=== PATIENT | female | born 1975 ===

== ENCOUNTER 2021-01-08 13:46 | Outpatient (REF) | payer MEDICAID, SELFPAY | END 2021-01-08 13:47 | disposition home or self-care (01) | LOC: HO.LAB 13:46 | PROVIDERS: Visit Provider Internal Medicine | DX: Z20.822 Contact with and (suspected) exposure to COVID-19 (principal) | CPT/HCPCS: 36415; C9803; U0003; U0005 ==

== ENCOUNTER 2023-03-28 10:21 | Emergency (ER) | payer MEDICAID, SELFPAY ==
[2023-03-28] VITALS (9 sets, daily range): BP systolic 120–160; BP diastolic 72–87; PULSE 89–113; RESP 18–25; TEMP 36.7–39.6; O2SAT 95–99; BMI 27.8
--- NOTE | ~2023-03-28 | US_ITS ---
EXAMINATION: US PELVIS COMPLETE CLINICAL INFORMATION: Right lower quadrant pain COMPARISON: CT abdomen pelvis 03/28/2023 TECHNIQUE: Transabdominal and transvaginal imaging was performed. Technically limited exam as patient was in significant pain. FINDINGS: The uterus is of normal size and echogenicity measuring 8.5 x 5.0 x 5.6 cm. Uterus is retroverted in position. A regular homogeneous endometrium is identified measuring 0.7 cm. Nabothian cysts in the cervix. Tiny 7 mm intramural myoma in the anterior body of the uterus. The right ovary is reported surgically absent. The left measures 5.3 x 2.6 x 3.2 cm for a volume of 23 mL and is remarkable for physiologic dominant follicles however is unremarkable in appearance with normal vascular flow. Increased echogenicity involving the mesenteric fat in the pelvis suggestive of active inflammation. There is trace free fluid in the pelvis and tubular loculated appearing fluid in the anterior pelvis measuring approximately 5.6 x 1.9 cm. There is no pelvic free fluid. US/US pelvic and transvaginal IMPRESSION: 1. Technically limited exam as patient was in significant pain. There is increased echogenicity involving the mesenteric fat in the pelvis suggestive of active inflammation. There is trace free fluid in the pelvis and tubular loculated appearing fluid in the anterior pelvis measuring approximately 5.6 x 1.9 cm of uncertain etiology, differential considerations could include a dilated hydrosalpinx in the setting of PID, a dilated appendix in the setting of appendicitis or a loculated fluid collection or developing abscess in the setting of other underlying inflammatory process. A contrast-enhanced CT of abdomen pelvis with IV and enteric contrast may be useful for further delineation. 2. The right ovary is reported surgically absent. The left ovary is remarkable for physiologic dominant follicles however is unremarkable in appearance with normal vascular flow. 3. Tiny 7 mm intramural myoma in the anterior body of the uterus.
--- NOTE | ~2023-03-28 | CT_ITS ---
EXAMINATION: CT ABDOMEN AND PELVIS WITHOUT CONTRAST CLINICAL INFORMATION: Abdominal pain. COMPARISON: None available. TECHNIQUE: Multidetector volumetric imaging was performed from the superior aspect of the liver through the pubic symphysis. Sagittal and coronal reformatted images were obtained on the technologist's workstation. This CT examination was performed using dose optimization techniques as appropriate, variously including the following: *Automated exposure control *Adjustment of mA and/or kV according to patient size (this includes techniques or standardized protocols for targeted exams where dose is matched to indication/reason for exam; i.e. extremities or head) *Use of iterative reconstruction technique DLP: 606 mGy-cm FINDINGS: LUNG BASES: Normal. No pulmonary consolidation or pleural effusion. LIVER: There is hepatomegaly and diffuse hepatic steatosis. No focal liver lesion is seen on this noncontrast examination. GALLBLADDER AND BILIARY TREE: Gallbladder is without radiopaque stones, wall thickening or pericholecystic fluid. No dilated bile ducts. PANCREAS: Normal. No edema, pancreatic ductal dilatation or mass. SPLEEN: Splenomegaly is present. The spleen measures up to 15.5 cm maximum dimension. ADRENAL GLANDS: Normal. KIDNEYS AND URETERS: The kidneys have normal size and cortical thickness. No perinephric edema or fluid collection. No urolithiasis or hydroureteronephrosis. BLADDER: Urinary bladder is underdistended and suboptimally evaluated. There appears to be mild diffuse thickening of the bladder wall. No bladder stones. BOWEL AND PERITONEUM: Stomach and small bowel are unremarkable. The right colon has a somewhat elongated appearance with cecum located near the midline of the anterior pelvis. The terminal ileum is grossly normal on this noncontrast examination. There is ill-defined soft tissue thickening and fat stranding posterior to the region of the cecum, anterior to the sigmoid colon and superior to the uterine fundus. An acute inflammatory or infectious process is suspected. There is no clearly defined inflamed diverticulum of the sigmoid colon, but the evaluation is limited. There are diverticula along the descending colon without evidence of descending colon diverticulitis. The appendix is not definitively seen and, if in the proper clinical context, differential diagnosis would include appendicitis with extensive periappendiceal inflammation. Also, since inflammation surrounds the uterus and adnexal areas, differential diagnosis would include pelvic inflammatory disease. Trace free fluid is present. There is no overt soft tissue abscess. No pneumoperitoneum. ABDOMINAL WALL: There is diastases of rectus abdominis muscles and minimal protrusion of fat into the umbilicus. VASCULATURE: Abdominal aorta is normal in caliber. LYMPH NODES: No pathologic sized lymph nodes in the abdomen or pelvis. No inguinal lymphadenopathy. PELVIC VISCERA: The uterus and adnexa are not well evaluated. MUSCULOSKELETAL: Unremarkable. CT/CT abdomen pelvis wo IV con IMPRESSION: * There appears to be an acute inflammatory process in the pelvis, although its specific cause is uncertain. The evaluation is limited on this exam performed without use of enteric contrast or intravenous contrast. The appendix is not definitively seen and therefore differential diagnosis would include inflammatory changes from appendicitis. There is no convincing identification of an inflamed sigmoid diverticulum, although diverticula of the colon are present. Since in the fat stranding is around the uterus and adnexal areas, differential includes pelvic inflammatory disease. A repeat evaluation with use of enteric contrast and IV contrast might be helpful. No bowel obstruction. * Hepatosplenomegaly and diffuse hepatic steatosis.
--- NOTE | 2023-03-28 10:57 | ECG_ITS ---
Test Reason : WEAKNESS Blood Pressure : / mmHG Vent. Rate : 103 BPM Atrial Rate : 103 BPM P-R Int : 128 ms QRS Dur : 086 ms QT Int : 338 ms P-R-T Axes : 042 067 018 degrees QTc Int : 442 ms Sinus tachycardia Otherwise normal ECG When compared with ECG of 25-JAN-2017 10:53, No significant change was found Referred By: Genie Valdes Electronically Signed By:Deni Gonzalez
--- NOTE | 2023-03-28 11:15 | PC.NURSE ---
patient a&ox3, c/o 08/03 rt abd pain, abdomen is firm/distended and painful upon palp, iv inserted, labs drawn, tech to perform ekg, call hardin within reach, will continue to monitor.
[2023-03-28 11:16] LABS: MANUAL DIFF FLAG NO
[2023-03-28 11:18] LABS: Basophils Absolute Auto 0.1 X10*3/uL (0.0-0.2); Basophils Percent Auto 0.3 % (0-2); Eosinophils Absolute Auto 0.1 X10*3/uL (0.0-0.4); Eosinophils Percent Auto 0.5 % (0-4); Hematocrit 31.8 % (37.0-47.0); Hemoglobin 10.6 g/dl (12.0-16.0); Imm Gran Abs Auto 0.53 X10*3/uL (0.00-0.03); Lymphocytes Percent Auto 5.8 % (20-40); Mean Corpuscular HGB Conc 33.3 g/dl (31.0-35.0); Mean Corpuscular Hemoglobin 31.7 pg (27.0-33.0); Mean Corpuscular Volume 95.2 fL (80.0-98.0); Mean Platelet Volume 10.8 fL (9.4-12.3); Monocytes Percent Auto 5.8 % (2-11); NRBC Pct Auto 0.1 /100WBC (0.0-0.2); Neutrophils Absolute Auto 14.8 x10*3/uL (2.0-8.3); Neutrophils Percent Auto 84.6 % (45-73); Platelet Count 339 X10*3/uL (160-400); Red Blood Count 3.34 X10*6/uL (4.20-5.50); White Blood Count 17.5 X10*3/uL (4.8-10.8)
[2023-03-28 11:43] LABS: Troponin-I High Sensitivity < 2.7 ng/L (<3.5-17.0)
[2023-03-28 11:44] LABS: Alanine Aminotransferase 25 U/L (0-31); Albumin Level 3.6 g/dL (3.5-5.0); Alkaline Phosphatase 167 U/L (39-117); Anion Gap 18 (12-20); Aspartate Amino Transferase 23 U/L (5-31); Bilirubin Direct 0.2 mg/dL (0.0-0.5); Bilirubin Total 0.7 mg/dL (0.0-1.0); Blood Urea Nitrogen 6 mg/dL (9-16); Calcium 8.5 mg/dL (8.4-10.2); Carbon Dioxide 24 mmol/L (22-29); Chloride 102 mmol/L (96-108); Creatinine Clr Calc Pharmacy 101.8; Estimated Glomerular Filt Rate > 60; Glucose Random 161 mg/dL (60-115); HCG Quantitative < 2 mIU/mL; Lipase 18 U/L (8-78); Magnesium 1.6 mg/dL (1.6-2.6); Potassium 3.6 mmol/L (3.3-5.1); Sodium 140 mmol/L (135-145); Total Protein 6.6 g/dL (6.5-8.0)
[2023-03-28] MEDS: 0.9 % Sodium Chloride 1,000 ML 999 ML IV ×3 (12:00→20:09)
[2023-03-28] MEDS: ondansetron HCL 4 MG/2 ML VIAL IVPUSH (12:00)
--- NOTE | 2023-03-28 12:02 | PC.NURSE ---
pt medicated for nausea and ivf started per order
--- NOTE | 2023-03-28 12:25 | ED.ABDPAIN ---
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 Transabdominal and transvaginal imaging was performed. Technically limited exam as patient was in significant pain. FINDINGS: The uterus is of normal size and echogenicity measuring 8.5 x 5.0 x 5.6 cm. Uterus is retroverted in position. A regular homogeneous endometrium is identified measuring 0.7 cm. Nabothian cysts in the cervix. Tiny 7 mm intramural myoma in the anterior body of the uterus. The right ovary is reported surgically absent. The left measures 5.3 x 2.6 x 3.2 cm for a volume of 23 mL and is remarkable for physiologic dominant follicles however is unremarkable in appearance with normal vascular flow. Increased echogenicity involving the mesenteric fat in the pelvis suggestive of active inflammation. There is trace free fluid in the pelvis and tubular loculated appearing fluid in the anterior pelvis measuring approximately 5.6 x 1.9 cm. There is no pelvic free fluid. US/US pelvic and transvaginal IMPRESSION: 1.? Technically limited exam as patient was in significant pain. There is increased echogenicity involving the mesenteric fat in the pelvis suggestive of active inflammation. There is trace free fluid in the pelvis and tubular loculated appearing fluid in the anterior pelvis measuring approximately 5.6 x 1.9 cm of uncertain etiology, differential considerations could include a dilated hydrosalpinx in the setting of PID, a dilated appendix in the setting of appendicitis or a loculated fluid collection or developing abscess in the setting of other underlying inflammatory process. A contrast-enhanced CT of abdomen pelvis with IV and enteric contrast may be useful for further delineation. 2.? The right ovary is reported surgically absent. The left ovary is remarkable for physiologic dominant follicles however is unremarkable in appearance with normal vascular flow. 3.? Tiny 7 mm intramural myoma in the anterior body of the uterus. ? Dictated By: Ofelia Mills MD External Record Review External record reviewed: Inpatient record, Office record, Outpatient record, Prior outpatient labs, Prior outpatient radiology, Primary care record and Outside ED record Prescription Management I considered prescription management with: Pain Medication Medications Administered Discontinued Medications Generic Name Dose Route Start Last Admin Trade Name Freq PRN Reason Stop Dose Admin Acetaminophen 975 mg 03/28/23 15:57 03/28/23 16:13 Acetaminophen 325 Mg Tablet PO 03/28/23 15:58 975 mg ONCE ONE Administration Hydromorphone HCl 0.5 mg 03/28/23 12:11 03/28/23 12:47 Hydromorphone Hcl 0.5 Mg/0.5 Ml Syringe IVPUSH 03/28/23 12:12 0.5 mg ONCE ONE Administration Protocol Hydromorphone HCl 0.25 mg 03/28/23 14:38 03/28/23 14:55 Hydromorphone Hcl 0.5 Mg/0.5 Ml Syringe IVPUSH 03/28/23 14:39 0.25 mg ONCE ONE Administration Protocol Hydromorphone HCl 0.5 mg 03/28/23 19:32 03/28/23 20:34 Hydromorphone Hcl 0.5 Mg/0.5 Ml Syringe IVPUSH 03/28/23 19:33 0.5 mg ONCE ONE Administration Protocol Sodium Chloride 1,000 mls @ 999 mls/hr 03/28/23 11:52 03/28/23 13:30 Ns IV 03/28/23 12:52 Infused .Q1H1M ONE Infusion Piperacillin Sod/Tazobactam 100 mls @ 200 mls/hr 03/28/23 12:06 03/28/23 13:17 Sod 4.5 gm/ Sodium Chloride IV 03/28/23 12:35 Infused ONCE ONE Infusion Sodium Chloride 1,000 mls @ 999 mls/hr 03/28/23 14:23 03/28/23 15:32 Ns IV 03/28/23 15:23 Infused .Q1H1M ONE Infusion Sodium Chloride 1,000 mls @ 999 mls/hr 03/28/23 19:13 03/28/23 21:12 Ns IV 03/28/23 20:13 Infused .Q1H1M ONE Infusion Doxycycline Hyclate 100 mg/ 250 mls @ 166.67 mls/hr 03/28/23 19:15 03/28/23 21:12 Sodium Chloride IV 03/28/23 20:44 Infused ONCE ONE Infusion Metronidazole 500 mg in 100 mls @ 100 mls/hr 03/28/23 19:15 03/28/23 21:23 Flagyl IV 03/28/23 20:14 Infused ONCE ONE Infusion Ceftriaxone Sodium 1 gm/ 50 mls @ 100 mls/hr 03/28/23 19:15 03/28/23 20:46 Sodium Chloride IV 03/28/23 19:44 Infused ONCE ONE Infusion Ibuprofen 600 mg 03/28/23 16:08 03/28/23 16:13 Ibuprofen 600 Mg Tablet PO 03/28/23 16:09 600 mg ONCE ONE Administration Ondansetron HCl 4 mg 03/28/23 11:51 03/28/23 12:00 Ondansetron Hcl 4 Mg/2 Ml Vial IVPUSH 03/28/23 11:52 4 mg ONCE ONE Administration Discharge Plan Discharge Clinical Impression: Pelvic abscess in female Patient Disposition: er [facility] Transfer Details: [facility] in [place], [place] Interventions: Acute Care Transfer Worksheet (ED) Last Done: 03/28/23 21:47 Discharge Date/Time: 03/28/23 23:52
[2023-03-28 12:46] LABS: Lactic Acid 1.5 mmol/L (0.5-2.0)
[2023-03-28] MEDS: HYDROmorphone HCl 0.5 MG/0.5 ML SYRINGE IVPUSH ×2 (12:47→20:34)
[2023-03-28] MEDS: Piperacillin Sodium/Tazobactam 4.5 GM in 0.9 % Sodium Chloride 100 ML IV (12:47)
--- NOTE | 2023-03-28 12:56 | PC.NURSE ---
patient a&ox3, c/o 08/03 pain, pt medicated for pain per order, iv abx given per order. with assistance of cardroom hand patient stated she wanted to leave [facility] and [facility] because she heard people talking about her positive for cocaine in her blood, this nurse told the patient that we have not run any type of drug screen on her, this nurse also explained that it was important for her to have the antibiotics because her white count is elevated. the patient apologized and is continuing to get her abx. will continue to monitor.
[2023-03-28 14:01] LABS: Appearance Urine Clear; Color Urine Yellow; Glucose Urine UA Negative (Negative); Leukocyte Esterase Urine Small (1+) (Negative); Nitrite Urine Negative (Negative); PH 7.5 (5.0-9.0); Specific Gravity - Urine <= 1.005 (1.005-1.025); UMIC TRIGGER UACC YES; Urine Blood Negative (Negative); Urine Ketones Negative (Negative); Urine Protein Negative (Neg-Trace)
[2023-03-28 14:03] LABS: Bacteria Urine None Seen (None Seen); Hyaline Casts Urine 0-2 /LPF (0-2); RBC Urine 0-2 /HPF (0-2); Squamous Epithelial Cell Urine 0-2 /HPF (0-2); UACC Culture Trigger YES
--- NOTE | 2023-03-28 14:32 | PC.NURSE ---
patient a&ox3, ivf started per order, help desk analyst sinus tach, pt states she has some pain but very little in comparison to before, vss, awaiting ct scan results, will continue to monitor.
[2023-03-28] MEDS: HYDROmorphone HCl 0.5 MG/0.5 ML SYRINGE 0.25 MG IVPUSH (14:55)
--- NOTE | 2023-03-28 14:57 | PC.NURSE ---
pt medicated for pain per order
--- NOTE | 2023-03-28 15:38 | P.CONGS_ITS ---
History of Present Illness Consult details Consult date: 03/28/23 Reason for consult: abdominal pain Narrative: The patient is a 47-year-old [place]andan-speaking woman who denies any significant past medical history. She does note that there were some issues with her ovaries in her test and during a prior operation for tip cutter issues in 2007. She is seen at the request of the emergency room because of a pelvic abscess and nonvisualization of the appendix. Patient reports that she has had 2 weeks of abdominal pain that continued to progress. CT scan raises a question of possible appendiceal abscess versus PID, but the patient has anemia and distorted cecum/right colon raises the question of possible GI malignancy. I was asked to help evaluate and direct her care. [facility] Past Medical History Medical History (Updated 03/28/23 @ 17:08 by Octavio Dover MD) Anxiety Asthma Social History Social History Alcohol intake: never Smoked in Last 30 Days: No Use of substances other than those prescribed or required for medical reasons: Yes Substance Use Type: Marijuana Substance Use Frequency: Daily Advance Directives: No Advance Directives Information Provided: No Meds Allergies Allergy/AdvReac Type Severity Reaction Status Date / Time Iodinated Contrast Media Allergy Unknown UNKNOWN Verified 03/28/23 10:27 [CONTRAST, IV] acetaminophen [From Percocet] Allergy Palpitation Verified 03/28/23 10:27 s morphine Allergy Palpitation Verified 03/28/23 10:27 s oxycodone [From Percocet] Allergy Palpitation Verified 03/28/23 10:27 s Physical Exam Vital Signs: Vital Signs: Last Vital Signs Temp 98.7 F 03/28/23 13:36 Pulse 113 H 03/28/23 13:36 Resp 24 H 03/28/23 13:36 BP 160/78 H 03/28/23 13:36 Pulse Ox 96 03/28/23 13:36 O2 Del Method Room Air 03/28/23 10:24 BMI result Body Mass Index 27.8 The patient is non-toxic & in good spirits NC/AT, PERRLA, EOMI Mood, affect & judgment all appear appropriate Sclera anicteric conjunctiva pink and moist Oropharynx is clear with no aphthous ulcers, Mallampati class 2, mucous membranes moist Neck is supple with no masses, adenopathy or bruits Thyroid is nontender and free of dominant masses Heart is regular, normal S1-S2 no rubs or murmurs Lungs are clear and equal anteriorly with no audible wheezing, rubs or dullness to percussion No CVA tenderness present Abdomen is overweight with no demonstrable hernias. She has vague right-sided abdominal pain and right/suprapubic pain and is distended. No peritoneal sign is present. No HSM, rebound, rigidity, guarding, masses or bruits are present. Rectal exam is deferred Skin has good turgor and is free of rashes Extremities free of cyanosis clubbing edema Results Labs 03/28/23 11:10 03/28/23 11:10 Labs: Abnormal lab results 03/28/23 03/28/23 03/28/23 Range/Units 11:10 11:10 13:38 WBC 17.5 H (4.8-10.8) X10*3/uL RBC 3.34 L (4.20-5.50) X10*6/uL Hgb 10.6 L (12.0-16.0) g/dl Hct 31.8 L (37.0-47.0) % Immature Gran % (Auto) 3.0 H (0.0-0.4) % Neut % (Auto) 84.6 H (45-73) % Lymph % (Auto) 5.8 L (20-40) % Lymph # (Auto) 1.0 L (1.2-4.9) X10*3/uL Abs Immat Gran (auto) 0.53 H (0.00-0.03) X10*3/uL Absolute Neuts (auto) 14.8 H (2.0-8.3) x10*3/uL Absolute Nucleated RBC 0.020 H (0.0-0.012) X10*3/uL BUN 6 L (9-16) mg/dL Random Glucose 161 H (60-115) mg/dL Alkaline Phosphatase 167 H (39-117) U/L Ur Leukocyte Esterase Small (1+) H (Negative) Urine WBC 6-10 H (0-5) /HPF Short CBC 03/28/23 Range/Units 11:10 WBC 17.5 H (4.8-10.8) X10*3/uL Hgb 10.6 L (12.0-16.0) g/dl Hct 31.8 L (37.0-47.0) % Plt Count 339 (160-400) X10*3/uL BMP 03/28/23 11:10 Sodium 140 Potassium 3.6 Chloride 102 Carbon Dioxide 24 BUN 6 L Creatinine 0.66 Calcium 8.5 Liver Function 03/28/23 Range/Units 11:10 Total Bilirubin 0.7 (0.0-1.0) mg/dL Direct Bilirubin 0.2 (0.0-0.5) mg/dL AST 23 (5-31) U/L ALT 25 (0-31) U/L Alkaline Phosphatase 167 H (39-117) U/L Albumin 3.6 (3.5-5.0) g/dL Urine 03/28/23 Range/Units 13:38 Urine Color Yellow Urine Appearance Clear Urine pH 7.5 (5.0-9.0) Ur Specific [place] <= 1.005 (1.005-1.025) Urine Protein Negative (Neg-Trace) mg/dL Urine Glucose (UA) Negative (Negative) mg/dL All other labs normal. Imaging Abdomen CT scan report/results: report reviewed and image reviewed CT scan - pelvis: report reviewed and image reviewed Assessment and Plan (1) Pelvic abscess in female: Status: Acute Plan Patient has a pelvic abscess with unclear etiology. Recommend tip cutter evaluation. The patient will likely need repeat CT with oral contrast following input from both Gastroenterology to consider a colonoscopy to exclude cecal/colonic mass. Inpatient verses outpatient endoscopy is deferred to GI. Patient may need Interventional Radiology drainage if no interval improvement on IV antibiotics. Will follow Time Spent With Patient Time: Total time managing care of this patient today ____ minutes. Procedures Date of Service Date of Service: 03/28/23
--- NOTE | 2023-03-28 16:00 | MHC.EDTECH ---
this pct assumed care of pt at 1500 ,vitals sign taken ,provider Jany and RN Nedra is aware of patient high temp ,A1C lab drawn and sent to lab ,patient is resting quietly in bed .
[2023-03-28] MEDS: Ibuprofen 600 MG TABLET PO (16:13)
[2023-03-28] MEDS: Acetaminophen 325 MG TABLET 975 MG PO (16:13)
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
[2023-03-28 16:40] LABS: Estimated Average Glucose 103 mg/dL; Hemoglobin A1c % 5.2 %
--- NOTE | 2023-03-28 18:32 | PC.NURSE ---
room set up for auction block clerk provider to do internal, pt put onto auction block clerk stretcher
--- NOTE | 2023-03-28 18:36 | PM.GYNCN ---
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 - Review of Systems Review of Systems ROS Unobtainable: All systems reviewed & are unremarkable except as noted in HPI and below Cardiovascular: Denies Palpatations, Loss of consciousness or Chest pain Respiratory: Denies Cough, Wheezing or Shortness of breath Musculoskeletal: Denies Low back pain Gastrointestinal: Denies Heartburn, Constipation, Diarrhea, Nausea or Vomiting Genitourinary: Denies Pain with urination, Burning with urination or Urinary frequency Neurological: Denies Migranes Psychological: Denies Depression OB PMFSH Past Medical History Medical History (Updated 03/28/23 @ 20:58 by Thomas Larsen) Anxiety Asthma Social History Social History Alcohol intake: never Substance Use Type: Marijuana Meds Allergies Allergy/AdvReac Type Severity Reaction Status Date / Time Iodinated Contrast Media Allergy Unknown UNKNOWN Verified 03/28/23 10:27 [CONTRAST, IV] acetaminophen [From Percocet] Allergy Palpitation Verified 03/28/23 10:27 s morphine Allergy Palpitation Verified 03/28/23 10:27 s oxycodone [From Percocet] Allergy Palpitation Verified 03/28/23 10:27 s DOUBLE NEEDLE STITCHER Physical Exam Vitals Vital signs: Temp Pulse Resp BP Pulse Ox O2 Del Method 99.2 F 101 H 18 128/72 95 Room Air 03/28/23 17:57 03/28/23 17:57 03/28/23 17:57 03/28/23 17:57 03/28/23 17:57 03/28/23 17:57 BMI result Body Mass Index 27.8 Constitutional General Appearance: Healthy appearing, Well-nourished and Well-developed Psychiatric Mood and Affect: active and alert, normal mood and normal affect Skin Appearance: No rashes and No lesions Lungs Respiratory Effort: No intercostal retractions Auscultation: Clear to auscultation Cardiovascular Auscultation: RRR Abdomen Auscultation/Inspection/Palpation: Rigid, Distended, Tenderness (all over abdomen), Guarding and Rebound tenderness Female Genitalia (Pelvic) Bladder/Urethra: Normal meatus Vulva: No lesions Cervix: Cervical motion tenderness Uterus: Tender Adnexa/Parametria: Adnexal Tenderness: Bilateral DOUBLE NEEDLE STITCHER - Results Labs 03/28/23 11:10 03/28/23 11:10 Labs: Short CBC 03/28/23 Range/Units 11:10 WBC 17.5 H (4.8-10.8) X10*3/uL Hgb 10.6 L (12.0-16.0) g/dl Hct 31.8 L (37.0-47.0) % Plt Count 339 (160-400) X10*3/uL BMP 03/28/23 11:10 Sodium 140 Potassium 3.6 Chloride 102 Carbon Dioxide 24 BUN 6 L Creatinine 0.66 Calcium 8.5 Liver Function 03/28/23 Range/Units 11:10 Total Bilirubin 0.7 (0.0-1.0) mg/dL Direct Bilirubin 0.2 (0.0-0.5) mg/dL AST 23 (5-31) U/L ALT 25 (0-31) U/L Alkaline Phosphatase 167 H (39-117) U/L Albumin 3.6 (3.5-5.0) g/dL Urine 03/28/23 Range/Units 13:38 Urine Color Yellow Urine Appearance Clear Urine pH 7.5 (5.0-9.0) Ur Specific [place] <= 1.005 (1.005-1.025) Urine Protein Negative (Neg-Trace) mg/dL Urine Glucose (UA) Negative (Negative) mg/dL Imaging CT scan - pelvis: Radiologist's impression: ITS Impressions Abdomen/Pelvis CT 03/28/23 13:26 IMPRESSION: * There appears to be an acute inflammatory process in the pelvis, although its specific cause is uncertain. The evaluation is limited on this exam performed without use of enteric contrast or intravenous contrast. The appendix is not definitively seen and therefore differential diagnosis would include inflammatory changes from appendicitis. There is no convincing identification of an inflamed sigmoid diverticulum, although diverticula of the colon are present. Since in the fat stranding is around the uterus and adnexal areas, differential includes pelvic inflammatory disease. A repeat evaluation with use of enteric contrast and IV contrast might be helpful. No bowel obstruction. * Hepatosplenomegaly and diffuse hepatic steatosis. Pelvic/Transvag US 03/28/23 16:47 IMPRESSION: 1. Technically limited exam as patient was in significant pain. There is increased echogenicity involving the mesenteric fat in the pelvis suggestive of active inflammation. There is trace free fluid in the pelvis and tubular loculated appearing fluid in the anterior pelvis measuring approximately 5.6 x 1.9 cm of uncertain etiology, differential considerations could include a dilated hydrosalpinx in the setting of PID, a dilated appendix in the setting of appendicitis or a loculated fluid collection or developing abscess in the setting of other underlying inflammatory process. A contrast-enhanced CT of abdomen pelvis with IV and enteric contrast may be useful for further delineation. 2. The right ovary is reported surgically absent. The left ovary is remarkable for physiologic dominant follicles however is unremarkable in appearance with normal vascular flow. 3. Tiny 7 mm intramural myoma in the anterior body of the uterus. Assessment and Plan (1) Pelvic abscess in female: Status: Acute Plan GC chlamydia, BV panel and Trichomonas taken. Ceftriaxone 1 g, Flagyl 500 mg, doxycycline 100 mg IV to be started yue Discussed with Dr. Dover general surgery the ultrasound findings which tubular loculated appearing fluid in the anterior pelvis possible ruptured appendicitis or hydrosalpinx is the differential differential diagnosis in addition to the finding on abdominal exam and the possibility of the possible indication for diagnostic laparoscopy to rule out ruptured appendix , he mentioned that the management of ruptured appendix of 2 weeks duration is to admit for IV antibiotics and if there is no improvement to proceed with percutaneous drainage. Since the patient has surgical abdomen with the possibility of abscess on ultrasound, I recommend, pelvic MRI for further diagnosis and possible percutaneous drainage as a initial step with IV antibiotics, but there no IR nor MRI available [facility], therefore I recommend transfer to [facility] for further management . Discussed the case with Dr. Lee & PEDRO Huang in the emergency room. This note was generated with a voice recognition program. Some errors may have been overlooked during the review of this note. Sometimes these errors may affect the content or meaning of a given sentence. Time Spent With Patient Time: Total time managing care of this patient today ____ minutes.
--- NOTE | 2023-03-28 20:09 | MHC.EDTECH ---
[facility] Tx line called @ 1916 spoke with Mary she stated they are closed to surgical transfers,PEDRO Guzman was made aware.
--- NOTE | 2023-03-28 20:11 | MHC.EDTECH ---
[facility] called @ 1920 speaking with Fadumo gave pt info and Thomas VASQUEZ took call right away
[2023-03-28] MEDS: metroNIDAZOLE/NS 500 MG/100 ML PIGGYBACK 100 MG IV (20:13)
[2023-03-28] MEDS: cefTRIAXone sodium 1 GM in 0.9 % Sodium Chloride 50 ML IV (20:15)
[2023-03-28] MEDS: Doxycycline Hyclate 100 MG in 0.9 % Sodium Chloride 250 ML 166.67 MG IV (20:15)
--- NOTE | 2023-03-28 21:32 | MHC.EDTECH ---
patient was assisted with ambulation to bathroom and back to bed ,patient was hooked back up to monitoring analyst ,Pt asked for ice chips ,Hank Hopper said it was ok to give a few peices of ice chips ,pt is comfortable at this time .
--- NOTE | 2023-03-28 21:34 | MHC.EDTECH ---
Late Entry , @ 1952 Selena called back from [place] line spoke with Thomas VASQUEZ , Received a second call @ 1957 form Selena speaking with Thomas at this time.
--- NOTE | 2023-03-28 21:37 | MHC.EDTECH ---
Received a call from Selena from [place] [place] line @ 2049,patient was accepted by from [facility]. in [facility] patient is going to the Emergency Dept. Nurse To Nurse Report RN cece Tam was called for a stat tx @ 2104 per Thomas VASQUEZ, spoke with Loan she stated 20 to 25mins.
--- NOTE | 2023-03-28 21:44 | MHC.EDTECH ---
EMS arrived @ 2143 for transport. RN at bedside
--- NOTE | 2023-03-28 21:47 | PC.NURSE ---
Report given to [facility], pt transported via stretcher aox4 no apparent distress VSS prior to handoff
--- NOTE | 2023-03-29 01:18 | PC.NURSE ---
Gave N2N report to KACY Valentin ([facility] ED)
[2023-03-29 10:36] LABS: CT PCR NOT DETECTED (Not Detect.); NG PCR NOT DETECTED (Not Detect.)
[2023-03-29 12:39] LABS: BV Int Neg Control Negative (Negative); BV Int Pos Control Positive (Positive)
== END 2023-03-28 23:52 | disposition short-term general hospital (02) ==
PROVIDERS: Physician Assistant Medical; Surgery; Emergency Provider Internal Medicine; PCP Internal Medicine Geriatric Medicine
DX: N73.9 Female pelvic inflammatory disease, unspecified (principal); R10.2 Pelvic and perineal pain; R00.0 Tachycardia, unspecified; R10.31 Right lower quadrant pain; Z79.899 Other long term (current) drug therapy
CPT/HCPCS: 0353U; 36415; 74176; 76830; 76856; 80048; 80076; 81001; 81003; 83036; 83605; 83690; 83735; 84484; 84702; 85025; 87040; 87086; 87480; 87510; 87660; 93005; 96361; 96374; 96375; 96376; 99285; J0696; J1170; J2405; J2543

== ENCOUNTER 2023-04-15 10:10 | Outpatient (REF) | payer MEDICAID, SELFPAY ==
--- NOTE | ~2023-04-15 | CT_ITS ---
EXAMINATION: CT ABDOMEN AND PELVIS WITHOUT CONTRAST CLINICAL INFORMATION: PID COMPARISON: Previous CT of the abdomen and pelvis pelvic ultrasound 03/28/2023 TECHNIQUE: Multidetector volumetric imaging was performed from the superior aspect of the liver through the pubic symphysis. Sagittal and coronal reformatted images were obtained on the technologist's workstation. This CT examination was performed using dose optimization techniques as appropriate, variously including the following: *Automated exposure control *Adjustment of mA and/or kV according to patient size (this includes techniques or standardized protocols for targeted exams where dose is matched to indication/reason for exam; i.e. extremities or head) *Use of iterative reconstruction technique DLP: 450 mGy-cm FINDINGS: LUNG BASES: The visualized lung bases are unremarkable. LIVER, GALLBLADDER, AND BILIARY TREE: The liver is normal in size, shape, and attenuation. No focal hepatic lesion or biliary ductal dilatation is present. The gallbladder is unremarkable with no evidence of radiopaque gallstones, gallbladder wall thickening, or obvious pericholecystic inflammatory changes. PANCREAS: Unremarkable. SPLEEN: The spleen is slightly enlarged measuring 13 cm in length. ADRENAL GLANDS: Unremarkable. KIDNEYS AND URETERS: 2 small 2 mm stones in the upper and lower pole right kidney. No evidence of hydronephrosis and ureteral dilatation or ureteral stone. Kidneys are otherwise normal. The kidneys are otherwise normal. BLADDER: There is a new small amount of air in the bladder. This may be related to recent catheterization. Fistula and infection should be excluded.. GASTROINTESTINAL TRACT: There is stool throughout the colon and the colon is slightly distended suggestive of constipation. Cecum is located in the left side of the pelvis. Appendix is seen and drapes over the anterior uterus. The appendix is normal appearing. There is diverticulosis of the colon. No evidence of diverticulitis or colitis is seen. Small bowel is normal without evidence of enteritis. Previously identified inflammatory process in the pelvis appears improved from March 2023.. ABDOMINAL WALL: No significant hernia is appreciated. LYMPH NODES: Normal. VASCULAR: Unremarkable. PELVIC VISCERA: Uterus and ovaries are unremarkable. There is interval improvement in fat stranding and inflammatory changes in the pelvis compared to March 2023. OSSEOUS STRUCTURES: Mild degenerative changes.. CT/CT abdomen pelvis wo IV con IMPRESSION: Constipation. Mild diverticulosis. Normal appendix. Resolved/improved inflammatory changes in the pelvis. New small amount of air in the bladder. This may be related to recent catheterization. Differential would include infection and fistula. Clinical correlation recommended. Small right renal stones. Fleischner guidelines were followed.
[2023-04-15] MEDS: Barium Sulfate Oral (Vanilla) 450 ML ORAL.SUSP 900 ML PO (13:33)
== END 2023-04-15 10:11 | disposition home or self-care (01) ==
LOC: HO.CT 10:10
PROVIDERS: PCP Internal Medicine Geriatric Medicine; Visit Provider Registered Nurse
DX: N73.9 Female pelvic inflammatory disease, unspecified (principal)
CPT/HCPCS: 74176

== ENCOUNTER 2023-04-21 11:28 | Emergency (ER) | payer MEDICAID, SELFPAY ==
[2023-04-21 11:30] VITALS: BP 135/78; PULSE 88; RESP 16; TEMP 36.2; O2SAT 98; BMI 27.1
--- NOTE | 2023-04-21 11:32 | ED.ABDPAIN ---
HPI - Abdominal Pain General Chief Complaint: Abdominal Pain Stated Complaint: referred by clinic / appendix? Time Seen by Provider: 04/21/23 11:50 Source: patient Mode of arrival: ambulatory Limitations: no limitations History of Present Illness HPI narrative: 47-year-old female presents with abdominal pain. Patient has had a recent complex history. She was seen in the emergency department on 03/28/2023. She was found to have a fluid collection around the appendix/right lower quadrant. She was ultimately transferred to [facility] for interventional Radiology placed a drain to the right lower quadrant. Subsequently, infection appeared to have spread to the left side of the abdomen possibly an ovary and a drain was placed on that side as well. She was admitted for 3 weeks with intravenous antibiotics. Since this time she has completed her oral antibiotic regimen. She complains of severe pain particularly in the right lower quadrant. The pain does not radiate. Pain is moderate to severe. There is no clear relieving or exacerbating features. She denies any nausea vomiting. She denies any diarrhea constipation. The pain is sharp in nature. She was sent by her primary care provider today to see if there is a surgical intervention that could definitively manage this. She did have a CT scan just a few days ago but the results are not yet available. Related Data Previous Rx's Medication Instructions Recorded gabapentin 300 mg capsule 300 mg PO TID #20 caps 04/21/23 Allergies Allergy/AdvReac Type Severity Reaction Status Date / Time Iodinated Contrast Media Allergy Unknown UNKNOWN Verified 04/21/23 11:41 [CONTRAST, IV] acetaminophen [From Percocet] Allergy Palpitation Verified 04/21/23 11:41 s morphine Allergy Palpitation Verified 04/21/23 11:41 s oxycodone [From Percocet] Allergy Palpitation Verified 04/21/23 11:41 s Review of Systems Review of Systems CONSTITUTIONAL: Denies weight loss, fever and chills. HEENT: Denies changes in vision and hearing. RESPIRATORY: Denies SOB and cough. CV: Denies palpitations no CP. GI: + abdominal pain, - nausea, vomiting and diarrhea. : Denies dysuria and urinary frequency. MSK: Denies myalgia and joint pain. SKIN: Denies rash and pruritus. NEUROLOGICAL: Denies headache and syncope. PSYCHIATRIC: Denies recent changes in mood. Denies anxiety and depression. All other ROS are negative unless in HPI PMFSH Past Medical History Medical History Anxiety Asthma Social History Social History Alcohol intake: never Substance Use Type: Marijuana Advance Directives: No Advance Directives Information Provided: No Physical Exam ED Vital Signs: Vital Signs - 24 hr 04/21/23 11:30 04/21/23 12:38 04/21/23 12:58 Temperature 97.1 F 98 F Pulse Rate 88 88 Respiratory Rate 16 16 18 Blood Pressure 135/78 127/79 Pulse Oximetry 98 94 Oxygen Delivery Method Room Air Room Air BMI result Body Mass Index 27.1 GEN: Well developed, no acute distress, alert, oriented HEENT: Normocephalic, atraumatic, normal external ears, nose appears normal, no oropharyngeal edema or exudates Eyes: Normal to appearance Neck: Supple, no lymphadenopathy Respiratory: Talks in complete sentences, no respiratory distress, clear to auscultation bilaterally Cardiovascular: Regular rate and rhythm, no murmurs rubs or gallops Abdomen: Soft, RUQ tenderness + Campos, nondistended, no guarding, no rebound, negative McBurney's point tenderness Back: No CVA tenderness Extremities: No clubbing cyanosis or edema Neurologic: No focal neurologic deficits, cranial nerves 2-12 intact, strength is 5/5 bilaterally Skin: No rash Course Course Course Narrative: RME: 47yo F w/PMHx pelvic abscess in beginning of March s/p surgical intervention in CT, presenting to the ED today sent in by PCP for continued lower abdominal pain. Patient admis pain never went away. Had outpatient CT on 04/15/23 which is not read yet. Labs, UA, lactic/blood cx ordered & Contacted Radiology for CT read Full HPI, ROS and PE to be performed by primary ED provider. Reevaluation(s) Reevaluation #1: I reviewed the imaging report as well as the images from CT scan. I did not see any appreciable fluid collection. This was confirmed by the radiology read. At this point, the patient can be discharged. The appendix appeared normal. Fluid collection is resolving. She can follow up back on an as-needed basis. Time: 14:01 Medical Decision Making Medical Decision Making MDM Narrative: 47-year-old female with complex recent history of abdominal infection, abscess presents for re-evaluation regarding right lower quadrant abdominal pain. My examination did reveal tenderness. She does not appear to be surgical at this time. She had a recent CT scan which I do not have the results of but I will try to obtain them today. In the meantime, we will recheck labs to make sure there is no significant elevated white blood cell count or other concerning findings. Will hold off on imaging at this time. Will consider surgical consultation as well depending on the CT scan report. Differential Diagnosis Differential Diagnoses: The differential diagnosis associated with the presentation includes (Abdominal pain, abscess, phlegmon is changes, appendicitis, diverticulitis, colitis, epiploic appendagitis, mesenteric adenitis) Admission/Observation Consideration of admission/observation: Escalation of care including admission/observation considered Lab Data MDM Lab Attestation statement: I reviewed the patient's lab results. 04/21/23 12:02 04/21/23 12:01 Labs: Lab Results 04/21/23 04/21/23 04/21/23 Range/Units 12:01 12:01 12:01 WBC (4.8-10.8) X10*3/uL RBC (4.20-5.50) X10*6/uL Hgb (12.0-16.0) g/dl Hct (37.0-47.0) % MCV (80.0-98.0) fL MCH (27.0-33.0) pg MCHC (31.0-35.0) g/dl RDW (11.0-16.0) % Plt Count (160-400) X10*3/uL MPV (9.4-12.3) fL Immature Gran % (Auto) (0.0-0.4) % Neut % (Auto) (45-73) % Lymph % (Auto) (20-40) % [place] % (Auto) (2-11) % Eos % (Auto) (0-4) % Baso % (Auto) (0-2) % Lymph # (Auto) (1.2-4.9) X10*3/uL [place] # (Auto) (0.1-1.2) X10*3/uL Eos # (Auto) (0.0-0.4) X10*3/uL Baso # (Auto) (0.0-0.2) X10*3/uL Abs Immat Gran (auto) (0.00-0.03) X10*3/uL Absolute Neuts (auto) (2.0-8.3) x10*3/uL Absolute Nucleated RBC (0.0-0.012) X10*3/uL Nucleated RBC % (auto) (0.0-0.2) /100WBC PT 11.0 (10.0-13.1) SEC INR 1.0 (0.9-1.1) Sodium 140 (135-145) mmol/L Potassium 3.7 (3.3-5.1) mmol/L Chloride 106 (96-108) mmol/L Carbon Dioxide 24 (22-29) mmol/L Anion Gap 14 (12-20) BUN 16 (9-16) mg/dL Creatinine 0.76 (0.5-1.4) mg/dL Estim Creat Clear Calc 87.3 Estimated GFR > 60 Random Glucose 130 H (60-115) mg/dL Lactic Acid 2.6 H* (0.5-2.0) mmol/L Calcium 9.7 D (8.4-10.2) mg/dL Magnesium 1.9 (1.6-2.6) mg/dL Total Bilirubin 0.5 (0.0-1.0) mg/dL Direct Bilirubin 0.1 (0.0-0.5) mg/dL AST 16 (5-31) U/L ALT 18 (0-31) U/L Alkaline Phosphatase 108 (39-117) U/L Total Protein 7.5 (6.5-8.0) g/dL Albumin 4.4 (3.5-5.0) g/dL Lipase 20 (8-78) U/L 04/21/23 Range/Units 12:02 WBC 6.4 (4.8-10.8) X10*3/uL RBC 3.78 L (4.20-5.50) X10*6/uL Hgb 11.8 L (12.0-16.0) g/dl Hct 35.9 L (37.0-47.0) % MCV 95.0 (80.0-98.0) fL MCH 31.2 (27.0-33.0) pg MCHC 32.9 (31.0-35.0) g/dl RDW 11.9 (11.0-16.0) % Plt Count 255 (160-400) X10*3/uL MPV 10.6 (9.4-12.3) fL Immature Gran % (Auto) 0.2 (0.0-0.4) % Neut % (Auto) 63.5 (45-73) % Lymph % (Auto) 25.3 (20-40) % [place] % (Auto) 6.9 (2-11) % Eos % (Auto) 3.5 (0-4) % Baso % (Auto) 0.6 (0-2) % Lymph # (Auto) 1.6 (1.2-4.9) X10*3/uL [place] # (Auto) 0.4 (0.1-1.2) X10*3/uL Eos # (Auto) 0.2 (0.0-0.4) X10*3/uL Baso # (Auto) 0.0 (0.0-0.2) X10*3/uL Abs Immat Gran (auto) 0.01 (0.00-0.03) X10*3/uL Absolute Neuts (auto) 4.1 (2.0-8.3) x10*3/uL Absolute Nucleated RBC 0.000 (0.0-0.012) X10*3/uL Nucleated RBC % (auto) 0.0 (0.0-0.2) /100WBC PT (10.0-13.1) SEC INR (0.9-1.1) Sodium (135-145) mmol/L Potassium (3.3-5.1) mmol/L Chloride (96-108) mmol/L Carbon Dioxide (22-29) mmol/L Anion Gap (12-20) BUN (9-16) mg/dL Creatinine (0.5-1.4) mg/dL Estim Creat Clear Calc Estimated GFR Random Glucose (60-115) mg/dL Lactic Acid (0.5-2.0) mmol/L Calcium (8.4-10.2) mg/dL Magnesium (1.6-2.6) mg/dL Total Bilirubin (0.0-1.0) mg/dL Direct Bilirubin (0.0-0.5) mg/dL AST (5-31) U/L ALT (0-31) U/L Alkaline Phosphatase (39-117) U/L Total Protein (6.5-8.0) g/dL Albumin (3.5-5.0) g/dL Lipase (8-78) U/L Independent Interpretation I performed an independent interpretation of an: CT Scan (CT scan abdomen: No fluid collection identified on my visualization, particularly in the right lower quadrant) Radiology Impression Discussion of test interpretation with radiology: I have reviewed the radiologist's reading. Radiologist Impression: CT/CT abdomen pelvis wo IV con IMPRESSION: Constipation. Mild diverticulosis. Normal appendix. Resolved/improved inflammatory changes in the pelvis. New small amount of air in the bladder. This may be related to recent catheterization. Differential would include infection and fistula. Clinical correlation recommended. Small right renal stones. Fleischner guidelines were followed. Dictated By: Virginia Perry MD Signed By: <Electronically signed by Virginia Perry MD in OV> 04/21/23 1255 External Record Review External record reviewed: Prior outpatient radiology Prescription Management I considered prescription management with: Pain Medication and Antibiotic Medications Administered Discontinued Medications Generic Name Dose Route Start Last Admin Trade Name Freq PRN Reason Stop Dose Admin Hydromorphone HCl 0.5 mg 04/21/23 12:28 04/21/23 12:38 Hydromorphone Hcl 0.5 Mg/0.5 Ml Syringe IVPUSH 04/21/23 12:29 0.5 mg ONCE ONE Administration Protocol Sodium Chloride 2,082 mls @ 2,082 mls/hr 04/21/23 12:28 04/21/23 12:39 Ns 30 ml/kg infuse over 1 hr (2082 ml) 04/21/23 13:27 2,082 mls/hr IV Administration .Q1H STA Ondansetron HCl 4 mg 04/21/23 12:28 04/21/23 12:38 Ondansetron Hcl 4 Mg/2 Ml Vial IVPUSH 04/21/23 12:29 4 mg ONCE ONE Administration Discharge Plan Discharge Clinical Impression: Abdominal pain, right lower quadrant Patient Disposition: Home, Self-Care Instructions: Abdominal Pain (ED) Prescriptions: New gabapentin 300 mg capsule 300 mg PO TID Qty: 20 0RF Referrals: Name,MD Richy [Primary Care Provider] -
[2023-04-21 12:08] LABS: MANUAL DIFF FLAG NO
[2023-04-21 12:10] LABS: Basophils Percent Auto 0.6 % (0-2); Eosinophils Absolute Auto 0.2 X10*3/uL (0.0-0.4); Eosinophils Percent Auto 3.5 % (0-4); Hematocrit 35.9 % (37.0-47.0); Hemoglobin 11.8 g/dl (12.0-16.0); Imm Gran Abs Auto 0.01 X10*3/uL (0.00-0.03); Imm Gran Pct Auto 0.2 % (0.0-0.4); Lymphocytes Absolute Auto 1.6 X10*3/uL (1.2-4.9); Lymphocytes Percent Auto 25.3 % (20-40); Mean Corpuscular HGB Conc 32.9 g/dl (31.0-35.0); Mean Corpuscular Hemoglobin 31.2 pg (27.0-33.0); Mean Platelet Volume 10.6 fL (9.4-12.3); Monocytes Absolute Auto 0.4 X10*3/uL (0.1-1.2); Monocytes Percent Auto 6.9 % (2-11); Neutrophils Absolute Auto 4.1 x10*3/uL (2.0-8.3); Neutrophils Percent Auto 63.5 % (45-73); Platelet Count 255 X10*3/uL (160-400); Red Blood Count 3.78 X10*6/uL (4.20-5.50); Red Cell Distribution Width 11.9 % (11.0-16.0); White Blood Count 6.4 X10*3/uL (4.8-10.8)
[2023-04-21 12:29] LABS: Lactic Acid 2.6 mmol/L (0.5-2.0)
[2023-04-21 12:38] VITALS: RESP 16
[2023-04-21] MEDS: HYDROmorphone HCl 0.5 MG/0.5 ML SYRINGE IVPUSH (12:38)
[2023-04-21] MEDS: ondansetron HCL 4 MG/2 ML VIAL IVPUSH (12:38)
[2023-04-21] MEDS: 0.9 % Sodium Chloride 2,082 ML 2082 ML IV (12:39)
[2023-04-21 12:41] LABS: Alanine Aminotransferase 18 U/L (0-31); Albumin Level 4.4 g/dL (3.5-5.0); Alkaline Phosphatase 108 U/L (39-117); Anion Gap 14 (12-20); Aspartate Amino Transferase 16 U/L (5-31); Bilirubin Direct 0.1 mg/dL (0.0-0.5); Bilirubin Total 0.5 mg/dL (0.0-1.0); Blood Urea Nitrogen 16 mg/dL (9-16); Calcium 9.7 mg/dL (8.4-10.2); Carbon Dioxide 24 mmol/L (22-29); Chloride 106 mmol/L (96-108); Creatinine Clr Calc Pharmacy 87.3; Estimated Glomerular Filt Rate > 60; Glucose Random 130 mg/dL (60-115); Lipase 20 U/L (8-78); Magnesium 1.9 mg/dL (1.6-2.6); Potassium 3.7 mmol/L (3.3-5.1); Sodium 140 mmol/L (135-145); Total Protein 7.5 g/dL (6.5-8.0)
[2023-04-21 12:58] VITALS: BP 127/79; PULSE 88; RESP 18; TEMP 36.6; O2SAT 94
[2023-04-21 14:07] LABS: Reflex Lactate? Lactic Acid Added
== END 2023-04-21 14:06 | disposition home or self-care (01) ==
PROVIDERS: Physician Assistant; Emergency Provider Emergency Medicine; PCP Internal Medicine Geriatric Medicine
DX: R10.31 Right lower quadrant pain (principal); Z79.899 Other long term (current) drug therapy
CPT/HCPCS: 36415; 80048; 80076; 83605; 83690; 83735; 85025; 85610; 87040; 96374; 96375; 99283; 99284; J1170; J2405

== ENCOUNTER 2023-07-02 17:41 | Outpatient (REF) | payer MEDICAID, SELFPAY | END 2023-07-02 17:42 | disposition home or self-care (01) | LOC: HO.LNP 17:41 | PROVIDERS: Visit Provider Emergency Medicine | DX: N30.01 Acute cystitis with hematuria (principal) | CPT/HCPCS: 87086 ==

== ENCOUNTER 2023-08-17 18:43 | Emergency (ER) | payer MEDICAID, SELFPAY | END 2023-08-17 21:00 | disposition left against medical advice (07) | PROVIDERS: Emergency Provider Emergency Medicine | DX: I10 Essential (primary) hypertension (principal) ==

== ENCOUNTER 2024-01-14 16:11 | Outpatient (REF) | payer MEDICAID, SELFPAY ==
--- NOTE | ~2024-01-14 | US_ITS ---
EXAMINATION: US ABDOMEN COMPLETE CLINICAL INFORMATION: Abdominal pain. Distention.. COMPARISON: CT scan abdomen pelvis April 15, 2023 TECHNIQUE: Real-time imaging of the abdominal viscera.: Doppler exam used. FINDINGS: PANCREAS: Portions of the head and body of pancreas visualized are normal. The tail is obscured by bowel gas. ABDOMINAL AORTA: The proximal, mid, and distal segments are normal in caliber. INFERIOR VENA CAVA: Visualized portions are normal. LIVER: Mild increased echogenicity of the parenchyma of liver suggesting fatty change. No focal liver lesion. No intrahepatic bile duct dilatation. GALLBLADDER: Normal. The gallbladder is physiologically distended without evidence of stones, sludge, polyps, wall thickening or pericholecystic fluid. COMMON BILE DUCT: Normal in caliber measuring 0.3 cm in diameter. RIGHT KIDNEY: Normal. No hydronephrosis. No renal calculi or focal parenchymal lesions. The kidney measures 11.6 cm in maximum dimension. LEFT KIDNEY: Normal. No hydronephrosis. No renal calculi or focal parenchymal lesions. The kidney measures 11.7 cm in maximum dimension. SPLEEN: Normal. The spleen measures 11.0 cm in maximum dimension. FREE FLUID: None. US/US abdomen complete IMPRESSION: 1. No acute abnormality. No gallstone or acute change of gallbladder. No bile duct dilatation. 2. Mild diffuse fatty change of liver.
== END 2024-01-14 16:12 | disposition home or self-care (01) ==
LOC: HO.US 16:11
PROVIDERS: Visit Provider Nurse Practitioner
DX: R10.10 Upper abdominal pain, unspecified (principal)
CPT/HCPCS: 76700

== ENCOUNTER 2024-01-17 11:22 | Outpatient (REF) | payer MEDICAID, SELFPAY ==
[2024-01-17 13:53] LABS: MANUAL DIFF FLAG NO
[2024-01-17 13:54] LABS: UPreg QC Valid YES; Urine Pregnancy NEGATIVE (NEGATIVE)
[2024-01-17 14:09] LABS: Basophils Absolute Auto 0.1 X10*3/uL (0.0-0.2); Basophils Percent Auto 0.7 % (0-2); Eosinophils Absolute Auto 0.1 X10*3/uL (0.0-0.4); Eosinophils Percent Auto 0.8 % (0-4); Hematocrit 41.5 % (37.0-47.0); Hemoglobin 13.4 g/dl (12.0-16.0); Imm Gran Abs Auto 0.04 X10*3/uL (0.00-0.03); Imm Gran Pct Auto 0.4 % (0.0-0.4); Lymphocytes Absolute Auto 1.5 X10*3/uL (1.2-4.9); Mean Corpuscular HGB Conc 32.3 g/dl (31.0-35.0); Mean Corpuscular Hemoglobin 28.8 pg (27.0-33.0); Mean Corpuscular Volume 89.2 fL (80.0-98.0); Mean Platelet Volume 12.2 fL (9.4-12.3); Monocytes Absolute Auto 0.7 X10*3/uL (0.1-1.2); Monocytes Percent Auto 6.9 % (2-11); Neutrophils Absolute Auto 8.2 x10*3/uL (2.0-8.3); Neutrophils Percent Auto 77.2 % (45-73); Platelet Count 273 X10*3/uL (160-400); Red Blood Count 4.65 X10*6/uL (4.20-5.50); Red Cell Distribution Width 13.1 % (11.0-16.0); White Blood Count 10.6 X10*3/uL (4.8-10.8)
[2024-01-17 14:50] LABS: Erythrocyte Sedimentation Rate 6 MM/HR (0-20)
[2024-01-17 15:15] LABS: Alanine Aminotransferase 19 U/L (0-31); Albumin Level 4.7 g/dL (3.5-5.0); Alkaline Phosphatase 90 U/L (39-117); Anion Gap 16 (12-20); Aspartate Amino Transferase 22 U/L (5-31); Bilirubin Total 0.3 mg/dL (0.0-1.0); Blood Urea Nitrogen 20 mg/dL (9-16); C Reactive Protein 0.17 mg/dL (< or = 0.50); Calcium 9.5 mg/dL (8.4-10.2); Carbon Dioxide 23 mmol/L (22-29); Chloride 105 mmol/L (96-108); Estimated Glomerular Filt Rate > 60; Glucose Random 101 mg/dL (60-115); Lipase 25 U/L (8-78); Potassium 4.8 mmol/L (3.3-5.1); Sodium 139 mmol/L (135-145)
[2024-01-18 23:28] LABS: Immunoglobulin A 148 mg/dL (47-310); Transglutaminase IgA <1.0 U/mL
== END 2024-01-17 11:23 | disposition home or self-care (01) ==
LOC: HO.HHCL 11:22
PROVIDERS: Visit Provider Nurse Practitioner
DX: R10.10 Upper abdominal pain, unspecified (principal)
CPT/HCPCS: 36415; 80053; 81025; 82784; 83690; 85025; 85652; 86140; 86364

== ENCOUNTER 2024-07-04 10:19 | Outpatient (REF) | payer MEDICAID, SELFPAY ==
--- NOTE | ~2024-07-04 | XR_ITS ---
EXAMINATION: Lumbosacral spine series CLINICAL INFORMATION: Chronic left-sided back pain with sciatica COMPARISON: X-rays of the lumbosacral spine February 2018 TECHNIQUE: 6 views of lumbosacral spine including obliques FINDINGS: Vertebral bodies normal height with normal alignment. Multilevel degenerative disc changes overall mild manifested by endplate osteophytes without disc space narrowing at the L1-L2 through L4-L5 levels. Facets unremarkable. Surrounding bones and soft tissues unremarkable. XR/XR lumbar spine 4V min IMPRESSION: Mild multilevel spondylosis of lumbosacral spine. No acute abnormality. No change. Electronically signed by: Reagan Gar MD 07/19/2024 07:12 AM EDT
== END 2024-07-04 10:20 | disposition home or self-care (01) ==
LOC: HO.HHCX 10:19
PROVIDERS: Visit Provider Internal Medicine
DX: M54.42 Lumbago with sciatica, left side (principal); G89.29 Other chronic pain
CPT/HCPCS: 72110

== ENCOUNTER 2024-08-02 10:20 | Outpatient (REF) | payer MEDICAID, SELFPAY ==
[2024-08-02 12:28] LABS: Anion Gap 12 (12-20); Blood Urea Nitrogen 15 mg/dL (9-16); Calcium 9.3 mg/dL (8.4-10.2); Carbon Dioxide 23 mmol/L (22-29); Chloride 110 mmol/L (96-108); Cholesterol 187 mg/dL (<200); Estimated Glomerular Filt Rate > 60; Glucose Random 146 mg/dL (60-115); HDL Cholesterol 36 mg/dL (>40); LDL Cholesterol Calculated 96 mg/dL (<100); Potassium 3.9 mmol/L (3.3-5.1); Sodium 141 mmol/L (135-145); TSH reflex Free T4 2.51 uIU/mL (0.32-4.0); Triglycerides 278 mg/dL (<150); Vitamin D 25-OH Total 17.7 ng/mL (>30)
[2024-08-02 13:38] LABS: Reflex LDLD? No
== END 2024-08-02 10:21 | disposition home or self-care (01) ==
LOC: HO.HHCL 10:20
PROVIDERS: Visit Provider Internal Medicine
DX: M54.42 Lumbago with sciatica, left side (principal); G89.29 Other chronic pain; I10 Essential (primary) hypertension
CPT/HCPCS: 36415; 80048; 80061; 82306; 84443

== ENCOUNTER 2024-08-03 13:20 | Outpatient (REF) | payer MEDICAID, SELFPAY ==
--- NOTE | ~2024-08-03 | MM_ITS ---
EXAMINATION: MM DIAGNOSTIC DIGITAL BREAST TOMOSYNTHESIS, BILATERAL US BREAST LIMITED, LEFT MAMMOGRAPHY: CLINICAL INFORMATION: Patient complaining of pain left breast anterior one third upper inner quadrant. Also due for yearly. History of breast cancer in mother at age 43. History of bilateral breast reduction. COMPARISON: Mammography: 10/27/2017, 10/04/2014. TECHNIQUE: Digital breast tomosynthesis is performed in both the craniocaudal and mediolateral oblique views along with computer-aided detection (CAD). Synthesized 2D images are generated from the tomosynthesis. FINDINGS: There are scattered areas of fibroglandular density (ACR BI-RADS breast composition Category b). Stable changes of post mammoplasty scarring in both breasts. Area of pain has been marked with a triangle marker by the technologist with the aid of the patient, marking the area of pain in the anterior one third, upper inner quadrant left breast. There is no underlying mammographic abnormality. This will be interrogated with ultrasound. There are no suspicious masses, suspicious grouped calcifications, or areas of architectural distortion in either breast. The parenchymal pattern is stable from prior exams. There is no skin or axillary abnormality. ULTRASOUND: CLINICAL INFORMATION: As above. COMPARISON: None TECHNIQUE: Targeted sonographic evaluation left breast was performed using a high frequency linear transducer. Attention was given to the upper inner quadrant left breast, in the region of pain. Selected archived documentation. FINDINGS: LEFT BREAST: There is a mixture of fatty and fibroglandular tissue. No suspicious mass is seen. There is no pathologic acoustic shadowing. There is no cystic abnormality. No sonographic correlate to the region of breast pain. MM/MM tomosynthesis diagnostic BI IMPRESSION: -There are no findings suspicious for malignancy in either breast. -No mammographic or sonographic correlate to the region of left breast pain, upper inner quadrant. Recommend clinical management. -Otherwise, recommend the patient resume routine annual screening. OVERALL ASSESSMENT: Mammography: BI-RADS 2 - Benign Findings Ultrasound: BI-RADS 2 - Benign Findings RECOMMENDATION: 1. Patient should be managed based on the clinical impression. 2. Otherwise, routine annual screening mammography. This patient's information was entered into a reminder system with a target due date for their next mammogram. Electronically signed by: Jaret Barber MD 08/03/2024 02:49 PM EDT
== END 2024-08-03 13:21 | disposition home or self-care (01) ==
LOC: HO.MAMMO 13:20
PROVIDERS: Visit Provider Student in an Organized Health Care Education/Training Program
DX: N64.4 Mastodynia (principal)
CPT/HCPCS: 76642; 77062; 77066

== ENCOUNTER → 2024-08-03 14:00 | Outpatient (BNV) | payer MEDICAID, SELFPAY | PROVIDERS: Visit Provider Radiology Diagnostic Radiology | DX: N64.4 Mastodynia (principal); R92.323 Mammographic fibroglandular density, bilateral breasts | CPT/HCPCS: 76642; 77062; 77066 ==

== ENCOUNTER 2024-08-05 11:09 | Emergency (ER) | payer MEDICAID, SELFPAY ==
[2024-08-05 11:15] VITALS: BP 150/76; PULSE 81; RESP 18; TEMP 36.6; O2SAT 97; BMI 32.4
--- NOTE | 2024-08-05 11:15 | ED.ABDPAIN ---
HPI - Abdominal Pain General Chief Complaint: Abdominal Pain Stated Complaint: abd pain Time Seen by Provider: 08/05/24 12:48 Source: patient Mode of arrival: ambulatory Limitations: no limitations History of Present Illness ED Provider: Leonor MARRERO narrative: Patient is a 48-year-old female with history of asthma, anxiety, prior abdominal infection requiring multiple drains in 2022 presenting to the ED with complaint of upper abdominal pain for the past two months. Describes pain as epigastric. Denies chest pain, palpitations, dyspnea. Denies radiation of pain. Denies fevers, nausea, vomiting, diarrhea or constipation. Denies urinary symptoms. Denies vaginal bleeding or discharge. She has follow up appointment with her specialist later this month. Denies hematochezia or melena. elicited complaint: abdominal pain Pertinent past history: other Onset (ago): month(s) Pain Consistency: colicky Location: epigastric and RUQ Quality: aching Radiation: none Migration to: no migration Associated symptoms: denies other symptoms Related Data Previous Rx's ?Medication ?Instructions ?Recorded gabapentin 300 mg capsule 300 mg PO TID #20 caps 04/21/23 famotidine 20 mg tablet 20 mg PO DAILY #14 tabs 08/05/24 Allergies Allergy/AdvReac Type Severity Reaction Status Date / Time Iodinated Contrast Media Allergy Unknown UNKNOWN Verified 08/05/24 11:18 [CONTRAST, IV] acetaminophen [From Percocet] Allergy Palpitation Verified 08/05/24 11:18 s morphine Allergy Palpitation Verified 08/05/24 11:18 s oxycodone [From Percocet] Allergy Palpitation Verified 08/05/24 11:18 s Review of Systems Review of Systems As per HPI Yes all other systems are reviewed and are negative Constitutional: Reports as per HPI [facility] Past Medical History Medical History Anxiety Asthma Social History Social History Alcohol intake: never Substance Use Type: Marijuana Advance Directives: No Advance Directives Information Provided: No Physical Exam ED Vital Signs: Vital Signs - 24 hr 08/05/24 11:15 Temperature 97.9 F Pulse Rate 81 Respiratory Rate 18 Blood Pressure 150/76 H Pulse Oximetry 97 Oxygen Delivery Method Room Air BMI result Body Mass Index 32.4 Vital signs have been reviewed and appear to be correct. Blood pressure elevated. Heart rate normal. Respiratory rate normal. Temperature normal. Oxygen saturation normal. Const General: cooperative, healthy appearing and no acute distress Orientation/consciousness: oriented to person, oriented to place, oriented to time and patient oriented x3 Limitations: no limitations HENMT Head: Yes normocephalic and Yes atraumatic Ears: external ears normal General nose exam: Normal external nose present Face and sinus: Yes face symmetric Mouth: oropharynx normal and moist mucous membranes Throat: Yes uvula midline Eyes Pupils: Equal, round and reactive pupils present Neck Neck: Yes normal visual inspection and Yes supple Resp Effort & Inspection: normal respiratory effort and able to speak in complete sentences Auscultation: clear to auscultation bilaterally Cardio Rate: regular rate Rhythm: regular rhythm Heart sounds: S1 normal heart sound present and S2 normal heart sound present GI Inspection: Yes distended Palpation (GI): Firmness to palpation present (GI) (diffuse), nontender, no guarding and No Rebound tenderness present Auscultation: normoactive bowel sounds General: Yes no CVA tenderness Back/Spine/Pelvis Back: no CVA tenderness Skin General skin exam: elasticity normal and turgor normal Neuro General: oriented to person, oriented to place, oriented to time, patient oriented x3, moves all extremities, no focal motor deficits and CN's II-XI intact bilaterally Cranial nerves: Yes Equal, round and reactive pupils present Cognition (Neuro): normal cognition Extrem General: Yes full ROM, Yes no pedal edema and Yes no calf tenderness Psych Mental Status: mental status grossly normal Affect: normal affect Thought process: Normal thought process present Course Course Course Narrative: This is a Rapid Medical Examination (RME) performed by Jocelyne Madden PA-C in triage. Full HPI, ROS, assessment and treatment plan per primary provider in the Main ED. 48 yo female here for eval of abd pain/swelling x2 mo. +assoc N/V. no diarrhea, constipation, urinary sx. has appointment with specialist later this month. + area of swelling to epigastric region, ttp with voluntary guarding. no rebound. normoactive bs. Plan: labs, UA, will defer any imaging to prior provider. Medical Decision Making Medical Decision Making MDM Narrative: Patient is a 48-year-old female with history of asthma, anxiety, prior abdominal infection requiring multiple drains in 2022 presenting to the ED with complaint of upper abdominal pain for the past two months. On exam patient is awake, A+Ox3, nontoxic appearing, VS WNL, afebrile, normal neurological exam without focal deficits, physical exam findings as above. No tenderness to palpation of abdomen on my exam. Given reported symptoms and physical exam findings, initial differential includes gastritis, PUD, GERD. Labs unremarkable. Urinalysis is without evidence of infection. Do not feel imaging is warranted at this visit. Given that patient has scheduled follow up with specialist on the , feel she is stable for discharge at this time. Return precautions discussed. Patient verbalized understanding of and agreement with plan. Differential Diagnosis Differential Diagnoses: The differential diagnosis associated with the presentation includes As per [facility] Admission/Observation Consideration of admission/observation: Escalation of care including admission/observation considered Patient would have been admitted to the hospital had their work up had any findings where hospital admission was appropriate and their clinical presentation warranted hospital admission. Lab Data [facility] Lab Attestation statement: I reviewed the patient's lab results. As per [facility] 08/05/24 11:32 08/05/24 11:32 Labs: Lab Results 08/05/24 08/05/24 Range/Units 11:32 13:29 WBC 7.8 (4.8-10.8) X10*3/uL RBC 4.29 (4.20-5.50) X10*6/uL Hgb 13.0 (12.0-16.0) g/dl Hct 39.4 (37.0-47.0) % MCV 91.8 (80.0-98.0) fL MCH 30.3 (27.0-33.0) pg MCHC 33.0 (31.0-35.0) g/dl RDW 12.4 (11.0-16.0) % Plt Count 250 (160-400) X10*3/uL MPV 11.1 (9.4-12.3) fL Immature Gran % (Auto) 0.5 H (0.0-0.4) % Neut % (Auto) 67.3 (45-73) % Lymph % (Auto) 20.6 (20-40) % Steele % (Auto) 8.9 (2-11) % Eos % (Auto) 1.9 (0-4) % Baso % (Auto) 0.8 (0-2) % Lymph # (Auto) 1.6 (1.2-4.9) X10*3/uL Steele # (Auto) 0.7 (0.1-1.2) X10*3/uL Eos # (Auto) 0.2 (0.0-0.4) X10*3/uL Baso # (Auto) 0.1 (0.0-0.2) X10*3/uL Abs Immat Gran (auto) 0.04 H (0.00-0.03) X10*3/uL Absolute Neuts (auto) 5.2 (2.0-8.3) x10*3/uL Absolute Nucleated RBC 0.000 (0.0-0.012) X10*3/uL Nucleated RBC % (auto) 0.0 (0.0-0.2) /100WBC Sodium 140 (135-145) mmol/L Potassium 4.1 (3.3-5.1) mmol/L Chloride 106 (96-108) mmol/L Carbon Dioxide 27 (22-29) mmol/L Anion Gap 11 L (12-20) BUN 15 (9-16) mg/dL Creatinine 0.80 (0.5-1.4) mg/dL Estim Creat Clear Calc 89.6 Estimated GFR > 60 Random Glucose 125 H (60-115) mg/dL Calcium 9.0 (8.4-10.2) mg/dL Magnesium 1.9 (1.6-2.6) mg/dL Total Bilirubin 0.3 (0.0-1.0) mg/dL AST 15 (5-31) U/L ALT 21 (0-31) U/L Alkaline Phosphatase 85 (39-117) U/L Total Protein 7.1 (6.5-8.0) g/dL Albumin 4.5 (3.5-5.0) g/dL Lipase 20 (8-78) U/L Beta HCG, Quant < 2 mIU/mL Urine Color Yellow Urine Appearance Clear Urine pH 5.5 (5.0-9.0) Ur Specific [place] 1.025 (1.005-1.025) Urine Protein 30 (1+) H (Neg-Trace) mg/dL Urine Glucose (UA) Negative (Negative) mg/dL Urine Ketones Negative (Negative) mg/dL Urine Blood Large (3+) H (Negative) Urine Nitrite Negative (Negative) Ur Leukocyte Esterase Negative (Negative) Urine Test NEGATIVE (NEGATIVE) External Record Review External record reviewed: Inpatient record, Office record and Outpatient record Prescription Management I considered prescription management with: Pain Medication Discharge Plan Discharge Clinical Impression: Abdominal pain Patient Disposition: Home, Self-Care Instructions: Abdominal Pain (ED) Additional Instructions: You have been evaluated in the emergency department today for abdominal pain. Your evaluation did not show evidence of medical conditions requiring emergent intervention at this time. Please keep your appointment with the specialist on the and schedule an appointment with your primary care physician. Return to the emergency department if you experience worsening or uncontrolled pain, fevers 100.4? F or greater, recurrent vomiting, inability to tolerate food or fluids by mouth, bloody stools or vomit, black or tarry stools, or any other concerning symptoms. Prescriptions: New famotidine 20 mg tablet 20 mg PO DAILY Qty: 14 0RF No Action gabapentin 300 mg capsule 300 mg PO TID Qty: 20 0RF Print Language: Syriac
[2024-08-05 11:38] LABS: MANUAL DIFF FLAG NO
[2024-08-05 11:58] LABS: Alanine Aminotransferase 21 U/L (0-31); Albumin Level 4.5 g/dL (3.5-5.0); Alkaline Phosphatase 85 U/L (39-117); Anion Gap 11 (12-20); Aspartate Amino Transferase 15 U/L (5-31); Bilirubin Total 0.3 mg/dL (0.0-1.0); Blood Urea Nitrogen 15 mg/dL (9-16); Carbon Dioxide 27 mmol/L (22-29); Chloride 106 mmol/L (96-108); Creatinine Clr Calc Pharmacy 89.6; Estimated Glomerular Filt Rate > 60; Glucose Random 125 mg/dL (60-115); Lipase 20 U/L (8-78); Magnesium 1.9 mg/dL (1.6-2.6); Potassium 4.1 mmol/L (3.3-5.1); Sodium 140 mmol/L (135-145); Total Protein 7.1 g/dL (6.5-8.0)
[2024-08-05 12:02] LABS: Basophils Absolute Auto 0.1 X10*3/uL (0.0-0.2); Basophils Percent Auto 0.8 % (0-2); Eosinophils Absolute Auto 0.2 X10*3/uL (0.0-0.4); Eosinophils Percent Auto 1.9 % (0-4); Hematocrit 39.4 % (37.0-47.0); Imm Gran Abs Auto 0.04 X10*3/uL (0.00-0.03); Imm Gran Pct Auto 0.5 % (0.0-0.4); Lymphocytes Absolute Auto 1.6 X10*3/uL (1.2-4.9); Lymphocytes Percent Auto 20.6 % (20-40); Mean Corpuscular Hemoglobin 30.3 pg (27.0-33.0); Mean Corpuscular Volume 91.8 fL (80.0-98.0); Mean Platelet Volume 11.1 fL (9.4-12.3); Monocytes Absolute Auto 0.7 X10*3/uL (0.1-1.2); Monocytes Percent Auto 8.9 % (2-11); Neutrophils Absolute Auto 5.2 x10*3/uL (2.0-8.3); Neutrophils Percent Auto 67.3 % (45-73); Platelet Count 250 X10*3/uL (160-400); Red Blood Count 4.29 X10*6/uL (4.20-5.50); Red Cell Distribution Width 12.4 % (11.0-16.0); White Blood Count 7.8 X10*3/uL (4.8-10.8)
[2024-08-05 13:29] LABS: HCG Quantitative < 2 mIU/mL
[2024-08-05 13:36] LABS: Appearance Urine Clear; Color Urine Yellow; Glucose Urine UA Negative (Negative); Leukocyte Esterase Urine Negative (Negative); Nitrite Urine Negative (Negative); PH 5.5 (5.0-9.0); Specific Gravity - Urine 1.025 (1.005-1.025); UMIC TRIGGER UACC YES; Urine Blood Large (3+) (Negative); Urine Ketones Negative (Negative); Urine Protein 30 (1+) mg/dL (Neg-Trace)
[2024-08-05 13:40] LABS: UPreg QC Valid YES; Urine Pregnancy NEGATIVE (NEGATIVE)
[2024-08-05 14:14] LABS: Bacteria Urine None Seen (None Seen); Hyaline Casts Urine 0-2 /LPF (0-2); RBC Urine >20 /HPF (0-2); Squamous Epithelial Cell Urine 0-2 /HPF (0-2); WBC Urine 0-5 /HPF (0-5)
[2024-08-05 14:26] VITALS: BP 150/76; PULSE 81; RESP 18; TEMP 36.6; O2SAT 97
== END 2024-08-05 14:33 | disposition home or self-care (01) ==
PROVIDERS: Physician Assistant Medical; Registered Nurse Emergency; Emergency Provider Emergency Medicine
DX: R10.10 Upper abdominal pain, unspecified (principal); J45.909 Unspecified asthma, uncomplicated
CPT/HCPCS: 36415; 80053; 81001; 81003; 81025; 83690; 83735; 84702; 85025; 99282; 99283

== ENCOUNTER 2024-08-08 16:49 | Outpatient (REF) | payer MEDICAID, SELFPAY ==
[2024-08-09 11:29] LABS: CT PCR NOT DETECTED (Not Detect.); NG PCR NOT DETECTED (Not Detect.)
[2024-08-09 12:46] LABS: Bacterial Vaginosis PCR POSITIVE (Negative); Candida Group PCR NOT DETECTED (Not Detect); Candida glab krusei PCR NOT DETECTED (Not Detect); Trichomonas vaginalis PCR NOT DETECTED (Not Detect)
== END 2024-08-08 16:50 | disposition home or self-care (01) ==
LOC: HO.HHCLNP 16:49
PROVIDERS: Visit Provider Internal Medicine
DX: R10.9 Unspecified abdominal pain (principal); G89.29 Other chronic pain
CPT/HCPCS: 0352U; 87491; 87591

== ENCOUNTER 2024-09-27 13:44 | Outpatient (AMB) | payer MEDICAID, SELFPAY ==
[2024-09-27 13:52] VITALS: BP 138/72; PULSE 102; O2SAT 97; BMI 32.3
--- NOTE | 2024-09-27 13:52 | MHC.OFFVIS ---
Vital Signs 09/27/24 13:52 Height 5 ft 3 in Weight 182 lb 8.684 oz BMI 32.3 BP 138/72 Blood Pressure Location Rt brachial Position Sitting Pulse 102 H Pulse Source Pulse Oximeter Pulse Oximetry (%) 97 Oxygen Delivery Method Room Air Intake Visit Reasons: Hernia, Chronic epigastric abd pain & bloating Intake Note: Ruma presents in office today for a scheduled initial assessment CC; Diagnostics per 12/2023. Labs per 07/2024. Specific concerns or sx? Pt specifically mentions nausea, bloating, abd distention. Pt also reports having frequent episodes of constipation. Pt reports receiving dx of hernia approximately 1 year ago via [facility] Cardiology. No previous hx of colo or EGD. ? Hx of relevant surgeries? None ? Relevant FMHx? Pt reports fmhx of uterine cancer and throat cancer on both paternal and maternal sides of the extended family. Mother has also had cancer. Deputy Fire Chief Required: Yes Deputy Fire Chief Services: Deputy Fire Chief Present Deputy Fire Chief Name: Luis [email or web address] Information Interpreted: non-clinical & clinical Accompanied by: Self / Same As Patient Allergies Iodinated Contrast Media [CONTRAST, IV] Allergy (Unknown, Verified 09/27/24 13:55) UNKNOWN acetaminophen [From Percocet] Allergy (Verified 09/27/24 13:55) Palpitations morphine Allergy (Verified 09/27/24 13:55) Palpitations oxycodone [From Percocet] Allergy (Verified 09/27/24 13:55) Palpitations HPI HPI Hernia, Chronic epigastric abd pain & bloating: Details: 49-year-old female with past medical history of anxiety, asthma is here today for initial consultation. Patient was sent to us to evaluate her ongoing symptoms. Patient was told that she has hiatal hernia no previous endoscopy done. Patient never had colonoscopy in the past. Family history of throat and stomach cancer on both sides. Patient reports postprandial epigastric pain, reflux, dyspepsia without dysphagia or odynophagia. Patient reports to be constipated, no BM for 2-3 days. Patient currently is not using anything to help her go to the bathroom. Patient had CT of abdomen and pelvis done year ago that showed moderate constipation. No acute findings. CT scan was done without IV or oral contrast. Patient is allergic to IV dye. Patient reports pain in the left side of her abdomen. Patient denies melena, hematochezia, unintentional weight loss or ribbon like stools. Patient denies any diarrhea or mucus in her stool PFSH Medical History Anxiety Asthma Social History Alcohol intake: never Substance Use Type: Marijuana Review of Systems Const Denies weight gain and Denies weight loss ENT Reports no additional complaints, Denies dysphagia and Denies odynophagia Card Reports no additional complaints Resp Reports no additional complaints GI Denies abdominal pain, Denies belching, Denies melena, Denies bloating, Denies change in bowel habits, Denies dysphagia, Denies excessive flatus, Denies dyspepsia, Denies heartburn, Denies diarrhea, Denies loose stools, Denies nausea, Denies odynophagia and Denies vomiting Musc Reports no additional complaints Neuro Reports no additional complaints Psych Reports no additional complaints Endo Reports no additional complaints Physical Exam Vital Signs: Last Vital Signs Pulse 102 H 09/27/24 13:52 BP 138/72 09/27/24 13:52 Pulse Ox 97 09/27/24 13:52 Oxygen Delivery Method Room Air 09/27/24 13:52 BMI result Body Mass Index 32.3 Const General: healthy appearing and no acute distress Nutritional Appearance: obese Orientation/consciousness: patient oriented x3 Resp Effort & Inspection: normal respiratory effort, able to speak in complete sentences, no tracheal deviation and symmetric chest movement Auscultation: clear to auscultation bilaterally Cardio Rate: regular rate GI Inspection: Yes normal to inspection, No distended and Yes obesity Palpation (GI): Soft to palpation, not firm, nontender and No hepatosplenomegaly present Auscultation: normal bowel sounds General: Yes no CVA tenderness Back/Spine/Pelvis Back: no CVA tenderness Skin General skin exam: elasticity normal, turgor normal and dry skin Neuro General: patient oriented x3 Psych Appearance: grossly normal Mental Status: mental status grossly normal Assessment & Plan Assessment & Plan (1) Postprandial epigastric pain: Code(s): R10.13 - Epigastric pain (2) GERD (gastroesophageal reflux disease): Code(s): K21.9 - Gastro-esophageal reflux disease without esophagitis Qualifiers: Esophagitis presence: esophagitis presence not specified Qualified Code(s): K21.9 - Gastro-esophageal reflux disease without esophagitis (3) Abdominal bloating: Code(s): R14.0 - Abdominal distension (gaseous) (4) Constipation: Code(s): K59.00 - Constipation, unspecified Qualifiers: Constipation type: slow transit constipation Qualified Code(s): K59.01 - Slow transit constipation (5) Abdominal pain: Code(s): R10.9 - Unspecified abdominal pain Qualifiers: Abdominal location: upper abdomen, unspecified Qualified Code(s): R10.10 - Upper abdominal pain, unspecified Plan Patient admits to have abdominal pain in the left upper and lower side. Will send her for CT of abdomen with IV and oral contrast, however patient will need to be premedicated prior to the CT scan per protocol with prednisone and Benadryl. Order sent to pharmacy. Will send her for lab work, check vitamin B12, folate, thyroid study. I will send script for Nexium to pharmacy. Patient was encouraged to avoid dietary triggers and late night snacking. Staying upright for minimum 3 hours after meals discussed with patient. Patient can also take Dulcolax daily. Increase fluid intake and activity to promote better bowel motility. Patient is agreeable to plan of care and verbalizes understanding of instructions. She was given the opportunity to ask questions and all questions answered. Thank you for allowing me to participate in her care Orders: Orders Vitamin D 25-OH (D2 and D3) 09/27/24 E55.9 - Vitamin D deficiency, unspecified Transglutaminase IgA 09/27/24 R10.9 - Unspecified abdominal pain Vitamin B12 and Folate 09/27/24 R19.7 - Diarrhea, unspecified Blood Urea Nitrogen 09/27/24 R10.11 - Right upper quadrant pain CT abdomen pelvis w IV con 07/26/24 R10.9 - Unspecified abdominal pain, G89.29 - Other chronic pain TSH reflex Free T4 09/27/24 K59.00 - Constipation, unspecified Creatinine 09/27/24 R10.11 - Right upper quadrant pain Medications: New esomeprazole magnesium (Nexium) 40 mg PO DAILY 90 caps 5RF K21.9 - Gastro-esophageal reflux disease without esophagitis prednisone 50 mg orally Take 1 tablet [address] scan, [address] scan, and the 3rd dose [address] scan; 3 tabs 0RF bisacodyl (Dulcolax (bisacodyl)) 10 mg (2 x 5 mg) PO BEDTIME 180 tabs 4RF bisacodyl (Dulcolax (bisacodyl)) 10 mg (2 x 5 mg) PO BEDTIME 180 tabs 4RF esomeprazole magnesium (Nexium) 40 mg PO DAILY 90 caps 5RF K21.9 - Gastro-esophageal reflux disease without esophagitis diphenhydramine HCl (Benadryl Allergy) 50 mg orally [address] scan; please make sure that you have a right to take you home after the CT scan as Benadryl will make you drowsy 1 tab 0RF Coding Level of Care Code New Pt Level 4 (26156) Diagnoses Postprandial epigastric pain R10.13 Gastroesophageal reflux disease, unspecified whether esophagitis present K21.9 Esophagitis presence: esophagitis presence not specified Abdominal bloating R14.0 Slow transit constipation K59.01 Constipation type: slow transit constipation Pain of upper abdomen R10.10 Abdominal location: upper abdomen, unspecified Time Spent (min) 45 Comment 30 minutes spent with patient and additional 10 minutes spent reviewing her records
== END 2024-09-27 15:20 | disposition home or self-care (01) ==
PROVIDERS: PCP Internal Medicine; Visit Provider Nurse Practitioner Family
DX: R10.13 Epigastric pain (principal); K21.9 Gastro-esophageal reflux disease without esophagitis; R14.0 Abdominal distension (gaseous); K59.01 Slow transit constipation; R10.10 Upper abdominal pain, unspecified
CPT/HCPCS: 99204

== ENCOUNTER → 2024-09-27 13:44 | Outpatient (BNVA) | payer MEDICAID, SELFPAY | PROVIDERS: PCP Internal Medicine; Visit Provider Nurse Practitioner Family | DX: K21.9 Gastro-esophageal reflux disease without esophagitis (principal); K59.01 Slow transit constipation; K59.00 Constipation, unspecified; R10.13 Epigastric pain; R14.0 Abdominal distension (gaseous); G89.29 Other chronic pain; E55.9 Vitamin D deficiency, unspecified; R19.7 Diarrhea, unspecified; R10.11 Right upper quadrant pain | CPT/HCPCS: 99212 ==

== ENCOUNTER 2024-10-31 07:18 | Outpatient (AMB) | payer MEDICAID, SELFPAY ==
--- NOTE | 2024-10-31 08:26 | MHC.OFFVIS ---
Vital Signs 10/31/24 08:49 Height 5 ft 3 in Weight 183 lb 6.793 oz BMI 32.5 BP 146/84 H Blood Pressure Location Rt brachial Position Sitting Pulse 78 Pulse Source Pulse Oximeter Pulse Oximetry (%) 96 Oxygen Delivery Method Room Air Intake Visit Reasons: 1 mos FUV. Intake Note: ESTABLISHED PATIENT Reason; 1 mos FUV. Changes/concerns? Pt would like to discuss hernia again. Pt denies any severe changes but states that it is still bothering her. Web Solutions Architect Required: Yes Web Solutions Architect Services: Web Solutions Architect Present Web Solutions Architect Name: [id number] Joel Information Interpreted: non-clinical & clinical Accompanied by: Self / Same As Patient Allergies Iodinated Contrast Media [CONTRAST, IV] Allergy (Unknown, Verified 10/31/24 08:47) UNKNOWN acetaminophen [From Percocet] Allergy (Verified 10/31/24 08:47) Palpitations morphine Allergy (Verified 10/31/24 08:47) Palpitations oxycodone [From Percocet] Allergy (Verified 10/31/24 08:47) Palpitations HPI HPI 1 mos FUV.: Details: LAST VISIT: Postprandial epigastric pain GERD (gastroesophageal reflux disease) Abdominal bloating Constipation Abdominal pain Plan Patient admits to have abdominal pain in the left upper and lower side. Will send her for CT of abdomen with IV and oral contrast, however patient will need to be premedicated prior to the CT scan per protocol with prednisone and Benadryl. Order sent to pharmacy. Will send her for lab work, check vitamin B12, folate, thyroid study. I will send script for Nexium to pharmacy. Patient was encouraged to avoid dietary triggers and late night snacking. Staying upright for minimum 3 hours after meals discussed with patient. Patient can also take Dulcolax daily. Increase fluid intake and activity to promote better bowel motility. Patient is agreeable to plan of care and verbalizes understanding of instructions. She was given the opportunity to ask questions and all questions answered. ? Thank you for allowing me to participate in her care Orders Orders Vitamin D 25-OH (D2 and D3) 09/27/24 E55.9 Transglutaminase IgA 09/27/24 R10.9 Vitamin B12 and Folate 09/27/24 R19.7 Blood Urea Nitrogen 09/27/[address] abdomen pelvis w IV con 07/26/24 R10.9, G89.29 TSH reflex Free T4 09/27/24 K59.00 Creatinine 09/27/24 R10.11 Medications New esomeprazole magnesium (Nexium) 40 mg PO DAILY 90 caps 5RF K21.9 prednisone 50 mg orally Take 1 tablet [address] scan, [address] scan, and the 3rd dose [address] scan; 3 tabs 0RF bisacodyl (Dulcolax (bisacodyl)) 10 mg (2 x 5 mg) PO BEDTIME 180 tabs 4RF bisacodyl (Dulcolax (bisacodyl)) 10 mg (2 x 5 mg) PO BEDTIME 180 tabs 4RF esomeprazole magnesium (Nexium) 40 mg PO DAILY 90 caps 5RF K21.9 diphenhydramine HCl (Benadryl Allergy) 50 mg orally [address] scan; please make sure that you have a right to take you home after the CT scan as Benadryl will make you drowsy 1 tab 0RF TODAY'S VISIT Patient is here today for follow-up and to go over how to take the medication: Prednisone and Benadryl before going for CT scan due to her allergy to IV contrast. CT scan scheduled for November 14. Patient will need to get her blood work done today. Patient reports that her acid reflux has been suppressed with the Nexium. Patient reports that abdominal pain continues. Patient reports that she is moving her bowels well, however occasionally she will have cramping. She reports upper abdominal pain, pain does not radiate anything. Pain above her umbilical area, patient describes abdomen feeling hard and bloated. Patient denies dyspepsia, dysphagia or odynophagia. Denies melena, hematochezia, unintentional weight loss or ribbon like stools. [facility] Medical History Anxiety Asthma Social History Alcohol intake: never Substance Use Type: Marijuana Review of Systems Const Denies weight gain and Denies weight loss ENT Reports no additional complaints, Denies dysphagia and Denies odynophagia Card Reports no additional complaints Resp Reports no additional complaints GI Reports abdominal pain, Denies belching, Denies melena, Reports bloating, Denies change in bowel habits, Reports constipation, Denies dysphagia, Denies excessive flatus, Denies dyspepsia, Reports heartburn, Denies diarrhea, Denies loose stools, Denies nausea, Denies odynophagia and Denies vomiting Reports no additional complaints Musc Reports no additional complaints Neuro Reports no additional complaints Psych Reports no additional complaints Endo Reports no additional complaints Physical Exam Vital Signs: Last Vital Signs Pulse 78 10/31/24 08:49 BP 146/84 H 10/31/24 08:49 Pulse Ox 96 10/31/24 08:49 Oxygen Delivery Method Room Air 10/31/24 08:49 BMI result Body Mass Index 32.5 Const General: healthy appearing and no acute distress Nutritional Appearance: obese Orientation/consciousness: patient oriented x3 Resp Effort & Inspection: normal respiratory effort, able to speak in complete sentences, no tracheal deviation and symmetric chest movement Auscultation: clear to auscultation bilaterally Cardio Rate: regular rate GI Inspection: Yes normal to inspection, No distended and Yes obesity Palpation (GI): Soft to palpation, not firm, nontender and No hepatosplenomegaly present Auscultation: normal bowel sounds General: Yes no CVA tenderness Back/Spine/Pelvis Back: no CVA tenderness Skin General skin exam: elasticity normal, turgor normal and dry skin Neuro General: patient oriented x3 Psych Appearance: grossly normal Mental Status: mental status grossly normal Assessment & Plan Assessment & Plan (1) Postprandial epigastric pain: Code(s): R10.13 - Epigastric pain (2) GERD (gastroesophageal reflux disease): Code(s): K21.9 - Gastro-esophageal reflux disease without esophagitis Qualifiers: Esophagitis presence: esophagitis presence not specified Qualified Code(s): K21.9 - Gastro-esophageal reflux disease without esophagitis (3) Abdominal bloating: Code(s): R14.0 - Abdominal distension (gaseous) (4) Constipation: Code(s): K59.00 - Constipation, unspecified Qualifiers: Constipation type: slow transit constipation Qualified Code(s): K59.01 - Slow transit constipation (5) Abdominal pain: Code(s): R10.9 - Unspecified abdominal pain Qualifiers: Abdominal location: periumbilical Qualified Code(s): R10.33 - Periumbilical pain (6) Ventral hernia: Code(s): K43.9 - Ventral hernia without obstruction or gangrene Qualifiers: Obstruction and gangrene presence: without obstruction or gangrene Qualified Code(s): K43.9 - Ventral hernia without obstruction or gangrene Plan Referral to General surgery for periumbilical/ventral hernia. Continue Nexium. Avoid dietary triggers and late night snacking. Staying upright for minimum 3 hours after meals discussed patient patient was encouraged to increase fluid intake and activity to promote better bowel motility. Continue Dulcolax. Discussed with patient how to take prednisone and Benadryl prior to going for CT scan. Patient will get her labs done today. Follow-up in 6 weeks to discuss going for colonoscopy and endoscopy. Patient is agreeable to plan of care and verbalizes understanding of instructions. She was given the opportunity to ask questions and all questions answered Thank you for allowing me to participate in her care Orders: Referrals General Surgery Referral K42.9 - Umbilical hernia without obstruction or gangrene Medications: Changed From dicyclomine 10 mg PO TID To dicyclomine 10 mg PO BID 60 caps 1RF Coding Level of Care Code Est Pt Level 4 (21764) Diagnoses Postprandial epigastric pain R10.13 Gastroesophageal reflux disease, unspecified whether esophagitis present K21.9 Esophagitis presence: esophagitis presence not specified Abdominal bloating R14.0 Slow transit constipation K59.01 Constipation type: slow transit constipation Periumbilical abdominal pain R10.33 Abdominal location: periumbilical Ventral hernia without obstruction or gangrene K43.9 Obstruction and gangrene presence: without obstruction or gangrene Time Spent (min) 35 Comment 25 minutes spent with patient and additional 10 minutes spent reviewing her records
[2024-10-31 08:49] VITALS: BP 146/84; PULSE 78; O2SAT 96; BMI 32.5
== END 2024-10-31 09:21 | disposition home or self-care (01) ==
PROVIDERS: PCP Internal Medicine; Visit Provider Nurse Practitioner Family
DX: R10.13 Epigastric pain (principal); K21.9 Gastro-esophageal reflux disease without esophagitis; R14.0 Abdominal distension (gaseous); K59.01 Slow transit constipation; R10.33 Periumbilical pain; K43.9 Ventral hernia without obstruction or gangrene
CPT/HCPCS: 99214

== ENCOUNTER 2024-10-31 07:18 | Outpatient (REF) | payer MEDICAID, SELFPAY ==
[2024-10-31 11:35] LABS: Blood Urea Nitrogen 12 mg/dL (9-16); Estimated Glomerular Filt Rate > 60
[2024-10-31 11:48] LABS: Folate 10.6 ng/mL (> or = 4.0); Vitamin B12 266 pg/mL (200-900)
[2024-10-31 11:53] LABS: TSH reflex Free T4 2.59 uIU/mL (0.32-4.0)
[2024-11-01 23:29] LABS: Transglutaminase IgA <1.0 U/mL
[2024-11-04 13:43] LABS: Vitamin D 25-OH, D2 <4 ng/mL; Vitamin D 25-OH, D3 11 ng/mL; Vitamin D 25-OH, Total 11 ng/mL (30-100)
== END 2024-10-31 07:19 | disposition home or self-care (01) ==
LOC: HO.LAB 07:18
PROVIDERS: PCP Internal Medicine; Visit Provider Nurse Practitioner Family
DX: R10.9 Unspecified abdominal pain (principal); R19.7 Diarrhea, unspecified; R10.11 Right upper quadrant pain; E55.9 Vitamin D deficiency, unspecified; K59.01 Slow transit constipation; R10.13 Epigastric pain; K21.9 Gastro-esophageal reflux disease without esophagitis; R14.0 Abdominal distension (gaseous); R10.33 Periumbilical pain
CPT/HCPCS: 36415; 82306; 82565; 82607; 82746; 84443; 84520; 86364; 99212

== ENCOUNTER 2024-11-05 15:35 | Emergency (ER) | payer MEDICAID, SELFPAY ==
--- NOTE | ~2024-11-05 | CT_ITS ---
CLINICAL HISTORY: severe pain, N V, known hernia CT abdomen and pelvis without contrast Comparison: US/SR - US ABDOMEN COMPLETE - 01/14/24 16:[address]/REG/MA/SR - CT ABDOMEN PELVIS WO IV CON - 04/15/23 13:[address]/MA/SR - CT ABDOMEN PELVIS WO IV CON - 03/28/23 12:35 EDT Findings: No consolidation at the lung bases. Unremarkable gallbladder and bladder. No hydronephrosis. 4 mm calcification in the right renal pelvis is favored to be vascular. Punctate bilateral nephrolithiasis. Suspect mild scarring in the pelvis related to the previously seen infectious/inflammatory process. Currently there is no stranding in the pelvis. Tubular fluid attenuation lesions in the right adnexa measuring 1.1 cm in transverse dimension could be secondary to hydrosalpinx and/or ovarian follicles. The other solid organs are unremarkable. No bowel wall thickening or dilation. A normal appendix is identified. Colonic diverticulosis. No aneurysm. No calcified atherosclerotic disease. No lymphadenopathy. No ascites. There is diastasis of the rectus abdominis muscles with a tiny fat containing umbilical hernia. No acute osseous abnormality. Impression: No acute findings. This document has been electronically signed by: Lianet Martinez MD on 11/05/2024 19:51:23
[2024-11-05 15:44] VITALS: BP 178/80; PULSE 88; O2SAT 98
[2024-11-05 17:02] VITALS: BP 157/76; PULSE 76; RESP 18; TEMP 36.5; O2SAT 99; BMI 31.6
--- NOTE | 2024-11-05 17:02 | ED.GENADULT ---
HPI - General Adult General Chief complaint: Abdominal Pain Stated complaint: ABD PAIN, HX OF CURRENT HERNIA PER EMS Time Seen by Provider: 11/05/24 21:05 Source: patient Mode of arrival: ambulatory Limitations: no limitations History of Present Illness ED Provider: Dr. Radha Lee HPI narrative: Patient comes in the emergency room complaining of epigastric burning sensation for 4 days. Patient states that any time that she eats or drinks something, a few minutes later she has severe burning sensation, severe sharp pain. Patient states that she has been told that she has a hernia and may need surgery. Patient has an appointment pending with Dr. Campoverde in a couple days From today. Patient states that anything that she eats anything she becomes nauseous and becomes lightheaded. Patient denies any chest pain or syncopal episodes. Denies diarrhea fever or chills, no URI or UTI symptoms. Related Data Home Medications ?Medication ?Instructions ?Recorded ?Confirmed amlodipine 10 mg tablet 10 mg PO QAM 09/27/24 doxepin 50 mg capsule 100 mg PO BEDTIME 09/27/24 duloxetine 30 mg capsule,delayed 60 mg PO QAM 09/27/24 release gabapentin 100 mg capsule 300 mg PO Q8H 09/27/24 hydrochlorothiazide 25 mg tablet 25 mg PO DAILY 09/27/24 losartan 25 mg tablet 25 mg PO DAILY 09/27/24 sumatriptan succinate 25 mg tablet 25 mg PO migraine 09/27/24 Previous Rx's ?Medication ?Instructions ?Recorded famotidine 20 mg tablet 20 mg PO DAILY #14 tabs 08/05/24 bisacodyl 5 mg tablet,delayed 10 mg (2 x 5 mg) PO BEDTIME #180 09/27/24 release (Dulcolax (bisacodyl)) tabs diphenhydramine HCl 50 mg tablet 50 mg PO .COMPLEX #1 tab 09/27/24 (Benadryl Allergy) esomeprazole magnesium 40 mg 40 mg PO DAILY #90 caps 09/27/24 capsule,delayed release (Nexium) prednisone 50 mg tablet 50 mg PO .COMPLEX #3 tabs 09/27/24 dicyclomine 10 mg capsule 10 mg PO BID #60 caps 10/31/24 cholecalciferol (vitamin D3) 125 125 mcg PO DAILY #90 caps 11/04/24 mcg (5,000 unit) capsule omeprazole 40 mg capsule,delayed 40 mg PO DAILY #30 caps 11/05/24 release Allergies Allergy/AdvReac Type Severity Reaction Status Date / Time Iodinated Contrast Media Allergy Unknown UNKNOWN Verified 11/05/24 17:03 [CONTRAST, IV] acetaminophen [From Percocet] Allergy Palpitation Verified 11/05/24 17:03 s morphine Allergy Palpitation Verified 11/05/24 17:03 s oxycodone [From Percocet] Allergy Palpitation Verified 11/05/24 17:03 s Review of Systems Review of Systems: Constitutional : No Weight loss, No Fever, No Chills, No Night Sweats, No Fatigue, No Malaise ENT/Mouth : No Hearing loss, No Ear Pain, No Nasal Congestion, No Sinus Pain, No Hoarseness, No sore throat, No Rhinorrhea, No Swallowing Difficulty Eyes: No Eye Pain, No Swelling, No Redness, No Foreign Body, No Discharge, No Vision Changes Cardiovascular : No Chest Pain, No SOB, No Dyspnea on Exertion, No Orthopnea, No Edema, No Palpitations Respiratory : No Cough, No Sputum, No Wheezing, No Smoke Exposure, No Dyspnea Gastrointestinal : Complaining of nausea and vomiting triggered by eating or drinking, No Diarrhea, No Constipation, complaining of epigastric pain, burning sensation and sharp Genitourinary : no irregular bleeding, No Dysuria, No Urinary Frequency, No Hematuria, No Urinary Incontinence, No Urgency, No Flank Pain, No Urinary Flow Changes, No Hesitancy Musculoskeletal : No joint pain, No Myalgias, No Joint Swelling Skin : No Skin Lesions, No rash Neuro : No Weakness, No Numbness, No Paresthesias, No Loss of Consciousness, No Dizziness, No Headache Psych : No Anxiety/Panic, No Depression, No SI/HI/AH/VH, No Social Issues, Heme/Lymph: No Bruising, No Bleeding,No Lymphadenopathy Endocrine : No Polyuria, No Polydipsia, No Temperature Intolerance [facility] Past Medical History Medical History Anxiety Asthma Social History Social History Alcohol intake: current Alcohol intake frequency: a few times a week Smoked in Last 30 Days: No Use of substances other than those prescribed or required for medical reasons: No Substance Use Type: Marijuana Advance Directives: No Advance Directives Information Provided: No Do you have a plan to hurt others: No Plan Physical Exam ED Vital Signs: Vital Signs - 24 hr 11/05/24 17:02 11/05/24 19:53 11/05/24 20:00 Temperature 97.7 F 97.9 F 98.9 F Pulse Rate 76 79 82 Respiratory Rate 18 16 18 Blood Pressure 157/76 H 164/93 H 128/84 Pulse Oximetry 99 99 96 Oxygen Delivery Method Room Air Room Air Room Air BMI result Body Mass Index 31.6 Const Other: Appearance: Alert. Oriented X3. No acute distress. Eyes: Pupils equal, round and reactive to light. ENT: Pharynx normal. Neck: Normal inspection. Neck supple. No lymph nodes noted. No crepitus CVS: Normal heart rate and rhythm. Pulses normal. Normal S1 and S2 Respiratory: No respiratory distress. Breath sounds normal. No Wheezing. No rales Abdomen: soft, no significant pain to palpation, no rigidity, no rebound or guarding. Skin: Skin warm and dry. Normal skin color. Normal skin turgor. Extremities: No lower extremity edema. No Lacerations. No Rash Neuro: Oriented X 3. No motor deficit. No sensory deficit. Moving all extremities. No slurred speech. CN 2 through 12 grossly intact Psych: calm, cooperative, normal affect Course Course Course Narrative: This is an RME performed by Mika Sauer CNP: Additional HPI, ROS, PE not included below will be deferred to primary provider. Patient is a 49-year-old female who presents emergency department for evaluation of reported pain to her abdominal hernia wanting to her epigastric region. She has Zofran which has somewhat helped. She is able to tolerate small volumes of liquid at a time if she drinks too much she will then vomit. Denies fevers, chills, diarrhea, constipation, urogenital symptoms. Has an appointment scheduled with general surgeon Dr. Campoverde on 11/07/2023. Discussed with my attending Dr. Onofre, advised torso CT imaging from the waiting room to exclude obstruction, this unfortunately will be without IV contrast Plan: Serum labs addition to lactic acid, CT AP, acetaminophen Medications Administered Discontinued Medications Generic Name Dose Route Start Last Admin Trade Name Freq PRN Reason Stop Dose Admin Acetaminophen 650 mg 11/05/24 17:07 11/05/24 17:08 Acetaminophen 325 Mg Tablet PO 11/05/24 17:08 650 mg ONCE ONE Administration Medical Decision Making Medical Decision Making [facility] Narrative: My interpretation of labs: Patient's hematology and chemistry did not show any acute abnormality, urinalysis negative for UTI. CT scan of the abdomen does not show any acute abnormality. I discussed with the patient that based on her symptoms, she may have peptic ulcer disease versus gastritis. Patient states that she has an appointment pending with Gastroenterology, they have several studies pending including an endoscopy. Patient states that she is currently taking dicyclomine. I discussed with the patient that we will go ahead and start her on omeprazole. Patient needs to have close follow-up with her PCP And gastroenterology. GI ulcer perforation is not suspected. patient provided with a GI cocktail and 1 dose of IM morphine. I discussed with the patient that she needs to make diet changes. Patient noted to drink soda and has 1 in her room, discussed with the patient to avoid acidic foods and spicy foods which she accepts that she eats frequently Differential Diagnosis Differential Diagnoses: The differential diagnosis associated with the presentation includes ( incarcerated hernia, gastritis, perforated ulcer, acute cholecystitis, pancreatitis) Admission/Observation Consideration of admission/observation: Escalation of care including admission/observation considered ( given patient's initial presentation, observation/ admission was considered) Lab Data [facility] Lab Attestation statement: I reviewed the patient's lab results. 11/05/24 18:09 11/05/24 18:09 Labs: Lab Results 11/05/24 11/05/24 Range/Units 18:09 20:06 WBC 10.7 (4.8-10.8) X10*3/uL RBC 4.72 (4.20-5.50) X10*6/uL Hgb 14.4 (12.0-16.0) g/dl Hct 42.2 (37.0-47.0) % MCV 89.4 (80.0-98.0) fL MCH 30.5 (27.0-33.0) pg MCHC 34.1 (31.0-35.0) g/dl RDW 12.4 (11.0-16.0) % Plt Count 328 D (160-400) X10*3/uL MPV 10.8 (9.4-12.3) fL Immature Gran % (Auto) 0.4 (0.0-0.4) % Neut % (Auto) 79.2 H (45-73) % Lymph % (Auto) 13.9 L (20-40) % Trigg % (Auto) 5.7 (2-11) % Eos % (Auto) 0.3 (0-4) % Baso % (Auto) 0.5 (0-2) % Lymph # (Auto) 1.5 (1.2-4.9) X10*3/uL Trigg # (Auto) 0.6 (0.1-1.2) X10*3/uL Eos # (Auto) 0.0 (0.0-0.4) X10*3/uL Baso # (Auto) 0.1 (0.0-0.2) X10*3/uL Abs Immat Gran (auto) 0.04 H (0.00-0.03) X10*3/uL Absolute Neuts (auto) 8.5 H (2.0-8.3) x10*3/uL Absolute Nucleated RBC 0.000 (0.0-0.012) X10*3/uL Nucleated RBC % (auto) 0.0 (0.0-0.2) /100WBC Sodium 139 (135-145) mmol/L Potassium 3.5 (3.3-5.1) mmol/L Chloride 104 (96-108) mmol/L Carbon Dioxide 25 (22-29) mmol/L Anion Gap 14 (12-20) BUN 19 H (9-16) mg/dL Creatinine 0.77 (0.5-1.4) mg/dL Estim Creat Clear Calc 91.0 Estimated GFR > 60 Random Glucose 157 H (60-115) mg/dL Lactic Acid 1.2 (0.5-2.0) mmol/L Calcium 9.6 D (8.4-10.2) mg/dL Magnesium 2.3 (1.6-2.6) mg/dL Total Bilirubin 0.3 (0.0-1.0) mg/dL AST 24 (5-31) U/L ALT 33 H (0-31) U/L Alkaline Phosphatase 95 (39-117) U/L Total Protein 7.9 (6.5-8.0) g/dL Albumin 5.0 (3.5-5.0) g/dL Lipase 16 (8-78) U/L Beta HCG, Quant < 2 mIU/mL Urine Color Yellow Urine Appearance Clear Urine pH 6.5 (5.0-9.0) Ur Specific [place] >= 1.030 H (1.005-1.025) Urine Protein 100 (2+) H (Neg-Trace) mg/dL Urine Glucose (UA) Negative (Negative) mg/dL Urine Ketones Trace (Negative) mg/dL Urine Blood Negative (Negative) Urine Nitrite Negative (Negative) Ur Leukocyte Esterase Negative (Negative) Urine RBC 0-2 (0-2) /HPF Urine WBC 0-5 (0-5) /HPF Ur Squamous Epith Cells 6-10 (0-2) /HPF Urine Bacteria 1+ (None Seen) Hyaline Casts 0-2 (0-2) /LPF Independent Interpretation I performed an independent interpretation of an: CT Scan Radiology Impression Discussion of test interpretation with radiology: I have reviewed the radiologist's reading. Radiologist Impression: No consolidation at the lung bases. Unremarkable gallbladder and bladder. No hydronephrosis. 4 mm calcification in the right renal pelvis is favored to be vascular. Punctate bilateral nephrolithiasis. Suspect mild scarring in the pelvis related to the previously seen infectious/inflammatory process. Currently there is no stranding in the pelvis. Tubular fluid attenuation lesions in the right adnexa measuring 1.1 cm in transverse dimension could be secondary to hydrosalpinx and/or ovarian follicles. The other solid organs are unremarkable. No bowel wall thickening or dilation. A normal appendix is identified. Colonic diverticulosis. No aneurysm. No calcified atherosclerotic disease. No lymphadenopathy. No ascites. There is diastasis of the rectus abdominis muscles with a tiny fat containing umbilical hernia. No acute osseous abnormality. Impression: No acute findings. Critical Care Time Critical Care Time Critical Care Time: Yes Total Critical Care Time: 35 Attestation: I have personally provided critical care time. Time includes review of lab data, radiology results, discussion with consultants, and monitoring for potential decompensation. Intervention performed as documented. Discharge Plan Discharge Clinical Impression: Abdominal pain, Peptic ulcer disease Patient Disposition: Home, Self-Care Instructions: Diet for Stomach Ulcers and Gastritis (ED), Abdominal Pain (ED) Additional Instructions: Please follow-up with your primary care physician tomorrow. If you have any worsening or new symptoms, please return to the emergency room or call 911 Prescriptions: New omeprazole 40 mg capsule,delayed release(DR/EC) 40 mg PO DAILY Qty: 30 1RF No Action cholecalciferol (vitamin D3) 125 mcg (5,000 unit) capsule 125 mcg PO DAILY Qty: 90 3RF famotidine 20 mg tablet 20 mg PO DAILY Qty: 14 0RF hydrochlorothiazide 25 mg tablet 25 mg PO DAILY losartan 25 mg tablet 25 mg PO DAILY doxepin 50 mg capsule 100 mg PO BEDTIME gabapentin 100 mg capsule 300 mg PO Q8H sumatriptan succinate 25 mg tablet 25 mg PO duloxetine 30 mg capsule,delayed release(DR/EC) 60 mg PO QAM amlodipine 10 mg tablet 10 mg PO QAM bisacodyl [Dulcolax (bisacodyl)] 5 mg tablet,delayed release (DR/EC) 10 mg PO BEDTIME Qty: 180 4RF esomeprazole magnesium [Nexium] 40 mg capsule,delayed release(DR/EC) 40 mg PO DAILY Qty: 90 5RF prednisone 50 mg tablet 50 mg PO .COMPLEX Qty: 3 0RF Rx Instructions: 50 mg orally Take 1 tablet [address] scan, [address] scan, and the 3rd dose [address] scan; Benadryl Allergy 50 mg tablet 50 mg PO .COMPLEX Qty: 1 0RF Rx Instructions: 50 mg orally [address] scan; please make sure that you have a right to take you home after the CT scan as Benadryl will make you drowsy dicyclomine 10 mg capsule 10 mg PO BID Qty: 60 1RF Print Language: Nigerien
[2024-11-05] MEDS: Acetaminophen 325 MG TABLET 650 MG PO (17:08)
[2024-11-05 18:17] LABS: MANUAL DIFF FLAG NO
[2024-11-05 18:21] LABS: Basophils Absolute Auto 0.1 X10*3/uL (0.0-0.2); Basophils Percent Auto 0.5 % (0-2); Eosinophils Percent Auto 0.3 % (0-4); Hematocrit 42.2 % (37.0-47.0); Hemoglobin 14.4 g/dl (12.0-16.0); Imm Gran Abs Auto 0.04 X10*3/uL (0.00-0.03); Imm Gran Pct Auto 0.4 % (0.0-0.4); Lymphocytes Absolute Auto 1.5 X10*3/uL (1.2-4.9); Lymphocytes Percent Auto 13.9 % (20-40); Mean Corpuscular HGB Conc 34.1 g/dl (31.0-35.0); Mean Corpuscular Hemoglobin 30.5 pg (27.0-33.0); Mean Corpuscular Volume 89.4 fL (80.0-98.0); Mean Platelet Volume 10.8 fL (9.4-12.3); Monocytes Absolute Auto 0.6 X10*3/uL (0.1-1.2); Monocytes Percent Auto 5.7 % (2-11); Neutrophils Absolute Auto 8.5 x10*3/uL (2.0-8.3); Neutrophils Percent Auto 79.2 % (45-73); Platelet Count 328 X10*3/uL (160-400); Red Blood Count 4.72 X10*6/uL (4.20-5.50); Red Cell Distribution Width 12.4 % (11.0-16.0); White Blood Count 10.7 X10*3/uL (4.8-10.8)
[2024-11-05 18:35] LABS: Lactic Acid 1.2 mmol/L (0.5-2.0)
[2024-11-05 18:44] LABS: Alanine Aminotransferase 33 U/L (0-31); Alkaline Phosphatase 95 U/L (39-117); Anion Gap 14 (12-20); Aspartate Amino Transferase 24 U/L (5-31); Bilirubin Total 0.3 mg/dL (0.0-1.0); Blood Urea Nitrogen 19 mg/dL (9-16); Calcium 9.6 mg/dL (8.4-10.2); Carbon Dioxide 25 mmol/L (22-29); Chloride 104 mmol/L (96-108); Estimated Glomerular Filt Rate > 60; Glucose Random 157 mg/dL (60-115); HCG Quantitative < 2 mIU/mL; Lipase 16 U/L (8-78); Magnesium 2.3 mg/dL (1.6-2.6); Potassium 3.5 mmol/L (3.3-5.1); Sodium 139 mmol/L (135-145); Total Protein 7.9 g/dL (6.5-8.0)
[2024-11-05 19:53] VITALS: BP 164/93; PULSE 79; RESP 16; TEMP 36.6; O2SAT 99
[2024-11-05 20:00] VITALS: BP 128/84; PULSE 82; RESP 18; TEMP 37.2; O2SAT 96
[2024-11-05 20:13] LABS: Appearance Urine Clear; Color Urine Yellow; Glucose Urine UA Negative (Negative); Leukocyte Esterase Urine Negative (Negative); Nitrite Urine Negative (Negative); PH 6.5 (5.0-9.0); Specific Gravity - Urine >= 1.030 (1.005-1.025); UMIC TRIGGER UACC YES; Urine Blood Negative (Negative); Urine Ketones Trace mg/dL (Negative); Urine Protein 100 (2+) mg/dL (Neg-Trace)
[2024-11-05 20:18] LABS: Bacteria Urine 1+ (None Seen); Hyaline Casts Urine 0-2 /LPF (0-2); RBC Urine 0-2 /HPF (0-2); WBC Urine 0-5 /HPF (0-5)
[2024-11-05] MEDS: Lidocaine HCl Viscous 2 % 15 ML SOLUTION MUCOUS MEM (21:34)
[2024-11-05] MEDS: Omeprazole 40 MG CAPSULE.DR PO (21:34)
[2024-11-05] MEDS: Magnesium Hydrox/Alum Hydrox 30 ML ORAL.SUSP PO (21:34)
[2024-11-05] MEDS: Ondansetron ODT 4 MG TAB.RAPDIS TRANSLINGU (21:41)
--- NOTE | 2024-11-05 21:42 | PC.NURSE ---
pt refused the morphine reports that it makes her heart race
[2024-11-05 22:10] VITALS: BP 128/84; PULSE 82; RESP 18; TEMP 37.2; O2SAT 96
== END 2024-11-05 22:11 | disposition home or self-care (01) ==
PROVIDERS: Nurse Practitioner Family; Emergency Provider Emergency Medicine; PCP Internal Medicine
DX: K27.9 Peptic ulcer, site unspecified, unspecified as acute or chronic, without hemorrhage or perforation (principal); R10.2 Pelvic and perineal pain; Z79.899 Other long term (current) drug therapy
CPT/HCPCS: 36415; 74176; 80053; 81001; 83605; 83690; 83735; 84702; 85025; 96372; 99284; J2270

== ENCOUNTER → 2024-11-05 17:56 | Outpatient (BNV) | payer MEDICAID, SELFPAY | PROVIDERS: Visit Provider Radiology Diagnostic Radiology | DX: R10.9 Unspecified abdominal pain (principal); R11.2 Nausea with vomiting, unspecified; K46.9 Unspecified abdominal hernia without obstruction or gangrene | CPT/HCPCS: 74176 ==

== ENCOUNTER 2024-11-07 14:22 | Outpatient (AMB) | payer MEDICAID, SELFPAY ==
--- NOTE | 2024-11-07 14:26 | MHC.OFFVIS ---
Vital Signs 11/07/24 14:35 Height 5 ft 3 in Weight 183 lb BMI 32.4 BP 162/88 H Blood Pressure Location Rt brachial Position Sitting Pulse 86 Intake Visit Reasons: Abdominal hernia Intake Note: Patient referred by Danielle Foramn PA-C for abdominal hernia. Present for 6m. Patient c/o: abdominal pain. Recently diagnosed with Ulcer. Nausea. Seen at ED. Sparker And Patcher Required: No Accompanied by: friend Shara Allergies Iodinated Contrast Media [CONTRAST, IV] Allergy (Unknown, Verified 11/07/24 14:32) UNKNOWN acetaminophen [From Percocet] Allergy (Verified 11/07/24 14:32) Palpitations morphine Allergy (Verified 11/07/24 14:32) Palpitations oxycodone [From Percocet] Allergy (Verified 11/07/24 14:32) Palpitations HPI Comments Details: Patient presents with a collection of abdominal symptoms including occasional nausea and vomiting and epigastric discomfort. She also has a symptomatic umbilical hernia. She is being followed by GI for the former symptoms. She presents here for evaluation of the latter, the umbilical hernia. She otherwise tolerates a diet low with some difficulty at times. She has never had upper endoscopy. In the meantime, she was recently in the emergency department cause of her umbilical discomfort and underwent a CT scan demonstrating/confirmed in the umbilical hernia. Chart was reviewed and patient evaluated. Patient presents here with a family member/friend [facility] Medical History Anxiety Asthma Social History Alcohol intake: current Alcohol intake frequency: a few times a week Substance Use Type: Marijuana Physical Exam Vital Signs: Last Vital Signs Pulse 86 11/07/24 14:35 BP 162/88 H 11/07/24 14:35 BMI result Body Mass Index 32.4 Chest Other: Chest breath sounds bilaterally, HS 1 in 2 GI Other: Abdomen was evaluated supine and standing with Valsalva. Corpulent. Benign. Roughly 2 cm reducible umbilical hernia. Very tender to palpation. Assessment & Plan Assessment & Plan (1) Umbilical hernia: Code(s): K42.9 - Umbilical hernia without obstruction or gangrene Category: Surgical Plan Patient was like to have the hernia repaired. Risks, benefits, alternatives of open umbilical hernia repair with mesh were reviewed with the patient and included but not limited to bleeding, infection, recurrence, numbness, pain, scarring, bowel injury and the patient wishes to proceed. All questions answered. Arrangements were made for this. Regarding her upper GI/dyspeptic symptoms, patient has been instructed to follow-up with her gastroenterology providers. Coding Level of Care Code New Pt Level 5 (10415) Diagnoses Umbilical hernia K42.9
[2024-11-07 14:35] VITALS: BP 162/88; PULSE 86; BMI 32.4
== END 2024-11-07 14:53 | disposition home or self-care (01) ==
PROVIDERS: PCP Internal Medicine; Referring Provider Nurse Practitioner Family; Visit Provider Surgery
DX: K42.9 Umbilical hernia without obstruction or gangrene (principal)
CPT/HCPCS: 99204

== ENCOUNTER → 2024-11-07 14:22 | Outpatient (BNVA) | payer MEDICAID, SELFPAY | PROVIDERS: PCP Internal Medicine; Referring Provider Nurse Practitioner Family; Visit Provider Surgery | DX: K42.9 Umbilical hernia without obstruction or gangrene (principal) | CPT/HCPCS: 99202 ==

== ENCOUNTER 2024-11-23 | Outpatient (REF) | payer MEDICAID, SELFPAY ==
--- OUTSIDE RECORDS SUMMARY | 2024-11-23 19:37 | XMS_ITS | Encounter Summary ---
Author Organization [employer] Address [address] [facility] [address] [place] [address] Care Team Providers Care Orchid Hand Name Role Phone Renu Hadley MD Primary Care Provider + Reason for Visit * Reason Onset Date Comments Nurse Triage 11/16/2024 Encounter Details Date Type Department Care Team ([facility] st Contact Info) Description 11/16/2024 Telephone [facility] MEDICINE [address] [place], [place] [phone] Renu Hadley MD [address] [place], [place] [phone] Nurse Triage Social History Tobacco Use Types Packs/Day Years Used Date Smoking Tobacco: Never Passive Smoke Exposure: Never Smokeless Tobacco: Never Alcohol Use Standard Drinks/Week Comments Not Currently 0 (1 standard drink = 0.6 oz pur e alcohol) Socially Depression Answer Date Recorded Patient Health Questionnaire-9 Score 16 07/12/2023 Housing Stability Answer Date Recorded What is your housing situation today? I do not have housing (Staying with others, in a hotel, in a correction, living outside on the street, on a beach, in a car, or in a park 08/02/[address] you li ve. Do you have problems with any of the following? None of the above 08/02/2023 Food Insecurity Answer Date Recorded Within the past 12 months, y ou worried that your food would run out before you got money to buy more: Never True 08/17/2023 Within the past 12 months,th e food you bought just didn't last and you didn't have enough money to get more: Never True Transportation Answer Date Recorded In the past 12 months, has l ack of transportation kept you from medical appts, meetings, work or from getting things needed for daily living? No 03/27/2024 Utilities Answer Date Recorded In the past 12 months, has t he electric, gas, oil or water company threatened to shut off services in your home? No 08/17/2023 Depression Answer Date Recorded Patient Health Questionnaire-2 Score 4 07/12/2023 Comments No Sex and Gender Information Value Date Recorded Sex Assigned at Female 08/24/2022 10:31 AM EDT Legal Sex Female 10:31 AM EDT Gender Identity Female 01/14/2024 3:30 PM EDT Sexual Orientation Choose not to disclose 2021 10:31 AM EDT documented as of this encounter Miscellaneous Notes * Telephone Encounter - Venecia Hernandez RN - 11/17/2024 8:50 AM EST TC placed to patient [phone] via [employer] (Naomi #[id number]) in regards to below message. Patient reports her upcoming surgery with Dr. Campoverde is on 12/01/24 however patient is experiencing horrible pain. Patient last seen by Dr. Campoverde on 11/07/24 (note in chart). Patient reports she also was informed at [facility] ED on 11/05/24 (ED note in chart) that she may have peptic ulcer disease. Patient was advised to f/u with GI, patient has an appointment for 12/22/24. Patient reports she called Dr. Campoverde's office crying due to the pain r/t the hernia however has not received a call back. Patient informed PCP cannot send medication without the patient being evaluated. RN attempted to offer a sick visit for TODAY however patient denied, RN offered WIC however patient also denied. RN reiterated, PCP cannot send medication without evaluating patient. Patient advised of options to call Dr. Campoverde's office again, come to [place] or accept scheduled appointment for today to be seen (patient adamantly refusing ED). Patient ultimately accepted sick on site appointment for TODAY at 3:30pm. Patient to f/u PRN. * Telephone Encounter - Renu Hadley MD - 11/16/2024 4:41 PM EST Re abd pain, agree with POC to go to [facility] acute abdomen. * Telephone Encounter - Shelly LIONEL Almonte - 11/16/2024 1:33 PM EST Triage call returned to patient with BLS Gurvinder [id number]. Patoient reports increased abdominal discomfort as related to hernia identified and is pending surgery with at [facility] on 12/01/24 for repair.Patient reports increased pain and that she is requesting a stronger medication than given before to relieve discomfort pending surgery. Patient confirms use of dicyclomine as previously ordered but that it is ineffective Patient without vomiting but reports not walking straight when asked about posture. Unable to identify specifics. Patient advised that there are no PCP or Team appts available for today. Advised of [facility] hours for today and tomorrow as needed but that she should contact surgeons office in regards to increased pain and inability to tolerate it pending surgery. Patient reporting that she is requesting medication from and not Surgeon. Patient disconnected the call from steam and gas turbine assembler as she felt she was being misunderstood. Team tasked to follow. Multiple (2) protocols were used on this call. Disposition for Call: Callback or Video Visit by PCP Today Protocol Used: Medication Question Call (Adult) Protocol-Based Disposition: Callback or Video Visit by PCP Today Video visit not offered Positive Triage Question: * Caller wants to use a complementary or alternative medicine * All higher-acuity triage questions were negative Protocol Used: Abdominal Pain - Female (Adult) Protocol-Based Disposition: See in Office or Video Visit Today Override (Final) Disposition: Discuss with PCP and Callback by Nurse Today Override Reason: Caller refused suggested disposition Video visit not offered Positive Triage Question: * Moderate pain (e.g., interferes with normal activities that comes and goes (cramps) lasts > 24hours (Exception: Pain with Vomiting or Diarrhea - see that Protocol.) * All higher-acuity triage questions were negative * Telephone Encounter - Sophie Morse - 11/16/2024 1:11 PM EST Symptom: Abdominal Pain - Female - Not Outcome: Schedule an urgent appointment (within 4 hours) or talk to a nurse or provider soon Reason: Getting worse The caller accepted this outcome. Contact pt at [phone] (iraqi) documented in this encounter Plan of Treatment Not on file documented as of this encounter Visit Diagnoses Not on filedocumented in this encounter Additional Health Concerns Assessment Noted Time PHQ-9 Depression Total Score: 16 023 11:15 AM EDT documented as of this encounter Care Teams Orchid Hand Relationship Specialty Start Date End Date Renu Hadley MD [address] [place] [id number] PCP - General Internal Medicine 07/04/24 documented as of this encounter
--- OUTSIDE RECORDS SUMMARY | 2024-11-23 19:37 | XMS_ITS | Encounter Summary ---
Author Organization [employer] Address [address] [facility] 7[address] [place] [address] Care Team Providers Care Deburrer Strip Name Role Phone Renu Hadley MD Primary Care Provider + Reason for Visit * Reason Comments Med Refill Encounter Details Date Type Department Care Team ([facility] st Contact Info) Description 11/08/2024 Refill [facility] MEDICINE [address] [place], [place] [phone] Name, MD Richy [address] [place], [place] [phone] Social History Tobacco Use Types Packs/Day Years [...] with others, in a hotel, in a senior living, living outside on the street, on a [...] AM EDT documented as of this encounter Plan of Treatment Not on file documented as of this encounter Visit Diagnoses Not on filedocumented in this encounter Additional Health Concerns Assessment Noted Time PHQ-9 Depression Total Score: 16 023 11:15 AM EDT documented as of this encounter Care Teams Deburrer Strip Relationship Specialty Start Date End Date Renu Hadley MD [address] [place] [phone] PCP - General Internal Medicine 07/04/24 documented as of this encounter
--- OUTSIDE RECORDS SUMMARY | 2024-11-23 19:37 | XMS_ITS | Encounter Summary ---
Author Organization [employer] Address [address] [place] [address] [address]t [place] [address] Care Team Providers Care Ramp Service Agent Name Role Phone Renu Hadley MD Primary Care Provider + Reason for Referral * Consultation (Routine) - Authorized Specialty Diagnoses / Procedures Referred By Hermila t Referred To Contact Behavioral Health Diagnoses Bipolar I disorder, most recent episode depressed (CMS/HCC) Renu Hadley MD [address] [place] [address] Phone: tel: fax: Referral ID Status Reason Start Date Expiration Date Visits Requested Visits Authorized [id number] Authorized Specialty Services Required 11/16/2024 11/16/2025 1 1 Reason for Visit * Reason Onset Date Comments Med Refill 11/16/2024 Encounter Details Date Type Department Care Team ([facility] st Contact Info) Description 11/16/[address] [facility] MEDICINE [address] [place], [place] [phone] Renu Hadley MD [address] [place], [place] [phone] Med Refill Social History Tobacco Use Types Packs/Day Years [...] with others, in a hotel, in a long term, living outside on the street, on a [...] encounter Miscellaneous Notes * Telephone Encounter - Crissy River RN - 11/20/2024 10:53 AM EST TC via [id number], no answer. L/M asking her to call back and reminding her to keep her upcoming appt 11/23/24. * Telephone Encounter - Renu Hadley MD - 11/17/2024 4:03 PM EST See note below from , please call patient re clonazepam and tell her that I will not rx that med for chronic use, she needs to see team and remind her of appt. * Telephone Encounter - Renu Hadley MD - 11/16/2024 4:28 PM EST Re clonazepam below, no, she's not on it for over 1y with me.., she was referred for MH rx/meds last year, Im cc'ing BH to fu with her after she was referred, may need psychiatry referral here? Im sending a new referral * Telephone Encounter - Marcos Avilez - 11/16/2024 10:00 AM EST TC from pt requesting medication refill. Medications needing refill : clonazePAM (KlonoPIN) 2 MG tablet To be sent to: [facility] documented in this encounter Plan of Treatment Scheduled Referrals Name Type Priority Associated Diagnoses Order Schedule Referral to Behavioral Health Outpatient Referral Routine Bipolar I disorder, most recent episode depressed (CMS/HCC) Expected: 11/16/2024 (Approximate), Expires: 11/16/2025 documented as of this encounter Visit Diagnoses Diagnosis Bipolar I disorder, most recent episode depressed (CMS/HCC)- Primary Bipolar I disorder, most recent episode (or current) depressed, unspecified documented in this encounter Additional Health Concerns Assessment Noted Time PHQ-9 Depression Total Score: 16 023 11:15 AM EDT documented as of this encounter Care Teams Ramp Service Agent Relationship Specialty Start Date End Date Renu Hadley MD [address] [place] [id number] PCP - General Internal Medicine 07/04/24 documented as of this encounter
--- OUTSIDE RECORDS SUMMARY | 2024-11-23 19:37 | XMS_ITS | Encounter Summary ---
Author Organization [employer] Address [address] [facility] [address] [place] [address] Care Team Providers Care Granulator Machine Operator Name Role Phone Renu Hadley MD Primary Care Provider + Encounter Details Date Type Department Care Team (Late st Contact Info) Description 12/01/2022 Orders Only [facility] & PEDS [address] [place] [address] Kanika Monson LPN Social History Tobacco Use Types Packs/Day Years Used Date Smoking Tobacco: Never Assessed Comments Unknown Sex and Gender Information Value Date Recorded Sex Assigned at Female 08/24/2022 10:31 AM EDT Legal Sex Female 10:31 AM EDT Gender Identity Female 01/14/2024 3:30 PM EDT Sexual Orientation Choose not to disclose 2021 10:31 AM EDT documented as of this encounter Plan of Treatment Not on file documented as of this encounter Visit Diagnoses Not on filedocumented in this encounter Care Teams Granulator Machine Operator Relationship Specialty Start Date End Date Renu Hadley MD [address] [place] [id number] PCP - General Internal Medicine 07/04/24 documented as of this encounter
--- OUTSIDE RECORDS SUMMARY | 2024-11-23 19:37 | XMS_ITS | Clinical Summary ---
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 breast. There is no underlying ?? mammographic abnormality. This will be interrogated with ultrasound. ? There are no suspicious masses, suspicious grouped calcifications, or ?? areas of architectural distortion in either breast. The parenchymal ?? pattern is stable from prior exams. There is no skin or axillary ?? abnormality. ? ULTRASOUND: ?? CLINICAL INFORMATION: ?? As above. ? COMPARISON: ?? None ? TECHNIQUE: ?? Targeted sonographic evaluation left breast was performed using a high ?? frequency linear transducer. Attention was given to the upper inner ?? quadrant left breast, in the region of pain. ??Selected archived ?? documentation. ? FINDINGS: ? LEFT BREAST: There is a mixture of fatty and fibroglandular tissue. ??No ?? suspicious mass is seen. ??There is no pathologic acoustic shadowing. ?? There is no cystic abnormality. No sonographic correlate to the region ?? of breast pain. ? US/US breast LT limited mamm only ?? IMPRESSION: ?? -There are no findings suspicious for malignancy in either breast. ? -No mammographic or sonographic correlate to the region of left breast ?? pain, upper inner quadrant. Recommend clinical management. ? -Otherwise, recommend the patient resume routine annual screening. ? OVERALL ASSESSMENT: ?? Mammography: BI-RADS 2 - Benign Findings ?? Ultrasound: BI-RADS 2 - Benign Findings ? RECOMMENDATION: ?? 1. Patient should be managed based on the clinical impression. ?2. ?? Otherwise, routine annual screening mammography. ? This patient's information was entered into a reminder system with a ?? target due date for their next mammogram. ? Electronically signed by: ??Jaret Barber MD ??08/03/2024 02:49 PM EDT RP ? Dictated By: ?Jaret Barber MD ? Signed By: ?<Electronically signed by Jaret Barber MD in OV> ?08/03/24 1449 ? DD/ 1430 ? TD/TT: 08/03/24 1444 ? Instrument Worker: ? Procedure Note Donna Bolton - 08/03/2024 [facility] [address] [place] [address] Dr. Phelan, DIANA [id number] Ultrasound Report Signed Patient: Zonia Simons#: [id number] : 1975Acct:[id number] Age/Sex: 48 / FADM Date: 08/03/24 Loc: HO.MAMMO Attending Dr: Anna Rondon MD Ordering Physician: Anna Rondon MD Date of Service: 08/03/24 Procedure(s): US breast LT limited mamm only Accession Number(s): [id number] cc: Anna Rondon MD EXAMINATION: MM DIAGNOSTIC DIGITAL BREAST TOMOSYNTHESIS, BILATERAL US BREAST LIMITED, LEFT MAMMOGRAPHY: CLINICAL INFORMATION: Patient complaining of pain left breast anterior one third upper inner quadrant. Also due for yearly. History of breast cancer in mother at age 43. History of bilateral breast reduction. COMPARISON: Mammography: 10/27/2017, 10/04/2014. TECHNIQUE: Digital breast tomosynthesis is performed in both the craniocaudal and mediolateral oblique views along with computer-aided detection (CAD). Synthesized 2D images are generated from the tomosynthesis. FINDINGS: There are scattered areas of fibroglandular density (ACR BI-RADS breast composition Category b). Stable changes of post mammoplasty scarring in both breasts. Area of pain has been marked with a triangle marker by the technologist with the aid of the patient, marking the area of pain in the anterior one third, upper inner quadrant left breast. There is no underlying mammographic abnormality. This will be interrogated with ultrasound. There are no suspicious masses, suspicious grouped calcifications, or areas of architectural distortion in either breast. The parenchymal pattern is stable from prior exams. There is no skin or axillary abnormality. ULTRASOUND: CLINICAL INFORMATION: As above. COMPARISON: None TECHNIQUE: Targeted sonographic evaluation left breast was performed using a high frequency linear transducer. Attention was given to the upper inner quadrant left breast, in the region of pain. Selected archived documentation. FINDINGS: LEFT BREAST: There is a mixture of fatty and fibroglandular tissue. No suspicious mass is seen. There is no pathologic acoustic shadowing. There is no cystic abnormality. No sonographic correlate to the region of breast pain. US/US breast LT limited mamm only IMPRESSION: -There are no findings suspicious for malignancy in either breast. -No mammographic or sonographic correlate to the region of left breast pain, upper inner quadrant. Recommend clinical management. -Otherwise, recommend the patient resume routine annual screening. OVERALL ASSESSMENT: Mammography: BI-RADS 2 - Benign Findings Ultrasound: BI-RADS 2 - Benign Findings RECOMMENDATION: 1. Patient should be managed based on the clinical impression. 2. Otherwise, routine annual screening mammography. This patient's information was entered into a reminder system with a target due date for their next mammogram. Electronically signed by: Jaret Barber MD 08/03/2024 02:49 PM EDT Dictated By: Jaret Barber MD Signed By: <Electronically signed by Jaret Barber MD in OV> 08/03/24 1449 DD/ 1430 TD/TT: 08/03/24 144 Instrument Worker: us Anna Rondon MD IMG US PROCEDURES Final Result * (ABNORMAL) Lipid Panel with Reflex to Direct LDL (08/02/2024 10:22 AM EDT) Triglycerides 278(H) <150 mg/dL [facility] Comment:Desirable Triglyceri de: less than 150 mg/dLBorderline High Triglyceride 150-199 mg/dLHigh Triglyceride: 200-499 mg/dLVery High Triglyceride: greater than or equal to 5OO mg/dL Cholesterol 187 <200 mg/dL [facility] Comment:Desirable Cholestero l: less than 200 mg/dLBorderline High Cholesterol: 200-239 mg/dLHigh Cholesterol: greater than 239 mg/dL LDL Cholesterol Calculated 96 <100 mg/dL [facility] Comment:Desirable LDL: less than 100 mg/dLNear Optimal/Above Optimal LDL: 110- 129 mg/dLBorderline High LDL: 130-159 mg/dLHigh LDL: 160-189 mg/dLVery High LDL: greater than or equal to 190 mg/dL HDL Cholesterol 36(L) >40 mg/dL [facility] Comment:Desirable HDL: great er than 40 mg/dL Note: This HDL assay may give artificially low results in patients with liver disease. Blood 08/02/2024 10:2 2 AM EDT 08/02/2024 11:31 AM EDT us Renu Hadley MD LAB BLOOD ORDERABLES Fin al Result [facility] [address] [place] [address] [phone] * Hepatitis C Antibody with Reflex to HCV, RNA, Quantitative, Real-Time PCR (09/29/2022 1:39 PM EST) Hepatitis C Antibody NON-REACT HAIDER NON-REACT HAIDER [facility] Index 0.07 <1.00 [facility] Comment: HCV antibody was non-reactive. There is no laboratory evidence of HCV infection. In most cases, no further action is required. However, if recent HCV exposure is suspected, a test for HCV RNA (test code 91807) is suggested. For additional information please refer to http://education.Newton Peripherals/faq/QVK54m0 (This link is being provided for informational/ educational purposes only.) 09/29/2022 1:39 PM EST 09/29/2022 1:40 PM EST Narrative [facility] - 09/30/2022 6:58 PM EST FASTING:UNKNOWN PATIENT UNABLE TO VOID; ADVISED TO RETURN FOR COLLECTION. FASTING: UNKNOWN us Richy Name LAB BLOOD ORDERABLES Final Resul t [facility] [address], [place] [address] [facility] [address], [place] [address] * HIV-1/2 Antigen and Antibodies, Fourth Generation, with Reflexes (09/29/2022 1:39 PM EST) Pathologist [facility] HIV Antigen/Antibody, 4th Generation NON-REAC TIVE NON-REAC TIVE [facility] Comment: HIV-1 antigen and HIV-1/HIV-2 antibodies were not detected. There is no laboratory evidence of HIV infection. PLEASE NOTE: This information has been disclosed to you from records whose confidentiality may be protected by state law. ??If your state requires such protection, then the state law prohibits you from making any further disclosure of the information without the specific written consent of the person to whom it pertains, or as otherwise permitted by law. A general authorization for the release of medical or other information is NOT sufficient for this purpose. ?? For additional information please refer to http://education.[employer]/faq/EOU156 (This link is being provided for informational/ educational purposes only.) The performance of this assay has not been clinically validated in patients less than 2 years old. 09/29/2022 1:39 PM EST 09/29/2022 1:40 PM EST Narrative [facility] - 09/30/2022 6:58 PM EST FASTING:UNKNOWN PATIENT UNABLE TO VOID; ADVISED TO RETURN FOR COLLECTION. FASTING: UNKNOWN us Richy Morris MD LAB BLOOD ORDERABLES Final Resul t [facility] [address], [place] [address] [facility] [address], [place] [address] * HPV mRNA E6/E7 (10/13/2017 9:12 AM EST) Pathologist [facility] HPV mRNA E6/E7 Not Detected NOT DETECTED [facility] Comment: This test was performed using the APTIMA(R) HPV Assay ([employer] This assay detects E6/E7 viral messenger RNA (mRNA) from 14 high-risk HPV types (16,18,31,33,35,39,45,51, 52,56,58,59,66,68). For additional information please refer to: http://Green Momit.aaTag.Benefitter/faq/DZK967r8 (This link is being provided for informational/ educational purposes only.) Test Performed by Mariya Powers, [facility], [address] [place] [address] Tyler Chambers M.D., Ph.D., Director of Laboratories , [facility] [id number] Please note: ??Effective 07/06/2016, HPV testing will be performed using [employer]'s APTIMA test which targets mRNA. Detecting mRNA instead of DNA, as in older methods, offers significant improvements in specificity. 10/13/2017 9:12 AM EST us Carmen Bey CNM HISTORICAL/NON ORDERABLE LABS Final Result [facility] [address] * Pap Smear (10/13/2017 12:00 AM EST) Swab Carmen Bey CNM LAB CYTOLOGY ORDERABLES F inal Result [facility] [address] [place] [address] [phone] from Last 3 Months or Most Recently Relevant to Health Maintenance Insurance [facility] C3 Care Teams University Dean Relationship Specialty Start Date End Date Renu Hadley MD [address] [place] [phone] PCP - General Internal Medicine 07/04/24
--- OUTSIDE RECORDS SUMMARY | 2024-11-23 19:37 | XMS_ITS | Encounter Summary ---
Author Organization [employer] Address [address] [facility] 7t [place] [address] Care Team Providers Care Service Superintendent Name Role Phone Renu Hadley MD Primary Care Provider + Reason for Visit * Reason Onset Date Comments Nurse Triage 04/06/2023 Encounter Details Date Type Department Care Team ([facility] st Contact Info) Description 04/06/2023 Telephone [facility] MEDICINE [address] [place], [place] [phone] Name, MD Richy [address] [place] [address] Nurse Triage Social History Tobacco Use Types Packs/Day Years Used Date Smoking Tobacco: Never Smokeless Tobacco: Never Depression Answer Date Recorded Patient Health Questionnaire-9 Score 16 07/12/2023 Housing Stability Answer Date Recorded What is your housing situation today? I do not have housing (Staying with others, in a hotel, in a long-term, living outside on the street, on a [...] t he electric, gas, oil or water [employer] threatened to shut off services in your home? No 08/17/2023 Depression Answer Date Recorded Patient Health Questionnaire-2 Score 4 07/12/2023 Comments Unknown Sex and Gender Information Value Date Recorded Sex Assigned at Female 08/24/2022 10:31 AM EDT Legal Sex Female 10:31 AM EDT Gender Identity Female 01/14/2024 3:30 PM EDT Sexual Orientation Choose not to disclose 2021 10:31 AM EDT COVID-19 Exposure Response Date Recorded In the last 10 days, have yo u been in contact with someone who was confirmed or suspected to have Coronavirus/COVID-19? No / Unsure 04/21/2023 8:51 AM EDT documented as of this encounter Miscellaneous Notes * Telephone Encounter - Fany Stephenson RN - 04/06/2023 11:10 AM EDT Call to Ruma Simons, reports having nausea but no vomiting. Per pt looking for Rx for anti nausea medication and pain medication following surgery. Pt advised will need to keep HDF appt for provider to do med review to provide refills. Pt agrees to keep appt as booked. Pt advised to drink small sips of water, crackers and avoid heavy foods. And eat something before taking abx for infection. Ptadvised of appt time tomorrow. Will send to PCP to review and advise team PRN. Protocol Used: Nausea (Adult) Protocol-Based Disposition: Callback or Video Visit by PCP Today Video visit offer not recorded Positive Triage Question: * Taking prescription medication that could cause nausea (e.g., narcotics/opiates, antibiotics, OCPs, many others) * All higher-acuity triage questions were negative Care Advice Discussed: * Reassurance and Education * Clear Fluids * Solids * Reasons To Call Back - You become worse * Telephone Encounter - Nishant Rouse - 04/06/2023 10:31 AM EDT Symptom: Nausea But No Vomiting Outcome: Schedule an appointment to be seen within 3 days Reason: Caller denied all higher acuity questions The caller accepted this outcome Please contact at [phone] Danish documented in this encounter Plan of Treatment Not on file documented as of this encounter Visit Diagnoses Not on filedocumented in this encounter Additional Health Concerns Assessment Noted Time PHQ-9 Depression Total Score: 12 023 1:33 PM EDT documented as of this encounter Care Teams Service Superintendent Relationship Specialty Start Date End Date Renu Hadley MD [address] [place] [phone] PCP - General Internal Medicine 07/04/24 documented as of this encounter
--- OUTSIDE RECORDS SUMMARY | 2024-11-23 19:37 | XMS_ITS | Encounter Summary ---
Author Organization [employer] Address [address] [facility] 7t [place] [address] Care Team Providers Care Network Admin Name Role Phone Renu Hadley MD Primary Care Provider + Reason for Visit * Reason Onset Date Comments triage 02/01/2023 Encounter Details Date Type Department Care Team ([facility] st Contact Info) Description 02/01/2023 Telephone [facility] MEDICINE [address] [place] [address] Name, MD Richy [address] [place] [address] triage Social History Tobacco Use Types Packs/Day Years Used Date Smoking Tobacco: Never Smokeless Tobacco: Never Comments Unknown Sex and Gender Information Value [...] suspected to have Coronavirus/COVID-19? No / Unsure 01/04/2023 2:11 PM EDT documented as of this encounter Miscellaneous Notes * Telephone Encounter - Fany Stephenson RN - 02/01/2023 4:52 PM EDT Call returned to patient for triage. No answer LVM to return call to [facility] triage line. * Telephone Encounter - Geo Barcenas - 02/01/2023 2:01 PM EDT Symptom: Medication Question Outcome: Schedule a same-day appointment or talk to a nurse or provider today Reason: No high acuity concerns reported by caller The caller accepted this outcome documented in this encounter Plan of Treatment Not on file documented as of this encounter Visit Diagnoses Not on filedocumented in this encounter Care Teams Network Admin Relationship Specialty Start Date End Date Renu Hadley MD [address] [place] [phone] PCP - General Internal Medicine 07/04/24 documented as of this encounter
--- OUTSIDE RECORDS SUMMARY | 2024-11-23 19:37 | XMS_ITS | Encounter Summary ---
Author Organization [employer] Address [address] [facility] 7t [place] [address] Care Team Providers Care Breeder Hen Service Technician Name Role Phone Renu Hadley MD Primary Care Provider + Reason for Visit * Reason Onset Date Comments triage 02/26/2023 Encounter Details Date Type Department Care Team ([facility] st Contact Info) Description 02/26/2023 Telephone [facility] MEDICINE [address] [place], [place] [phone] Name, MD Richy [address] [place] [address] triage Social History Tobacco Use Types Packs/Day [...] suspected to have Coronavirus/COVID-19? No / Unsure 03/01/2023 1:16 PM EDT documented as of this encounter Miscellaneous Notes * Telephone Encounter - Lety Ribera RN - 02/26/2023 2:24 PM EDT Noted. Letter sent to address on file to return call. * Telephone Encounter - Daniella Matamoros RN - 02/26/2023 12:38 PM EDT Triage call with Fer Assistant Finance Director ID [id number] Pt was called more than 2x. Each call had a message received that there is a problem with this number . Unable to leave message . * Telephone Encounter - Jaimee Lia - 02/26/2023 10:02 AM EDT Symptom: Skin Lump and blood pressure Outcome: Schedule an appointment to be seen within 3 days Reason: Caller denied all higher acuity questions The caller accepted this outcome documented in this encounter Plan of Treatment Not on file documented as of this encounter Visit Diagnoses Not on filedocumented in this encounter Care Teams Breeder Hen Service Technician Relationship Specialty Start Date End Date Renu Hadley MD [address] [place] [phone] PCP - General Internal Medicine 07/04/24 documented as of this encounter
--- OUTSIDE RECORDS SUMMARY | 2024-11-23 19:37 | XMS_ITS | Encounter Summary ---
Author Organization [employer] Address [address] [facility] 7t [place] [address] Care Team Providers Care Rate Setter Name Role Phone Renu Hadley MD Primary Care Provider + Reason for Visit * Reason Onset Date Comments Durable Medical Equipment 12/30/2022 Encounter Details Date Type Department Care Team (Late st Contact Info) Description 12/30/2022 Telephone [facility] MEDICINE [address] [place], [place] [phone] Name, MD Richy [address] [place] [address] Durable Medical Equipment Social History Tobacco Use Types Packs/Day Years [...] encounter Miscellaneous Notes * Telephone Encounter - Maye Avilez - 12/31/2022 4:08 PM EST Please review message below regarding nebulizer request. If you agree please add it to your note, thank you. * Telephone Encounter - Luanne Nguyen - 12/30/2022 4:05 PM EST Tc from pt requesting a status on Nebulizer Machine that was supposed to be order. Please contact pt at [phone] documented in this encounter Plan of Treatment Not on file documented as of this encounter Visit Diagnoses Not on filedocumented in this encounter Care Teams Rate Setter Relationship Specialty Start Date End Date Renu Hadley MD [address] [place] [phone] PCP - General Internal Medicine 07/04/24 documented as of this encounter
--- OUTSIDE RECORDS SUMMARY | 2024-11-23 19:37 | XMS_ITS | Encounter Summary ---
Author Organization [employer] [facility] Address [address] [place] [address] [address]t [place] [address] Care Team Providers Care Solutions Executive Security Name Role Phone Renu Hadley MD Primary Care Provider + Reason for Visit * Reason Comments Med Refill Encounter Details Date Type Department Care Team (Late st Contact Info) Description 02/12/[address] [facility] MEDICINE [address] [place], [place] [phone] Name, MD Richy [address] [place] [address] Heartburn Social History Tobacco Use Types Packs/Day Years [...] as of this encounter Visit Diagnoses Diagnosis Heartburn documented in this encounter Care Teams Solutions Executive Security Relationship Specialty Start Date End Date Renu Hadley MD [address] [place] [address] PCP - General Internal Medicine 07/04/24 documented as of this encounter
--- OUTSIDE RECORDS SUMMARY | 2024-11-23 19:37 | XMS_ITS | Encounter Summary ---
Author Organization [employer] [facility] Address [address] [facility] 7t [place] [address] Care Team Providers Care Wireless Watcher Name Role Phone Renu Hadley MD Primary Care Provider + Reason for Visit * Reason Comments Med Refill Encounter Details Date Type Department Care Team (Late st Contact Info) Description 06/10/2023 Refill [facility] MEDICINE 230 [place], [place] [phone] Name, MD Richy [address] [place], [place] [phone] Anxiety disorder, unspecified Social History Tobacco Use Types Packs/Day Years Used Date Smoking Tobacco: Never Smokeless Tobacco: Never Alcohol Use Standard Drinks/Week Comments Yes 0 (1 standard drink = 0.6 oz pur e alcohol) Socially Comments Unknown Sex and Gender Information Value Date Recorded Sex Assigned at Female 08/24/2022 10:31 AM EDT Legal Sex Female 10:31 AM EDT Gender Identity Female 01/14/2024 3:30 PM EDT Sexual Orientation Choose not to disclose 2021 10:31 AM EDT documented as of this encounter Plan of Treatment Not on file documented as of this encounter Visit Diagnoses Diagnosis Anxiety disorder, unspecified documented in this encounter Additional Health Concerns Assessment Noted Time PHQ-9 Depression Total Score: 12 023 1:33 PM EDT documented as of this encounter Care Teams Wireless Watcher Relationship Specialty Start Date End Date Renu Hadley MD [address] [place], [place] [phone] PCP - General Internal Medicine 07/04/24 documented as of this encounter
--- OUTSIDE RECORDS SUMMARY | 2024-11-23 19:37 | XMS_ITS | Encounter Summary ---
Author Organization [employer] Address [address] [facility] 7t [place] [address] Care Team Providers Care Credit Collection Specialist Name Role Phone Renu Hadley MD Primary Care Provider + Encounter Details Date Type Department Care Team (Latest Contact Info) Description 11/20/2024 Travel Social History Tobacco Use Types Packs/Day Years [...] with others, in a hotel, in a fdc, living outside on the street, on a [...] documented as of this encounter Care Teams Credit Collection Specialist Relationship Specialty Start Date End Date Renu Hadley MD [address] [place] [phone] PCP - General Internal Medicine 07/04/24 documented as of this encounter
--- OUTSIDE RECORDS SUMMARY | 2024-11-23 19:37 | XMS_ITS | Encounter Summary ---
Author Organization [employer] Address [address] [facility] 7t [place] [address] Care Team Providers Care Evening Or Night Nurse Supervisor Name Role Phone Renu Hadley MD Primary Care Provider + Encounter Details Date Type Department Care Team (Late st Contact Info) Description 10/31/2024 Orders Only GENERIC EXTERNAL DATA DEPARTMENT Provider, Generic External Data Social History Tobacco Use Types Packs/Day Years [...] with others, in a hotel, in a custodial, living outside on the street, on a [...] on file documented as of this encounter Procedures Procedure Name Priority Date/Time Associated Diagnosis Comments VITAMIN D 25-OH (D2 AND D3) Routine 10/31/2024 9:49 AM EST VITAMIN B12/FOLATE, SERUM PANEL Routine 10/31/2024 9:49 AM EST TSH W/REFLEX TO FT4 Routine 10/31/2024 9 :49 AM EST CREATININE, SERUM Routine 10/31/2024 9:4 9 AM EST TISSUE TRANSGLUTAMINASE AB, IGA Routine 10/31/2024 9:49 AM EST UREA NITROGEN (BUN) Routine 10/31/2024 9 :49 AM EST documented in this encounter Results * (ABNORMAL) VITAMIN D 25-OH (D2 AND D3) (10/31/2024 9:49 AM EST) Vitamin D, 25-OH, D2 <4 ng/mL [facility] Comment:This test was develo ped and its analytical performancecharacteristics have been determined by [employer] [place], [place]. It hasnot been cleared or approved by the U.S. Food and DrugAdministration. This assay has been validated pursuantto the CLIA regulations and is used for clinicalpurposes.THIS TEST WAS PERFORMED AT:[facility] [place] [id number] CHAMBERS MD,PHD Vitamin D, 25-OH, D3 11 ng/mL [facility] Comment:This test was develo ped and its analytical performancecharacteristics have been determined by [employer] [place], [place]. It hasnot been cleared or approved by the U.S. Food and DrugAdministration. This assay has been validated pursuantto the CLIA regulations and is used for clinicalpurposes. Vitamin D, 25-OH, Total 11(A) 30 - 100 ng/mL [facility] Comment:Vitamin D, 25-Hydrox y reports concentrations [...] = 30 ng/mL.For additional information, please refer tohttp://education.[employer]/faq/FWV859(This link is being provided for informational/educational purposes only.) 10/31/2024 9:49 AM EST 10/31/2024 9:49 AM EST Generic External Data Provider LAB BLOOD ORDERAB LES Final Result [facility] [address] [place] [phone] * Tissue Transglutaminase Antibody, IgA (10/31/2024 9:49 AM EST) Transglutaminase IgA <1.0 U/mL [facility] Comment:Value Interpretation ----- <15.0 Antibody not detected> or = 15.0 Antibody detectedTHIS TEST WAS PERFORMED AT:[facility] [place] [id number] FRAGOSO MD 10/31/2024 9:49 AM EST 10/31/2024 9:49 AM EST Generic External Data Provider LAB BLOOD ORDERAB LES Final Result Performing Organization Address City/[facility]/ZIP Co de Phone Number [facility] [address] [place] [phone] * TSH with Reflex to Free T4 (10/31/2024 9:49 AM EST) TSH reflex Free T4 2.59 0.32 - 4.0 uIU/mL [facility] 10/31/2024 9:49 AM EST 10/31/2024 9:49 AM EST Generic External Data Provider LAB BLOOD ORDERAB LES Final Result Performing Organization Address [facility]/[place] Co de Phone Number [facility] [address] [place] [phone] * Vitamin B12 (Cobalamin) and Folate Panel, Serum (10/31/2024 9:49 AM EST) Pathologist [facility] Vitamin B12 266 200 - 900 pg/mL [facility] Comment:NORMAL 200-900 PG/ML INDETERMINATE 160-199 PG/ML DEFICIENT < 160 PG/ML Folate 10.6 > or = 4.0 ng/mL [facility] Comment:Reference Values:> o r = 4.0 ng/mL< 4.0 ng/mL suggests folate deficiency Methotrexate, aminopterin and folinic acid(leucovorin) are chemotherapeutic agents whose molecularstructures are similar to folate; therefore, the Architectfolate assay cannot be used for patients using these drugs. 10/31/2024 9:49 AM EST 10/31/2024 9:49 AM EST Generic External Data Provider LAB BLOOD ORDERAB LES Final Result Performing Organization Address [facility]/[place] Co de Phone Number [facility] [address] [place] [phone] * Creatinine, Serum (10/31/2024 9:49 AM EST) Pathologist [facility] Creatinine, Serum 0.68 0.5 - 1.4 mg/dL [facility] Estimated Glomerular Filt Rate >60 [facility] Comment:Chronic Kidney Disea se: Estimated GFR < 60 mL/min/1.22b8Avwrve Kidney Disease: Estimated GFR < 15 mL/min/1.73m2 10/31/2024 9:49 AM EST 10/31/2024 9:49 AM EST us Generic External Data Provider LAB BLOOD ORDERAB LES Final Result Performing Organization Address City/[facility]/[place] Co de Phone Number [facility] [address] [place] [phone] * BUN (Blood Urea Nitrogen) (10/31/2024 9:49 AM EST) Urea Nitrogen (BUN) 12 9 - 16 mg/dL [facility] 10/31/2024 9:49 AM EST 10/31/2024 9:49 AM EST us Generic External Data Provider LAB BLOOD ORDERAB LES Final Result Performing Organization Address [facility] Co de Phone Number [facility] [address] [place] [phone] documented in this encounter Visit Diagnoses Not on filedocumented in this encounter Additional Health Concerns Assessment Noted Time PHQ-9 Depression Total Score: 16 07/12/2 023 11:15 AM EDT documented as of this encounter Care Teams Evening Or Night Nurse Supervisor Relationship Specialty Start Date End Date Renu Hadley MD [address] [place] [phone] PCP - General Internal Medicine 07/04/24 documented as of this encounter
--- OUTSIDE RECORDS SUMMARY | 2024-11-23 19:37 | XMS_ITS | Encounter Summary ---
Author Organization [facility] Address 75 [facility] 7t [place] [address] Care Team Providers Care Engineer Technical Staff Name Role Phone Renu Hadley MD Primary Care Provider + Reason for Visit * Reason Comments Blurred Vision Encounter Details Date Type Department Care Team (Latest Contact Info) Description 11/20/2024 3:00 PM EST Office Visit [facility] [address] [place] [address] Blake, Ramya, OD [address] [place] [address] Chronic nonintractable headache, unspecified headache type (Primary Dx); Retinal drusen of left eye; Myopia of both eyes with astigmatism and presbyopia Social History Tobacco Use Types Packs/Day Years [...] with others, in a hotel, in a halfway, living outside on the street, on a [...] as of this encounter Visit Diagnoses Diagnosis Chronic nonintractable headache, unspecified headache type- Primary 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
--- OUTSIDE RECORDS SUMMARY | 2024-11-23 19:37 | XMS_ITS | Encounter Summary ---
Author Organization [employer] Address [address] [facility] 7t [place] [address] Care Team Providers Care Meat Sales And Storage Manager Name Role Phone Renu Hadley MD Primary Care Provider + Reason for Visit * Reason Onset Date Comments Med Refill 11/16/2024 Encounter Details Date Type Department Care Team ([facility] st Contact Info) Description 11/16/2024 Refill [facility] [address] [place], [place] [phone] Renu Hadley MD [address] [place] [address] Social History Tobacco Use Types Packs/Day Years [...] encounter Miscellaneous Notes * Telephone Encounter - Kanika Monson LPN - 11/16/2024 10:07 AM EST Hydrochlorothiazide was sent to [facility] on 07/04/24 #90 with 3 refills. Last seen 08/08/24. * Telephone Encounter - Marcos Avilez - 11/16/2024 9:58 AM EST TC from pt requesting medication refill. Medications needing refill : hydroCHLOROthiazide (HYDRODiuril) 25 MG tablet omeprazole (PriLOSEC) [address] capsule dicyclomine (Bentyl) 20 MG tablet To be sent to: [facility] documented in this encounter Plan of Treatment Not on file documented as of this encounter Visit Diagnoses Not on filedocumented in this encounter Additional Health Concerns Assessment Noted Time PHQ-9 Depression Total Score: 16 023 11:15 AM EDT documented as of this encounter Care Teams Meat Sales And Storage Manager Relationship Specialty Start Date End Date Renu Hadley MD [address] [place] [phone] PCP - General Internal Medicine 07/04/24 documented as of this encounter
--- OUTSIDE RECORDS SUMMARY | 2024-11-23 19:37 | XMS_ITS | Encounter Summary ---
Author Organization [employer] Address [address] [facility] 7t [place] [address] Care Team Providers Care Workers Compensation Analyst Name Role Phone Renu Hadley MD Primary Care Provider + Reason for Visit * Reason Onset Date Comments Appointment Request 04/07/2023 Encounter Details Date Type Department Care Team ([facility] st Contact Info) Description 04/07/2023 Telephone [facility] [address] [place], [place] [phone] Name, MD Richy [address] [place] [address] Appointment Request Social History Tobacco Use Types Packs/Day Years [...] suspected to have Coronavirus/COVID-19? No / Unsure 04/09/2023 9:00 AM EDT documented as of this encounter Miscellaneous Notes * Telephone Encounter - Marylou Reed RN - 04/07/2023 1:53 PM EDT T/C to [phone] through [email or web address] id - [id number] to re-schedule HDF apt. Pt. Schedule for HDF apt. On 04/14/2023. Pt. Was admitted at [facility], d/c 04/02/23 for Dx: Peritoneal abscess surgery. Pt. Verbally agreed and understood, RASHAAD prince scanned into pt.'s chart. Pt. States her antibiotics is not working ans she is still in pain. No apt. Available today. Pt. Advised to come to walk in center for further evaluation, pt. Denies, pt. States she does not has rideand will come tomorrow. Pt. Advised to go to nearest ED in case of any new, return or worsening symptoms. Pt. Verbally agreed and understood. Pt. Also informed regarding Night time triage nurse line. * Telephone Encounter - Larissa Alvarado - 04/07/2023 8:23 AM EDT Tc from patient requesting to r/s HDF appt from 04/07/23. Details: [facility] d/c 04/02/23 Dx: Peritoneal abscess surgery documented in this encounter Plan of Treatment Not on file documented as of this encounter Visit Diagnoses Not on filedocumented in this encounter Additional Health Concerns Assessment Noted Time PHQ-9 Depression Total Score: 12 023 1:33 PM EDT documented as of this encounter Care Teams Workers Compensation Analyst Relationship Specialty Start Date End Date Renu Hadley MD [address] [place] [phone] PCP - General Internal Medicine 07/04/24 documented as of this encounter
--- OUTSIDE RECORDS SUMMARY | 2024-11-23 19:37 | XMS_ITS | Encounter Summary ---
Author Organization [email or web address] Address [address] [facility] 7t [place] [address] Care Team Providers Care Ux Ui Designer Name Role Phone Renu Hadley MD Primary Care Provider + Reason for Visit * Reason Comments Med Refill Encounter Details Date Type Department Care Team (Late st Contact Info) Description 04/09/2023 Refill [facility] [address] [place] [address] Lisa Cifuentes FNP [address] [place], [place] [phone] Anxiety disorder, unspecified Social History Tobacco Use [...] documented as of this encounter Care Teams Ux Ui Designer Relationship Specialty Start Date End Date Renu Hadley MD [address] [place] [address] PCP - General Internal Medicine 07/04/24 documented as of this encounter
--- OUTSIDE RECORDS SUMMARY | 2024-11-23 19:37 | XMS_ITS | Encounter Summary ---
Author Organization [employer] Address [address] [facility] 7t [place] [address] Care Team Providers Care Tub Puller Name Role Phone Renu Hadley MD Primary Care Provider + Reason for Visit * Reason Comments Med Refill Encounter Details Date Type Department Care Team (Late st Contact Info) Description 04/07/2023 Refill [facility] [address] [place] [address] Lisa Cifuentes FNP [address] [place], [place] [phone] Anxiety disorder, unspecified Social History Tobacco Use [...] documented as of this encounter Care Teams Tub Puller Relationship Specialty Start Date End Date Renu Hadley MD [address] [place] [address] PCP - General Internal Medicine 07/04/24 documented as of this encounter
--- OUTSIDE RECORDS SUMMARY | 2024-11-23 19:37 | XMS_ITS | Encounter Summary ---
Author Organization [email or web address] Address 75 [facility] 7t [place] [address] Care Team Providers Care Construction Sales Manager Name Role Phone Renu Hadley MD Primary Care Provider + Encounter Details Date Type Department Care Team (Late st Contact Info) Description 02/15/2023 Orders Only [facility] [address] [place] [address] Kanika Monson LPN Social History Tobacco Use [...] on filedocumented in this encounter Care Teams Construction Sales Manager Relationship Specialty Start Date End Date Renu Hadley MD [address] [place] [phone] PCP - General Internal Medicine 07/04/24 documented as of this encounter
--- OUTSIDE RECORDS SUMMARY | 2024-11-23 19:37 | XMS_ITS | Encounter Summary ---
Author Organization [employer] Address 75 [facility] 7t [place] [address] Care Team Providers Care Museum Curator Name Role Phone Renu Hadley MD Primary Care Provider + Reason for Visit * Reason Comments Hernia Encounter Details Date Type Department Care Team ([facility] st Contact Info) Description 11/17/2024 2:20 PM EST Office Visit [facility] [address] [place], [place] [phone] Yari Thomas MD [address] [place], [place] [phone] Gastritis, presence of bleeding unspecified, unspecified chronicity, unspecified gastritis type (Primary Dx) Social History Tobacco Use Types Packs/Day Years [...] with others, in a hotel, in a detention, living outside on the street, on a [...] AM EDT documented as of this encounter Last Filed Vital Signs Vital Sign Reading [...] Mass Index 32.7 11/17/2024 1:58 PM EST documented in this encounter Progress Notes * Arabella Patterson - 11/17/2024 2:20 PM EST Subjective Patient ID: Ruma Simons is a 49 y.o. female with PMHx of chronic abdominal pain who presents to walk in clinic for Hernia. Pt has presented for abdominal pain 8 times over the past [address] and US of the abdomen done in 06/2023 showing no specific acute intra-abdominal pathology is identified, Findings significant for non obstructing right nephrolithiasis. Since, pt has asked for a CT every visit until 07/2024 a repeat was ordered, but no report is available yet. Referred to GI 08/01/24. Has been prescribed Toradol, Simethicone, Omeprazole, Pantoprazole, Dulcolax, Prilosec, Bentyl and Pepcid. Had US of abdomendone on 01/14/24 showing mild diffuse fatty change of liver. Per triage call yesterday, patient reported her upcoming surgery with Dr. Campoverde is on 12/01/24 however patient is experiencing horrible pain. Patient last seen by Dr. Campoverde on 11/07/24 (note in chart). Patient reports she also was informed at [facility] ED on 11/05/24 (ED note in chart) that she may have peptic ulcer disease. Patient was advised to f/u with GI, patient has an appointment for 12/22/24. Patient reports she called Dr. Campoverde's office crying due to the pain r/t the hernia however has not received a call back. Pt reports she has an appt on 12/01/24 for surgical repair of ventral hernia. She also follows with [facility], Dr. Forman. Pt reports she has a stomach ulcer that she has been seeing GI for. She has follow-up with GI on 12/21/24. She reports the bentyl did not help. Pt reports she has rayshawn tested for H. Pyloria long time ago that was negative. She reports she is having relief with Omeprazole. Review of Systems Constitutional: Negative for fever and unexpected weight change. Respiratory: Negative for shortness of breath. Cardiovascular: Negative for chest pain. Gastrointestinal: Positive for abdominal pain. Genitourinary: Negative for difficulty urinating. Objective Visit Vitals BP (!) 145/88 (BP Location: Left arm, Patient Position: Sitting, BP Cuff Size: Adult) Pulse 101 Temp 98 ??F (36.7 ??C) (Oral) Resp 19 Body mass index is 32.7 kg/m??. Physical Exam Constitutional: Appearance: Normal appearance. Cardiovascular: Rate and Rhythm: Normal rate. Pulmonary: Effort: Pulmonary effort is normal. Abdominal: Palpations: Abdomen is soft. Tenderness: There is no abdominal tenderness. Hernia: A hernia is present. Hernia is present in the ventral area. Neurological: General: No focal deficit present. Mental Status: She is alert. Psychiatric: Behavior: Behavior normal. Problem List Items Addressed This Visit Gastritis - Primary Long standing hx of abdominal pain. Recently saw GI ho then sent her to General surgery for ventralhernia evaluation. Has upcoming surgery for hernia repair on 12/01/23. Has follow-up with GI late in 11/2024 [address] well. Had abdominal CT done that has not been read yet. Has been prescribed multiple antacids and analgesic, but reports relief with Omeprazole. -increased dose to omeprazole (PriLOSEC) [address] -ordered H. Pylori stool test. Relevant Medications omeprazole (PriLOSEC) [address] capsule Other Relevant Orders Helicobacter pylori Antigen, EIA, Stool -No evidence of acute disease process. Suspect gastritis versus peptic ulcer disease. Symptoms mild. -Will increase antacid that has brought pt the most relief. -She has follow-up with specialists in November 2024. -ER precautions discussed. -Seek medical attention for worsening symptoms. I, Arabella Patterson, am serving as a scribe to document services personally performed by Dr. Marquez, based on the patient's response to questions by provider and providers statements to me. documented in this encounter Miscellaneous Notes * Assessment & Plan Note - Arabella Patterson - 11/17/2024 2:36 PM ESTAssociated Problem(s): Gastritis Long standing hx of abdominal pain. Recently saw GI ho then sent her to General surgery for ventralhernia evaluation. Has upcoming surgery for hernia repair on 12/01/23. Has follow-up with GI late in 11/2024 as well. Had abdominal CT done that has not been read yet. Has been prescribed multiple antacids and analgesic, but reports relief with Omeprazole. -increased dose to omeprazole (PriLOSEC) [address] -ordered H. Pylori stool test. documented in this encounter Plan of Treatment Scheduled Orders Name Type Priority Associated Diagnoses Orde r Schedule Helicobacter pylori??Antigen, EIA, Stool Lab Routine Gastritis, presence of bleeding unspecified, unspecified chronicity, unspecified gastritis type Expected: 11/17/2024, Expires: 11/17/2025 documented as of this encounter Visit Diagnoses Diagnosis Gastritis, presence of bleeding unspecified, unspecified chronicity, unspecified gastritis type- Primary documented in this encounter Additional Health Concerns Assessment Noted Time PHQ-9 Depression Total Score: 16 023 11:15 AM EDT documented as of this encounter Care Teams Museum Curator Relationship Specialty Start Date End Date Renu Hadley MD [address] [place] [phone] PCP - General Internal Medicine 07/04/24 documented as of this encounter
--- OUTSIDE RECORDS SUMMARY | 2024-11-23 19:38 | XMS_ITS | Patient Health Record ---
Author Organization [facility] Address [address] [place], [place] [phone] Care Team Providers Care Vault Worker Name Role Phone Kirstin Wright Outpt Care Primary Care Provider Un available Abby Dobson Unavailable [phone] Reason For Referral No Information Plan Of Treatment No Information Insurance Providers Payer Name Payer Address Payer Phone Subscriber Number Group Number Insured Name Patient Relationship to Insured Coverage Start Date Coverage End Date [place] Medicaid Standard [address] [place] [address] [phone] Ruma Simons Self - patient is the insured
--- OUTSIDE RECORDS SUMMARY | 2024-11-23 19:38 | XMS_ITS | Encounter Summary ---
Author Organization [employer] Address [address] [facility] 7t [place] [address] Care Team Providers Care Manager Research Name Role Phone Renu Hadley MD Primary Care Provider + Encounter Details Date Type Department Care Team (Late st Contact Info) Description 11/17/2022 Orders Only [facility] [address] [place], [place] [phone] Kaylynn Membreno LPN Social History Tobacco Use Types Packs/Day [...] on filedocumented in this encounter Care Teams Manager Research Relationship Specialty Start Date End Date Renu Hadley MD [address] [place] [address] PCP - General Internal Medicine 07/04/24 documented as of this encounter
--- OUTSIDE RECORDS SUMMARY | 2024-11-23 19:38 | XMS_ITS | Encounter Summary ---
Author Organization [employer] Address [address] [facility] 7t [place] [address] Care Team Providers Care Sheet Rock Sander Name Role Phone Renu Hadley MD Primary Care Provider + Encounter Details Date Type Department Care Team (Latest Contact Info) Description 02/25/2021 Abstract [facility] CONVERSIONS Dental, Provider, DDS Social History Tobacco Use Types Packs/Day Years [...] on filedocumented in this encounter Care Teams Sheet Rock Sander Relationship Specialty Start Date End Date Renu Hadley MD [address] [place] [phone] PCP - General Internal Medicine 07/04/24 documented as of this encounter
--- OUTSIDE RECORDS SUMMARY | 2024-11-23 19:38 | XMS_ITS | Encounter Summary ---
Author Organization [employer] Address [address] [facility] 7t [place] [address] Care Team Providers Care Child Development Associate Teacher Name Role Phone Renu Hadley MD Primary Care Provider + Encounter Details Date Type Department Care Team (Latest Contact Info) Description 12/20/2019 Abstract [facility] CONVERSIONS Dental, Provider, DDS Social History [...] on filedocumented in this encounter Care Teams Child Development Associate Teacher Relationship Specialty Start Date End Date Renu Hadley MD [address] [place] [phone] PCP - General Internal Medicine 07/04/24 documented as of this encounter
--- OUTSIDE RECORDS SUMMARY | 2024-11-23 19:38 | XMS_ITS | Encounter Summary ---
Author Organization [employer] Address [address] [facility] 7t [place] [address] Care Team Providers Care Spanish Lecturer Name Role Phone Renu Hadley MD Primary Care Provider + Reason for Visit * Reason Onset Date Comments Medication Question 01/13/2023 Encounter Details Date Type Department Care Team ([facility] st Contact Info) Description 01/13/2023 Telephone [facility] [address] [place], [place] [phone] Name, MD Rcihy [address] [place] [address] Medication Question Social History Tobacco Use Types Packs/Day Years [...] encounter Miscellaneous Notes * Telephone Encounter - Geo Barcenas - 01/13/2023 1:55 PM EDT Tc from pt requesting to have medication increase due to medication not doing its job. Medication Doxepin 50 mg. Please contact pt at [phone] documented in this encounter Plan of Treatment Not on file documented as of this encounter Visit Diagnoses Not on filedocumented in this encounter Care Teams Spanish Lecturer Relationship Specialty Start Date End Date Renu Hadley MD [address] [place] [phone] PCP - General Internal Medicine 07/04/24 documented as of this encounter
== END 2024-11-23 00:01 | disposition home or self-care (01) ==
LOC: HO.LNP
PROVIDERS: Visit Provider Family Medicine
DX: K29.70 Gastritis, unspecified, without bleeding (principal)
CPT/HCPCS: 87338

== ENCOUNTER 2024-12-01 07:00 | Day surgery (SDC) | payer MEDICAID, SELFPAY ==
[2024-11-29 07:51] VITALS: BMI 32.4
--- NOTE | 2024-11-29 14:27 | P.CONAN_ITS ---
Documented by User: Christine Mcdowell NP 11/29/24 14:28 HPI - Anesthesia Eval Consult details Narrative: 49yo F for Open Repair Hernia Umbilical Reducible with mesh PMFSH Active Problems Active Problems: All Active Problems Umbilical hernia (Acute) Pelvic abscess in female (Acute) Past Medical History Medical History Anxiety Asthma Social History Social History Alcohol intake: current Alcohol intake frequency: a few times a week Patient Tobacco Use Status: Never used Tobacco Substance Use Type: Marijuana Meds Allergies Allergy/AdvReac Type Severity Reaction Status Date / Time Iodinated Contrast Media Allergy Unknown UNKNOWN Verified 12/01/24 08:36 [CONTRAST, IV] acetaminophen [From Percocet] Allergy Palpitation Verified 12/01/24 08:36 s morphine Allergy Palpitation Verified 12/01/24 08:36 s oxycodone [From Percocet] Allergy Palpitation Verified 12/01/24 08:36 s Home Medications ?Medication ?Instructions ?Recorded ?Confirmed ?Last Taken ?Type amlodipine 10 mg tablet 10 mg PO QAM 09/27/24 12/01/24 Unknown History doxepin 50 mg capsule 100 mg PO BEDTIME 09/27/24 12/01/24 Unknown History duloxetine 30 mg capsule,delayed 60 mg PO QAM 09/27/24 12/01/24 Unknown History release gabapentin 100 mg capsule 300 mg PO Q8H 09/27/24 12/01/24 Unknown History hydrochlorothiazide 25 mg tablet 25 mg PO DAILY 09/27/24 12/01/24 Unknown History losartan 25 mg tablet 25 mg PO DAILY 09/27/24 12/01/24 Unknown History sumatriptan succinate 25 mg tablet 25 mg PO migraine 09/27/24 11/07/24 Unknown History Exam Height,Weight and Vital Signs: Height 5 ft 3 in Weight 83.007 kg Pertinent Lab Results Pertinent Lab Results: Laboratory Tests 11/05/24 18:09 WBC 10.7 Hgb 14.4 Hct 42.2 Plt Count 328 D Sodium 139 Potassium 3.5 Chloride 104 Carbon Dioxide 25 BUN 19 H Creatinine 0.77 Assessment and Plan Assessment Anesthesia Assessment: Chart Reviewed Documented by User: Virginia Galan MD 12/01/24 09:45 FOR[facility]LY [facility], [facility] Past Medical History Medical History Anxiety Asthma Surgical History History of Problems with Anesthesia: No Social History Social History Alcohol intake: current Alcohol intake frequency: a few times a week Patient Tobacco Use Status: Never used Tobacco Substance Use Type: Marijuana Meds Allergies Allergy/AdvReac Type Severity Reaction Status Date / Time Iodinated Contrast Media Allergy Unknown UNKNOWN Verified 12/01/24 08:36 [CONTRAST, IV] acetaminophen [From Percocet] Allergy Palpitation Verified 12/01/24 08:36 s morphine Allergy Palpitation Verified 12/01/24 08:36 s oxycodone [From Percocet] Allergy Palpitation Verified 12/01/24 08:36 s Home Medications ?Medication ?Instructions ?Recorded ?Confirmed ?Last Taken ?Type amlodipine 10 mg tablet 10 mg PO QAM 09/27/24 12/01/24 Unknown History doxepin 50 mg capsule 100 mg PO BEDTIME 09/27/24 12/01/24 Unknown History duloxetine 30 mg capsule,delayed 60 mg PO QAM 09/27/24 12/01/24 Unknown History release gabapentin 100 mg capsule 300 mg PO Q8H 09/27/24 12/01/24 Unknown History hydrochlorothiazide 25 mg tablet 25 mg PO DAILY 09/27/24 12/01/24 Unknown History losartan 25 mg tablet 25 mg PO DAILY 09/27/24 12/01/24 Unknown History sumatriptan succinate 25 mg tablet 25 mg PO migraine 09/27/24 11/07/24 Unknown History Exam Airway Mallampati Class: II TM Dist: >3cm Neck ROM: Full Loose/Missing/Broken Teeth: No Heart: RRR Lungs: CTA Assessment and Plan Assessment Anesthesia Assessment: Anesthesia Plan Discussed Final Anesthetic Review History of Problems with Anesthesia: No NPO: Yes ASA Class: II Final Preanesthetic Review: Meds/Allgs Chart Reviewed, Consent Obtained/Reviewed and Anes Risks/Benef Reviewed Patient Risk: Low Procedure Risk: Low Anesthetic Plan Anesthetic Plan: GA Disposition: Standard PACU
--- NOTE | 2024-11-30 14:06 | MHC.SHP ---
Pre-Procedural Eval Section A - 24 Hr Update-Section A only Date of Service: 12/01/24 The patient is an INPATIENT: No Changes since office visit: No Cold of Flu in the past 2 weeks, No New Medical Problems, No Changes in Medication and No Patient answered all questions Section B - Complete if H&P > 30 days Chief Complaint: Umbilical hernia without obstruction or gangrene Allergies: Allergies Allergy/AdvReac Type Severity Reaction Status Date / Time Iodinated Contrast Media Allergy Unknown UNKNOWN Verified 11/07/24 14:32 [CONTRAST, IV] acetaminophen [From Percocet] Allergy Palpitation Verified 11/07/24 14:32 s morphine Allergy Palpitation Verified 11/07/24 14:32 s oxycodone [From Percocet] Allergy Palpitation Verified 11/07/24 14:32 s Review of Systems Sugical H&P ROS: Negative: Constitution, Cardiovascular, Respiratory, Neurological, Psychiatric, Hem-Onc, Allergic/Immunologic, Gastrointestinal, Genitourinary, Musculoskeletal, Integumentary, Endocrine and Eyes/Ears/Nose/Throat Exam Surgical H&P Exam: Normal: HEENT, Normal: Heart, Normal: Lungs, Normal: Extremities, Normal: Abdomen, Normal: Skin and Normal: Neurological Plan I have reviewed the history and physical and performed a pertinent physical examination on my patient. No changes have occurred unless specified. Time Spent With Patient Time: Total time managing care of this patient today ____ minutes.
[2024-12-01] VITALS (10 sets, daily range): BP systolic 136–171; BP diastolic 45–92; PULSE 80–85; RESP 16–22; TEMP 36.6–37; O2SAT 96–100
--- OUTSIDE RECORDS SUMMARY | 2024-12-01 07:01 | XMS_ITS | Encounter Summary ---
Author Organization [facility] Address [address] [facility] [address] [place] [address] Care Team Providers Care Supervisor Paste Plant Name Role Phone Renu Hadley MD Primary Care Provider + Reason for Visit * Reason Comments Med Refill Encounter Details Date Type Department Care Team (Late st Contact Info) Description 06/10/2023 Refill [facility] [address] [place], [place] [phone] Name, MD Richy [address] [place], [place] [phone] Anxiety disorder, unspecified Social History Tobacco Use [...] documented as of this encounter Care Teams Supervisor Paste Plant Relationship Specialty Start Date End Date Renu Hadley MD [address] [place], [place] [phone] PCP - General Internal Medicine 07/04/24 documented as of this encounter
--- OUTSIDE RECORDS SUMMARY | 2024-12-01 07:01 | XMS_ITS | Encounter Summary ---
Author Organization [employer] Address [address] [facility] [address] [place] [address] Care Team Providers Care Architectural Modeler Name Role Phone Renu Hadley MD Primary Care Provider + Reason for Visit * Reason Onset Date Comments Appointment Request 04/07/2023 Encounter Details Date Type Department Care Team ([facility] st Contact Info) Description 04/07/2023 Telephone [facility] [address] [place], [place] [phone] Name, MD Richy [address] [place] [address] Appointment Request Social History Tobacco Use Types [...] - 04/07/2023 1:53 PM EDT T/C to [phone] through [employer] id - [id number] to re-schedule HDF apt. Pt. Schedule for HDF apt. On 04/14/2023. Pt. Was admitted at [facility], d/c 04/02/23 for Dx: Peritoneal abscess surgery. [...] to r/s HDF appt from 04/07/23. Details: [facility] d/c 04/02/23 Dx: Peritoneal abscess surgery documented in this encounter Plan of Treatment Not on file documented as of this encounter Visit Diagnoses Not on filedocumented in this encounter Additional Health Concerns Assessment Noted Time PHQ-9 Depression Total Score: 12 023 1:33 PM EDT documented as of this encounter Care Teams Architectural Modeler Relationship Specialty Start Date End Date Renu Hadley MD [address] [place] [id number] PCP - General Internal Medicine 07/04/24 documented as of this encounter
--- OUTSIDE RECORDS SUMMARY | 2024-12-01 07:01 | XMS_ITS | Encounter Summary ---
Author Organization [email or web address] Address [address] [facility] [address] [place] [address] Care Team Providers Care Refuse Laborer Name Role Phone Renu Hadley MD Primary Care Provider + Reason for Visit * Reason Onset Date Comments Nurse Triage 04/06/2023 Encounter Details Date Type Department Care Team ([facility] st Contact Info) Description 04/06/2023 Telephone [facility] [address] [place], [place] [phone] Name, MD Richy [address] [place] [address] Nurse Triage Social History Tobacco Use Types Packs/Day Years Used Date Smoking Tobacco: Never Smokeless Tobacco: Never Depression Answer Date Recorded Patient Health Questionnaire-9 Score 16 07/12/2023 Housing Stability Answer Date Recorded What is your housing situation today? I do not have housing (Staying with others, in a hotel, in a half-way, living outside on the street, on a [...] t he electric, gas, oil or water [employer] threatened to shut off services in your [...] caller accepted this outcome Please contact at [phone] Czech documented in this encounter Plan of Treatment Not on file documented as of this encounter Visit Diagnoses Not on filedocumented in this encounter Additional Health Concerns Assessment Noted Time PHQ-9 Depression Total Score: 12 023 1:33 PM EDT documented as of this encounter Care Teams Refuse Laborer Relationship Specialty Start Date End Date Renu Hadley MD [address] [place] [id number] PCP - General Internal Medicine 07/04/24 documented as of this encounter
--- OUTSIDE RECORDS SUMMARY | 2024-12-01 07:01 | XMS_ITS | Encounter Summary ---
Author Organization [employer] Address [address] [facility] [address] [place] [address] Care Team Providers Care Sustainability Manager Name Role Phone Renu Hadley MD Primary Care Provider + Reason for Visit * Reason Comments Med Refill Encounter Details Date Type Department Care Team (Late st Contact Info) Description 04/07/2023 Refill [facility] [address] [place] [address] Lisa Cifuentes FNP [address] [place], [place] [phone] Anxiety disorder, unspecified Social History Tobacco Use [...] documented as of this encounter Care Teams Sustainability Manager Relationship Specialty Start Date End Date Renu Hadley MD [address] [place] [address] PCP - General Internal Medicine 07/04/24 documented as of this encounter
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
--- OUTSIDE RECORDS SUMMARY | 2024-12-01 07:01 | XMS_ITS | Encounter Summary ---
Author Organization [employer] Address [address] [facility] 7t [place] [address] Care Team Providers Care Lawn Mower Mechanic Name Role Phone Renu Hadley MD Primary Care Provider + Reason for Visit * Reason Comments Med Refill Encounter Details Date Type Department Care Team (Late st Contact Info) Description 04/09/2023 Refill [facility] [address] [place] [address] Lisa Cifuentes FNP [address] [place], [place] [phone] Anxiety disorder, unspecified Social History Tobacco Use [...] documented as of this encounter Care Teams Lawn Mower Mechanic Relationship Specialty Start Date End Date Renu Hadley MD [address] [place] [address] PCP - General Internal Medicine 07/04/24 documented as of this encounter
--- OUTSIDE RECORDS SUMMARY | 2024-12-01 07:02 | XMS_ITS | Encounter Summary ---
Author Organization [employer] Address [address] [place] [address] 7t [place] [address] Care Team Providers Care Centrifugal Machine Tender Name Role Phone Renu Hadley MD Primary Care Provider + Reason for Referral * Consultation (Routine) - Closed Specialty Diagnoses / Procedures Referred By Controbles t Referred To Contact Behavioral Health Diagnoses Bipolar I disorder, most recent episode depressed (CMS/HCC) Renu Hadley MD [address] [place] [address] Phone: tel: fax: Referral ID Status Reason Start Date Expiration Date V isits Requested Visits Authorized [id number] Closed Specialty Services Required 11/16/2024 11/16/2025 1 1 Reason for Visit * Reason Onset Date Comments Med Refill 11/16/2024 Encounter Details Date Type Department Care Team (Late st Contact Info) Description 11/16/2024 Telephone [facility] [address] [place], [place] [phone] Renu Hadley MD [address] [place], [place] [phone] Med Refill Social History Tobacco Use Types [...] with others, in a hotel, in a fci, living outside on the street, on a [...] - 11/20/2024 10:53 AM EST TC via S#[id number], no answer. L/M asking her to call [...] 2 MG tablet To be sent to: [facility] documented in this encounter Plan [...] documented as of this encounter Care Teams Centrifugal Machine Tender Relationship Specialty Start Date End Date Renu Hadley MD [address] [place] [phone] PCP - General Internal Medicine 07/04/24 documented as of this encounter
--- OUTSIDE RECORDS SUMMARY | 2024-12-01 07:02 | XMS_ITS | Encounter Summary ---
Author Organization [employer] [facility] Address [address] [place] [address] 7t [place] [address] Care Team Providers Care Textile Converter Name Role Phone Renu Hadley MD Primary Care Provider + Reason for Visit * Reason Comments Med Refill Encounter Details Date Type Department Care Team (Late st Contact Info) Description 02/12/2023 Refill [facility] [address] [place], [place] [phone] Name, MD Richy [address] [place] [address] Heartburn Social History Tobacco Use Types Packs/Day [...] Heartburn documented in this encounter Care Teams Textile Converter Relationship Specialty Start Date End Date Renu Hadley MD [address] [place] [address] PCP - General Internal Medicine 07/04/24 documented as of this encounter
--- OUTSIDE RECORDS SUMMARY | 2024-12-01 07:02 | XMS_ITS | Encounter Summary ---
Author Organization [employer] Address [address] [facility] [address]t [place] [address] Care Team Providers Care Exchange Trouble Shooter Name Role Phone Renu Hadley MD Primary Care Provider + Reason for Visit * Reason Onset Date Comments Med Refill 11/16/2024 Encounter Details Date Type Department Care Team ([facility] st Contact Info) Description 11/16/2024 Refill [facility] [address] [place], [place] [phone] Renu Hadley MD [address] [place] [address] Social History Tobacco Use Types Packs/Day Years [...] 10:07 AM EST Hydrochlorothiazide was sent to [facility] on 07/04/24 #90 with 3 refills. Last seen 08/08/24. * Telephone Encounter - Marcos Avilez - 11/16/2024 9:58 AM EST TC from pt requesting medication refill. Medications needing refill : hydroCHLOROthiazide (HYDRODiuril) 25 MG tablet omeprazole (PriLOSEC) [address] capsule dicyclomine (Bentyl) 20 MG tablet To be sent to: [facility] documented in this encounter Plan of Treatment Not on file documented as of this encounter Visit Diagnoses Not on filedocumented in this encounter Additional Health Concerns Assessment Noted Time PHQ-9 Depression Total Score: 16 023 11:15 AM EDT documented as of this encounter Care Teams Exchange Trouble Shooter Relationship Specialty Start Date End Date Renu Hadley MD [address] [place] [phone] PCP - General Internal Medicine 07/04/24 documented as of this encounter
--- OUTSIDE RECORDS SUMMARY | 2024-12-01 07:02 | XMS_ITS | Encounter Summary ---
Author Organization [employer] Address [address] [facility] [address]t [place] [address] Care Team Providers Care Leadership Program Associate Name Role Phone Renu Hadley MD Primary Care Provider + Reason for Visit * Reason Comments Med Refill Encounter Details Date Type Department Care Team ([facility] st Contact Info) Description 11/08/2024 Refill [facility] [address] [place], [place] [phone] Name, MD Richy [address] [place], [place] [phone] Social History Tobacco Use Types Packs/Day Years [...] with others, in a hotel, in a usp, living outside on the street, on a [...] documented as of this encounter Care Teams Leadership Program Associate Relationship Specialty Start Date End Date Renu Hadley MD [address] [place] [phone] PCP - General Internal Medicine 07/04/24 documented as of this encounter
--- OUTSIDE RECORDS SUMMARY | 2024-12-01 07:02 | XMS_ITS | Encounter Summary ---
Author Organization [employer] Address [address] [facility] 7t [place] [address] Care Team Providers Care Intelligence Officer Name Role Phone Renu Hadley MD Primary Care Provider + Reason for Visit * Reason Onset Date Comments Medication Question 01/13/2023 Encounter Details Date Type Department Care Team ([facility] st Contact Info) Description 01/13/2023 Telephone [facility] [address] [place], [place] [phone] Name, MD Richy [address] [place] [address] Medication Question Social History Tobacco Use Types [...] Doxepin 50 mg. Please contact pt at [phone] documented in this encounter Plan of Treatment Not on file documented as of this encounter Visit Diagnoses Not on filedocumented in this encounter Care Teams Intelligence Officer Relationship Specialty Start Date End Date Renu Hadley MD [address] [place] [phone] PCP - General Internal Medicine 07/04/24 documented as of this encounter
--- OUTSIDE RECORDS SUMMARY | 2024-12-01 07:02 | XMS_ITS | Encounter Summary ---
Author Organization [employer] Address 75 [facility] 7t [place] [address] Care Team Providers Care Naphthalene Still Operator Name Role Phone Renu Hadley MD Primary Care Provider + Reason for Visit * Reason Comments Blurred Vision Encounter Details Date Type Department Care Team (Latest Contact Info) Description 11/20/2024 3:00 PM EST Office Visit [facility] OPTOMETRY [address] [place] [address] Blake, Ramya, OD [address] [place] [address] Chronic nonintractable headache, unspecified headache type (Primary [...] with others, in a hotel, in a mcc, living outside on the street, on a [...] documented as of this encounter Care Teams Naphthalene Still Operator Relationship Specialty Start Date End Date Renu Hadley MD [address] [place] [id number] PCP - General Internal Medicine 07/04/24 documented as of this encounter
--- OUTSIDE RECORDS SUMMARY | 2024-12-01 07:02 | XMS_ITS | Encounter Summary ---
Author Organization [employer] Address 75 [facility] 7t [place] [address] Care Team Providers Care Police Sergeant Name Role Phone Renu Hadley MD Primary Care Provider + Encounter Details Date Type Department Care Team (Late st Contact Info) Description 12/01/2022 Orders Only [facility]ED[facility] [address] [place] [address] Kanika Monson LPN Social History Tobacco Use [...] on filedocumented in this encounter Care Teams Police Sergeant Relationship Specialty Start Date End Date Renu Hadley MD [address] [place] [phone] PCP - General Internal Medicine 07/04/24 documented as of this encounter
--- OUTSIDE RECORDS SUMMARY | 2024-12-01 07:02 | XMS_ITS | Encounter Summary ---
Author Organization [employer] Address 75 [facility] 7t [place] [address] Care Team Providers Care Hasher Machine Operator Name Role Phone Renu Hadley MD Primary Care Provider + Reason for Visit * Reason Onset Date Comments triage 02/26/2023 Encounter Details Date Type Department Care Team ([facility] st Contact Info) Description 02/26/2023 Telephone [facility] MEDICINE [address] [place], [place] [phone] Name, MD Richy [address] [place] [address] triage Social History Tobacco Use Types Packs/Day [...] 12:38 PM EDT Triage call with Fer Manager Credit Collections ID [id number] Pt was called more than 2x. Each [...] on filedocumented in this encounter Care Teams Hasher Machine Operator Relationship Specialty Start Date End Date Renu Hadley MD [address] [place] [address] PCP - General Internal Medicine 07/04/24 documented as of this encounter
--- OUTSIDE RECORDS SUMMARY | 2024-12-01 07:02 | XMS_ITS | Encounter Summary ---
Author Organization [employer] Address 75 [facility] 7t [place] [address] Care Team Providers Care Video System Repairer Name Role Phone Renu Hadley MD Primary Care Provider + Encounter Details Date Type Department Care Team (Latest Contact Info) Description 12/20/2019 Abstract [facility] CONVERSIONS Dental, Provider, DDS Social History [...] on filedocumented in this encounter Care Teams Video System Repairer Relationship Specialty Start Date End Date Renu Haldey MD [address] [place] [phone] PCP - General Internal Medicine 07/04/24 documented as of this encounter
--- OUTSIDE RECORDS SUMMARY | 2024-12-01 07:02 | XMS_ITS | Encounter Summary ---
Author Organization [employer] Address 75 [facility] 7t [place] [address] Care Team Providers Care Supervisor Component Assembler Name Role Phone Renu Hadley MD Primary Care Provider + Reason for Visit * Reason Onset Date Comments Nurse Triage 11/16/2024 Encounter Details Date Type Department Care Team ([facility] st Contact Info) Description 11/16/2024 Telephone [facility] MEDICINE [address] [place], [place] [phone] Renu Hadley MD [address] [place], [place] [phone] Nurse Triage Social History Tobacco Use Types [...] with others, in a hotel, in a longterm, living outside on the street, on a [...] 8:50 AM EST TC placed to patient [phone] via [employer] (Naomi #[id number]) in regards to below message. Patient reports her upcoming surgery with Dr. Campvoerde is on 12/01/24 however patient is experiencing horrible pain. Patient last seen by Dr. Campoverde on 11/07/24 (note in chart). Patient reports she also was informed at [facility] ED on 11/05/24 (ED note in chart) [...] call returned to patient with BLS Gurvinder [id number]. Patoient reports increased abdominal discomfort as related to hernia identified and is pending surgery with at [facility] on 12/01/24 for repair.Patient reports increased pain [...] Team appts available for today. Advised of [facility] hours for today and tomorrow as needed but that she should contact surgeons office in regards to increased pain and inability to tolerate it pending surgery. Patient reporting that she is requesting medication from and not Surgeon. Patient disconnected the call from director graphics as she felt she was being misunderstood. [...] caller accepted this outcome. Contact pt at [phone] (mosotho) documented in this encounter Plan of Treatment Not on file documented as of this encounter Visit Diagnoses Not on filedocumented in this encounter Additional Health Concerns Assessment Noted Time PHQ-9 Depression Total Score: 16 023 11:15 AM EDT documented as of this encounter Care Teams Supervisor Component Assembler Relationship Specialty Start Date End Date Renu Hadley MD [address] [place] [address] PCP - General Internal Medicine 07/04/24 documented as of this encounter
--- OUTSIDE RECORDS SUMMARY | 2024-12-01 07:02 | XMS_ITS | Encounter Summary ---
Author Organization [employer] Address 75 [facility] 7t [place] [address] Care Team Providers Care Cloth Burler Name Role Phone Renu Hadley MD Primary [...] documented as of this encounter Care Teams Cloth Burler Relationship Specialty Start Date End Date Renu Hadley MD [address] [place] [address] PCP - General Internal Medicine 07/04/24 documented as of this encounter
--- OUTSIDE RECORDS SUMMARY | 2024-12-01 07:02 | XMS_ITS | Encounter Summary ---
Author Organization [employer] Address 75 [facility] 7t [place] [address] Care Team Providers Care Cutter Operator Helper Name Role Phone Renu Hadley MD Primary Care Provider + Reason for Visit * Reason Comments Hernia Encounter Details Date Type Department Care Team ([facility] st Contact Info) Description 11/17/2024 2:20 PM EST Office Visit [facility] [address] [place], [place] [phone] Yari Thomas MD [address] [place], [place] [phone] Gastritis, presence of bleeding unspecified, unspecified chronicity, [...] with others, in a [place], in [place] [facility], living outside on the street, on a [...] of ventral hernia. She also follows with GI, Dr. Forman. Pt reports she has a [...] hx of abdominal pain. Recently saw GI uyen then sent her to General surgery for [...] by provider and providers statements to me. * Fadumo Membreno RN - 11/17/2024 2:20 PM EST See message below per Dr. Thomas regarding lab. Lab letter sent to address on file. Pt to F/U as needed. Please let pt know her h.pylori was negative. Ok to send letter. Thank you. documented in this encounter Miscellaneous Notes * Assessment & Plan Note - Arabella Patterson - 11/17/2024 2:36 PM ESTAssociated Problem(s): Gastritis Long standing hx of abdominal pain. Recently saw GI uyen then sent her to General surgery for [...] bleeding unspecified, unspecified chronicity, unspecified gastritis type documented in this encounter Results * Helicobacter pylori??Antigen, EIA, Stool (11/23/2024 12:00 AM EST) H pylori Ag Stool SEE NOTE [facility] Comment:HELICOBACTER PYLORI AG, EIA, STOOL Micro Number: [id number] Test Status: Final Specimen Source: Stool Specimen Quality: Adequate H.pylori Ag: Not Detected Antimicrobials, proton pump inhibitors, and bismuth preparations inhibit H. pylori and ingestion up to two weeks prior to testing may cause false negative results. If clinically indicated the test should be repeated on a new specimen obtained two weeks after discontinuing treatment. Reference Range: Not DetectedTHIS TEST WAS PERFORMED AT:[facility] [place] [id number] FRAGOSO MD Stool Rectal contents / Unknown 11/23/2024 11/23/2024 4:23 PM EST Yari Thomas MD LAB BODY FLUIDS AND STOOLS ORDERABLES Final Result [facility] [address] [place] [phone] documented in this encounter Visit Diagnoses Diagnosis Gastritis, presence of bleeding unspecified, unspecified chronicity, unspecified gastritis type- Primary documented in this encounter Additional Health Concerns Assessment Noted Time PHQ-9 Depression Total Score: 16 023 11:15 AM EDT documented as of this encounter Care Teams Cutter Operator Helper Relationship Specialty Start Date End Date Renu Hadley MD [address] [place] [phone] PCP - General Internal Medicine 07/04/24 documented as of this encounter
--- OUTSIDE RECORDS SUMMARY | 2024-12-01 07:02 | XMS_ITS | Encounter Summary ---
Author Organization [employer] Address 75 [facility] 7t [place] [address] Care Team Providers Care Hostess Name Role Phone Renu Hadley MD Primary Care Provider + Encounter Details Date Type Department Care Team (Latest Contact Info) Description 02/25/2021 Abstract [facility] CONVERSIONS Dental, Provider, DDS Social History Tobacco [...] on filedocumented in this encounter Care Teams Hostess Relationship Specialty Start Date End Date Renu Hadley MD [address] [place] [phone] PCP - General Internal Medicine 07/04/24 documented as of this encounter
--- OUTSIDE RECORDS SUMMARY | 2024-12-01 07:02 | XMS_ITS | Encounter Summary ---
Author Organization [employer] Address 75 [facility] [address]t [place] [address] Care Team Providers Care Air Conditioning Installer Supervisor Name Role Phone Renu Hadley MD Primary Care Provider + Reason for Visit * Reason Onset Date Comments triage 02/01/2023 Encounter Details Date Type Department Care Team ([facility] st Contact Info) Description 02/01/2023 Telephone [facility] MEDICINE [address] [place] [address] Name, MD Richy [address] [place] [address] triage Social History Tobacco Use Types Packs/Day [...] No answer LVM to return call to [facility] triage line. * Telephone Encounter - Geo [...] on filedocumented in this encounter Care Teams Air Conditioning Installer Supervisor Relationship Specialty Start Date End Date Renu Hadley MD [address] [place] [address] PCP - General Internal Medicine 07/04/24 documented as of this encounter
--- OUTSIDE RECORDS SUMMARY | 2024-12-01 07:02 | XMS_ITS | Encounter Summary ---
Author Organization [employer] Address 75 [facility] 7t [place] [address] Care Team Providers Care Order Checker Name Role Phone Renu Hadley MD Primary Care Provider + Encounter Details Date Type Department Care Team (Late st Contact Info) Description 11/17/2022 Orders Only [facility] MEDICINE [address] [place], [place] [phone] Kaylynn Membreno LPN Social History Tobacco Use [...] on filedocumented in this encounter Care Teams Order Checker Relationship Specialty Start Date End Date Renu Hadley MD [address] [place] [address] PCP - General Internal Medicine 07/04/24 documented as of this encounter
--- OUTSIDE RECORDS SUMMARY | 2024-12-01 07:02 | XMS_ITS | Encounter Summary ---
Author Organization [employer] Address 75 [facility] 7t [place] [address] Care Team Providers Care Net Developer Name Role Phone Renu Hadley MD Primary Care Provider + Reason for Visit * Reason Onset Date Comments Durable Medical Equipment 12/30/2022 Encounter Details Date Type Department Care Team (Late st Contact Info) Description 12/30/2022 Telephone [facility] MEDICINE [address] [place], [place] [phone] Name, MD Richy [address] [place] [address] Durable Medical Equipment Social History Tobacco Use [...] to be order. Please contact pt at [phone] documented in this encounter Plan of Treatment Not on file documented as of this encounter Visit Diagnoses Not on filedocumented in this encounter Care Teams Net Developer Relationship Specialty Start Date End Date Renu Hadley MD [address] [place] [address] PCP - General Internal Medicine 07/04/24 documented as of this encounter
--- OUTSIDE RECORDS SUMMARY | 2024-12-01 07:02 | XMS_ITS | Encounter Summary ---
Author Organization [employer] Address 75 [facility] 7t [place] [address] Care Team Providers Care Comber Tender Name Role Phone Renu Hadley MD Primary Care Provider + Encounter Details Date Type Department Care Team (Late st Contact Info) Description 02/15/2023 Orders Only [facility] MED [facility] PEDS [address] [place] [address] Kanika Monson LPN Social History Tobacco Use [...] on filedocumented in this encounter Care Teams Comber Tender Relationship Specialty Start Date End Date Renu Hadley MD [address] [place] [address] PCP - General Internal Medicine 07/04/24 documented as of this encounter
--- OUTSIDE RECORDS SUMMARY | 2024-12-01 07:02 | XMS_ITS | Patient Health Record ---
Author Organization [facility] Address [address] [place], [place] [phone] Care Team Providers Care Cook Sauce Name Role Phone Kirstin Wright Outpt Care Primary Care Provider Un available Abby Dobson Unavailable [phone] Reason For Referral No Information Plan Of Treatment No Information Insurance Providers Payer Name Payer Address Payer Phone Subscriber Number Group Number Insured Name Patient Relationship to Insured Coverage Start Date Coverage End Date [place] [address] [place] [address] [phone] Ruma Simons Self - patient is the insured
[2024-12-01] MEDS: Lactated Ringers 1,000 ML 100 ML IVCONT (09:22)
[2024-12-01 10:37] LABS: UPreg QC Valid YES; Urine Pregnancy NEGATIVE (NEGATIVE)
--- NOTE | 2024-12-01 11:21 | P.OP_ITS ---
Operative Note Operative Note Date of Service: 12/01/24 Narrative: Preoperative diagnosis: [] Symptomatic incarcerated umbilical hernia Postop diagnosis: [] The same Procedure [] open umbilical herniorrhaphy with Bard mesh Surgeon: [] Gilles Roof Cement And Paint Maker: [] Alexis Type of Anesthesia: [] General Indication for surgery: [] Roughly 2 cm incarcerated umbilical hernia with omental contents. Corpulent abdomen Findings: [] Patient brought to the operating room, placed on the operating table in the supine position, and after an adequate level of general anesthesia was induced, the patient's abdomen was prepped and draped in usual sterile fashion using a small infraumbilical curvilinear incision, this carried down through skin, subcutaneous tissue, where hernia sac was identified and dissected off the posterior aspect of the umbilicus and dissected down the fascia. Sac was opened were incarcerated omental contents were from the sac and reduced. Hernia sac was then amputated at the fascia margins using Bovie. Fascia margins were circumferentially cleared. Inappropriately sized Bard mesh was placed in the defect and the superficial layer of the mesh was circumferentially sutured to the surrounding fascia using interrupted 0 Ethibond suture. At completion of procedure, mesh was in good position with no gaps or tension. Wound was irrigated, secured hemostasis, and closed in the following manner; posterior aspect of the umbilicus was tacked to the wound floor using interrupted 3-0 Vicryl sutures. Skin was closed using interrupted inverted dermal 3-0 Vicryl sutures followed by Steri-Strips and sterile dressings. Wound was infiltrated the beginning and at the end of the case with 0.5% Marcaine/1% lidocaine. Sponge, needle, and instrument counts were reported correct. Patient tolerated the procedure well and emerged from anesthesia stable condition. EBL minimal
[2024-12-01] MEDS: fentaNYL citrate/PF 100 MCG/2 ML VIAL 25 MCG IVPUSH ×4 (11:35→11:50)
[2024-12-01] MEDS: Acetaminophen 1,000 MG/100 ML PIGGYBACK 400 MG IV (12:00)
[2024-12-01] MEDS: oxyCODONE HCl Immed Release 5 MG TABLET PO (12:35)
== END 2024-12-01 12:55 | disposition home or self-care (01) ==
PROVIDERS: Nurse Practitioner; PCP Internal Medicine; Visit Provider Surgery
PROC: (CPT 49592; principal; 2024-12-01 09:50)
DX: K42.0 Umbilical hernia with obstruction, without gangrene (principal); Z91.041 Radiographic dye allergy status; J45.909 Unspecified asthma, uncomplicated; F41.9 Anxiety disorder, unspecified; Z79.899 Other long term (current) drug therapy; Z88.5 Allergy status to narcotic agent
CPT/HCPCS: 49592; 81025; C1781; J0131; J0690; J2003; J2250; J2704; J2795; J3010

== ENCOUNTER → 2024-12-01 07:00 | Outpatient (BNV) | payer MEDICAID, SELFPAY | PROVIDERS: PCP Internal Medicine; Visit Provider Surgery | DX: K42.0 Umbilical hernia with obstruction, without gangrene (principal) | CPT/HCPCS: 49614 ==

== ENCOUNTER 2024-12-12 10:51 | Outpatient (AMB) | payer MEDICAID, SELFPAY ==
--- NOTE | 2024-12-12 11:08 | A.OFFVIS_ITS ---
Intake Visit Reasons: S/P umbilical hernia w/mesh Intake Note: Patient here s/p open umbilical herniorrhaphy with Bard mesh. Reports incision healing well. Patient c/o: pain. Requesting rx for pain meds. Surgery: 12-01-2024 Caramel Coloring Operator Required: No Accompanied by: Self / Same As Patient Allergies Iodinated Contrast Media [CONTRAST, IV] Allergy (Unknown, Verified 12/12/24 11:10) UNKNOWN morphine Allergy (Verified 12/12/24 11:10) Palpitations HPI Comments Details: Patient was status post umbilical hernia repair patient was doing well. Aside from incisional discomfort which is improving, she is otherwise tolerating a diet. He is having regular bowel habits. She is increasing her activity level. No issues with constipation. [facility] Medical History Anxiety Asthma Surgical History (Updated 12/12/24 @ 11:25 by Tristen Campoverde MD) Umbilical hernia (12/01/24) Social History Alcohol intake: current Alcohol intake frequency: a few times a week Patient Tobacco Use Status: Never used Tobacco Substance Use Type: Marijuana Physical Exam GI Other: Abdomen is soft. Incision/wound clean dry and intact healing very well Assessment & Plan Assessment & Plan (1) Status post umbilical hernia repair, follow-up exam: Code(s): Z09 - Encounter for follow-up examination after completed treatment for conditions other than malignant neoplasm Category: Medical Plan Patient was been given local instructions including avoiding strenuous activities next few weeks time will otherwise follow-up p.r.n.. She would like a renewal of the pain meds. This will be provided. All questions answered. Coding Level of Care Code Est Pt Level 2 (36638) Diagnoses Status post umbilical hernia repair, follow-up exam Z09
--- OUTSIDE RECORDS SUMMARY | 2024-12-12 12:02 | XMS_ITS | Clinical Summary ---
Author Organization [employer] Address [address] [facility] 7t [place] [address] Care Team Providers Care Instructional Systems Designer Name Role Phone Renu Hadley MD [...] FOR 10 DAYS 12 suppository 023 Active gabapentin (Neurontin) 100 MG capsuleIndicat ions:Right [...] Active Blood Pressure Monitoring (Blood Pressure Cuff) misc Use daily as prescribed 1 each Active [...] at bedtime prn insomnia/anxiet y 180 capsule Active docusate sodium (Colace) 100 MG capsuleIndicat [...] increased 11/17/24 60 capsule 2 025 Active amLODIPine (Norvasc) 10 MG tabletIndicati ons:Hypertensi on, unspecified type TAKE 1 TABLET BY MOUTH EVERY MORNING 90 tablet 1 025 Active ondansetron (Zofran) 4 MG tablet TAKE 1 TABLET SANGITA MOUTH EVERY 8 HOURS IF NEEDED 30 tablet 025 Active ondansetron (Zofran) 4 MG tablet TAKE 1 TABLET SANGITA MOUTH EVERY 8 HOURS IF NEEDED 30 tablet 024 2024 Discontinued(R eorder (will not trigger notification to Pharmacy)) amLODIPine (Norvasc) 10 MG tabletIndicati ons:Hypertensi on, unspecified type Take 1 tablet (10 mg) by mouth in the morning. 90 tablet 1 024 2024 Discontinued omeprazole (PriLOSEC) [address] capsule Take [...] hypomanic sxs. I gave her information re [facility] locations to make an appt, she was already referred by our specialist last year. Restart Doxepin at 100 mg at bedtime and increase Duloxetine to 60mg/d (she has rx for that) She feels safe at home, no SI/HI, has crisis number. FU in 6w w/me. GERD (gastroesophageal reflux disease) 3 09/10/2023 History of kidney stones 09/10/2023 11/17/2 023 Hx of migraines 09/10/2023 09/10/2023 Irregular [...] Bipolar I disorder, most recent episode depressed ([facility]) Patient ready to address current needs Yes Strengths include willing to engage in services PLAN: 1. Follow up with [facility]: Not recommended for follow-up 2. Patient goal [...] toolkit for anxiety. Pt completed intake with [facility] for OP individual therapy. Assessment & Plan [...] organization. Date Type Department Care Team Description 12/12/2024 Refill [facility] [address] [place] [address] Renu Hadley MD Peripheral neuralgia 12/10/2024 Refill [facility] [address] [place] [address] Renu Hadley MD Peripheral neuralgia 12/06/2024 Telephone [facility] [address] [place], [place] [phone] Renu Hadley MD Medication Question 12/06/2024 Refill [facility] [address] [place] [address] Renu Hadley MD 12/03/2024 Refill [facility] [address] [place], [place] [phone] Shara Keller MD Hypertension, unspecified type 12/01/2024 Orders Only GENERIC EXTERNAL DATA DEPARTMENT Provider, Generic External Data 11/20/2024 3:00 PM EST Office Visit [facility] [address] [place] [address] Blake, Ramya, OD Chronic nonintractable headache, unspecified headache type (Primary Dx); Retinal drusen of left eye; Myopia of both eyes with astigmatism and presbyopia 11/20/2024 Travel 11/17/2024 2:20 PM EST Office Visit [facility] [address] [place] [address] Yari Thomas MD Gastritis, presence of bleeding unspecified, unspecified chronicity, unspecified gastritis type (Primary Dx) 11/16/2024 Telephone [facility] [address] [place] [address] Renu Hadley MD Nurse Triage 11/16/2024 Telephone [facility] [address] [place] [phone] Renu Hadley MD Med Refill 11/16/2024 Refill [facility] [address] [place] [address] Renu Hadley MD 11/08/2024 Refill [facility] [address] [place] [phone] Richy Morris MD 10/31/2024 Orders Only GENERIC EXTERNAL DATA DEPARTMENT Provider, Generic External Data 10/19/2024 Refill [facility] [address] [place] [phone] Renu Hadley MD Generalized abdominal pain; Migraine without status migrainosus, not intractable, unspecified migraine type 09/18/2024 Telephone [facility] [address] [place] [phone] Venecia Hernandez, perinatal tech Question from Last 3 Months Immunizations Name Administration [...] HPV/Cotest 10/13/2022 10/13/2017 COVID-19 Vaccine (2 - 2023- season) 2024 01/13/2022 Influenza Vaccine (#1) 2024 [...] Procedure Name Priority Date/Time Associated Diagnosis Comments HCG, QL, URINE Routine 12/01/2024 8:35 AM EST HELICOBACTER PYLORI AG, EIA, STOOL Routine 11/23/2024 [...] Recently Relevant to Health Maintenance Results * HCG, Qualitative, Urine (12/01/2024 8:35 AM EST) Urine NEGATIVE NEGATIVE [facility] Comment:This test was develo ped to detect early . Falsenegative results may occur after the 5th - 7th week ofpregnancy when using this test method. If clinicallyindicated, consider a serum hCG. 12/01/2024 8:35 AM EST 12/01/2024 10:24 AM EST us Generic External Data Provider LAB URINE ORDERAB LES Final Result [facility] [address] [place] [address] [phone] * Helicobacter pylori??Antigen, EIA, Stool (11/23/2024 12:00 AM EST) H pylori Ag Stool SEE NOTE [facility] Comment:HELICOBACTER PYLORI AG, EIA, STOOL Micro Number: [id number] Test Status: Final Specimen Source: Stool Specimen Quality: Adequate H.pylori Ag: Not Detected Antimicrobials, proton pump inhibitors, and bismuth preparations inhibit H. pylori and ingestion up to two weeks prior to testing may cause false negative results. If clinically indicated the test should be repeated on a new specimen obtained two weeks after discontinuing treatment. Reference Range: Not DetectedTHIS TEST WAS PERFORMED AT:[address] [place] [phone] FRAGOSO MD Stool Rectal contents / Unknown 11/23/2024 11/23/2024 4:23 PM EST us Yari Bruce MD LAB BODY FLUIDS AND STOOLS ORDERABLES Final Result [facility] [address] [place], [place] [phone] * (ABNORMAL) VITAMIN D 25-OH (D2 AND D3) (10/31/2024 9:49 AM EST) Vitamin D, 25-OH, D2 <4 ng/mL [facility] Comment:This test was develo ped and its analytical performancecharacteristics have been determined by [employer] [place] [place]. It hasnot been cleared or approved by the U.S. Food and DrugAdministration. This assay has been validated pursuantto the CLIA regulations and is used for clinicalpurposes.THIS TEST WAS PERFORMED AT:[employer] [place] [id number] CHAMBERS MD,PHD Vitamin D, 25-OH, D3 11 ng/mL [facility] Comment:This test was develo ped and its analytical performancecharacteristics have been determined by [employer] [place] [place]. It hasnot been cleared or approved by the U.S. Food and DrugAdministration. This assay has been validated pursuantto the CLIA regulations and is used for clinicalpurposes. Vitamin D, 25-OH, Total 11(A) 30 - 100 ng/mL [facility] Comment:Vitamin D, 25-Hydrox y reports concentrations [...] = 30 ng/mL.For additional information, please refer tohttp://education.Graphenea/faq/HDM740(This link is being provided for informational/educational purposes only.) 10/31/2024 9:49 AM EST 10/31/2024 9:49 AM EST us Generic External Data Provider LAB BLOOD ORDERAB LES Final Result Performing Organization Address [facility] Co de Phone Number [facility] [address] [place] [phone] * Vitamin B12 (Cobalamin) and Folate Panel, Serum (10/31/2024 9:49 AM EST) Vitamin B12 266 200 - 900 pg/mL [facility] Comment:NORMAL 200-900 PG/ML INDETERMINATE 160-199 PG/ML DEFICIENT < 160 PG/ML Folate 10.6 > or = 4.0 ng/mL [facility] Comment:Reference Values:> o r = 4.0 ng/mL< 4.0 ng/mL suggests folate deficiency Methotrexate, aminopterin and folinic acid(leucovorin) are chemotherapeutic agents whose molecularstructures are similar to folate; therefore, the Architectfolate assay cannot be used for patients using these drugs. 10/31/2024 9:49 AM EST 10/31/2024 9:49 AM EST us Generic External Data Provider LAB BLOOD ORDERAB LES Final Result Performing Organization Address [facility] Co de Phone Number [facility] [address] [place] [phone] * TSH with Reflex to Free T4 (10/31/2024 9:49 AM EST) TSH reflex Free T4 2.59 0.32 - 4.0 uIU/mL [facility] 10/31/2024 9:49 AM EST 10/31/2024 9:49 AM EST us Generic External Data Provider LAB BLOOD ORDERAB LES Final Result Performing Organization Address [facility] Co de Phone Number [facility] [address] [place] [phone] * Creatinine, Serum (10/31/2024 9:49 AM EST) Creatinine, Serum 0.68 0.5 - 1.4 mg/dL [facility] Estimated Glomerular Filt Rate >60 [facility] Comment:Chronic Kidney Disea se: Estimated GFR < 60 mL/min/1.20g8Ilnsfa Kidney Disease: Estimated GFR < 15 mL/min/1.73m2 10/31/2024 9:49 AM EST 10/31/2024 9:49 AM EST Generic External Data Provider LAB BLOOD ORDERAB LES Final Result Performing Organization Address [facility] Co de Phone Number [facility] [address] [place] [phone] * Tissue Transglutaminase Antibody, IgA (10/31/2024 9:49 AM EST) Transglutaminase IgA <1.0 U/mL [facility] Comment:Value Interpretation ----- <15.0 Antibody not detected> or = 15.0 Antibody detectedTHIS TEST WAS PERFORMED AT:[facility] [place] [id number] FRAGOSO MD 10/31/2024 9:49 AM EST 10/31/2024 9:49 AM EST Generic External Data Provider LAB BLOOD ORDERAB LES Final Result Performing Organization Address [facility]/ZIP Co de Phone Number [facility] [address] [place] [phone] * BUN (Blood Urea Nitrogen) (10/31/2024 9:49 AM EST) Urea Nitrogen (BUN) 12 9 - 16 mg/dL [facility] 10/31/2024 9:49 AM EST 10/31/2024 9:49 AM EST us Generic External Data Provider LAB BLOOD ORDERAB LES Final Result [facility] [address] [facility] [place] [phone] * BI US Breast Limited Left (08/03/2024 2:30 PM EDT) Anatomical Region Laterality Modality Breast Left Ultrasound 08/03/2024 2:30 PM EDT Narrative 08/03/2024 2:52 PM EDT ? [facility] [place] ? [address] ?[place] [address] ? Ultrasound Report ? Signed ? Patient: Ray,Ruma ?MR#: [id number] ?? 57 ? : 1975 ?Acct:[id number] ? Age/Sex: 48 / F ?ADM Date: 08/03/24 ? Loc: HO.MAMMO ? Attending Dr: Anna Rondon MD ? Ordering Physician: Anna Rondon MD ?? Date of Service: 08/03/24 ?? Procedure(s): US breast LT limited mamm only ?? Accession Number(s): [id number] ? cc: Anna Rondon MD ? EXAMINATION: [...] 02:49 PM EDT RP ? Dictated By: ?aJret Barber MD ? Signed By: ?<Electronically signed by Jaret Barber MD in OV> ?10/10/ 1449 ? DD/DT: 10//24 1430 ? TD/TT: 10// 1444 ? Casino Games Dealer: ? Procedure Note Donotuseinterpreter, Image - 08/03/2024 [facility] [address] [place], [place] [address] Ultrasound Report Signed Patient: Zonia Simons#: [id number] 57 : 1975Acct:[id number] Age/Sex: 48 / FADM Date: 08/03/24 Loc: HO.MAMMO Attending Dr: Anna Rondon MD Ordering Physician: Anna Rondon MD Date of Service: 08/03/24 Procedure(s): US breast LT limited mamm only Accession Number(s): [id number] cc: Anna Rondon MD EXAMINATION: MM DIAGNOSTIC [...] Barber MD in OV> 08/03/24 1449 DD/ TD/TT: 08/03/241443 Casino Games Dealer: us Anna Rondon MD IMG US PROCEDURES Final Result * (ABNORMAL) Lipid Panel with Reflex to Direct LDL (08/02/2024 10:22 AM EDT) Triglycerides 278(H) <150 mg/dL [facility] Comment:Desirable Triglyceri de: less than 150 mg/dLBorderline High Triglyceride 150-199 mg/dLHigh Triglyceride: 200-499 mg/dLVery High Triglyceride: greater than or equal to 5OO mg/dL Cholesterol 187 <200 mg/dL [facility] Comment:Desirable Cholestero l: less than 200 mg/dLBorderline High Cholesterol: 200-239 mg/dLHigh Cholesterol: greater than 239 mg/dL LDL Cholesterol Calculated 96 <100 mg/dL [facility] Comment:Desirable LDL: less than 100 mg/dLNear Optimal/Above Optimal LDL: 110- 129 mg/dLBorderline High LDL: 130-159 mg/dLHigh LDL: 160-189 mg/dLVery High LDL: greater than or equal to 190 mg/dL HDL Cholesterol 36(L) >40 mg/dL [facility] Comment:Desirable HDL: great er than 40 mg/dL Note: This HDL assay may give artificially low results in patients with liver disease. Blood 08/02/2024 10:2 2 AM EDT 08/02/2024 11:31 AM EDT Renu Hadley MD LAB BLOOD ORDERABLES Fin al Result Performing Organization Address City/[facility]/ZIP Co de Phone Number [facility] [address] [place] [phone] * Hepatitis C Antibody with Reflex to HCV, RNA, Quantitative, Real-Time PCR (09/29/2022 1:39 PM EST) Hepatitis C Antibody NON-REACT HAIDER NON-REACT HAIDER [facility] [place] [employer] Index 0.07 <1.00 [facility] [place] [employer] Comment: HCV antibody was non-reactive. There is no laboratory evidence of HCV infection. In most cases, no further action is required. However, if recent HCV exposure is suspected, a test for HCV RNA (test code 90402) is suggested. For additional information please refer to http://education.Excelsoft/faq/FMT42g6 (This link is being provided for informational/ educational purposes only.) 09/29/2022 1:39 PM EST 09/29/2022 1:40 PM EST Narrative [facility] - 09/30/2022 6:58 PM EST FASTING:UNKNOWN PATIENT UNABLE TO VOID; ADVISED TO RETURN FOR COLLECTION. FASTING: UNKNOWN Richy Morris MD LAB BLOOD ORDERABLES Final Resul t Performing Organization Address City/[facility]/ZIP Co de Phone Number [facility] [address], [place] [address] [facility] [place] [employer] [address], [place] [phone] * HIV-1/2 Antigen and Antibodies, Fourth Generation, with Reflexes (09/29/2022 1:39 PM EST) HIV Antigen/Antibody, 4th Generation NON-REAC TIVE NON-REAC TIVE [facility] Comment: HIV-1 antigen and HIV-1/HIV-2 [...] ?? For additional information please refer to http://HelloFresh.Excelsoft/faq/DJM569 (This link is being provided for informational/ [...] MD LAB BLOOD ORDERABLES Final Resul t [facility] [address], [place] [phone] [facility] [address], [place] [address] * HPV mRNA E6/E7 (10/13/2017 9:12 AM EST) Pathologist [facility] HPV mRNA E6/E7 Not Detected NOT DETECTED [facility] Comment: This test was performed using the APTIMA(R) HPV Assay ([employer] This assay detects E6/E7 viral messenger RNA (mRNA) from 14 high-risk HPV types (16,18,31,33,35,39,45,51, 52,56,58,59,66,68). For additional information please refer to: http://HelloFresh.Excelsoft/faq/BOV125i0 (This link is being provided for informational/ educational purposes only.) Test Performed by [facility], [facility], [address] [place], [place] Tyler Chambers M.D., Ph.D., Director of Laboratories , [facility] [id number] Please note: ??Effective 07/06/2016, HPV testing will be performed using [employer]'s APTIMA test which targets mRNA. Detecting mRNA instead of DNA, as in older methods, offers significant improvements in specificity. 10/13/2017 9:12 AM EST Carmen Bey CNM HISTORICAL/NON ORDERABLE LABS Final Result [facility] [address] [place] [address] * Pap Smear (10/13/2017 12:00 AM EST) Swab Carmen Bey CNM LAB CYTOLOGY ORDERABLES F inal Result [facility] [address] [place] [phone] [phone] from Last 3 Months or Most Recently Relevant to Health Maintenance Insurance [facility] C3 Care Teams Instructional Systems Designer Relationship Specialty Start Date End Date Renu Hadley MD [address] [place] [address] [place] [phone] PCP - General Internal Medicine 07/04/24
--- OUTSIDE RECORDS SUMMARY | 2024-12-12 12:02 | XMS_ITS | Encounter Summary ---
Author Organization [employer] Address [address] [facility] [address]t [place] [address] Care Team Providers Care Holter Scanning Technician Name Role Phone Renu Hadley MD Primary Care Provider + Reason for Visit * Reason Onset Date Comments Nurse Triage 04/06/2023 Encounter Details Date Type Department Care Team ([facility] st Contact Info) Description 04/06/2023 Telephone [facility] [address] [place], [place] [phone] Name, MD Richy [address] [place] [address] Nurse Triage Social History Tobacco Use Types [...] t he electric, gas, oil or water [employer] threatened to shut off services in your [...] caller accepted this outcome Please contact at [phone] Turkmen documented in this encounter Plan of Treatment Not on file documented as of this encounter Visit Diagnoses Not on filedocumented in this encounter Additional Health Concerns Assessment Noted Time PHQ-9 Depression Total Score: 12 023 1:33 PM EDT documented as of this encounter Care Teams Holter Scanning Technician Relationship Specialty Start Date End Date Renu Hadley MD [address] [place] [phone] PCP - General Internal Medicine 07/04/24 documented as of this encounter
--- OUTSIDE RECORDS SUMMARY | 2024-12-12 12:02 | XMS_ITS | Encounter Summary ---
Author Organization [facility] Address [address] [facility] 7t [place] [address] Care Team Providers Care Core Baker Name Role Phone Renu Hadley MD Primary Care Provider + Reason for Visit * Reason Comments Med Refill Encounter Details Date Type Department Care Team (Late st Contact Info) Description 06/10/2023 Refill [facility] [address] [place], [place] [phone] Name, MD Richy [address] [place], [place] [phone] Anxiety disorder, unspecified Social History Tobacco Use [...] documented as of this encounter Care Teams Core Baker Relationship Specialty Start Date End Date Renu Hadley MD [address] [place], [place] [phone] PCP - General Internal Medicine 07/04/24 documented as of this encounter
--- OUTSIDE RECORDS SUMMARY | 2024-12-12 12:03 | XMS_ITS | Encounter Summary ---
Author Organization [employer] Address [address] [facility] 7t [place] [address] Care Team Providers Care Photocopying Equipment Mechanic Name Role Phone Renu Hadley MD Primary Care Provider + Reason for Visit * Reason Onset Date Comments triage 02/01/2023 Encounter Details Date Type Department Care Team ([facility] st Contact Info) Description 02/01/2023 Telephone [facility] [address] [place] [address] Name, MD Richy [address] [place] [address] triage Social History Tobacco Use Types Packs/Day [...] No answer LVM to return call to [facility] triage line. * Telephone Encounter - Geo [...] on filedocumented in this encounter Care Teams Photocopying Equipment Mechanic Relationship Specialty Start Date End Date Renu Hadley MD [address] [place] [phone] PCP - General Internal Medicine 07/04/24 documented as of this encounter
--- OUTSIDE RECORDS SUMMARY | 2024-12-12 12:03 | XMS_ITS | Encounter Summary ---
Author Organization [employer] Address [address] [place] [address] [address]t [place] [address] Care Team Providers Care Culture Manager Name Role Phone Renu Hadley MD Primary Care Provider + Reason for Referral * Consultation (Routine) - Closed Specialty Diagnoses / Procedures Referred By Controbles t Referred To Contact Behavioral Health Diagnoses Bipolar I disorder, most recent episode depressed (CMS/HCC) Renu Hadley MD [address] [place] [address] Phone: tel: fax: Referral ID Status Reason Start Date Expiration Date V isits Requested Visits Authorized [id number] Closed Specialty Services Required 11/16/2024 11/16/2025 1 1 Reason for Visit * Reason Onset Date Comments Med Refill 11/16/2024 Encounter Details Date Type Department Care Team (Late st Contact Info) Description 11/16/2024 Telephone [facility] [address] [place], [place] [phone] Renu Hadley MD [address] [place], [place] [phone] Med Refill Social History Tobacco Use Types [...] with others, in a hotel, in a assisted, living outside on the street, on a [...] - 11/20/2024 10:53 AM EST TC via [id number], no answer. L/M asking her to call [...] 2 MG tablet To be sent to: [facility] documented in this encounter Plan of [...] documented as of this encounter Care Teams Culture Manager Relationship Specialty Start Date End Date Renu Hadley MD [address] [place] [phone] PCP - General Internal Medicine 07/04/24 documented as of this encounter
--- OUTSIDE RECORDS SUMMARY | 2024-12-12 12:03 | XMS_ITS | Encounter Summary ---
Author Organization [employer] Address [address] [facility] 7t [place] [address] Care Team Providers Care Supervisor Melt House Name Role Phone Renu Hadley MD Primary [...] as of this encounter Care Teams Supervisor Melt House Relationship Specialty Start Date End Date Renu Hadley MD [address] [place] [phone] PCP - General Internal Medicine 07/04/24 documented as of this encounter
--- OUTSIDE RECORDS SUMMARY | 2024-12-12 12:03 | XMS_ITS | Encounter Summary ---
Author Organization [employer] Address 75 [facility] 7t [place] [address] Care Team Providers Care Public Affairs Director Name Role Phone Renu Hadley MD Primary Care Provider + Reason for Visit * Reason Onset Date Comments Nurse Triage 11/16/2024 Encounter Details Date Type Department Care Team ([facility] st Contact Info) Description 11/16/2024 Telephone [facility] MEDICINE 230 [place], [place] [phone] Renu Hadley MD [address] [place], [place] [phone] Nurse Triage Social History Tobacco Use Types [...] with others, in a hotel, in a skilled nursing, living outside on the street, on a [...] 8:50 AM EST TC placed to patient [phone] via [employer] (Naomi #[id number]) in regards to below message. Patient reports her upcoming surgery with Dr. Campoverde is on 12/01/24 however patient is experiencing horrible pain. Patient last seen by Dr. Campoverde on 11/07/24 (note in chart). Patient reports she also was informed at [facility] on 11/05/24 (ED note in chart) [...] to f/u PRN. * Telephone Encounter - eRnu Hadley MD - 11/16/2024 4:41 PM EST Re abd pain, agree with POC to go to [facility] ro acute abdomen. * Telephone Encounter - Shelly LIONEL Almonte - 11/16/2024 1:33 PM EST Triage call returned to patient with BLS Gurvinder [phone]. Patoient reports increased abdominal discomfort as related to hernia identified and is pending surgery with at [facility] on 12/01/24 for repair.Patient reports increased pain [...] Team appts available for today. Advised of [facility] hours for today and tomorrow as needed but that she should contact surgeons office in regards to increased pain and inability to tolerate it pending surgery. Patient reporting that she is requesting medication from and not Surgeon. Patient disconnected the call from supervisor edging as she felt she was being misunderstood. [...] caller accepted this outcome. Contact pt at [phone] (peruvian) documented in this encounter Plan of Treatment Not on file documented as of this encounter Visit Diagnoses Not on filedocumented in this encounter Additional Health Concerns Assessment Noted Time PHQ-9 Depression Total Score: 16 023 11:15 AM EDT documented as of this encounter Care Teams Public Affairs Director Relationship Specialty Start Date End Date Renu Hadley MD [address] [place] [address] PCP - General Internal Medicine 07/04/24 documented as of this encounter
--- OUTSIDE RECORDS SUMMARY | 2024-12-12 12:03 | XMS_ITS | Encounter Summary ---
Author Organization [employer] Address 75 [facility] 7t [place] [address] Care Team Providers Care Die Setter Name Role Phone Renu Hadley MD Primary Care Provider + Reason for Visit * Reason Onset Date Comments Durable Medical Equipment 12/30/2022 Encounter Details Date Type Department Care Team (Late st Contact Info) Description 12/30/2022 Telephone [facility] MEDICINE 230 [place], [place] [phone] Name, MD Richy 230 [place] [address] Durable Medical Equipment Social History Tobacco Use [...] to be order. Please contact pt at [phone] documented in this encounter Plan of Treatment Not on file documented as of this encounter Visit Diagnoses Not on filedocumented in this encounter Care Teams Die Setter Relationship Specialty Start Date End Date Renu Hadley MD [address] [place] [address] PCP - General Internal Medicine 07/04/24 documented as of this encounter
--- OUTSIDE RECORDS SUMMARY | 2024-12-12 12:03 | XMS_ITS | Encounter Summary ---
Author Organization [employer] Address 75 [facility] 7t [place] [address] Care Team Providers Care Casework Specialist Name Role Phone Renu Hadley MD Primary Care Provider + Encounter Details Date Type Department Care Team (Late st Contact Info) Description 12/01/2024 Orders Only GENERIC EXTERNAL DATA DEPARTMENT [...] QL, URINE Routine 12/01/2024 8:35 AM EST documented in this encounter Results * HCG, Qualitative, Urine (12/01/2024 8:35 AM EST) Urine NEGATIVE NEGATIVE [facility] Comment:This test was develo ped to detect early . Falsenegative results may occur after the 5th - 7th week ofpregnancy when using this test method. If clinicallyindicated, consider a serum hCG. 12/01/2024 8:35 AM EST 12/01/2024 10:24 AM EST us Generic External Data Provider LAB URINE ORDERAB LES Final Result [facility] [address] [place] [phone] documented in this encounter Visit Diagnoses Not on filedocumented in this encounter Additional Health Concerns Assessment Noted Time PHQ-9 Depression Total Score: 16 025 9:47 AM EST documented as of this encounter Care Teams Casework Specialist Relationship Specialty Start Date End Date Renu Hadley MD 230 [place] [address] PCP - General Internal Medicine 07/04/24 documented as of this encounter
--- OUTSIDE RECORDS SUMMARY | 2024-12-12 12:03 | XMS_ITS | Encounter Summary ---
Author Organization [employer] Address 75 [facility] 7t [place] [address] Care Team Providers Care Deaf Interpreter Name Role Phone Renu Hadley MD Primary Care Provider + Encounter Details Date Type Department Care Team (Late st Contact Info) Description 02/15/[address] [facility] MED & PEDS [address] [place] [address] Kanika Monson LPN Social History Tobacco Use [...] on filedocumented in this encounter Care Teams Deaf Interpreter Relationship Specialty Start Date End Date Renu Hadley MD [address] [place] [address] PCP - General Internal Medicine 07/04/24 documented as of this encounter
--- OUTSIDE RECORDS SUMMARY | 2024-12-12 12:03 | XMS_ITS | Encounter Summary ---
Author Organization [employer] Address 75 [facility] 7t [place] [address] Care Team Providers Care Hand Edger Name Role Phone Renu Hadley MD Primary Care Provider + Encounter Details Date Type Department Care Team (Latest Contact Info) Description 12/20/2019 Abstract [facility] CONVERSIONS Dental, Provider, DDS Social History Tobacco [...] on filedocumented in this encounter Care Teams Hand Edger Relationship Specialty Start Date End Date Renu Hadley MD [address] [place] [address] PCP - General Internal Medicine 07/04/24 documented as of this encounter
--- OUTSIDE RECORDS SUMMARY | 2024-12-12 12:03 | XMS_ITS | Encounter Summary ---
Author Organization [employer] Address 75 [facility] 7t [place] [address] Care Team Providers Care Neonatal Critical Care Nurse Name Role Phone Renu Hadley MD Primary Care Provider + Encounter Details Date Type Department Care Team (Late st Contact Info) Description 11/17/2022 Orders Only [facility] MEDICINE 230 [place], [place] [phone] Kaylynn Membreno LPN Social History Tobacco Use [...] on filedocumented in this encounter Care Teams Neonatal Critical Care Nurse Relationship Specialty Start Date End Date Renu Hadley MD 230 [place] [address] PCP - General Internal Medicine 07/04/24 documented as of this encounter
--- OUTSIDE RECORDS SUMMARY | 2024-12-12 12:03 | XMS_ITS | Encounter Summary ---
Author Organization [employer] Address 75 [facility] 7t [place] [address] Care Team Providers Care Building Rental Superintendent Name Role Phone Renu Hadley MD Primary Care Provider + Reason for Visit * Reason Onset Date Comments Med Refill 12/12/2024 Encounter Details Date Type Department Care Team (Late st Contact Info) Description 12/12/2024 Refill [facility] PEDS [address] [place], [place] [phone] Renu Hadley MD 230 [place], [place] [phone] Peripheral neuralgia Social History Tobacco Use Types Packs/Day Years [...] Telephone Encounter - Kanika Monson LPN - 12/12/2024 11:37 AM EST Last seen 11/17/24. documented in this encounter Plan of Treatment Not on file documented as of this encounter Visit Diagnoses Diagnosis Peripheral neuralgia Unspecified hereditary and idiopathic peripheral neuropathy documented in this encounter Additional Health Concerns Assessment Noted Time PHQ-9 Depression Total Score: 16 025 9:47 AM EST documented as of this encounter Care Teams Building Rental Superintendent Relationship Specialty Start Date End Date Renu Hadley MD [address] [place] [address] PCP - General Internal Medicine 07/04/24 documented as of this encounter
--- OUTSIDE RECORDS SUMMARY | 2024-12-12 12:03 | XMS_ITS | Encounter Summary ---
Author Organization [facility] Address [address] [place] [address] 7t [place] [address] Care Team Providers Care Community Health Coordinator Name Role Phone Renu Hadley MD Primary Care Provider + Reason for Visit * Reason Comments Med Refill Encounter Details Date Type Department Care Team (Late st Contact Info) Description 02/12/2023 Refill [facility] MEDICINE 230 [place], [place] [phone] Name, MD Richy 230 [place] [address] Heartburn Social History Tobacco Use Types Packs/Day [...] Heartburn documented in this encounter Care Teams Community Health Coordinator Relationship Specialty Start Date End Date Renu Hadley MD 230 [place] [address] PCP - General Internal Medicine 07/04/24 documented as of this encounter
--- OUTSIDE RECORDS SUMMARY | 2024-12-12 12:03 | XMS_ITS | Encounter Summary ---
Author Organization [employer] Address 75 [facility] 7t [place] [address] Care Team Providers Care Chicle Grinder Feeder Name Role Phone Renu Hadley MD Primary Care Provider + Reason for Visit * Reason Onset Date Comments Med Refill 12/06/2024 Encounter Details Date Type Department Care Team ([facility] st Contact Info) Description 12/06/2024 Refill [facility] MEDICINE 230 [place], [place] [phone] Renu Hadley MD 230 [place] [address] Social History Tobacco Use Types Packs/Day Years [...] enough money to get more: Never True 10/ Transportation Answer Date Recorded In the past [...] encounter Miscellaneous Notes * Telephone Encounter - Aidan Freeman - 12/06/2024 12:49 PM EST TC from pt requesting medication refill. Medications needing refill : ondansetron (Zofran) tablet 4 mg To be sent to: [facility] - [place], [place] - [address] [place] [address] documented in this encounter Plan of Treatment Not on file documented as of this encounter Visit Diagnoses Not on filedocumented in this encounter Additional Health Concerns Assessment Noted Time PHQ-9 Depression Total Score: 16 025 9:47 AM EST documented as of this encounter Care Teams Chicle Grinder Feeder Relationship Specialty Start Date End Date Renu Hadley MD 230 [facility] [place] [address] PCP - General Internal Medicine 07/04/24 documented as of this encounter
--- OUTSIDE RECORDS SUMMARY | 2024-12-12 12:03 | XMS_ITS | Encounter Summary ---
Author Organization [employer] Address 75 [facility] 7t [place] [address] Care Team Providers Care Open End Spinning Operator Name Role Phone Renu Hadley MD Primary Care Provider + Reason for Visit * Reason Onset Date Comments Med Refill 11/16/2024 Encounter Details Date Type Department Care Team ([facility] st Contact Info) Description 11/16/2024 Refill [facility] MEDICINE 230 [place], [place] [phone] Renu Hadley MD 230 [place] [address] Social History Tobacco Use Types Packs/Day Years [...] AM EST Hydrochlorothiazide was sent to [facility] on 07/04/24 #90 with 3 refills. Last seen 08/08/24. * Telephone Encounter - Marcos Avilez - 11/16/2024 9:58 AM EST TC from pt requesting medication refill. Medications needing refill : hydroCHLOROthiazide (HYDRODiuril) 25 MG tablet omeprazole (PriLOSEC) [address] capsule dicyclomine (Bentyl) 20 MG tablet To be sent to: [facility] documented in this encounter Plan of Treatment Not on file documented as of this encounter Visit Diagnoses Not on filedocumented in this encounter Additional Health Concerns Assessment Noted Time PHQ-9 Depression Total Score: 16 023 11:15 AM EDT documented as of this encounter Care Teams Open End Spinning Operator Relationship Specialty Start Date End Date Renu Hadley MD [address] [place] [address] PCP - General Internal Medicine 07/04/24 documented as of this encounter
--- OUTSIDE RECORDS SUMMARY | 2024-12-12 12:03 | XMS_ITS | Encounter Summary ---
Author Organization [employer] Address 75 [facility] 7t [place] [address] Care Team Providers Care Body Shop Technician Name Role Phone Renu Hadley MD Primary Care Provider + Encounter Details Date Type Department Care Team (Late st Contact Info) Description 12/01/2022 Orders Only [facility] MED & PEDS [address] [place] [address] Kanika Monson LPN Social History Tobacco Use [...] on filedocumented in this encounter Care Teams Body Shop Technician Relationship Specialty Start Date End Date Renu Hadley MD [address] [place] [address] PCP - General Internal Medicine 07/04/24 documented as of this encounter
--- OUTSIDE RECORDS SUMMARY | 2024-12-12 12:03 | XMS_ITS | Encounter Summary ---
Author Organization [employer] Address 75 [facility] 7t [place] [address] Care Team Providers Care Educational Programming Director Name Role Phone Renu Hadley MD Primary Care Provider + Reason for Visit * Reason Comments Med Refill Encounter Details Date Type Department Care Team (Late st Contact Info) Description 04/07/2023 Refill [facility] MEDICINE 230 [place] [address] Lisa Cifuentes FNP [address] [place], [place] [phone] Anxiety disorder, unspecified Social History Tobacco Use [...] documented as of this encounter Care Teams Educational Programming Director Relationship Specialty Start Date End Date Renu Hadley MD 230 [place] [address] PCP - General Internal Medicine 07/04/24 documented as of this encounter
--- OUTSIDE RECORDS SUMMARY | 2024-12-12 12:03 | XMS_ITS | Encounter Summary ---
Author Organization [employer] Address 75 [facility] 7t [place] [address] Care Team Providers Care Drywall Sander Name Role Phone Renu Hadley MD Primary Care Provider + Reason for Visit * Reason Onset Date Comments triage 02/26/2023 Encounter Details Date Type Department Care Team ([facility] st Contact Info) Description 02/26/2023 Telephone [facility] MEDICINE 230 [place], [place] [phone] Name, MD Richy 230 [place] [address] triage Social History Tobacco Use Types Packs/Day [...] 12:38 PM EDT Triage call with [employer] [place] [id number] Pt was called more than 2x. Each [...] on filedocumented in this encounter Care Teams Drywall Sander Relationship Specialty Start Date End Date Renu Hadley MD [address] [place] [address] PCP - General Internal Medicine 07/04/24 documented as of this encounter
--- OUTSIDE RECORDS SUMMARY | 2024-12-12 12:03 | XMS_ITS | Encounter Summary ---
Author Organization [employer] Address 75 [facility] 7t [place] [address] Care Team Providers Care Devops Consultant Name Role Phone Renu Hadley MD Primary Care Provider + Reason for Visit * Reason Comments Blurred Vision Encounter Details Date Type Department Care Team (Latest Contact Info) Description 11/20/2024 3:00 PM EST Office Visit [facility] OPTOMETRY [address] [place] [address] Blake, Ramya, OD [address] [place] [address] Chronic nonintractable headache, unspecified headache type (Primary [...] documented as of this encounter Care Teams Devops Consultant Relationship Specialty Start Date End Date Renu Hadley MD [address] [place] [address] PCP - General Internal Medicine 07/04/24 documented as of this encounter
--- OUTSIDE RECORDS SUMMARY | 2024-12-12 12:03 | XMS_ITS | Encounter Summary ---
Author Organization [employer] Address 75 [facility] 7t [place] [address] Care Team Providers Care Market Stall Vendor Name Role Phone Renu Hadley MD Primary Care Provider + Reason for Visit * Reason Onset Date Comments Appointment Request 04/07/2023 Encounter Details Date Type Department Care Team ([facility] st Contact Info) Description 04/07/2023 Telephone [facility] MEDICINE 230 [place], [place] [phone] Name, MD Richy 230 [place] [address] Appointment Request Social History Tobacco Use Types [...] - 04/07/2023 1:53 PM EDT T/C to [phone] through [employer] id - [id number] to re-schedule HDF apt. Pt. Schedule for HDF apt. On 04/14/2023. Pt. Was admitted at [facility], d/c 04/02/23 for Dx: Peritoneal abscess [...] to r/s HDF appt from 04/07/23. Details: [facility] d/c 04/02/23 Dx: Peritoneal abscess surgery documented in this encounter Plan of Treatment Not on file documented as of this encounter Visit Diagnoses Not on filedocumented in this encounter Additional Health Concerns Assessment Noted Time PHQ-9 Depression Total Score: 12 023 1:33 PM EDT documented as of this encounter Care Teams Market Stall Vendor Relationship Specialty Start Date End Date Renu Hadley MD [address] [place] [address] PCP - General Internal Medicine 07/04/24 documented as of this encounter
--- OUTSIDE RECORDS SUMMARY | 2024-12-12 12:03 | XMS_ITS | Encounter Summary ---
Author Organization [employer] Address 75 [facility] 7t [place] [address] Care Team Providers Care Camp Guard Name Role Phone Renu Hadley MD Primary Care Provider + Encounter Details Date Type Department Care Team (Latest Contact Info) Description 02/25/2021 Abstract [facility] CONVERSIONS Dental, Provider, DDS Social History [...] on filedocumented in this encounter Care Teams Camp Guard Relationship Specialty Start Date End Date Renu Hadley MD [address] [place] [address] PCP - General Internal Medicine 07/04/24 documented as of this encounter
--- OUTSIDE RECORDS SUMMARY | 2024-12-12 12:03 | XMS_ITS | Patient Health Record ---
Author Organization [facility] Address [address] [place], [place] [phone] Care Team Providers Care Scrubber Operator Name Role Phone Kirstin Wright Outpt Care Primary Care Provider Un available Abby Dobson Unavailable [phone] Reason For Referral No Information Plan Of Treatment No Information Insurance Providers Payer Name Payer Address Payer Phone Subscriber Number Group Number Insured Name Patient Relationship to Insured Coverage Start Date Coverage End Date [place] Standard [address] [place] [address] [phone] Ruma Simons Self - patient is the insured
--- OUTSIDE RECORDS SUMMARY | 2024-12-12 12:03 | XMS_ITS | Encounter Summary ---
Author Organization [employer] Address [address] [facility] 7t [place] [address] Care Team Providers Care Boiler House Supervisor Name Role Phone Renu Hadley MD Primary Care Provider + Reason for Visit * Reason Onset Date Comments Medication Question 01/13/2023 Encounter Details Date Type Department Care Team ([facility] st Contact Info) Description 01/13/[address] [facility] MEDICINE 230 [place], [place] [phone] Name, MD Richy [address] [place] [address] Medication Question Social History Tobacco Use Types [...] Doxepin 50 mg. Please contact pt at [phone] documented in this encounter Plan of Treatment Not on file documented as of this encounter Visit Diagnoses Not on filedocumented in this encounter Care Teams Boiler House Supervisor Relationship Specialty Start Date End Date Renu Hadley MD [address] [place] [address] PCP - General Internal Medicine 07/04/24 documented as of this encounter
--- OUTSIDE RECORDS SUMMARY | 2024-12-12 12:03 | XMS_ITS | Encounter Summary ---
Author Organization [employer] Address 75 [facility] 7t [place] [address] Care Team Providers Care Government Clerk Name Role Phone Renu Hadley MD Primary Care Provider + Reason for Visit * Reason Onset Date Comments Medication Question 12/06/2024 Encounter Details Date Type Department Care Team ([facility] st Contact Info) Description 12/06/2024 Telephone [facility] MEDICINE 230 [place], [place] [phone] Renu Hadley MD 230 [place], [place] [phone] Medication Question Social History Tobacco Use Types [...] Telephone Encounter - Venecia Hernandez RN - 12/06/2024 2:53 PM EST Noted. Chart reviewed, patient had surgery on 12/01/[address] Campoverde. TC placed to patient [phone] to inform patient she needs to call surgeons office to discuss post-op pain and request pain medication. Patient verbalized understanding and reports she will call surgeons office. Patient also inquiring on zofran RX and was informed it was sent to the pharmacy today. Patient to f/u PRN. * Telephone Encounter - Aidan Freeman - 12/06/2024 12:51 PM EST Tc from pt requesting a medication for the Pain in the Stomach where she recently has gotten surgery. Contact pt at [phone] documented in this encounter Plan of Treatment Not on file documented as of this encounter Visit Diagnoses Not on filedocumented in this encounter Additional Health Concerns Assessment Noted Time PHQ-9 Depression Total Score: 16 025 9:47 AM EST documented as of this encounter Care Teams Government Clerk Relationship Specialty Start Date End Date Renu Hadley MD [address] [place] [address] PCP - General Internal Medicine 07/04/24 documented as of this encounter
--- OUTSIDE RECORDS SUMMARY | 2024-12-12 12:03 | XMS_ITS | Encounter Summary ---
Author Organization [employer] Address 75 [facility] 7t [place] [address] Care Team Providers Care Motion Picture Photographer Name Role Phone Renu Hadley MD Primary Care Provider + Reason for Visit * Reason Comments Med Refill Encounter Details Date Type Department Care Team (Late st Contact Info) Description 12/03/2024 Refill [facility] MED & PEDS [address] [place], [place] [phone] Shara Keller MD 230 [place], [place] [phone] Hypertension, unspecified type Social History Tobacco Use Types Packs/Day Years [...] as of this encounter Visit Diagnoses Diagnosis Hypertension, unspecified type documented in this encounter Additional Health Concerns Assessment Noted Time PHQ-9 Depression Total Score: 16 025 9:47 AM EST documented as of this encounter Care Teams Motion Picture Photographer Relationship Specialty Start Date End Date Renu Hadley MD 230 [place] [address] PCP - General Internal Medicine 07/04/24 documented as of this encounter
--- OUTSIDE RECORDS SUMMARY | 2024-12-12 12:03 | XMS_ITS | Encounter Summary ---
Author Organization [employer] Address 75 [facility] 7t [place] [address] Care Team Providers Care Employee Relations Director Name Role Phone Renu Hadley MD Primary Care Provider + Reason for Visit * Reason Comments Med Refill Encounter Details Date Type Department Care Team (Late st Contact Info) Description 04/09/2023 Refill [facility] MEDICINE 230 [place] [address] Lisa Cifuentes FNP [address] [place], [place] [phone] Anxiety disorder, unspecified Social History Tobacco Use [...] documented as of this encounter Care Teams Employee Relations Director Relationship Specialty Start Date End Date Renu Hadley MD 230 [place] [address] PCP - General Internal Medicine 07/04/24 documented as of this encounter
--- OUTSIDE RECORDS SUMMARY | 2024-12-12 12:03 | XMS_ITS | Encounter Summary ---
Author Organization [employer] Address [address] [facility] 7t [place] [address] Care Team Providers Care Quiller Runner Name Role Phone Renu Hadley MD Primary Care Provider + Reason for Visit * Reason Comments Med Refill Encounter Details Date Type Department Care Team (Late st Contact Info) Description 12/10/2024 Refill [facility] [address] [place], [place] [phone] Renu Hadley MD [address] [place], [place] [phone] Peripheral neuralgia Social History Tobacco Use Types [...] documented as of this encounter Care Teams Quiller Runner Relationship Specialty Start Date End Date Renu Hadley MD [address] [place] [address] PCP - General Internal Medicine 07/04/24 documented as of this encounter
--- OUTSIDE RECORDS SUMMARY | 2024-12-12 12:03 | XMS_ITS | Encounter Summary ---
Author Organization [employer] Address [address] [facility] 7[address] [place] [address] Care Team Providers Care Cosmetologist Apprentice Name Role Phone Renu Hadley MD Primary Care Provider + Reason for Visit * Reason Comments Hernia Encounter Details Date Type Department Care Team ([facility] st Contact Info) Description 11/17/2024 2:20 PM EST Office Visit [facility] [address] [place], [place] [phone] Yari Thomas MD [address] [place], [place] [phone] Gastritis, presence of bleeding unspecified, unspecified chronicity, [...] with others, in a hotel, in a alf, living outside on the street, on a [...] Patient reports she also was informed at [facility] on 11/05/24 (ED note in chart) [...] EST) H pylori Ag Stool SEE NOTE [facility] Comment:HELICOBACTER PYLORI AG, EIA, STOOL Micro Number: [id number] Test Status: Final Specimen Source: Stool Specimen Quality: Adequate H.pylori Ag: Not Detected Antimicrobials, proton pump inhibitors, and bismuth preparations inhibit H. pylori and ingestion up to two weeks prior to testing may cause false negative results. If clinically indicated the test should be repeated on a new specimen obtained two weeks after discontinuing treatment. Reference Range: Not DetectedTHIS TEST WAS PERFORMED AT:[email or web address] [place] [id number] FRAGOSO MD Stool Rectal contents / Unknown 11/23/2024 11/23/2024 4:23 PM EST Yari Thomas MD LAB BODY FLUIDS AND STOOLS ORDERABLES Final Result [facility] [address] [place] [phone] documented in this encounter Visit Diagnoses Diagnosis Gastritis, presence of bleeding unspecified, unspecified chronicity, unspecified gastritis type- Primary documented in this encounter Additional Health Concerns Assessment Noted Time PHQ-9 Depression Total Score: 16 023 11:15 AM EDT documented as of this encounter Care Teams Cosmetologist Apprentice Relationship Specialty Start Date End Date Renu Hadley MD [address] [place] [phone] PCP - General Internal Medicine 07/04/24 documented as of this encounter
== END 2024-12-12 11:26 | disposition home or self-care (01) ==
LOC: HO.HGS 10:51
PROVIDERS: PCP Internal Medicine; Visit Provider Surgery
DX: Z09 Encounter for follow-up examination after completed treatment for conditions other than malignant neoplasm (principal)
CPT/HCPCS: 99212

== ENCOUNTER → 2024-12-12 10:51 | Outpatient (BNVA) | payer MEDICAID, SELFPAY | PROVIDERS: PCP Internal Medicine; Visit Provider Surgery | DX: Z09 Encounter for follow-up examination after completed treatment for conditions other than malignant neoplasm (principal); Z87.19 Personal history of other diseases of the digestive system; Z98.890 Other specified postprocedural states | CPT/HCPCS: 99212 ==

== ENCOUNTER 2024-12-22 09:20 | Outpatient (AMB) | payer MEDICAID, SELFPAY ==
--- NOTE | 2024-12-22 09:33 | MHC.OFFVIS ---
Vital Signs 12/22/24 09:49 Height 5 ft 3 in Weight 189 lb 9.561 oz BMI 33.6 BP 136/82 Blood Pressure Location Rt brachial Position Sitting Pulse 90 Pulse Source Pulse Oximeter Pulse Oximetry (%) 98 Oxygen Delivery Method Room Air Intake Visit Reasons: 6 wks f/u Intake Note: ESTABLISHED PATIENT for mgmt of abd bloating and pain. Changes/concerns? C/O consistent reflux. Pt still takine esomeprazole and omeprazole together without relief. Pt also reports having concerns regarding s/p sx from recent hernia repair. Staff Home Therapy Rn Required: Yes Staff Home Therapy Rn Services: Staff Home Therapy Rn Present Staff Home Therapy Rn Name: Shara [id number] Information Interpreted: clinical only Accompanied by: Self / Same As Patient Allergies Iodinated Contrast Media [CONTRAST, IV] Allergy (Unknown, Verified 12/25/24 10:28) UNKNOWN morphine Allergy (Verified 12/25/24 10:28) Palpitations HPI HPI 6 wks f/u: Details: LAST VISIT Postprandial epigastric pain GERD (gastroesophageal reflux disease) Abdominal bloating Constipation Abdominal pain Ventral hernia Plan Referral to General surgery for periumbilical/ventral hernia. Continue Nexium. Avoid dietary triggers and late night snacking. Staying upright for minimum 3 hours after meals discussed patient patient was encouraged to increase fluid intake and activity to promote better bowel motility. Continue Dulcolax. Discussed with patient how to take prednisone and Benadryl prior to going for CT scan. Patient will get her labs done today. Follow-up in 6 weeks to discuss going for colonoscopy and endoscopy. Patient is agreeable to plan of care and verbalizes understanding of instructions. She was given the opportunity to ask questions and all questions answered ? Thank you for allowing me to participate in her care Orders Referrals General Surgery Referral K42.9 Medications Changed Changed From dicyclomine 10 mg PO TID Changed To dicyclomine 10 mg PO BID 60 caps 1RF TODAY'S VISIT Patient is here today for follow-up. Patient reports that for the most part she has been doing well, however she states that her postsurgical pain is still present. Some days worse than others. Specially when she is constipated and bloated the pain is worse. Patient is requesting tramadol script. Patient currently is taking omeprazole and as omeprazole, however states that doing better when taking as omeprazole. Patient denies any melena, hematochezia, unintentional weight loss or ribbon like stools. Patient reports acid reflux is suppressed for the most part, however she is complaining the most of abdominal pain, bloating and postsurgical pain. Patient reports that sometimes she might not move her bowels for 3-4 days.. Patient denies dyspepsia, dysphagia or odynophagia. [facility] Medical History Anxiety Asthma Surgical History Umbilical hernia (12/01/24) Social History Alcohol intake: current Alcohol intake frequency: a few times a week Patient Tobacco Use Status: Never used Tobacco Substance Use Type: Marijuana Review of Systems Const Denies weight gain and Denies weight loss ENT Reports no additional complaints, Denies dysphagia and Denies odynophagia Card Reports no additional complaints Resp Reports no additional complaints GI Reports abdominal pain, Denies belching, Denies melena, Reports bloating, Denies change in bowel habits, Reports constipation, Denies dysphagia, Denies excessive flatus, Denies dyspepsia, Reports heartburn, Denies diarrhea, Denies loose stools, Denies nausea, Denies odynophagia and Denies vomiting Reports no additional complaints Musc Reports no additional complaints Neuro Reports no additional complaints Psych Reports no additional complaints Endo Reports no additional complaints Physical Exam Vital Signs: Last Vital Signs Pulse 90 12/22/24 09:49 BP 136/82 12/22/24 09:49 Pulse Ox 98 12/22/24 09:49 Oxygen Delivery Method Room Air 12/22/24 09:49 BMI result Body Mass Index 33.6 Const General: healthy appearing and no acute distress Nutritional Appearance: obese Orientation/consciousness: patient oriented x3 Resp Effort & Inspection: normal respiratory effort, able to speak in complete sentences, no tracheal deviation and symmetric chest movement Auscultation: clear to auscultation bilaterally Cardio Rate: regular rate GI Other: Postsurgical scars around the umbilical area Inspection: No distended and Yes obesity Palpation (GI): Soft to palpation, not firm, nontender and No hepatosplenomegaly present Auscultation: Hyperactive bowel sounds present General: Yes no CVA tenderness Back/Spine/Pelvis Back: no CVA tenderness Skin General skin exam: elasticity normal, turgor normal and dry skin Neuro General: patient oriented x3 Psych Appearance: grossly normal Mental Status: mental status grossly normal Assessment & Plan Assessment & Plan (1) Umbilical hernia: Onset Date: 12/01/24 Comment: Dr. Gilles Ramon Code(s): K42.9 - Umbilical hernia without obstruction or gangrene Category: Surgical Qualifiers: Obstruction and gangrene presence: with obstruction but without gangrene Qualified Code(s): K42.0 - Umbilical hernia with obstruction, without gangrene (2) Postprandial epigastric pain: Code(s): R10.13 - Epigastric pain (3) GERD (gastroesophageal reflux disease): Code(s): K21.9 - Gastro-esophageal reflux disease without esophagitis Qualifiers: Esophagitis presence: esophagitis presence not specified Qualified Code(s): K21.9 - Gastro-esophageal reflux disease without esophagitis (4) Abdominal bloating: Code(s): R14.0 - Abdominal distension (gaseous) (5) Constipation: Code(s): K59.00 - Constipation, unspecified Qualifiers: Constipation type: slow transit constipation Qualified Code(s): K59.01 - Slow transit constipation (6) Abdominal pain: Code(s): R10.9 - Unspecified abdominal pain Qualifiers: Abdominal location: periumbilical Qualified Code(s): R10.33 - Periumbilical pain (7) Ventral hernia: Code(s): K43.9 - Ventral hernia without obstruction or gangrene Qualifiers: Obstruction and gangrene presence: without obstruction or gangrene Qualified Code(s): K43.9 - Ventral hernia without obstruction or gangrene Plan Patient was encouraged to increase fluid intake and activity to promote better bowel motility. She was encouraged to take Dulcolax daily to help her move her bowels. Simethicone as needed for bloating. Low FODMAP diet discussed with patient. List of food recommended as well as list of food to avoid given to patient. Script for tramadol given to patient, however she was told to speak to her surgeon for more refills. Patient will make follow-up appointment with her surgeon. Today I will see any suspicion for recurrence of hernia or any postsurgical complications on exam. Patient's abdomen is distended, firm and hyperactive bowel sounds. Patient will return in 4-5 weeks to discuss going for upper endoscopy and colonoscopy. She is agreeable to this plan and verbalizes understanding of instructions. She was given the opportunity to ask questions and all questions answered. Thank you for allowing me to participate in her care Medications: New simethicone 125 mg PO BID-QID PRN 120 caps 3RF abdominal distention tramadol 50 mg PO BID PRN 20 tabs 0RF pain Coding Level of Care Code Est Pt Level 4 (32010) Complex EM visit Add On G2211 Diagnoses Umbilical hernia with obstruction, without gangrene K42.0 Obstruction and gangrene presence: with obstruction but without gangrene Postprandial epigastric pain R10.13 Gastroesophageal reflux disease, unspecified whether esophagitis present K21.9 Esophagitis presence: esophagitis presence not specified Abdominal bloating R14.0 Slow transit constipation K59.01 Constipation type: slow transit constipation Periumbilical abdominal pain R10.33 Abdominal location: periumbilical Ventral hernia without obstruction or gangrene K43.9 Obstruction and gangrene presence: without obstruction or gangrene Time Spent (min) 35 Comment 25 minutes spent with patient and additional 10 minutes spent reviewing her records
[2024-12-22 09:49] VITALS: BP 136/82; PULSE 90; O2SAT 98; BMI 33.6
--- OUTSIDE RECORDS SUMMARY | 2024-12-22 10:01 | XMS_ITS | Encounter Summary ---
Author Organization [facility] Address [address] [facility] 7t [place] [address] Care Team Providers Care Rn Enterostomal Name Role Phone Renu Hadley MD Primary Care Provider + Reason for Visit * Reason Comments Med Refill Encounter Details Date Type Department Care Team (Late st Contact Info) Description 04/09/2023 Refill [facility] [address] [place] [phone] Lisa Cifuentes FNP [address] [place], [place] [phone] Anxiety disorder, unspecified Social History Tobacco Use [...] as of this encounter Plan of Treatment Upcoming Encounters Date Type Department Care Team (Late st Contact Info) Description 01/09/2025 10:45 AM EDT Office Visit [facility] [address] [place] [address] Renu Hadley MD [address] [place], [place] [phone] documented as of this encounter Visit Diagnoses Diagnosis Anxiety disorder, unspecified documented in this encounter Additional Health Concerns Assessment Noted Time PHQ-9 Depression Total Score: 12 023 1:33 PM EDT documented as of this encounter Care Teams Rn Enterostomal Relationship Specialty Start Date End Date Renu Hadley MD [address] [place] [phone] PCP - General Internal Medicine 07/04/24 documented as of this encounter
--- OUTSIDE RECORDS SUMMARY | 2024-12-22 10:01 | XMS_ITS | Encounter Summary ---
Author Organization [employer] Address [address] [facility] 7t [place] [address] Care Team Providers Care Antenna Design Engineer Name Role Phone Renu Hadley MD Primary Care Provider + Reason for Visit * Reason Comments Hernia Encounter Details Date Type Department Care Team ([facility] st Contact Info) Description 11/17/2024 2:20 PM EST Office Visit [facility] [address] [place], [place] [phone] Yari Thomas MD [address] [place], [place] [phone] Gastritis, presence of bleeding unspecified, unspecified chronicity, [...] Patient reports she also was informed at [facility] ED on 11/05/24 (ED note in chart) [...] documented in this encounter Plan of Treatment Upcoming Encounters Date Type Department Care Team (Late st Contact Info) Description 01/09/2025 10:45 AM EDT Office Visit [facility] [address] [place] [address] Renu Hadley MD [address] [place] [phone] documented as of this encounter Procedures Procedure Name Priority Date/Time Associated Diagnosis Comments HELICOBACTER PYLORI AG, EIA, STOOL Routine 11/23/2024 12:00 AM EST Gastritis, presence of bleeding unspecified, unspecified chronicity, unspecified gastritis type documented in this encounter Results * Helicobacter pylori??Antigen, EIA, Stool (11/23/2024 12:00 AM EST) H pylori Ag Stool SEE [facility] Comment:HELICOBACTER PYLORI AG, EIA, STOOL Micro Number: [id number] Test Status: Final Specimen Source: Stool Specimen Quality: Adequate H.pylori Ag: Not Detected Antimicrobials, proton pump inhibitors, and bismuth preparations inhibit H. pylori and ingestion up to two weeks prior to testing may cause false negative results. If clinically indicated the test should be repeated on a new specimen obtained two weeks after discontinuing treatment. Reference Range: Not DetectedTHIS TEST WAS PERFORMED AT:[employer] [place] [id number] FRAGOSO MD Stool Rectal contents / Unknown 11/23/2024 11/23/2024 4:23 PM EST Yari Thomas MD LAB BODY FLUIDS AND STOOLS ORDERABLES Final Result [facility] [address] [place] [phone] documented in this encounter Visit Diagnoses Diagnosis Gastritis, presence of bleeding unspecified, unspecified chronicity, unspecified gastritis type- Primary documented in this encounter Additional Health Concerns Assessment Noted Time PHQ-9 Depression Total Score: 16 023 11:15 AM EDT documented as of this encounter Care Teams Antenna Design Engineer Relationship Specialty Start Date End Date Renu Hadley MD [address] [place] [phone] PCP - General Internal Medicine 07/04/24 documented as of this encounter
--- OUTSIDE RECORDS SUMMARY | 2024-12-22 10:01 | XMS_ITS | Encounter Summary ---
Author Organization [employer] Address [address] [facility] 7t [place] [address] Care Team Providers Care Veneer Sawyer Name Role Phone Renu Hadley MD Primary Care Provider + Encounter Details Date Type Department Care Team (Late st Contact Info) Description 02/15/2023 Orders Only [facility] [address] [place] [address] Kanika Monson LPN Social History Tobacco Use [...] Description 01/09/2025 10:45 AM EDT Office Visit [facility] [address] [place] [address] Renu Hadley MD [address] [place] [address] documented as of this encounter Visit Diagnoses Not on filedocumented in this encounter Care Teams Veneer Sawyer Relationship Specialty Start Date End Date Renu Hadley MD [address] [place] [address] PCP - General Internal Medicine 07/04/24 documented as of this encounter
--- OUTSIDE RECORDS SUMMARY | 2024-12-22 10:01 | XMS_ITS | Clinical Summary ---
Author Organization Next audience Address [address] [facility] [address] [place] [address] Care Team Providers Care Welfare Service Aide Name Role Phone Renu Hadley MD Primary [...] bedtime for flatulence. 30 capsule 2 Active docusate sodium (Colace) 100 MG capsuleIndicat ions:Generaliz ed abdominal pain TAKE 1 CAPSULE BY MOUTH TWICE A DAY 180 capsule Active SUMAtriptan (Imitrex) 25 MG tabletIndicati ons:Migraine [...] HOURS IF NEEDED 30 tablet 025 Active doxepin (SINEquan) 100 MG capsuleIndicat ions:Periphera l neuralgia TAKE 1 TO 2 CAPSULES BY MOUTH AT BEDTIME NEEDED FOR SLEEP OR ANXIETY 180 capsule 025 Active omeprazole OTC (PriLOSEC OTC) 20 MG EC tablet Take 1 tablet (20 mg) by mouth before breakfast and before evening meal. Do not crush, chew, or split. 60 tablet 11 025 2025 Active ondansetron (Zofran) 4 MG tablet TAKE 1 TABLET SANGITA MOUTH EVERY 8 HOURS IF NEEDED 30 tablet 024 2024 Discontinued(R eorder (will not trigger notification to Pharmacy)) amLODIPine (Norvasc) 10 MG tabletIndicati ons:Hypertensi on, unspecified type Take 1 tablet (10 mg) by mouth in the morning. 90 tablet 1 024 2024 Discontinued doxepin (SINEquan) 100 MG capsuleIndicat ions:Periphera l neuralgia 1-2 tab po at bedtime prn insomnia/anxiet y 180 capsule 024 2024 Discontinued(R eorder (will not trigger [...] hypomanic sxs. I gave her information re [facility] locations to make an appt, she [...] Bipolar I disorder, most recent episode depressed ([facility]) Patient ready to address current needs Yes Strengths include willing to engage in services PLAN: 1. Follow up with [facility] [place]: Not recommended for follow-up 2. Patient goal [...] for anxiety. Pt completed intake with [facility] / [facility] for OP individual therapy. Assessment & Plan [...] Date Resolved Date Pain of upper abdomen 04/06/20244 Assessment & Plan (04/06/2024 9:37 PM EDT): [...] organization. Date Type Department Care Team Description 12/22/2024 Refill [facility] [address] [place] [address] Kanika Freeman DO 12/20/2024 3:20 PM EST Office Visit [facility] [address] [place] [address] Anna Rondon MD Gastroesophageal reflux disease without esophagitis (Primary Dx); H/O hernia repair 12/20/2024 Travel 12/12/2024 Refill [facility] [address] [place] [address] Renu Hadley MD Peripheral neuralgia 12/10/2024 Refill [facility] [address] [place] [address] Renu Hadley MD Peripheral neuralgia 12/06/2024 Telephone [facility] [address] [place] [address] Renu Hadley MD Medication Question 12/06/2024 Refill [facility] [address] [place] [address] Renu Hadley MD 12/03/2024 Refill [facility] [address] [place] [address] Shara Keller MD Hypertension, unspecified type 12/01/2024 Orders Only GENERIC EXTERNAL DATA DEPARTMENT Provider, Generic External Data 11/20/2024 3:00 PM EST Office Visit [facility] [address] [place] [address] BlakeAnuragn, OD Eye discomfort, left (Primary Dx); Retinal drusen of left eye; Presbyopia 11/20/2024 Travel 11/17/2024 2:20 PM EST Office Visit [facility] [address] [place] [address] Yari Thomas MD Gastritis, presence of bleeding unspecified, unspecified chronicity, unspecified gastritis type (Primary Dx) 11/16/2024 Telephone [facility] [address] [place] [address] Renu Hadley MD Nurse Triage 11/16/2024 Telephone [facility] [address] [place] [address] Renu Hadley MD Med Refill 11/16/2024 Refill [facility] [address] [place] [address] Renu Hadley MD 11/08/2024 Refill [facility] [address] [place] [phone] Richy Morris MD 10/31/2024 Orders Only GENERIC EXTERNAL DATA DEPARTMENT Provider, Generic External Data 10/19/2024 Refill [facility] [address] [place] [address] Renu Hadley MD Generalized abdominal pain; Migraine without status migrainosus, not intractable, unspecified migraine type from Last 3 Months Immunizations Name Administration Dates Next Due Loxysoft GroupidZenkars19 Vaccine 12+ rubin-sucrose (Brandin zimmerman) 01/13/2022 Tdap 04/19/2018,05/05/2012 Social History Tobacco Use [...] Sign Reading Time Taken Comments Blood Pressure 117/73 12/20/2024 2:42 PM EST Pulse 109 12/20/2024 2:42 PM EST Temperature 37.3 ??C (99.1 ??F) 12/20/2024 2:42 PM ES T Respiratory Rate 20 12/20/2024 2:42 PM EST Oxygen Saturation 98% 12/20/2024 2:42 PM EST Inhaled Oxygen Concentration - - Weight 86 kg (189 lb 9.6 oz) 12/20/2024 2:42 PM EST Height 160 cm (5' 3 ) 12/20/2024 2:42 PM EST Body Mass Index 33.59 12/20/2024 2:42 PM EST Plan of Treatment Upcoming Encounters Date Type Department Care Team (Late st Contact Info) Description 01/09/2025 10:45 AM EDT Office Visit [facility] [address], [place] [phone] Renu Hadley MD [address] [place], [place] [phone] Health Maintenance Due Date Last Done Comments [...] 03/27/2024 Depression Monitoring (PHQ-9) 05/27/2025 11/27/2024, 11/27/2024 Depression Screening 11/27/2025 11/27/2024, 11/27/19 Tobacco Screening 12/13/2025 12/13/2024 Mammogram 08/03/2026 08/03/2024, 07/25, 11/03/2017, Additional history [...] (12/01/2024 8:35 AM EST) Urine NEGATIVE NEGATIVE [facility] Comment:This test was develo ped to detect early . Falsenegative results may occur after the 5th - 7th week ofpregnancy when using this test method. If clinicallyindicated, consider a serum hCG. 12/01/2024 8:35 AM EST 12/01/2024 10:24 AM EST us Generic External Data Provider LAB URINE ORDERAB LES Final Result [facility] [address] [place] [phone] * Helicobacter pylori??Antigen, EIA, Stool (11/23/2024 12:00 AM EST) H pylori Ag Stool SEE NOTE [facility] Comment:HELICOBACTER PYLORI AG, EIA, STOOL Micro Number: [id number] Test Status: Final Specimen Source: Stool Specimen Quality: Adequate H.pylori Ag: Not Detected Antimicrobials, proton pump inhibitors, and bismuth preparations inhibit H. pylori and ingestion up to two weeks prior to testing may cause false negative results. If clinically indicated the test should be repeated on a new specimen obtained two weeks after discontinuing treatment. Reference Range: Not DetectedTHIS TEST WAS PERFORMED AT:[facility] [address] [address]BATSHEVA FRAGOSO MD Stool Rectal contents / Unknown 11/23/2024 11/23/2024 4:23 PM EST us Yari Thomas MD LAB BODY FLUIDS AND STOOLS ORDERABLES Final Result [facility] [address] [place] [phone] * (ABNORMAL) VITAMIN D 25-OH (D2 AND D3) (10/31/2024 9:49 AM EST) Vitamin D, 25-OH, D2 <4 ng/mL [facility] Comment:This test was develo ped and its analytical performancecharacteristics have been determined by [facility] [place], [place]. It hasnot been cleared or approved by the U.S. Food and DrugAdministration. This assay has been validated pursuantto the CLIA regulations and is used for clinicalpurposes.THIS TEST WAS PERFORMED AT:[facility] [id number] [place] [address]GHLSAXSTYLER CHAMBERS MD,PHD Vitamin D, 25-OH, D3 11 ng/mL [facility] Comment:This test was develo ped and its analytical performancecharacteristics have been determined by [facility] [place], [place]. It hasnot been cleared or approved by the U.S. Food and DrugAdministration. This assay has been validated pursuantto the CLIA regulations and is used for clinicalpurposes. Vitamin D, 25-OH, Total 11(A) 30 - 100 ng/mL [facility] Comment:Vitamin D, 25-Hydrox y reports concentrations [...] = 30 ng/mL.For additional information, please refer tohttp://education.[employer]/faq/QZI158(This link is being provided for informational/educational purposes only.) 10/31/2024 9:49 AM EST 10/31/2024 9:49 AM EST Generic External Data Provider LAB BLOOD ORDERAB LES Final Result Performing Organization Address [facility] Co de Phone Number [facility] [address] [place] [phone] * Vitamin B12 (Cobalamin) and Folate Panel, Serum (10/31/2024 9:49 AM EST) Vitamin B12 266 200 - 900 pg/mL [facility] Comment:NORMAL 200-900 PG/ML INDETERMINATE 160-199 PG/ML DEFICIENT < 160 PG/ML Folate 10.6 > or = 4.0 ng/mL [facility] Comment:Reference Values:> o r = 4.0 ng/mL< 4.0 ng/mL suggests folate deficiency Methotrexate, aminopterin and folinic acid(leucovorin) are chemotherapeutic agents whose molecularstructures are similar to folate; therefore, the Architectfolate assay cannot be used for patients using these drugs. 10/31/2024 9:49 AM EST 10/31/2024 9:49 AM EST Generic External Data Provider LAB BLOOD ORDERAB LES Final Result Performing Organization Address [facility] Co de Phone Number [facility] [address] [place] [phone] * TSH with Reflex to Free T4 (10/31/2024 9:49 AM EST) TSH reflex Free T4 2.59 0.32 - 4.0 uIU/mL [facility] 10/31/2024 9:49 AM EST 10/31/2024 9:49 AM EST Generic External Data Provider LAB BLOOD ORDERAB LES Final Result Performing Organization Address [facility] Co de Phone Number [facility] [address] [place] [phone] * Creatinine, Serum (10/31/2024 9:49 AM EST) Creatinine, Serum 0.68 0.5 - 1.4 mg/dL [facility] Estimated Glomerular Filt Rate >60 [facility] Comment:Chronic Kidney Disea se: Estimated GFR < 60 mL/min/1.61r3Eboqmm Kidney Disease: Estimated GFR < 15 mL/min/1.73m2 10/31/2024 9:49 AM EST 10/31/2024 9:49 AM EST Generic External Data Provider LAB BLOOD ORDERAB LES Final Result Performing Organization Address [facility] de Phone Number [facility] [address] [place] [phone] * Tissue Transglutaminase Antibody, IgA (10/31/2024 9:49 AM EST) Transglutaminase IgA <1.0 U/mL [facility] Comment:Value Interpretation ----- <15.0 Antibody not detected> or = 15.0 Antibody detectedTHIS TEST WAS PERFORMED AT:[facility] [place] [id number] FRAGOSO MD 10/31/2024 9:49 AM EST 10/31/2024 9:49 AM EST us Generic External Data Provider LAB BLOOD ORDERAB LES Final Result Performing Organization Address [facility] Co de Phone Number [facility] [address] [place] [phone] * BUN (Blood Urea Nitrogen) (10/31/2024 9:49 AM EST) Urea Nitrogen (BUN) 12 9 - 16 mg/dL [facility] 10/31/2024 9:49 AM EST 10/31/2024 9:49 AM EST us Generic External Data Provider LAB BLOOD ORDERAB LES Final Result Performing Organization Address [facility] de Phone Number [facility] [address] [place] [phone] * BI US Breast Limited Left (08/03/2024 2:30 PM EDT) Anatomical Region Laterality Modality Breast Left Ultrasound 08/03/2024 2:30 PM EDT Narrative 08/03/2024 2:52 PM EDT ? [facility] [place] ? [address] ?[place] [address] ? Ultrasound Report ? Signed ? Patient: Van Wert,Ruma ?MR#: [id number] ?? 57 ? : 1975 ?Acct:[id number] ? Age/Sex: 48 / F ?ADM Date: 08/03/24 ? Loc: HO.MAMMO ? Attending Dr: Anna Rondon MD ? Ordering Physician: Anna Rondon MD ?? Date of Service: 08/03/24 ?? Procedure(s): US breast LT limited mamm only ?? Accession Number(s): [id number] ? cc: Anna Rondon MD ? EXAMINATION: [...] signed by Jaret Barber MD in OV> ?10/10/24 1449 ? DD/ 1430 ? TD/TT: 08/03/24 1444 ? Grounds Maintenance Worker: ? Procedure Note Donranditer, Image - 08/03/2024 [facility] [address] [place] [address] Ultrasound Report Signed Patient: Zonia Simons#: [id number] 57 : 1975Acct:[id number] Age/Sex: 48 / FADM Date: 08/03/24 Loc: HO.MAMMO Attending Dr: Anna Rondon MD Ordering Physician: Anna Rondon MD Date of Service: 08/03/24 Procedure(s): US breast LT limited mamm only Accession Number(s): [id number] cc: Anna Rondon MD EXAMINATION: MM DIAGNOSTIC [...] 08/03/24 1449 DD/ 1430 TD/TT: 08/03/24 1444 Grounds Maintenance Worker: us Anna Rondon MD IM US PROCEDURES Final Result * (ABNORMAL) Lipid Panel with Reflex to Direct LDL (08/02/2024 10:22 AM EDT) Triglycerides 278(H) <150 mg/dL [facility] Comment:Desirable Triglyceri de: less than 150 mg/dLBorderline High Triglyceride 150-199 mg/dLHigh Triglyceride: 200-499 mg/dLVery High Triglyceride: greater than or equal to 5OO mg/dL Cholesterol 187 <200 mg/dL [facility] Comment:Desirable Cholestero l: less than 200 mg/dLBorderline High Cholesterol: 200-239 mg/dLHigh Cholesterol: greater than 239 mg/dL LDL Cholesterol Calculated 96 <100 mg/dL [facility] Comment:Desirable LDL: less than 100 mg/dLNear Optimal/Above Optimal LDL: 110- 129 mg/dLBorderline High LDL: 130-159 mg/dLHigh LDL: 160-189 mg/dLVery High LDL: greater than or equal to 190 mg/dL HDL Cholesterol 36(L) >40 mg/dL [facility] Comment:Desirable HDL: great er than 40 mg/dL Note: This HDL assay may give artificially low results in patients with liver disease. Blood 08/02/2024 10:2 2 AM EDT 08/02/2024 11:31 AM EDT us Renu Hadley MD LAB BLOOD ORDERABLES Fin al Result [facility] [address] [place] [phone] * Hepatitis C Antibody with Reflex to HCV, RNA, Quantitative, Real-Time PCR (09/29/2022 1:39 PM EST) Hepatitis C Antibody NON-REACT HAIDER NON-REACT HAIDER [employer] [place] [employer] Index 0.07 <1.00 [employer] [place] [employer] Comment: HCV antibody was non-reactive. There is no laboratory evidence of HCV infection. In most cases, no further action is required. However, if recent HCV exposure is suspected, a test for HCV RNA (test code 34547) is suggested. For additional information please refer to http://education.[employer]/faq/RIV96y9 (This link is being provided for informational/ educational purposes only.) 09/29/2022 1:39 PM EST 09/29/2022 1:40 PM EST Narrative [facility] - 09/30/2022 6:58 PM EST FASTING:UNKNOWN PATIENT UNABLE TO VOID; ADVISED TO RETURN FOR COLLECTION. FASTING: UNKNOWN Richy Morris MD LAB BLOOD ORDERABLES Final Resul t [facility] [address], [place] [phone] [employer] [place] [facility] [address], [place] [phone] * HIV-1/2 Antigen and Antibodies, Fourth Generation, with Reflexes (09/29/2022 1:39 PM EST) [facility] HIV Antigen/Antibody, 4th Generation NON-REAC TIVE NON-REAC TIVE [employer] [place] [facility] Comment: HIV-1 antigen and HIV-1/HIV-2 antibodies were [...] ?? For additional information please refer to http://education.[employer]/faq/YRO418 (This link is being provided for informational/ [...] ORDERABLES Final Resul t Performing Organization Address City/[facility]/ZIP Co de Phone Number [facility] [address], [place] [phone] [employer] [facility] [address], [place] [address] * HPV mRNA E6/E7 (10/13/2017 9:12 AM EST) HPV mRNA E6/E7 Not Detected NOT DETECTED [facility] Comment: This test was performed using the APTIMA(R) HPV Assay ([employer] This assay detects E6/E7 viral messenger RNA (mRNA) from 14 high-risk HPV types (16,18,31,33,35,39,45,51, 52,56,58,59,66,68). For additional information please refer to: http://education.[employer]/faq/VJF132j9 (This link is being provided for informational/ educational purposes only.) Test Performed by [facility], [employer] [facility], [address] [place] [id number] Tyler Chambers M.D., Ph.D., Director of Laboratories , [facility] [id number] Please note: ??Effective 07/06/2016, HPV testing will be performed using [employer]'s APTIMA test which targets mRNA. Detecting mRNA instead of DNA, as in older methods, offers significant improvements in specificity. 10/13/2017 9:12 AM EST Carmen Bey CNM HISTORICAL/NON ORDERABLE LABS Final Result [facility] [address] * Pap Smear (10/13/2017 12:00 AM EST) Swab Carmen Bey CNM LAB CYTOLOGY ORDERABLES F inal Result [facility] [address] [place] [phone] from Last 3 Months or Most Recently Relevant to Health Maintenance Insurance [facility] C3 Care Teams Welfare Service Aide Relationship Specialty Start Date End Date Renu Hadley MD [address] [place] [phone] PCP - General Internal Medicine 07/04/24
--- OUTSIDE RECORDS SUMMARY | 2024-12-22 10:01 | XMS_ITS | Encounter Summary ---
Author Organization [employer] Address [address] [facility] [address] [place] [address] Care Team Providers Care Appraiser Auditor Name Role Phone Renu Hadley MD Primary Care Provider + Reason for Visit * Reason Onset Date Comments triage 02/01/2023 Encounter Details Date Type Department Care Team ([facility] st Contact Info) Description 02/01/[address] [facility] MEDIC[facility] [address] [place] [address] Name, MD Richy [address] [place] [address] triage Social History Tobacco Use Types Packs/Day [...] No answer LVM to return call to [facility] triage line. * Telephone Encounter - [...] Description 01/09/2025 10:45 AM EDT Office Visit [facility] [address] [place], [place] [phone] Renu Hadley MD [address] [place], [place] [phone] documented as of this encounter Visit Diagnoses Not on filedocumented in this encounter Care Teams Appraiser Auditor Relationship Specialty Start Date End Date Renu Hadley MD [address] [place] [address] PCP - General Internal Medicine 07/04/24 documented as of this encounter
--- OUTSIDE RECORDS SUMMARY | 2024-12-22 10:01 | XMS_ITS | Encounter Summary ---
Author Organization [employer] Address [address] [facility] [address] [place] [address] Care Team Providers Care Commercial Account Officer Name Role Phone Renu Hadley MD Primary Care Provider + Reason for Visit * Reason Onset Date Comments Appointment Request 04/07/2023 Encounter Details Date Type Department Care Team ([facility] st Contact Info) Description 04/07/2023 Telephone [facility] [address] [place], [place] [phone] Name, MD Richy [address] [place] [address] Appointment Request Social History Tobacco Use Types [...] - 04/07/2023 1:53 PM EDT T/C to [phone] through [employer] id - [id number] to re-schedule HDF apt. Pt. Schedule for HDF apt. On 04/14/2023. Pt. Was admitted at [facility], d/c 04/02/23 for Dx: Peritoneal abscess surgery. Pt. Verbally agreed and understood, GUANAKITOF prince scanned into pt.'s chart. Pt. States [...] to r/s HDF appt from 04/07/23. Details: [facility] d/c 04/02/23 Dx: Peritoneal abscess surgery documented in this encounter Plan of Treatment Upcoming Encounters Date Type Department Care Team (Late st Contact Info) Description 01/09/2025 10:45 AM EDT Office Visit [facility] [address] [place] [address] Renu Hadley MD [address] [place] [address] documented as of this encounter Visit Diagnoses Not on filedocumented in this encounter Additional Health Concerns Assessment Noted Time PHQ-9 Depression Total Score: 12 023 1:33 PM EDT documented as of this encounter Care Teams Commercial Account Officer Relationship Specialty Start Date End Date Renu Hadley MD [address] [place], [place] [phone] PCP - General Internal Medicine 07/04/24 documented as of this encounter
--- OUTSIDE RECORDS SUMMARY | 2024-12-22 10:01 | XMS_ITS | Encounter Summary ---
Author Organization [employer] Address [address] [place] [address] Care Team Providers Care Roller Staker Name Role Phone Renu Hadley MD Primary Care Provider + Encounter Details Date Type Department Care Team (Latest Contact Info) Description 12/20/2024 3:20 PM EST Office Visit [facility] [address] [place], [place] [phone] Anna Rondon MD [address] [place], [place] [phone] Gastroesophageal reflux disease without esophagitis (Primary Dx); H/O hernia repair Social History Tobacco Use Types Packs/Day Years [...] with others, in a hotel, in a chcf, living outside on the street, on a [...] Mass Index 33.59 12/20/2024 2:42 PM EST documented in this encounter Progress Notes * Anna Rondon MD - 12/20/2024 3:20 PM EST Images from the original note were not included. Subjective Patient ID: Ruma Simons is a 49 y.o. female who presents for No chief complaint on file.. Abdominal Pain This is a new problem. The current episode started 1 to 4 weeks ago. The onset quality is gradual. The problem occurs intermittently. The problem has been gradually worsening. The pain is located in the epigastric region. The pain is at a severity of 4/10. The quality of the pain is burning. Associated symptoms include belching. Pertinent negatives include no constipation, diarrhea, dysuria, fever, flatus, frequency, headaches, hematochezia, hematuria, melena, myalgias, nausea, vomiting or weight loss. The pain is aggravated by certain positions. The pain is relieved by Nothing. She has triednothing for the symptoms. Her past medical history is significant for abdominal surgery. Review of Systems Constitutional: Negative for fever and weight loss. Gastrointestinal: Positive for abdominal pain. Negative for constipation, diarrhea, flatus, hematochezia, melena, nausea and vomiting. Genitourinary: Negative for dysuria, frequency and hematuria. Musculoskeletal: Negative for myalgias. Neurological: Negative for headaches. Objective Physical Exam Constitutional: Appearance: Normal appearance. Cardiovascular: Rate and Rhythm: Normal rate and regular rhythm. Pulses: Normal pulses. Heart sounds: Normal heart sounds. Pulmonary: Effort: Pulmonary effort is normal. Abdominal: General: Abdomen is flat. Comments: Surgical site healing well .Mild distension Neurological: Mental Status: She is alert. Assessment/Plan Diagnoses and all orders for this visit: Gastroesophageal reflux disease without esophagitis Comments: Started on Omeprazole BID advised small portions of food H/O hernia repair Comments: Strongly advised to follow up with surgeon shanika for further care Other orders - omeprazole OTC (PriLOSEC OTC) 20 MG EC tablet; Take 1 tablet (20 mg) by mouth before breakfast and before evening meal. Do not crush, chew, or split. documented in this encounter Plan of Treatment Upcoming Encounters Date Type Department Care Team (Late st Contact Info) Description 01/09/2025 10:45 AM EDT Office Visit [facility] [address] [place] [address] Renu Hadley MD [address] [place] [address] documented as of this encounter Visit Diagnoses Diagnosis Gastroesophageal reflux disease without esophagitis- Primary Esophageal reflux H/O hernia repair documented in this encounter Additional Health Concerns Assessment Noted Time PHQ-9 Depression Total Score: 16 025 9:47 AM EST documented as of this encounter Care Teams Roller Staker Relationship Specialty Start Date End Date Renu Hadley MD [address] [place] [address] PCP - General Internal Medicine 07/04/24 documented as of this encounter
--- OUTSIDE RECORDS SUMMARY | 2024-12-22 10:01 | XMS_ITS | Encounter Summary ---
Author Organization [facility] Address [address] [facility] 7t [place] [address] Care Team Providers Care Kiln Stoker Name Role Phone Renu Hadley MD Primary Care Provider + Reason for Visit * Reason Comments Med Refill Encounter Details Date Type Department Care Team (Late st Contact Info) Description 04/07/2023 Refill [facility] 230 [place] [address] Lisa Cifuentes FNP [address] [place], [place] [phone] Anxiety disorder, unspecified Social History Tobacco Use [...] Description 01/09/2025 10:45 AM EDT Office Visit [facility] 230 [place] [address] Renu Hadley MD 230 [place], [place] [phone] documented as of this encounter Visit Diagnoses Diagnosis Anxiety disorder, unspecified documented in this encounter Additional Health Concerns Assessment Noted Time PHQ-9 Depression Total Score: 12 023 1:33 PM EDT documented as of this encounter Care Teams Kiln Stoker Relationship Specialty Start Date End Date Renu Hadley MD [address] [place] [address] PCP - General Internal Medicine 07/04/24 documented as of this encounter
--- OUTSIDE RECORDS SUMMARY | 2024-12-22 10:01 | XMS_ITS | Encounter Summary ---
Author Organization [employer] [facility] Address [address] [place] [address] 7t [place] [address] Care Team Providers Care Refrigerating Machine Operator Name Role Phone Renu Hadley MD Primary Care Provider + Reason for Visit * Reason Comments Med Refill Encounter Details Date Type Department Care Team (Late st Contact Info) Description 06/10/2023 Refill [facility] MED[facility]INE [address] [place] [address] [phone] Name, MD Richy [address] [place] [address] [phone] Anxiety disorder, unspecified Social History Tobacco Use [...] Description 01/09/2025 10:45 AM EDT Office Visit [facility] MED[facility]INE [address] [place] [address] [phone] Renu Hadley MD [address] [place] [address] [phone] documented as of this encounter Visit Diagnoses Diagnosis Anxiety disorder, unspecified documented in this encounter Additional Health Concerns Assessment Noted Time PHQ-9 Depression Total Score: 12 023 1:33 PM EDT documented as of this encounter Care Teams Refrigerating Machine Operator Relationship Specialty Start Date End Date Renu Hadley MD [address] [place] [address] PCP - General Internal Medicine 07/04/24 documented as of this encounter
--- OUTSIDE RECORDS SUMMARY | 2024-12-22 10:01 | XMS_ITS | Encounter Summary ---
Author Organization [employer] Address 75 [facility] 7t [place] [address] Care Team Providers Care Section 8 Property Manager Name Role Phone Renu Hadley MD Primary Care Provider + Reason for Visit * Reason Onset Date Comments triage 02/26/2023 Encounter Details Date Type Department Care Team ([facility] st Contact Info) Description 02/26/2023 Telephone [facility] MEDICINE 230 [place], [place] [phone] Name, MD Richy 230 [place] [address] triage Social History Tobacco Use Types Packs/Day [...] 12:38 PM EDT Triage call with [employer] Sales Representative ID [id number] Pt was called more than 2x. Each call had a message received that there is a problem with this number . Unable to leave message . * Telephone Encounter - Jaimee Fitzgerald - 02/26/2023 10:02 AM EDT Symptom: Skin Lump and blood pressure Outcome: Schedule an appointment to be seen within 3 days Reason: Caller denied all higher acuity questions The caller accepted this outcome documented in this encounter Plan of Treatment Upcoming Encounters Date Type Department Care Team (Late st Contact Info) Description 01/09/2025 10:45 AM EDT Office Visit [facility] MEDICINE [address] [place] [address] Renu Hadley MD [address] [place] [address] documented as of this encounter Visit Diagnoses Not on filedocumented in this encounter Care Teams Section 8 Property Manager Relationship Specialty Start Date End Date Renu Hadley MD [address] [place] [address] PCP - General Internal Medicine 07/04/24 documented as of this encounter
--- OUTSIDE RECORDS SUMMARY | 2024-12-22 10:01 | XMS_ITS | Encounter Summary ---
Author Organization [employer] [facility] Address [address] [place] [address] 7 [place] [address] Care Team Providers Care Color Receiver Name Role Phone Renu Hadley MD Primary Care Provider + Reason for Visit * Reason Comments Med Refill Encounter Details Date Type Department Care Team (Late st Contact Info) Description 02/12/2023 Refill [facility] [address] [place] [phone] Name, MD Richy [address] [place] [address] Heartburn Social History Tobacco Use Types Packs/Day [...] 10:45 AM EDT Office Visit [facility] [address] [place] [address] Renu Hadley MD [address] [place] [address] documented as of this encounter Visit Diagnoses Diagnosis Heartburn documented in this encounter Care Teams Color Receiver Relationship Specialty Start Date End Date Renu Hadley MD [address] [place] [address] PCP - General Internal Medicine 07/04/24 documented as of this encounter
--- OUTSIDE RECORDS SUMMARY | 2024-12-22 10:02 | XMS_ITS | Encounter Summary ---
Author Organization [employer] Address [address] [facility] 7t [place] [address] Care Team Providers Care Washroom Attendant Name Role Phone Renu Hadley MD Primary Care Provider + Reason for Visit * Reason Onset Date Comments Durable Medical Equipment 12/30/2022 Encounter Details Date Type Department Care Team (Late st Contact Info) Description 12/30/2022 Telephone [facility] 230 [place], [place] [phone] Name, MD Richy 230 [place] [address] Durable Medical Equipment Social History Tobacco Use [...] to be order. Please contact pt at [phone] documented in this encounter Plan of Treatment Upcoming Encounters Date Type Department Care Team (Late st Contact Info) Description 01/09/2025 10:45 AM EDT Office Visit [facility] 230 [place] [address] Renu Hadley MD 230 [place] [address] documented as of this encounter Visit Diagnoses Not on filedocumented in this encounter Care Teams Washroom Attendant Relationship Specialty Start Date End Date Renu Hadley MD [address] [place] [address] PCP - General Internal Medicine 07/04/24 documented as of this encounter
--- OUTSIDE RECORDS SUMMARY | 2024-12-22 10:02 | XMS_ITS | Encounter Summary ---
Author Organization [employer] [facility] Address [address] [facility] 7t [place] [address] Care Team Providers Care Alcohol Law Enforcement Agent Name Role Phone Renu Hadley MD Primary Care Provider + Encounter Details Date Type Department Care Team (Latest Contact Info) Description 12/20/2019 Abstract [facility] CONVERSIONS Dental, Provider, DDS Social [...] Description 01/09/2025 10:45 AM EDT Office Visit [facility] MEDICINE 230 [place] [address] Renu Hadley MD 230 [place] [address] documented as of this encounter Visit Diagnoses Not on filedocumented in this encounter Care Teams Alcohol Law Enforcement Agent Relationship Specialty Start Date End Date Renu Hadley MD 230 [place], [place] [phone] PCP - General Internal Medicine 07/04/24 documented as of this encounter
--- OUTSIDE RECORDS SUMMARY | 2024-12-22 10:02 | XMS_ITS | Encounter Summary ---
Author Organization [employer] Address [address] [facility] 7t [place] [address] Care Team Providers Care Aircraft Maintenance Technician Name Role Phone Renu Hadley MD Primary Care Provider + Encounter Details Date Type Department Care Team (Late st Contact Info) Description 12/01/2022 Orders Only [facility] MED & PEDS [address] [place] [address] Kanika Monson LPN Social History Tobacco Use [...] Description 01/09/2025 10:45 AM EDT Office Visit [facility] MEDICINE 230 [place] [address] Renu Hadley MD 230 [place] [address] documented as of this encounter Visit Diagnoses Not on filedocumented in this encounter Care Teams Aircraft Maintenance Technician Relationship Specialty Start Date End Date Renu Hadley MD 230 [place] [address] PCP - General Internal Medicine 07/04/24 documented as of this encounter
--- OUTSIDE RECORDS SUMMARY | 2024-12-22 10:02 | XMS_ITS | Encounter Summary ---
Author Organization [employer] Address [address] [facility] 7t [place] [address] Care Team Providers Care Call Worker Name Role Phone Renu Hadley MD Primary Care Provider + Reason for Visit * Reason Comments Med Refill Encounter Details Date Type Department Care Team (Late st Contact Info) Description 12/22/2024 Refill [facility]INE 230 [place], [place] [phone] Kanika Freeman DO 230 [place], [place] [phone] Social History Tobacco Use Types Packs/Day Years [...] Description 01/09/2025 10:45 AM EDT Office Visit [facility] MED[facility] [address] [place] [address] Renu Hadley MD [address] [place] [address] documented as of this encounter Visit Diagnoses Not on filedocumented in this encounter Additional Health Concerns Assessment Noted Time PHQ-9 Depression Total Score: 16 025 9:47 AM EST documented as of this encounter Care Teams Call Worker Relationship Specialty Start Date End Date Renu Hadley MD [address] [place] [address] PCP - General Internal Medicine 07/04/24 documented as of this encounter
--- OUTSIDE RECORDS SUMMARY | 2024-12-22 10:02 | XMS_ITS | Encounter Summary ---
Author Organization [employer] [facility] Address [address] [place] [address] 7t [place] [address] Care Team Providers Care Agriscience Instructor Name Role Phone Renu Hadley MD Primary Care Provider + Encounter Details Date Type Department Care Team (Late st Contact Info) Description 11/17/2022 Orders Only [facility] MED[facility]INE [address] [place] [address] Kaylynn Membreno LPN Social History Tobacco Use [...] EDT Office Visit [facility] [address] [place] [address] Renu Hadley MD [address] [place] [address] documented as of this encounter Visit Diagnoses Not on filedocumented in this encounter Care Teams Agriscience Instructor Relationship Specialty Start Date End Date Renu Hadley MD [address] [place] [phone] PCP - General Internal Medicine 07/04/24 documented as of this encounter
--- OUTSIDE RECORDS SUMMARY | 2024-12-22 10:02 | XMS_ITS | Encounter Summary ---
Author Organization [employer] Address [address] [facility] 7t [place] [address] Care Team Providers Care Shadow Graph Weight Operator Name Role Phone Renu Hadley MD Primary Care Provider + Reason for Visit * Reason Comments Med Refill Encounter Details Date Type Department Care Team (Late st Contact Info) Description 12/10/2024 Refill [facility] MEDICINE 230 [place], [place] [phone] Renu Hadley MD 230 [place], [place] [phone] Peripheral neuralgia Social History Tobacco Use Types [...] with others, in a hotel, in a mcfp, living outside on the street, on a [...] Description 01/09/2025 10:45 AM EDT Office Visit [facility] MEDICINE [address] [place] [address] Renu Hadley MD [address] [place] [address] documented as of this encounter Visit Diagnoses Diagnosis Peripheral neuralgia Unspecified hereditary and idiopathic peripheral neuropathy documented in this encounter Additional Health Concerns Assessment Noted Time PHQ-9 Depression Total Score: 16 025 9:47 AM EST documented as of this encounter Care Teams Shadow Graph Weight Operator Relationship Specialty Start Date End Date Renu Hadley MD [address] [place] [address] PCP - General Internal Medicine 07/04/24 documented as of this encounter
--- OUTSIDE RECORDS SUMMARY | 2024-12-22 10:02 | XMS_ITS | Patient Health Record ---
Author Organization [facility] Address [address] [place], [place] [id number] Care Team Providers Care Supervisor Car And Yard Name Role Phone Kirstin Wright Outpt Care Primary Care Provider Un available Abby Dobson Unavailable [phone] Reason For Referral No Information Plan Of Treatment No Information Insurance Providers Payer Name Payer Address Payer Phone Subscriber Number Group Number Insured Name Patient Relationship to Insured Coverage Start Date Coverage End Date ID Medicaid Standard [address] [place] [address] Ruma Simons Self - patient is the insured
--- OUTSIDE RECORDS SUMMARY | 2024-12-22 10:02 | XMS_ITS | Encounter Summary ---
Author Organization [employer] Address [address] [facility] 7t [place] [address] Care Team Providers Care Clerk Typist Name Role Phone Renu Hadley MD Primary Care Provider + Encounter Details Date Type Department Care Team (Latest Contact Info) Description 02/25/2021 Abstract [facility] CONVERSIONS Dental, Provider, DDS Social History [...] Description 01/09/2025 10:45 AM EDT Office Visit [facility] MEDICINE 230 [place] [address] Renu Hadley MD 230 [place] [address] documented as of this encounter Visit Diagnoses Not on filedocumented in this encounter Care Teams Clerk Typist Relationship Specialty Start Date End Date Renu Hadley MD 230 [place] [address] PCP - General Internal Medicine 07/04/24 documented as of this encounter
--- OUTSIDE RECORDS SUMMARY | 2024-12-22 10:02 | XMS_ITS | Encounter Summary ---
Author Organization [employer] Address [address] [facility] 7t [place] [address] Care Team Providers Care Cutting Tool Sharpener Name Role Phone Renu Hadley MD Primary Care Provider + Encounter Details Date Type Department Care Team (Latest Contact Info) Description 12/20/2024 Travel Social History Tobacco Use Types Packs/Day [...] with others, in a hotel, in a nursing home, living outside on the street, on a [...] 01/09/2025 10:45 AM EDT Office Visit [facility] 230 [place] [address] Renu Hadley MD 230 [place] [address] documented as of this encounter Visit Diagnoses Not on filedocumented in this encounter Additional Health Concerns Assessment Noted Time PHQ-9 Depression Total Score: 16 025 9:47 AM EST documented as of this encounter Care Teams Cutting Tool Sharpener Relationship Specialty Start Date End Date Renu Hadley MD 230 [place] [address] PCP - General Internal Medicine 07/04/24 documented as of this encounter
--- OUTSIDE RECORDS SUMMARY | 2024-12-22 10:02 | XMS_ITS | Encounter Summary ---
Author Organization [employer] Address 75 [facility] 7t [place] [address] Care Team Providers Care Waistline Joiner Name Role Phone Renu Hadley MD Primary [...] Description 01/09/2025 10:45 AM EDT Office Visit [facility] MEDICINE 230 [place] [address] Renu Hadley MD 230 [place] [address] documented as of this encounter Procedures Procedure Name Priority Date/Time Associated Diagnosis Comments HCG, QL, URINE Routine 12/01/2024 8:35 AM EST documented in this encounter Results * HCG, Qualitative, Urine (12/01/2024 8:35 AM EST) Urine NEGATIVE NEGATIVE [facility] Comment:This test was develo ped to detect early . Falsenegative results may occur after the 5th - 7th week ofpregnancy when using this test method. If clinicallyindicated, consider a serum hCG. 12/01/2024 8:35 AM EST 12/01/2024 10:24 AM EST us Generic External Data Provider LAB URINE ORDERAB LES Final Result [facility] [address] [place] [phone] documented in this encounter Visit Diagnoses Not on filedocumented in this encounter Additional Health Concerns Assessment Noted Time PHQ-9 Depression Total Score: 16 025 9:47 AM EST documented as of this encounter Care Teams Waistline Joiner Relationship Specialty Start Date End Date Renu Hadley MD 230 [place] [address] PCP - General Internal Medicine 07/04/24 documented as of this encounter
--- OUTSIDE RECORDS SUMMARY | 2024-12-22 10:02 | XMS_ITS | Encounter Summary ---
Author Organization [employer] Address [address] [facility] 7t [place] [address] Care Team Providers Care Lining Stuffer Name Role Phone Renu Hadley MD Primary Care Provider + Reason for Visit * Reason Onset Date Comments Med Refill 12/12/2024 Encounter Details Date Type Department Care Team (Late st Contact Info) Description 12/12/2024 Refill [facility] MED & PEDS [address] [place], [place] [phone] Renu Hadley MD 230 [place], [place] [phone] Peripheral neuralgia Social History Tobacco Use Types [...] with others, in a hotel, in a care home, living outside on the street, on [...] Description 01/09/2025 10:45 AM EDT Office Visit [facility] MEDICINE 230 [place] [address] Renu Hadley MD 230 [place] [address] documented as of this encounter Visit Diagnoses Diagnosis Peripheral neuralgia Unspecified hereditary and idiopathic peripheral neuropathy documented in this encounter Additional Health Concerns Assessment Noted Time PHQ-9 Depression Total Score: 16 025 9:47 AM EST documented as of this encounter Care Teams Lining Stuffer Relationship Specialty Start Date End Date Renu Hadley MD 230 [place] [address] PCP - General Internal Medicine 07/04/24 documented as of this encounter
--- OUTSIDE RECORDS SUMMARY | 2024-12-22 10:02 | XMS_ITS | Encounter Summary ---
Author Organization [employer] Address 75 [facility] 7t [place] [address] Care Team Providers Care Brake Rider Name Role Phone Renu Hadley MD Primary Care Provider + Reason for Visit * Reason Onset Date Comments Med Refill 12/06/2024 Encounter Details Date Type Department Care Team ([facility] st Contact Info) Description 12/06/2024 Refill [facility] MEDICINE 230 [place], [place] [phone] Renu Hadley MD 230 [place] [address] Social History Tobacco Use Types Packs/Day Years [...] with others, in a hotel, in a retirement, living outside on the street, on a [...] tablet 4 mg To be sent to: [facility] - [place], [place] - [address] [place] [address] documented in this encounter Plan of Treatment Upcoming Encounters Date Type Department Care Team (Late st Contact Info) Description 01/09/2025 10:45 AM EDT Office Visit [facility] MEDICINE 230 [place] [address] Renu Hadley MD 230 [place] [address] documented as of this encounter Visit Diagnoses Not on filedocumented in this encounter Additional Health Concerns Assessment Noted Time PHQ-9 Depression Total Score: 16 025 9:47 AM EST documented as of this encounter Care Teams Brake Rider Relationship Specialty Start Date End Date Renu Hadley MD [address] [place] [address] PCP - General Internal Medicine 07/04/24 documented as of this encounter
--- OUTSIDE RECORDS SUMMARY | 2024-12-22 10:02 | XMS_ITS | Encounter Summary ---
Author Organization [employer] [facility] Address [address] [facility] 7t [place] [address] Care Team Providers Care Director Of Safety Name Role Phone Renu Hadley MD Primary Care Provider + Reason for Visit * Reason Comments Med Refill Encounter Details Date Type Department Care Team (Late st Contact Info) Description 12/03/2024 Refill [facility] MED & PEDS [address] [place], [place] [phone] Shara Keller MD 230 [place], [place] [phone] Hypertension, unspecified type Social History Tobacco Use [...] with others, in a hotel, in a prison, living outside on the street, on a [...] Description 01/09/2025 10:45 AM EDT Office Visit [facility] MEDICINE 230 [place] [address] Renu Hadley MD 230 [place] [address] documented as of this encounter Visit Diagnoses Diagnosis Hypertension, unspecified type documented in this encounter Additional Health Concerns Assessment Noted Time PHQ-9 Depression Total Score: 16 025 9:47 AM EST documented as of this encounter Care Teams Director Of Safety Relationship Specialty Start Date End Date Renu Hadley MD [address] [place] [address] PCP - General Internal Medicine 07/04/24 documented as of this encounter
--- OUTSIDE RECORDS SUMMARY | 2024-12-22 10:02 | XMS_ITS | Encounter Summary ---
Author Organization [employer] Address [address] [facility] 7t [place] [address] Care Team Providers Care Agent Producer Name Role Phone Renu Hadley MD Primary Care Provider + Reason for Visit * Reason Onset Date Comments Medication Question 12/06/2024 Encounter Details Date Type Department Care Team ([facility] st Contact Info) Description 12/06/2024 Telephone [facility] MEDICINE 230 [place], [place] [phone] Renu Hadley MD 230 [place], [place] [phone] Medication Question Social History Tobacco Use Types [...] with Dr. Campoverde. TC placed to patient [phone] to inform patient she needs to call [...] recently has gotten surgery. Contact pt at [phone] documented in this encounter Plan of Treatment Upcoming Encounters Date Type Department Care Team (Late st Contact Info) Description 01/09/2025 10:45 AM EDT Office Visit [facility] MEDICINE 230 [place], [place] [phone] Renu Hadley MD 230 [place], [place] [phone] documented as of this encounter Visit Diagnoses Not on filedocumented in this encounter Additional Health Concerns Assessment Noted Time PHQ-9 Depression Total Score: 16 11/27/ 025 9:47 AM EST documented as of this encounter Care Teams Agent Producer Relationship Specialty Start Date End Date Renu Hadley MD [address] [place] [address] PCP - General Internal Medicine 07/04/24 documented as of this encounter
--- OUTSIDE RECORDS SUMMARY | 2024-12-22 10:02 | XMS_ITS | Encounter Summary ---
Author Organization [employer] Address [address] [facility] 7t [place] [address] Care Team Providers Care Core Carrier Name Role Phone Renu Hadley MD Primary Care Provider + Reason for Visit * Reason Onset Date Comments Medication Question 01/13/2023 Encounter Details Date Type Department Care Team (Late Contact Info) Description 01/13/2023 Telephone [facility] MEDICINE 230 [place] [address] Name, MD Richy [address] [place] [address] Medication Question Social History Tobacco Use Types [...] Doxepin 50 mg. Please contact pt at [phone] documented in this encounter Plan of Treatment Upcoming Encounters Date Type Department Care Team (Late Contact Info) Description 01/09/2025 10:45 AM EDT Office Visit [facility] MEDICINE [address] [place] [address] Renu Hadley MD [address] [place] [address] documented as of this encounter Visit Diagnoses Not on filedocumented in this encounter Care Teams Core Carrier Relationship Specialty Start Date End Date Renu Hadley MD [address] [place] [address] PCP - General Internal Medicine 07/04/24 documented as of this encounter
== END 2024-12-22 10:15 | disposition home or self-care (01) ==
PROVIDERS: PCP Internal Medicine; Visit Provider Nurse Practitioner Family
DX: K42.0 Umbilical hernia with obstruction, without gangrene (principal); R10.13 Epigastric pain; K21.9 Gastro-esophageal reflux disease without esophagitis; R14.0 Abdominal distension (gaseous); K59.01 Slow transit constipation; R10.33 Periumbilical pain; K43.9 Ventral hernia without obstruction or gangrene
CPT/HCPCS: 99214

== ENCOUNTER → 2024-12-22 09:20 | Outpatient (BNVA) | payer MEDICAID, SELFPAY | PROVIDERS: PCP Internal Medicine; Visit Provider Nurse Practitioner Family | DX: R14.0 Abdominal distension (gaseous) (principal); K42.0 Umbilical hernia with obstruction, without gangrene; R10.13 Epigastric pain; K21.9 Gastro-esophageal reflux disease without esophagitis; K59.01 Slow transit constipation; R10.33 Periumbilical pain; K43.9 Ventral hernia without obstruction or gangrene | CPT/HCPCS: 99212 ==

== ENCOUNTER 2024-12-25 10:19 | Outpatient (AMB) | payer MEDICAID, SELFPAY ==
--- NOTE | 2024-12-25 10:25 | A.OFFVIS_ITS ---
Intake Visit Reasons: wound check Intake Note: Patient scheduled today's appointment for wound check. Patient c/o: pain along incision. Hx LIH with Bard mesh on 12-01-2024 Bottling Equipment Sales Representative Required: No Accompanied by: Self / Same As Patient Allergies Iodinated Contrast Media [CONTRAST, IV] Allergy (Unknown, Verified 12/25/24 10:28) UNKNOWN morphine Allergy (Verified 12/25/24 10:28) Palpitations HPI Comments Details: Patient presents for umbilical wound check status post umbilical hernia repair. Her incisional discomfort is improving although occasionally she has discomfort which is currently being treated by tramadol prescribed to her by her medical doctor. She otherwise tolerating a diet. Having regular bowel habits. She is increasing her activity level. [facility] Medical History Anxiety Asthma Surgical History Umbilical hernia (12/01/24) Social History Alcohol intake: current Alcohol intake frequency: a few times a week Patient Tobacco Use Status: Never used Tobacco Substance Use Type: Marijuana Physical Exam GI Other: Abdomen is soft. Incision clean dry and intact healing well Assessment & Plan Assessment & Plan (1) Status post umbilical hernia repair, follow-up exam: Code(s): Z09 - Encounter for follow-up examination after completed treatment for conditions other than malignant neoplasm Category: Medical Plan From a surgical perspective, patient was doing well and will otherwise follow-up p.r.n.. She has been given local instructions. All questions answered. Coding Level of Care Code Global (20426) Diagnoses Status post umbilical hernia repair, follow-up exam Z09
--- OUTSIDE RECORDS SUMMARY | 2024-12-25 11:54 | XMS_ITS | Encounter Summary ---
Author Organization [employer] Address [address] [facility] 7t [place] [address] Care Team Providers Care Launch Manager Name Role Phone Renu Hadley MD Primary Care Provider + Encounter Details Date Type Department Care Team (Late st Contact Info) Description 12/01/2022 Orders Only [facility] CHC MED & PEDS [address] [place] [address] Kanika Monson LPN Social History Tobacco Use [...] 10:45 AM EDT Office Visit [facility] MEDICINE [address] [place] [address] Renu Hadley MD [address] [place] [address] documented as of this encounter Visit Diagnoses Not on filedocumented in this encounter Care Teams Launch Manager Relationship Specialty Start Date End Date Renu Hadley MD [address] [place] [address] PCP - General Internal Medicine 07/04/24 documented as of this encounter
--- OUTSIDE RECORDS SUMMARY | 2024-12-25 11:54 | XMS_ITS | Encounter Summary ---
Author Organization [employer] Address [address] [facility] 7t [place] [address] Care Team Providers Care Pre Planning Advisor Name Role Phone Renu Hadley MD Primary Care Provider + Reason for Visit * Reason Onset Date Comments triage 02/01/2023 Encounter Details Date Type Department Care Team ([facility] st Contact Info) Description 02/01/2023 Telephone [facility] MEDICINE [address] [place] [address] Name, MD Richy [address] [place] [address] triage Social History Tobacco Use Types Packs/Day [...] No answer LVM to return call to [facility] triage line. * Telephone Encounter - Geo [...] Description 01/09/2025 10:45 AM EDT Office Visit [facility] MEDICINE [address] [place], [place] [phone] Renu Hadley MD [address] [place], [place] [phone] documented as of this encounter Visit Diagnoses Not on filedocumented in this encounter Care Teams Pre Planning Advisor Relationship Specialty Start Date End Date Renu Hadley MD [address] [place] [address] PCP - General Internal Medicine 07/04/24 documented as of this encounter
--- OUTSIDE RECORDS SUMMARY | 2024-12-25 11:54 | XMS_ITS | Clinical Summary ---
Author Organization [employer] Address [address] [facility] 7t [place] [address] Care Team Providers Care Occupational Therapist Name Role Phone Renu Hadley MD Primary [...] per day. 90 tablet 024 2024 Active docusate sodium (Colace) 100 MG capsuleIndicat [...] split. 60 tablet 11 025 2025 Active FT Gas Relief Extra Strength 125 MG capsule TAKE 1 CAPSULE BY MOUTH 4 TIMES A DAY IN THE MORNING, AT NOON, IN THE EVENING, AND AT BEDTIME NEEDED FOR GAS 30 capsule 2 025 Active ondansetron (Zofran) 4 MG tablet TAKE 1 TABLET SANGITA MOUTH EVERY 8 HOURS IF NEEDED 30 tablet 024 2024 Discontinued(R eorder (will not trigger notification to Pharmacy)) amLODIPine (Norvasc) 10 MG tabletIndicati ons:Hypertensi on, unspecified type Take 1 tablet (10 mg) by mouth in the morning. 90 tablet 1 024 2024 Discontinued simethicone (Mylicon,Gas-X ) 125 MG capsule Take 1 capsule (125 mg) by mouth if needed in the morning, at noon, in the evening, and at bedtime for flatulence. 30 capsule 2 024 2024 Discontinued doxepin (SINEquan) 100 MG [...] hypomanic sxs. I gave her information re PSYCHIATRIC locations to make an appt, she was [...] Bipolar I disorder, most recent episode depressed ([facility]) Patient ready to address current needs Yes Strengths include willing to engage in MH services PLAN: 1. Follow up with [facility]: Not recommended for follow-up 2. Patient goal [...] significant increase of anxiety. Her sense of udke and spirituality are identified as main strength. [...] toolkit for anxiety. Pt completed intake with [facility] for [facility] individual therapy. Assessment [...] Type Department Care Team Description 12/22/2024 Refill [facility] MEDICINE [address] [place] [address] Kanika Freeman DO 12/20/2024 3:20 PM EST Office Visit [facility] WALK-IN CENTER [address] [place] [address] Anna Rondon MD Gastroesophageal reflux disease without esophagitis (Primary Dx); H/O hernia repair 12/20/2024 Travel 12/12/2024 Refill [facility] CHC MED & PEDS [address] [place] [address] Renu Hadley MD Peripheral neuralgia 12/10/2024 Refill [facility] MEDICINE [address] [place] [address] Renu Hadley MD Peripheral neuralgia 12/06/2024 Telephone [facility] MEDICINE [address] [place] [phone] Renu Hadley MD Medication Question 12/06/2024 Refill [facility] MEDICINE [address] [place] [phone] Renu Hadley MD 12/03/2024 Refill [facility] MED & PEDS [address] [place] [address] Shara Keller MD Hypertension, unspecified type 12/01/2024 Orders Only GENERIC EXTERNAL DATA DEPARTMENT Provider, Generic External Data 11/20/2024 3:00 PM EST Office Visit [facility] OPTOMETRY [address] [place] [address] Blake, Ramya, OD Eye discomfort, left (Primary Dx); Retinal drusen of left eye; Presbyopia 11/20/2024 Travel 11/17/2024 2:20 PM EST Office Visit [facility] WALK[facility]IN CENTER [address] [place] [address] Yari Thomas MD Gastritis, presence of bleeding unspecified, unspecified chronicity, unspecified gastritis type (Primary Dx) 11/16/2024 Telephone [facility] MEDICINE [address] [place] [phone] Renu Hadley MD Nurse Triage 11/16/2024 Telephone [facility] MEDICINE [address] [place] [address] Renu Hadley MD Med Refill 11/16/2024 Refill [facility] MEDICINE [address] [place] [phone] Renu Hadley MD 11/08/2024 Refill [facility] MEDICINE [address] [place] [phone] Richy Morris MD 10/31/2024 Orders Only GENERIC EXTERNAL DATA DEPARTMENT Provider, Generic External Data 10/19/2024 Refill [facility] MEDICINE [address] [place] [address] Renu Hadley MD Generalized abdominal pain; Migraine without status migrainosus, not intractable, unspecified migraine type from Last 3 Months Immunizations Name Administration Dates Next Due Pfizer Covid-19 Vaccine 12+ rubin-sucrose ([employer] ap) 01/13/2022 Tdap 04/19/2018,05/05/2012 Social History Tobacco [...] Description 01/09/2025 10:45 AM EDT Office Visit [facility] MEDICINE [address] [place], [place] [phone] Renu Hadley MD [address] [place] [address] Health Maintenance Due Date Last Done Comments [...] 11/27/2024, 11/27/2024 Depression Screening 11/27/2025 11/27/2024, 11/27/19 25 Tobacco Screening 12/13/2025 12/13/2024 Mammogram 08/03/2026 08/03/2024, [...] (12/01/2024 8:35 AM EST) Urine NEGATIVE NEGATIVE [facility] Comment:This test was develo ped to detect early . Falsenegative results may occur after the 5th - 7th week ofpregnancy when using this test method. If clinicallyindicated, consider a serum hCG. 12/01/2024 8:35 AM EST 12/01/2024 10:24 AM EST us Generic External Data Provider LAB URINE ORDERAB LES Final Result [facility] [address] [place] [phone] * Helicobacter pylori??Antigen, EIA, Stool (11/23/2024 12:00 AM EST) H pylori Ag Stool SEE NOTE [facility] Comment:HELICOBACTER PYLORI AG, EIA, STOOL Micro Number: [id number] Test Status: Final Specimen Source: Stool Specimen Quality: Adequate H.pylori Ag: Not Detected Antimicrobials, proton pump inhibitors, and bismuth preparations inhibit H. pylori and ingestion up to two weeks prior to testing may cause false negative results. If clinically indicated the test should be repeated on a new specimen obtained two weeks after discontinuing treatment. Reference Range: Not DetectedTHIS TEST WAS PERFORMED AT:[employer] [place] [id number] FRAGOSO MD Stool Rectal contents / Unknown 11/23/2024 11/23/2024 4:23 PM EST Yari Thomas MD LAB BODY FLUIDS AND STOOLS ORDERABLES Final Result [facility] [address] [place] [phone] * (ABNORMAL) VITAMIN D 25-OH (D2 AND D3) (10/31/2024 9:49 AM EST) Vitamin D, 25-OH, D2 <4 ng/mL [facility] Comment:This test was develo ped and its analytical performancecharacteristics have been determined by [employer] [place], [place]. It hasnot been cleared or approved by the U.S. Food and DrugAdministration. This assay has been validated pursuantto the CLIA regulations and is used for clinicalpurposes.THIS TEST WAS PERFORMED AT:[employer] [id number] [place] [phone] CHAMBERS MD,PHD Vitamin D, 25-OH, D3 11 ng/mL [facility] Comment:This test was develo ped and its analytical performancecharacteristics have been determined by [employer]. It hasnot been cleared or approved by the U.S. Food and DrugAdministration. This assay has been validated pursuantto the CLIA regulations and is used for clinicalpurposes. Vitamin D, 25-OH, Total 11(A) 30 - 100 ng/mL [facility] Comment:Vitamin D, 25-Hydrox y reports [...] = 30 ng/mL.For additional information, please refer tohttp://[employer]/faq/CVP536(This link is being provided for informational/educational purposes only.) 10/31/2024 9:49 AM EST 10/31/2024 9:49 AM EST us Generic External Data Provider LAB BLOOD ORDERAB LES Final Result [facility] [address] [place] [phone] * Vitamin B12 (Cobalamin) and Folate Panel, Serum (10/31/2024 9:49 AM EST) Vitamin B12 266 200 - 900 pg/mL [facility] Comment:NORMAL 200-900 PG/ML INDETERMINATE 160-199 PG/ML DEFICIENT < 160 PG/ML Folate 10.6 > or = 4.0 ng/mL [facility] Comment:Reference Values:> o r = 4.0 ng/mL< 4.0 ng/mL suggests folate deficiency Methotrexate, aminopterin and folinic acid(leucovorin) are chemotherapeutic agents whose molecularstructures are similar to folate; therefore, the Architectfolate assay cannot be used for patients using these drugs. 10/31/2024 9:49 AM EST 10/31/2024 9:49 AM EST Generic External Data Provider LAB BLOOD ORDERAB LES Final Result Performing Organization Address [facility] Co de Phone Number [facility] [address] [place] [phone] * TSH with Reflex to Free T4 (10/31/2024 9:49 AM EST) TSH reflex Free T4 2.59 0.32 - 4.0 uIU/mL [facility] 10/31/2024 9:49 AM EST 10/31/2024 9:49 AM EST Generic External Data Provider LAB BLOOD ORDERAB LES Final Result Performing Organization Address [facility] Phone Number [facility] [address] [place] [phone] * Creatinine, Serum (10/31/2024 9:49 AM EST) Creatinine, Serum 0.68 0.5 - 1.4 mg/dL [facility] Estimated Glomerular Filt Rate >60 [facility] Comment:Chronic Kidney Disea se: Estimated GFR < 60 mL/min/1.19u5Cqplaf Kidney Disease: Estimated GFR < 15 mL/min/1.73m2 10/31/2024 9:49 AM EST 10/31/2024 9:49 AM EST Generic External Data Provider LAB BLOOD ORDERAB LES Final Result Performing Organization Address [facility] Co de Phone Number [facility] [address] [place] [phone] * Tissue Transglutaminase Antibody, IgA (10/31/2024 9:49 AM EST) Transglutaminase IgA <1.0 U/mL [facility] Comment:Value Interpretation ----- <15.0 Antibody not detected> or = 15.0 Antibody detectedTHIS TEST WAS PERFORMED AT:[employer] [address] [phone] FRAGOSO MD 10/31/2024 9:49 AM EST 10/31/2024 9:49 AM EST Generic External Data Provider LAB BLOOD ORDERAB LES Final Result Performing Organization Address [facility] de Phone Number [facility] [address] [place] [phone] * BUN (Blood Urea Nitrogen) (10/31/2024 9:49 AM EST) Urea Nitrogen (BUN) 12 9 - 16 mg/dL [facility] 10/31/2024 9:49 AM EST 10/31/2024 9:49 AM EST Generic External Data Provider LAB BLOOD ORDERAB LES Final Result Performing Organization Address [facility] de Phone Number [facility] [address] [place] [phone] * BI US Breast Limited Left (08/03/2024 2:30 PM EDT) Anatomical Region Laterality Modality Breast Left Ultrasound 08/03/2024 2:30 PM EDT Narrative 08/03/2024 2:52 PM EDT ? [facility] [place] ? [address] ?[place] [address] ? Ultrasound Report ? Signed ? Patient: [place],Ruma ?MR#: [id number] ?? 57 ? : 1975 ?Acct:[id number] ? Age/Sex: 48 / F ?ADM Date: 10/10/24 ? Loc: HO.MAMMO ? Attending : Anna Rondon MD ? Ordering Physician: Anna Rondon MD ?? Date of Service: 08/03/24 ?? Procedure(s): US breast LT limited mamm only ?? Accession Number(s): [id number] ? cc: Anna Rondon MD ? EXAMINATION: [...] DD/ 1430 ? TD/TT: 08/03/24 1444 ? Registered Dental Hygienist: ? Procedure Note Hoang, Image - 08/03/2024 [facility] [address] [place] [address] Ultrasound Report Signed Patient: Zonia Simons#: [id number] 57 : 1975Acct:[id number] Age/Sex: 48 / FADM Date: 08/03/24 Loc: HO.MAMMO Attending Dr: Anna Rondon MD Ordering Physician: Anna Rondon MD Date of Service: 08/03/24 Procedure(s): US breast LT limited mamm only Accession Number(s): [id number] cc: Anna Rondon MD EXAMINATION: MM DIAGNOSTIC [...] 08/03/24 1449 DD/ 1430 TD/TT: 08/03/24 1444 Registered Dental Hygienist: us Anna Rondon MD IMG US PROCEDURES Final Result * (ABNORMAL) Lipid Panel with Reflex to Direct LDL (08/02/2024 10:22 AM EDT) Triglycerides 278(H) <150 mg/dL [facility] Comment:Desirable Triglyceri de: less than 150 mg/dLBorderline High Triglyceride 150-199 mg/dLHigh Triglyceride: 200-499 mg/dLVery High Triglyceride: greater than or equal to 5OO mg/dL Cholesterol 187 <200 mg/dL [facility] Comment:Desirable Cholestero l: less than 200 mg/dLBorderline High Cholesterol: 200-239 mg/dLHigh Cholesterol: greater than 239 mg/dL LDL Cholesterol Calculated 96 <100 mg/dL [facility] Comment:Desirable LDL: less than 100 mg/dLNear Optimal/Above Optimal LDL: 110- 129 mg/dLBorderline High LDL: 130-159 mg/dLHigh LDL: 160-189 mg/dLVery High LDL: greater than or equal to 190 mg/dL HDL Cholesterol 36(L) >40 mg/dL [facility] Comment:Desirable HDL: great er than 40 mg/dL Note: This HDL assay may give artificially low results in patients with liver disease. Blood 08/02/2024 10:2 2 AM EDT 08/02/2024 11:31 AM EDT us Renu Hadley MD LAB BLOOD ORDERABLES Fin al Result [facility] [address] [place] [phone] * Hepatitis C Antibody with Reflex to HCV, RNA, Quantitative, Real-Time PCR (09/29/2022 1:39 PM EST) Hepatitis C Antibody NON-REACT HAIDER NON-REACT HAIDER [facility] [employer] [place] [facility] Index 0.07 <1.00 [facility] [place] [facility] Comment: HCV antibody was non-reactive. There is no laboratory evidence of HCV infection. In most cases, no further action is required. However, if recent HCV exposure is suspected, a test for HCV RNA (test code 78538) is suggested. For additional information please refer to http://education.Whitt[employer]/faq/PUG21f5 (This link is being provided for informational/ educational purposes only.) 09/29/2022 1:39 PM EST 09/29/2022 1:40 PM EST Narrative [facility] - 09/30/2022 6:58 PM EST FASTING:UNKNOWN PATIENT UNABLE TO VOID; ADVISED TO RETURN FOR COLLECTION. FASTING: UNKNOWN Richy Morris MD LAB BLOOD ORDERABLES Final Resul t Performing Organization Address [facility] Co de Phone Number [address], [facility] [place] [phone] [facility] [address], [facility] [place] [phone] * HIV-1/2 Antigen and Antibodies, Fourth Generation, with Reflexes (09/29/2022 1:39 PM EST) [facility] HIV Antigen/Antibody, 4th Generation NON-REAC TIVE NON-REAC TIVE [facility] Comment: HIV-1 antigen and HIV-1/HIV-2 [...] ?? For additional information please refer to http://education.[employer].Zipzoom/faq/VQC905 (This link is being provided for informational/ [...] Resul t Performing Organization Address [facility] Co de Phone Number [address], [facility] [place] [phone] [facility] [address] [place] [address], [facility], [place] [address] * HPV mRNA E6/E7 (10/13/2017 9:12 AM EST) HPV mRNA E6/E7 Not Detected NOT DETECTED [facility] Comment: This test was performed using the APTIMA(R) HPV Assay ([employer] This assay detects E6/E7 viral messenger RNA (mRNA) from 14 high-risk HPV types (16,18,31,33,35,39,45,51, 52,56,58,59,66,68). For additional information please refer to: http://education.Whittl/faq/RLE865x3 (This link is being provided for informational/ educational purposes only.) Test Performed by [facility], [facility], [address] [place] [phone] Tyler Chambers M.D., Ph.D., Director of Laboratories , [facility] [id number] Please note: ??Effective 07/06/2016, HPV testing will be performed using [employer]'s APTIMA test which targets mRNA. Detecting mRNA instead of DNA, as in older methods, offers significant improvements in specificity. 10/13/2017 9:12 AM EST Carmen Bey CNM HISTORICAL/NON ORDERABLE LABS Final Result [facility] [address] * Pap Smear (10/13/2017 12:00 AM EST) Swab Carmen Bey CNM LAB CYTOLOGY ORDERABLES F inal Result [facility] [address] [place] [phone] from Last 3 Months or Most Recently Relevant to Health Maintenance Insurance [facility] Care Teams Occupational Therapist Relationship Specialty Start Date End Date Renu Hadley MD [address] [place] [address] PCP - General Internal Medicine 07/04/24
--- OUTSIDE RECORDS SUMMARY | 2024-12-25 11:54 | XMS_ITS | Encounter Summary ---
Author Organization [employer] [facility] Address [address] [place] [address] 7 [place] [address] Care Team Providers Care Helicopter Mechanic Name Role Phone Renu Hadley MD Primary Care Provider + Reason for Visit * Reason Comments Med Refill Encounter Details Date Type Department Care Team (Late st Contact Info) Description 02/12/2023 Refill [facility] MEDICINE [address] [place] [phone] Name, MD Richy [address] [place] [phone] Heartburn Social History Tobacco Use Types Packs/Day [...] Description 01/09/2025 10:45 AM EDT Office Visit [facility] [address] [place] [phone] Renu Hadley MD [address] [place] [phone] documented as of this encounter Visit Diagnoses Diagnosis Heartburn documented in this encounter Care Teams Helicopter Mechanic Relationship Specialty Start Date End Date Renu Hadley MD [address] [place] [phone] PCP - General Internal Medicine 07/04/24 documented as of this encounter
--- OUTSIDE RECORDS SUMMARY | 2024-12-25 11:54 | XMS_ITS | Encounter Summary ---
Author Organization [employer] Address [address] [facility] 7t [place] [address] Care Team Providers Care Wrapper Hand Name Role Phone Renu Hadley MD [...] Description 01/09/2025 10:45 AM EDT Office Visit [facility] MEDICINE [address] [place] [address] Renu Hadley MD [address] [place] [address] documented as of this encounter Procedures Procedure Name Priority Date/Time Associated Diagnosis Comments HCG, QL, URINE Routine 12/01/2024 8:35 AM EST documented in this encounter Results * HCG, Qualitative, Urine (12/01/2024 8:35 AM EST) Urine NEGATIVE NEGATIVE [facility] Comment:This test was develo ped to detect early . Falsenegative results may occur after the 5th - 7th week ofpregnancy when using this test method. If clinicallyindicated, consider a serum hCG. 12/01/2024 8:35 AM EST 12/01/2024 10:24 AM EST us Generic External Data Provider LAB URINE ORDERAB LES Final Result [facility] [address] [place] [phone] documented in this encounter Visit Diagnoses Not on filedocumented in this encounter Additional Health Concerns Assessment Noted Time PHQ-9 Depression Total Score: 16 025 9:47 AM EST documented as of this encounter Care Teams Wrapper Hand Relationship Specialty Start Date End Date Renu Hadley MD [address] [place] [address] PCP - General Internal Medicine 07/04/24 documented as of this encounter
--- OUTSIDE RECORDS SUMMARY | 2024-12-25 11:54 | XMS_ITS | Encounter Summary ---
Author Organization [employer] Address [address] [facility] 7t [place] [address] Care Team Providers Care Crisis Worker Name Role Phone Renu Hadley MD Primary Care Provider + Encounter Details Date Type Department Care Team (Late st Contact Info) Description 02/15/2023 Orders Only [facility] CH[facility] MED & PEDS [address] [place] [address] Kanika Monson LPN Social History Tobacco Use [...] 01/09/2025 10:45 AM EDT Office Visit [facility] MEDICINE [address] [place] [address] Renu Hadley MD [address] [place] [address] documented as of this encounter Visit Diagnoses Not on filedocumented in this encounter Care Teams Crisis Worker Relationship Specialty Start Date End Date Renu Hadley MD [address] [place] [address] PCP - General Internal Medicine 07/04/24 documented as of this encounter
--- OUTSIDE RECORDS SUMMARY | 2024-12-25 11:54 | XMS_ITS | Encounter Summary ---
Author Organization [employer] [facility] Address [address] [facility] 7t [place] [address] Care Team Providers Care Grader Tender Name Role Phone Renu Hadley MD Primary Care Provider + Reason for Visit * Reason Comments Med Refill Encounter Details Date Type Department Care Team (Late st Contact Info) Description 04/09/2023 Refill [facility] [address] [place] [address] Lisa Cifuentes FNP [address] [place], [place] [phone] Anxiety disorder, unspecified Social History Tobacco Use [...] Description 01/09/2025 10:45 AM EDT Office Visit [facility] [address] [place] [address] Renu Hadley MD [address] [place], [place] [phone] documented as of this encounter Visit Diagnoses Diagnosis Anxiety disorder, unspecified documented in this encounter Additional Health Concerns Assessment Noted Time PHQ-9 Depression Total Score: 12 023 1:33 PM EDT documented as of this encounter Care Teams Grader Tender Relationship Specialty Start Date End Date Renu Hadley MD [address] [place] [address] PCP - General Internal Medicine 07/04/24 documented as of this encounter
--- OUTSIDE RECORDS SUMMARY | 2024-12-25 11:54 | XMS_ITS | Encounter Summary ---
Author Organization [employer] Address 75 [facility] 7t [place] [address] Care Team Providers Care Java Software Engineer Name Role Phone Renu Hadley MD Primary Care Provider + Reason for Visit * Reason Onset Date Comments Appointment Request 04/07/2023 Encounter Details Date Type Department Care Team ([facility] st Contact Info) Description 04/07/2023 Telephone [facility] MED[facility] [address] [place], [place] [phone] Name, MD Richy [address] [place] [address] Appointment Request Social History Tobacco Use Types [...] - 04/07/2023 1:53 PM EDT T/C to [phone] through [employer] id - [id number] to re-schedule HDF apt. Pt. Schedule for HDF apt. On 04/14/2023. Pt. Was admitted at [facility], d/c 04/02/23 for Dx: Peritoneal abscess [...] to r/s HDF appt from 04/07/23. Details: [facility] d/c 04/02/23 Dx: Peritoneal abscess surgery documented in this encounter Plan of Treatment Upcoming Encounters Date Type Department Care Team (Late st Contact Info) Description 01/09/2025 10:45 AM EDT Office Visit [facility] [address] [place] [address] Renu Hadley MD [address] [place] [address] documented as of this encounter Visit Diagnoses Not on filedocumented in this encounter Additional Health Concerns Assessment Noted Time PHQ-9 Depression Total Score: 12 023 1:33 PM EDT documented as of this encounter Care Teams Java Software Engineer Relationship Specialty Start Date End Date Renu Hadley MD [address] [place], [place] [phone] PCP - General Internal Medicine 07/04/24 documented as of this encounter
--- OUTSIDE RECORDS SUMMARY | 2024-12-25 11:54 | XMS_ITS | Encounter Summary ---
Author Organization [employer] Address 75 [facility] 7t [place] [address] Care Team Providers Care Cryptological Technician Name Role Phone Renu Hadley MD Primary Care Provider + Reason for Visit * Reason Onset Date Comments Durable Medical Equipment 12/30/2022 Encounter Details Date Type Department Care Team (Late st Contact Info) Description 12/30/2022 Telephone [facility] [address] [place], [place] [phone] Name, MD Richy [address] [place] [address] Durable Medical Equipment Social History Tobacco Use [...] to be order. Please contact pt at [phone] documented in this encounter Plan of Treatment Upcoming Encounters Date Type Department Care Team (Late st Contact Info) Description 01/09/2025 10:45 AM EDT Office Visit [facility] [address] [place] [address] Renu Hadley MD [address] [place] [address] documented as of this encounter Visit Diagnoses Not on filedocumented in this encounter Care Teams Cryptological Technician Relationship Specialty Start Date End Date Renu Hadley MD [address] [place] [address] PCP - General Internal Medicine 07/04/24 documented as of this encounter
--- OUTSIDE RECORDS SUMMARY | 2024-12-25 11:54 | XMS_ITS | Encounter Summary ---
Author Organization [employer] Address [address] [facility] 7t [place] [address] Care Team Providers Care Soa Engineer Name Role Phone Renu Hadley MD Primary Care Provider + Reason for Visit * Reason Onset Date Comments triage 02/26/2023 Encounter Details Date Type Department Care Team ([facility] st Contact Info) Description 02/26/2023 Telephone [facility] 230 [place], [place] [phone] Name, MD Richy 230 [place] [address] triage Social History Tobacco Use Types Packs/Day [...] 12:38 PM EDT Triage call with Fer Maintenance Craftsman [place] [id number] Pt was called more than 2x. Each [...] Description 01/09/2025 10:45 AM EDT Office Visit [facility] [address] [place] [address] Renu Hadley MD [address] [place] [address] documented as of this encounter Visit Diagnoses Not on filedocumented in this encounter Care Teams Soa Engineer Relationship Specialty Start Date End Date Renu Hadley MD [address] [place] [address] PCP - General Internal Medicine 07/04/24 documented as of this encounter
--- OUTSIDE RECORDS SUMMARY | 2024-12-25 11:54 | XMS_ITS | Encounter Summary ---
Author Organization [employer] Address [address] [facility] 7t [place] [address] Care Team Providers Care Movement Assembler Name Role Phone Renu Hadley MD Primary Care Provider + Reason for Visit * Reason Onset Date Comments Medication Question 12/06/2024 Encounter Details Date Type Department Care Team ([facility] st Contact Info) Description 12/06/[address] [facility] MEDICINE 230 [place], [place] [phone] Renu Hadley MD 230 [place], [place] [phone] Medication Question Social History Tobacco Use Types [...] with others, in a hotel, in a fpc, living outside on the street, on a [...] with Dr. Campoverde. TC placed to patient [phone] to inform patient she needs to call [...] recently has gotten surgery. Contact pt at [phone] documented in this encounter Plan of Treatment Upcoming Encounters Date Type Department Care Team (Late st Contact Info) Description 01/09/2025 10:45 AM EDT Office Visit [facility] MEDICINE 230 [place], [place] [phone] Renu Hadley MD 230 [place], [place] [phone] documented as of this encounter Visit Diagnoses Not on filedocumented in this encounter Additional Health Concerns Assessment Noted Time PHQ-9 Depression Total Score: 16 11/27/ 025 9:47 AM EST documented as of this encounter Care Teams Movement Assembler Relationship Specialty Start Date End Date Renu Hadley MD 230 [place] [address] PCP - General Internal Medicine 07/04/24 documented as of this encounter
--- OUTSIDE RECORDS SUMMARY | 2024-12-25 11:54 | XMS_ITS | Encounter Summary ---
Author Organization [employer] [facility] Address [address] [place] [address] 7t [place] [address] Care Team Providers Care Cnc Supervisor Name Role Phone Renu Hadley MD Primary Care Provider + Reason for Visit * Reason Comments Med Refill Encounter Details Date Type Department Care Team (Late st Contact Info) Description 06/10/2023 Refill [facility] MEDICINE [address] [place] [address] [phone] Name, MD Richy [address] [place] [address] [phone] Anxiety disorder, unspecified Social History Tobacco Use [...] Description 01/09/2025 10:45 AM EDT Office Visit [facility] MEDICINE [address] [place] [address] [phone] Renu Hadley MD [address] [place] [address] [phone] documented as of this encounter Visit Diagnoses Diagnosis Anxiety disorder, unspecified documented in this encounter Additional Health Concerns Assessment Noted Time PHQ-9 Depression Total Score: 12 023 1:33 PM EDT documented as of this encounter Care Teams Cnc Supervisor Relationship Specialty Start Date End Date Renu Hadley MD [address] [place] [address] PCP - General Internal Medicine 07/04/24 documented as of this encounter
--- OUTSIDE RECORDS SUMMARY | 2024-12-25 11:54 | XMS_ITS | Encounter Summary ---
Author Organization [employer] Address [address] [facility] [address] 7t [place] [address] Care Team Providers Care Banquet Steward Name Role Phone Renu Hadley MD Primary Care Provider + Encounter Details Date Type Department Care Team (Latest Contact Info) Description 12/20/2024 3:20 PM EST Office Visit [facility] 230 [place], [place] [phone] Anna Rondon MD [address] [place], [place] [phone] Gastroesophageal reflux disease without esophagitis (Primary Dx); [...] 10:45 AM EDT Office Visit [facility] 230 [place] [address] Renu Hadley MD 230 [place] [address] documented as of this encounter Visit Diagnoses Diagnosis Gastroesophageal reflux disease without esophagitis- Primary Esophageal reflux H/O hernia repair documented in this encounter Additional Health Concerns Assessment Noted Time PHQ-9 Depression Total Score: 16 025 9:47 AM EST documented as of this encounter Care Teams Banquet Steward Relationship Specialty Start Date End Date Renu Hadley MD 230 [place] [address] PCP - General Internal Medicine 07/04/24 documented as of this encounter
--- OUTSIDE RECORDS SUMMARY | 2024-12-25 11:54 | XMS_ITS | Encounter Summary ---
Author Organization [employer] [facility] Address [address] [facility] 7t [place] [address] Care Team Providers Care Rotoformer Backtender Name Role Phone Renu Hadley MD Primary Care Provider + Reason for Visit * Reason Comments Med Refill Encounter Details Date Type Department Care Team (Late st Contact Info) Description 04/07/2023 Refill [facility] 230 [place] [address] Lisa Cifuentes FNP [address] [place], [place] [phone] Anxiety disorder, unspecified Social History Tobacco Use [...] Description 01/09/2025 10:45 AM EDT Office Visit [facility] 230 [place] [address] Renu Hadley MD [address] [place], [place] [phone] documented as of this encounter Visit Diagnoses Diagnosis Anxiety disorder, unspecified documented in this encounter Additional Health Concerns Assessment Noted Time PHQ-9 Depression Total Score: 12 023 1:33 PM EDT documented as of this encounter Care Teams Rotoformer Backtender Relationship Specialty Start Date End Date Renu Hadley MD [address] [place] [address] PCP - General Internal Medicine 07/04/24 documented as of this encounter
--- OUTSIDE RECORDS SUMMARY | 2024-12-25 11:54 | XMS_ITS | Encounter Summary ---
Author Organization [facility] Address [address] [facility] 7t [place] [address] Care Team Providers Care Policy Officer Name Role Phone Renu Hadley MD [...] [facility] 230 [place] [address] Renu Hadley MD 230 [place] [address] documented as of this encounter Visit Diagnoses Not on filedocumented in this encounter Additional Health Concerns Assessment Noted Time PHQ-9 Depression Total Score: 16 025 9:47 AM EST documented as of this encounter Care Teams Policy Officer Relationship Specialty Start Date End Date Renu Hadley MD 230 [place] [address] PCP - General Internal Medicine 07/04/24 documented as of this encounter
--- OUTSIDE RECORDS SUMMARY | 2024-12-25 11:54 | XMS_ITS | Encounter Summary ---
Author Organization [email or web address] Address 75 [facility] 7t [place] [address] Care Team Providers Care Computer Help Desk Specialist Name Role Phone Renu Hadley MD Primary Care Provider + Reason for Visit * Reason Comments Hernia Encounter Details Date Type Department Care Team ([facility] st Contact Info) Description 11/17/2024 2:20 PM EST Office Visit [facility] 230 [place], [place] [phone] Yari Thomas MD 230 [place], [place] [phone] Gastritis, presence of bleeding unspecified, unspecified chronicity, [...] Patient reports she also was informed at [facility] ED on 11/05/24 (ED note in chart) [...] PM EST See message below per Dr. Tohmas regarding lab. Lab letter sent to address [...] Office Visit [facility] 230 [place] [address] Renu Hadley MD 230 [place] [address] documented as of this encounter Procedures Procedure Name Priority Date/Time Associated Diagnosis Comments HELICOBACTER PYLORI AG, EIA, STOOL Routine 11/23/2024 12:00 AM EST Gastritis, presence of bleeding unspecified, unspecified chronicity, unspecified gastritis type documented in this encounter Results * Helicobacter pylori??Antigen, EIA, Stool (11/23/2024 12:00 AM EST) H pylori Ag Stool SEE [facility] Comment:HELICOBACTER PYLORI AG, EIA, STOOL Micro Number: [id number] Test Status: Final Specimen Source: Stool Specimen Quality: Adequate H.pylori Ag: Not Detected Antimicrobials, proton pump inhibitors, and bismuth preparations inhibit H. pylori and ingestion up to two weeks prior to testing may cause false negative results. If clinically indicated the test should be repeated on a new specimen obtained two weeks after discontinuing treatment. Reference Range: Not DetectedTHIS TEST WAS PERFORMED AT:[facility] [place] [id number] FRAGOSO MD Stool Rectal contents / Unknown 11/23/2024 11/23/2024 4:23 PM EST Yari Thomas MD LAB BODY FLUIDS AND STOOLS ORDERABLES Final Result [facility] [address] [place] [phone] [phone] documented in this encounter Visit Diagnoses Diagnosis Gastritis, presence of bleeding unspecified, unspecified chronicity, unspecified gastritis type- Primary documented in this encounter Additional Health Concerns Assessment Noted Time PHQ-9 Depression Total Score: 16 023 11:15 AM EDT documented as of this encounter Care Teams Computer Help Desk Specialist Relationship Specialty Start Date End Date Renu Hadley MD [address] [place] [phone] PCP - General Internal Medicine 07/04/24 documented as of this encounter
--- OUTSIDE RECORDS SUMMARY | 2024-12-25 11:54 | XMS_ITS | Encounter Summary ---
Author Organization [employer] Address 75 [facility] 7t [place] [address] Care Team Providers Care Piano Builder Name Role Phone Renu Hadley MD Primary Care Provider + Reason for Visit * Reason Comments Med Refill Encounter Details Date Type Department Care Team (Late st Contact Info) Description 12/22/2024 Refill [facility] MEDICINE 230 [place], [place] [phone] Kanika Freeman DO 230 [place], [place] [phone] Social History Tobacco Use Types Packs/Day Years [...] 10:45 AM EDT Office Visit [facility] MEDICINE [address] [place] [address] Renu Haldey MD [address] [place] [address] documented as of this encounter Visit Diagnoses Not on filedocumented in this encounter Additional Health Concerns Assessment Noted Time PHQ-9 Depression Total Score: 16 025 9:47 AM EST documented as of this encounter Care Teams Piano Builder Relationship Specialty Start Date End Date Renu Hadley MD [address] [place] [address] PCP - General Internal Medicine 07/04/24 documented as of this encounter
--- OUTSIDE RECORDS SUMMARY | 2024-12-25 11:55 | XMS_ITS | Encounter Summary ---
Author Organization [employer] Address 75 [facility] 7t [place] [address] Care Team Providers Care Cath Lab Radiology Technician Name Role Phone Renu Hadley MD Primary Care Provider + Reason for Visit * Reason Comments Med Refill Encounter Details Date Type Department Care Team (Late st Contact Info) Description 12/03/2024 Refill [facility] [address] [place], [place] [phone] Shara Keller MD 230 [place], [place] [phone] Hypertension, unspecified type Social History Tobacco Use [...] with others, in a hotel, in a snf, living outside on the street, on a [...] 10:45 AM EDT Office Visit [facility] MED[facility]INE 230 [place] [address] Renu Hadley MD 230 [place] [address] documented as of this encounter Visit Diagnoses Diagnosis Hypertension, unspecified type documented in this encounter Additional Health Concerns Assessment Noted Time PHQ-9 Depression Total Score: 16 025 9:47 AM EST documented as of this encounter Care Teams Cath Lab Radiology Technician Relationship Specialty Start Date End Date Renu aHdley MD [address] [place] [address] PCP - General Internal Medicine 07/04/24 documented as of this encounter
--- OUTSIDE RECORDS SUMMARY | 2024-12-25 11:55 | XMS_ITS | Patient Health Record ---
Author Organization [facility] Address [address] [place], [place] [phone] Care Team Providers Care Edge Drummer Name Role Phone Kirstin Wright Outpt Care Primary Care Provider Un available Abby Dobson Unavailable [phone] Reason For Referral No Information Plan Of Treatment No Information Insurance Providers Payer Name Payer Address Payer Phone Subscriber Number Group Number Insured Name Patient Relationship to Insured Coverage Start Date Coverage End Date [place] Standard [address] [place] [address] Ruma Simons Self - patient is the insured
--- OUTSIDE RECORDS SUMMARY | 2024-12-25 11:55 | XMS_ITS | Encounter Summary ---
Author Organization [employer] Address [address] [facility] 7t [place] [address] Care Team Providers Care Valve Fitter Name Role Phone Renu Hadley MD Primary Care Provider + Encounter Details Date Type Department Care Team (Latest Contact Info) Description 02/25/2021 Abstract [facility] Dental, Provider, DDS Social History [...] Description 01/09/2025 10:45 AM EDT Office Visit [facility] 230 [place] [address] Renu Hadley MD 230 [place] [address] documented as of this encounter Visit Diagnoses Not on filedocumented in this encounter Care Teams Valve Fitter Relationship Specialty Start Date End Date Renu Hadley MD 230 [place] [address] PCP - General Internal Medicine 07/04/24 documented as of this encounter
--- OUTSIDE RECORDS SUMMARY | 2024-12-25 11:55 | XMS_ITS | Encounter Summary ---
Author Organization [employer] Address 75 [facility] 7t [place] [address] Care Team Providers Care Manager Post Name Role Phone Renu Hadley MD Primary Care Provider + Reason for Visit * Reason Onset Date Comments Med Refill 12/12/2024 Encounter Details Date Type Department Care Team (Late st Contact Info) Description 12/12/2024 Refill [facility] [address] [place], [place] [phone] Renu Hadley MD 230 [place], [place] [phone] Peripheral neuralgia Social History Tobacco Use Types [...] with others, in a hotel, in a jail, living outside on the street, on a [...] Description 01/09/2025 10:45 AM EDT Office Visit [facility] MEDICINE 230 [place] [address] Renu Hadley MD [address] [place] [address] documented as of this encounter Visit Diagnoses Diagnosis Peripheral neuralgia Unspecified hereditary and idiopathic peripheral neuropathy documented in this encounter Additional Health Concerns Assessment Noted Time PHQ-9 Depression Total Score: 16 025 9:47 AM EST documented as of this encounter Care Teams Manager Post Relationship Specialty Start Date End Date Renu Haldey MD [address] [place] [address] PCP - General Internal Medicine 07/04/24 documented as of this encounter
--- OUTSIDE RECORDS SUMMARY | 2024-12-25 11:55 | XMS_ITS | Encounter Summary ---
Author Organization [employer] [facility] Address [address] [facility] 7t [place] [address] Care Team Providers Care Compounder Flavorings Name Role Phone Renu Hadley MD Primary Care Provider + Encounter Details Date Type Department Care Team (Latest Contact Info) Description 12/20/2019 Abstract [facility] Dental, Provider, DDS Social History Tobacco [...] Description 01/09/2025 10:45 AM EDT Office Visit [facility] 230 [place] [address] Renu Hadley MD [address] [place] [address] documented as of this encounter Visit Diagnoses Not on filedocumented in this encounter Care Teams Compounder Flavorings Relationship Specialty Start Date End Date Renu Hadley MD 230 [place], [place] [phone] PCP - General Internal Medicine 07/04/24 documented as of this encounter
--- OUTSIDE RECORDS SUMMARY | 2024-12-25 11:55 | XMS_ITS | Encounter Summary ---
Author Organization [employer] Address [address] [facility] 7t [place] [address] Care Team Providers Care Maintenance Data Analyst Name Role Phone Renu Hadley MD Primary Care Provider + Reason for Visit * Reason Comments Med Refill Encounter Details Date Type Department Care Team (Late st Contact Info) Description 12/10/2024 Refill [facility] MEDICINE 230 [place], [place] [phone] Renu Hadley MD 230 [place], [place] [phone] Peripheral neuralgia Social History Tobacco Use Types [...] 10:45 AM EDT Office Visit [facility] MEDICINE [address] [place] [address] Renu Hadley MD [address] [place] [address] documented as of this encounter Visit Diagnoses Diagnosis Peripheral neuralgia Unspecified hereditary and idiopathic peripheral neuropathy documented in this encounter Additional Health Concerns Assessment Noted Time PHQ-9 Depression Total Score: 16 025 9:47 AM EST documented as of this encounter Care Teams Maintenance Data Analyst Relationship Specialty Start Date End Date Renu Hadley MD [address] [place] [address] PCP - General Internal Medicine 07/04/24 documented as of this encounter
--- OUTSIDE RECORDS SUMMARY | 2024-12-25 11:55 | XMS_ITS | Encounter Summary ---
Author Organization [employer] Address [address] [facility] 7t [place] [address] Care Team Providers Care American Indian Studies Professor Name Role Phone Renu Hadley MD Primary Care Provider + Reason for Visit * Reason Onset Date Comments Medication Question 01/13/2023 Encounter Details Date Type Department Care Team (Late Contact Info) Description 01/13/2023 Telephone [facility] MEDICINE [address] [place] [address] Name, MD Richy [address] [place] [address] Medication Question Social History Tobacco Use Types [...] Doxepin 50 mg. Please contact pt at [phone] documented in this encounter Plan of Treatment Upcoming Encounters Date Type Department Care Team (Late Contact Info) Description 01/09/2025 10:45 AM EDT Office Visit [facility] MED[facility] [address] [place] [address] Renu Hadley MD 230 [place] [address] documented as of this encounter Visit Diagnoses Not on filedocumented in this encounter Care Teams American Indian Studies Professor Relationship Specialty Start Date End Date Renu Hadley MD [address] [place] [address] PCP - General Internal Medicine 07/04/24 documented as of this encounter
--- OUTSIDE RECORDS SUMMARY | 2024-12-25 11:55 | XMS_ITS | Encounter Summary ---
Author Organization [facility] Address [address] [place] [address] Care Team Providers Care Batch Attendant Name Role Phone Renu Hadley MD Primary Care Provider + Reason for Visit * Reason Onset Date Comments Med Refill 12/06/2024 Encounter Details Date Type Department Care Team ([facility] st Contact Info) Description 12/06/2024 Refill [facility] [address], [place] [phone] Renu Hadley MD [address] [place] [phone] Social History Tobacco Use Types Packs/Day Years [...] tablet 4 mg To be sent to: [facility] - [place], [place] - [address] [place] [address] documented in this encounter Plan of Treatment Upcoming Encounters Date Type Department Care Team (Late st Contact Info) Description 01/09/2025 10:45 AM EDT Office Visit [facility] [address] [place] [address] Renu Hadley MD [address] [place] [address] documented as of this encounter Visit Diagnoses Not on filedocumented in this encounter Additional Health Concerns Assessment Noted Time PHQ-9 Depression Total Score: 16 025 9:47 AM EST documented as of this encounter Care Teams Batch Attendant Relationship Specialty Start Date End Date Renu Hadley MD [address] [place] [id number] PCP - General Internal Medicine 07/04/24 documented as of this encounter
--- OUTSIDE RECORDS SUMMARY | 2024-12-25 11:55 | XMS_ITS | Encounter Summary ---
Author Organization bulletn. [facility] Address [address] [place] [address] [address] [place] [address] Care Team Providers Care Frame Wirer Name Role Phone Renu Hadley MD Primary Care Provider + Encounter Details Date Type Department Care Team (Late st Contact Info) Description 11/17/2022 Orders Only [facility] [address] [place] [phone] Kaylynn Membreno LPN Social History Tobacco Use [...] Description 01/09/2025 10:45 AM EDT Office Visit [facility] [address] [place] [phone] Renu Hadley MD [address] [place] [phone] documented as of this encounter Visit Diagnoses Not on filedocumented in this encounter Care Teams Frame Wirer Relationship Specialty Start Date End Date Renu Hadley MD [address] [place] [phone] PCP - General Internal Medicine 07/04/24 documented as of this encounter
== END 2024-12-25 10:34 | disposition home or self-care (01) ==
PROVIDERS: PCP Internal Medicine; Visit Provider Surgery
DX: Z09 Encounter for follow-up examination after completed treatment for conditions other than malignant neoplasm (principal)
CPT/HCPCS: 99212

== ENCOUNTER → 2024-12-25 10:19 | Outpatient (BNVA) | payer MEDICAID, SELFPAY | PROVIDERS: PCP Internal Medicine; Visit Provider Surgery | DX: Z09 Encounter for follow-up examination after completed treatment for conditions other than malignant neoplasm (principal); Z98.890 Other specified postprocedural states | CPT/HCPCS: 99212 ==

== ENCOUNTER 2025-01-12 15:19 | Emergency (ER) | payer MEDICAID, SELFPAY ==
--- NOTE | ~2025-01-12 | XR_ITS ---
CLINICAL HISTORY: abd pain, low suspicion Free air perforation 1 view chest x-ray Comparison: None Findings: No consolidation or effusion. Heart size is normal. No acute fracture. IMPRESSION: 1. No acute findings. This document has been electronically signed by: Willy Shen MD on 01/12/2025 20:11:42
--- NOTE | ~2025-01-12 | XR_ITS ---
CLINICAL HISTORY: abd pain, disention, low suspicion SBO 1 view abdomen Comparison: CT/SR - CT ABDOMEN PELVIS WO IV CON - 11/05/24 19:08 EST Findings: Stool throughout the left hemicolon. Nonobstructive bowel gas pattern. No pneumoperitoneum or pneumatosis. No abnormal calcifications. No acute fractures. IMPRESSION: Stool throughout the left hemicolon. No bowel obstruction. This document has been electronically signed by: Willy Shen MD on 01/12/2025 20:12:47
[2025-01-12 15:43] VITALS: BP 127/84; PULSE 94; RESP 16; TEMP 36.6; O2SAT 100; BMI 33.5
--- NOTE | 2025-01-12 15:45 | ED.ABDPAIN ---
HPI - Abdominal Pain General Chief Complaint: Abdominal Pain Stated Complaint: stomach pain Time Seen by Provider: 01/12/25 19:00 Source: patient Mode of arrival: ambulatory Limitations: no limitations History of Present Illness ED Provider: Dr. Radha Lee HPI narrative: Patient comes to the emergency room complaining of epigastric pain for 1 week. Patient states that she has been seen multiple times by the heater helper forge, patient known to have gastritis. Patient taking esomeprazole. Patient states that she still having abdominal pain with eating, describes the pain as burning sensation. Denies any hematemesis or hematochezia. Denies weight loss. Also, patient complaining of abdominal bloating which is chronic for the patient. Related Data Home Medications ?Medication ?Instructions ?Recorded ?Confirmed amlodipine 10 mg tablet 10 mg PO QAM 09/27/24 12/25/24 duloxetine 30 mg capsule,delayed 60 mg PO QAM 09/27/24 12/25/24 release gabapentin 100 mg capsule 300 mg PO Q8H 09/27/24 12/25/24 hydrochlorothiazide 25 mg tablet 25 mg PO DAILY 09/27/24 12/25/24 losartan 25 mg tablet 25 mg PO DAILY 09/27/24 12/25/24 sumatriptan succinate 25 mg tablet 25 mg PO migraine 09/27/24 12/25/24 cetirizine 10 mg tablet 10 mg PO DAILY 12/22/24 12/25/24 doxepin 100 mg capsule 100 - 200 mg PO BEDTIME PRN anxiety 12/22/24 12/25/24 ondansetron HCl 4 mg tablet 4 mg PO Q8H PRN 12/22/24 12/25/24 Previous Rx's ?Medication ?Instructions ?Recorded famotidine 20 mg tablet 20 mg PO DAILY #14 tabs 08/05/24 bisacodyl 5 mg tablet,delayed 10 mg (2 x 5 mg) PO BEDTIME #180 09/27/24 release (Dulcolax (bisacodyl)) tabs diphenhydramine HCl 50 mg tablet 50 mg PO .COMPLEX #1 tab 09/27/24 (Benadryl Allergy) esomeprazole magnesium 40 mg 40 mg PO DAILY #90 caps 09/27/24 capsule,delayed release (Nexium) dicyclomine 10 mg capsule 10 mg PO BID #60 caps 01/07/25 cholecalciferol (vitamin D3) 125 125 mcg PO DAILY #90 caps 11/04/24 mcg (5,000 unit) capsule omeprazole 40 mg capsule,delayed 40 mg PO DAILY #30 caps 11/05/24 release simethicone 125 mg capsule 125 mg PO BID-QID PRN abdominal 12/22/24 distention #120 caps tramadol 50 mg tablet 50 mg PO BID PRN pain #20 tabs 12/22/24 sucralfate 1 gram tablet (Carafate) 1 g PO BID #60 tabs 01/12/25 Allergies Allergy/AdvReac Type Severity Reaction Status Date / Time Iodinated Contrast Media Allergy Unknown UNKNOWN Verified 01/12/25 15:44 [CONTRAST, IV] morphine Allergy Palpitation Verified 01/12/25 15:44 s Review of Systems Review of Systems Constitutional : No Weight loss, No Fever, No Chills, No Night Sweats, No Fatigue, No Malaise ENT/Mouth : No Hearing loss, No Ear Pain, No Nasal Congestion, No Sinus Pain, No Hoarseness, No sore throat, No Rhinorrhea, No Swallowing Difficulty Eyes: No Eye Pain, No Swelling, No Redness, No Foreign Body, No Discharge, No Vision Changes Cardiovascular : No Chest Pain, No SOB, No Dyspnea on Exertion, No Orthopnea, No Edema, No Palpitations Respiratory : No Cough, No Sputum, No Wheezing, No Smoke Exposure, No Dyspnea Gastrointestinal : No Nausea, No Vomiting, No Diarrhea, No Constipation, complaining of epigastric pain worse with eating or drinking. Genitourinary : no irregular bleeding, No Dysuria, No Urinary Frequency, No Hematuria, No Urinary Incontinence, No Urgency, No Flank Pain, No Urinary Flow Changes, No Hesitancy Musculoskeletal : No joint pain, No Myalgias, No Joint Swelling Skin : No Skin Lesions, No rash Neuro : No Weakness, No Numbness, No Paresthesias, No Loss of Consciousness, No Dizziness, No Headache Psych : No Anxiety/Panic, No Depression, No SI/HI/AH/VH, No Social Issues, Heme/Lymph: No Bruising, No Bleeding,No Lymphadenopathy Endocrine : No Polyuria, No Polydipsia, No Temperature Intolerance PMFSH Past Medical History Medical History Anxiety Asthma Surgical History Umbilical hernia (12/01/24) Social History Social History Alcohol intake: current Alcohol intake frequency: a few times a week Patient Tobacco Use Status: Never used Tobacco Substance Use Type: Marijuana Advance Directives: No Advance Directives Information Provided: Yes Physical Exam ED Vital Signs: Vital Signs - 24 hr 01/12/25 15:43 Temperature 97.8 F Pulse Rate 94 Respiratory Rate 16 Blood Pressure 127/84 Pulse Oximetry 100 Oxygen Delivery Method Room Air BMI result Body Mass Index 33.5 Const Other: Appearance: Alert. Oriented X3. No acute distress. Eyes: Pupils equal, round and reactive to light. ENT: Pharynx normal. Neck: Normal inspection. Neck supple. No lymph nodes noted. No crepitus CVS: Normal heart rate and rhythm. Pulses normal. Normal S1 and S2 Respiratory: No respiratory distress. Breath sounds normal. No Wheezing. No rales Abdomen: Soft and nontender. No rigidity. [id number] distention, with no rebound or guarding, no peritoneal signs Skin: Skin warm and dry. Normal skin color. Normal skin turgor. Extremities: No lower extremity edema. No Lacerations. No Rash Neuro: Oriented X 3. No motor deficit. No sensory deficit. Moving all extremities. No slurred speech. CN 2 through 12 grossly intact Psych: calm, cooperative, normal affect Course Course Course Narrative: This is a Rapid Medical Exam performed in triage by Nancy Alcantara PA-C. Full HPI, ROS and PE to be performed by primary ED provider. 49-year-old female with a past medical history umbilical hernia s/p repair 12/01/24, PUD, pelvic abscess, anxiety, asthma, presenting to the ED c/o epigastric abd pain x1 week. +N. Denies vomiting, CP PE: abdomen is soft with epigastric tenderness, no rebound or guarding Plan: EKG, labs, UA Medical Decision Making Medical Decision Making [facility] Narrative: My interpretation of labs: Normal hematology, normal chemistry, normal LFTs, normal lipase My interpretation of KUB: No signs of small-bowel obstruction Chest x-ray: No free air under the diaphragm, perforation not suspected My physical exam, patient did not have significant abdominal pain, just mild discomfort. No rebound or guarding. SBO or perforation or not suspected. Patient was given a dose of p.o. viscous lidocaine and Maalox, patient did feel better Differential Diagnosis Differential Diagnoses: The differential diagnosis associated with the presentation includes (SBO, peptic ulcer perforation, gastritis, peptic ulcer disease) Lab Data MDM Lab Attestation statement: I reviewed the patient's lab results. 01/12/25 16:09 01/12/25 16:09 Labs: Lab Results 01/12/25 Range/Units 16:09 WBC 8.3 (4.8-10.8) X10*3/uL RBC 4.05 L (4.20-5.50) X10*6/uL Hgb 12.2 (12.0-16.0) g/dl Hct 35.3 L (37.0-47.0) % MCV 87.2 (80.0-98.0) fL MCH 30.1 (27.0-33.0) pg MCHC 34.6 (31.0-35.0) g/dl RDW 12.1 (11.0-16.0) % Plt Count 301 (160-400) X10*3/uL MPV 10.6 (9.4-12.3) fL Immature Gran % (Auto) 0.5 H (0.0-0.4) % Neut % (Auto) 72.6 (45-73) % Lymph % (Auto) 15.3 L (20-40) % [place] % (Auto) 9.0 (2-11) % Eos % (Auto) 2.0 (0-4) % Baso % (Auto) 0.6 (0-2) % Lymph # (Auto) 1.3 (1.2-4.9) X10*3/uL [place] # (Auto) 0.8 (0.1-1.2) X10*3/uL Eos # (Auto) 0.2 (0.0-0.4) X10*3/uL Baso # (Auto) 0.1 (0.0-0.2) X10*3/uL Abs Immat Gran (auto) 0.04 H (0.00-0.03) X10*3/uL Absolute Neuts (auto) 6.0 (2.0-8.3) x10*3/uL Absolute Nucleated RBC 0.000 (0.0-0.012) X10*3/uL Nucleated RBC % (auto) 0.0 (0.0-0.2) /100WBC Sodium 141 (135-145) mmol/L Potassium 3.4 (3.3-5.1) mmol/L Chloride 103 (96-108) mmol/L Carbon Dioxide 29 (22-29) mmol/L Anion Gap 12 (12-20) BUN 16 (9-16) mg/dL Creatinine 0.80 (0.5-1.4) mg/dL Estim Creat Clear Calc 90.2 Estimated GFR > 60 Random Glucose 85 (60-115) mg/dL Calcium 9.4 (8.4-10.2) mg/dL Magnesium 2.0 (1.6-2.6) mg/dL Total Bilirubin 0.2 (0.0-1.0) mg/dL Direct Bilirubin < 0.2 (0.0-0.5) mg/dL AST 22 (5-31) U/L ALT 17 (0-31) U/L Alkaline Phosphatase 79 (39-117) U/L Total Protein 7.3 (6.5-8.0) g/dL Albumin 4.4 (3.5-5.0) g/dL Lipase 20 (8-78) U/L Independent Interpretation I performed an independent interpretation of an: Plain X-Ray Critical Care Time Critical Care Time Critical Care Time: Yes Total Critical Care Time: 35 Attestation: I have personally provided critical care time. Time includes review of lab data, radiology results, discussion with consultants, and monitoring for potential decompensation. Intervention performed as documented. Discharge Plan Discharge Clinical Impression: Peptic ulcer disease Patient Disposition: Home, Self-Care Instructions: Peptic Ulcer (ED), Diet for Stomach Ulcers and Gastritis (ED) Additional Instructions: Please follow-up with your primary care physician tomorrow. If you have any worsening or new symptoms, please return to the emergency room or call 911 Prescriptions: New sucralfate [Carafate] 1 gram tablet 1 g PO BID Qty: 60 0RF No Action cholecalciferol (vitamin D3) 125 mcg (5,000 unit) capsule 125 mcg PO DAILY Qty: 90 3RF famotidine 20 mg tablet 20 mg PO DAILY Qty: 14 0RF omeprazole 40 mg capsule,delayed release(DR/EC) 40 mg PO DAILY Qty: 30 1RF hydrochlorothiazide 25 mg tablet 25 mg PO DAILY losartan 25 mg tablet 25 mg PO DAILY gabapentin 100 mg capsule 300 mg PO Q8H sumatriptan succinate 25 mg tablet 25 mg PO duloxetine 30 mg capsule,delayed release(DR/EC) 60 mg PO QAM amlodipine 10 mg tablet 10 mg PO QAM bisacodyl [Dulcolax (bisacodyl)] 5 mg tablet,delayed release (DR/EC) 10 mg PO BEDTIME Qty: 180 4RF esomeprazole magnesium [Nexium] 40 mg capsule,delayed release(DR/EC) 40 mg PO DAILY Qty: 90 5RF Benadryl Allergy 50 mg tablet 50 mg PO .COMPLEX Qty: 1 0RF Rx Instructions: 50 mg orally [address] scan; please make sure that you have a right to take you home after the CT scan as Benadryl will make you drowsy dicyclomine 10 mg capsule 10 mg PO BID Qty: 60 1RF doxepin 100 mg capsule 100 - 200 mg PO BEDTIME PRN (Reason: anxiety) ondansetron HCl 4 mg tablet 4 mg PO Q8H PRN cetirizine 10 mg tablet 10 mg PO DAILY tramadol 50 mg tablet 50 mg PO BID PRN (Reason: pain) Qty: 20 0RF simethicone 125 mg capsule 125 mg PO BID-QID PRN (Reason: abdominal distention) Qty: 120 3RF Referrals: Danielle Forman, NEURODIAGNOSTIC TECHNICIAN-BC [Nurse Practitioner] - 1 week Print Language: Com[place]an
--- NOTE | 2025-01-12 15:47 | ECG_ITS ---
Test Reason : EPIGASTRIC ABD PAIN Blood Pressure : */* mmHG Vent. Rate : 83 BPM Atrial Rate : 83 BPM P-R Int : 160 ms QRS Dur : 86 ms QT Int : 404 ms P-R-T Axes : 26 64 36 degrees QTcB Int : 474 ms Normal sinus rhythm Possible Left atrial enlargement Nonspecific ST abnormality Abnormal ECG When compared with ECG of 28-Mar-2023 11:12, No significant change was found Referred By: Nancy Alcantara Electronically Signed By: Deni Gonzalez
[2025-01-12 16:14] LABS: MANUAL DIFF FLAG NO
[2025-01-12 16:18] LABS: Basophils Absolute Auto 0.1 X10*3/uL (0.0-0.2); Basophils Percent Auto 0.6 % (0-2); Eosinophils Absolute Auto 0.2 X10*3/uL (0.0-0.4); Hematocrit 35.3 % (37.0-47.0); Hemoglobin 12.2 g/dl (12.0-16.0); Imm Gran Abs Auto 0.04 X10*3/uL (0.00-0.03); Imm Gran Pct Auto 0.5 % (0.0-0.4); Lymphocytes Absolute Auto 1.3 X10*3/uL (1.2-4.9); Lymphocytes Percent Auto 15.3 % (20-40); Mean Corpuscular HGB Conc 34.6 g/dl (31.0-35.0); Mean Corpuscular Hemoglobin 30.1 pg (27.0-33.0); Mean Corpuscular Volume 87.2 fL (80.0-98.0); Mean Platelet Volume 10.6 fL (9.4-12.3); Monocytes Absolute Auto 0.8 X10*3/uL (0.1-1.2); Neutrophils Percent Auto 72.6 % (45-73); Platelet Count 301 X10*3/uL (160-400); Red Blood Count 4.05 X10*6/uL (4.20-5.50); Red Cell Distribution Width 12.1 % (11.0-16.0); White Blood Count 8.3 X10*3/uL (4.8-10.8)
[2025-01-12 16:48] LABS: Alanine Aminotransferase 17 U/L (0-31); Albumin Level 4.4 g/dL (3.5-5.0); Alkaline Phosphatase 79 U/L (39-117); Anion Gap 12 (12-20); Aspartate Amino Transferase 22 U/L (5-31); Bilirubin Direct < 0.2 mg/dL (0.0-0.5); Bilirubin Total 0.2 mg/dL (0.0-1.0); Blood Urea Nitrogen 16 mg/dL (9-16); Calcium 9.4 mg/dL (8.4-10.2); Carbon Dioxide 29 mmol/L (22-29); Chloride 103 mmol/L (96-108); Creatinine Clr Calc Pharmacy 90.2; Estimated Glomerular Filt Rate > 60; Glucose Random 85 mg/dL (60-115); Lipase 20 U/L (8-78); Potassium 3.4 mmol/L (3.3-5.1); Sodium 141 mmol/L (135-145); Total Protein 7.3 g/dL (6.5-8.0)
[2025-01-12 20:19] VITALS: BP 140/83; PULSE 84; RESP 18; TEMP 36.4; O2SAT 97
[2025-01-12] MEDS: Magnesium Hydrox/Alum Hydrox 30 ML ORAL.SUSP PO (20:39)
[2025-01-12] MEDS: Lidocaine HCl Viscous 2 % 15 ML SOLUTION MUCOUS MEM (20:39)
[2025-01-12 20:47] VITALS: BP 140/83; PULSE 84; RESP 18; TEMP 36.4; O2SAT 97
== END 2025-01-12 20:48 | disposition home or self-care (01) ==
PROVIDERS: Physician Assistant; Emergency Provider Emergency Medicine
DX: K27.9 Peptic ulcer, site unspecified, unspecified as acute or chronic, without hemorrhage or perforation (principal); R10.816 Epigastric abdominal tenderness; R10.13 Epigastric pain; R10.9 Unspecified abdominal pain; R11.0 Nausea; Z79.899 Other long term (current) drug therapy
CPT/HCPCS: 36415; 71045; 74018; 80048; 80076; 83690; 83735; 85025; 93005; 99284

== ENCOUNTER → 2025-01-12 15:47 | Outpatient (BNV) | payer MEDICAID, SELFPAY | PROVIDERS: Emergency Provider Emergency Medicine; Visit Provider Internal Medicine Cardiovascular Disease | DX: R94.31 Abnormal electrocardiogram [ECG] [EKG] (principal); R10.13 Epigastric pain | CPT/HCPCS: 93010 ==

== ENCOUNTER → 2025-01-12 19:08 | Outpatient (BNV) | payer MEDICAID, SELFPAY | PROVIDERS: Emergency Provider Emergency Medicine; Visit Provider Radiology Diagnostic Radiology | DX: R19.5 Other fecal abnormalities (principal); R10.9 Unspecified abdominal pain | CPT/HCPCS: 71045; 74018 ==

== ENCOUNTER 2025-02-07 09:53 | Emergency (ER) | payer MEDICAID, SELFPAY ==
--- NOTE | ~2025-02-07 | CT_ITS ---
EXAMINATION: CT ABDOMEN PELVIS WITHOUT IV CONTRAST HISTORY: mass of abdomen, vomiting, hx of hernia repair - COMPARISON: Comparison is made with the prior examination dated 11/05/2024. TECHNIQUE: CT scan of the abdomen and pelvis was performed without contrast using standard departmental protocol. Coronal and sagittal reformatted images were generated and reviewed. The patient received oral contrast material. This CT exam was performed with one or more of the following dose reduction techniques: automated exposure control, adjustment of the mA and/or kV according to patient size, use of iterative reconstruction technique. DLP: 535 mGy-cm FINDINGS: LOWER CHEST: The visualized lung bases are clear. There is no pleural effusion. CARDIOVASCULATURE: The heart is normal in size. There is no pericardial effusion. LIVER: The liver is normal in size and contour. The liver demonstrates decreased attenuation steatosis. GALLBLADDER / BILE DUCTS: The gallbladder is unremarkable. There is no intra or extrahepatic biliary ductal dilatation. SPLEEN: The spleen is normal in size and has an unremarkable unenhanced appearance. PANCREAS: The pancreas has an unremarkable unenhanced appearance. ADRENAL GLANDS: Unremarkable. KIDNEYS/RETROPERITONEUM: There is a punctate nonobstructing calculus at the lower pole of the right kidney.. There is no hydronephrosis. LYMPH NODES: No retroperitoneal lymphadenopathy is identified in the abdomen or pelvis. VASCULATURE: The abdominal aorta is normal in caliber. MESENTERY/PERITONEUM: No free fluid. No masses. There is no free intraperitoneal gas. STOMACH: The stomach is collapsed, limiting evaluation. SMALL BOWEL: The small bowel is normal in caliber. COLON: There is a large amount of stool throughout the colon. APPENDIX: Normal. URINARY BLADDER/PELVIC ORGANS: The urinary bladder is collapsed, limiting evaluation. The uterus and ovaries are unremarkable. There are multiple ovarian follicles. BONES / SOFT TISSUES: The patient is status post umbilical hernia repair. No recurrent hernia is seen. The bones are intact. CT/CT abdomen pelvis wo IV con IMPRESSION: 1. Hepatic steatosis. 2. Large amount of stool throughout the colon. 3. Punctate nonobstructing right lower pole renal calculus. 4. Status post umbilical hernia repair. No recurrent hernia is seen. Electronically signed by: Rafa Cooper MD 02/07/2025 01:22 PM EDT RP
[2025-02-07 10:02] VITALS: BP 144/86; PULSE 82; RESP 16; TEMP 36.9; O2SAT 100; BMI 31.9
[2025-02-07 10:37] LABS: MANUAL DIFF FLAG NO
--- NOTE | 2025-02-07 10:43 | ED.ABDPAIN ---
HPI - Abdominal Pain General Chief Complaint: Abdominal Pain Stated Complaint: H/O Chronic Abd Pain- Discomfort, Bloating Time Seen by Provider: 02/07/25 10:30 Source: patient, old records reviewed and certified court/medical interpreter Mode of arrival: ambulatory Limitations: no limitations History of Present Illness ED Provider: TRENTON MARRERO narrative: 49 yo female with PMH of hernia repair, HTN, pelvic abscess, GERD here with c/o abdominal pain that she has been experiencing for the last 7 monhts, follows GI. She explains the past week the pain has increased and she is now experiencing lack of appetite. She states she has had a recent hernia repair with Dr. Campoverde (12/01/24) and follows GI. Most recent CT scan done in october showed no acute processes. She states she has been passing flatus and has been having normal bowel movements. Denies fever, nausea, vomiting, diarrhea, black or bloody stool. MD elicited complaint: abdominal pain Onset (ago): week(s) (1 week) Pain Consistency: constant Location: periumbilical Severity: moderate Quality: aching Radiation: none Migration to: no migration Exacerbating factors: movement (sitting up) Relieving factors: nothing Associated symptoms: denies other symptoms Related Data Home Medications ?Medication ?Instructions ?Recorded ?Confirmed amlodipine 10 mg tablet 10 mg PO QAM 09/27/24 12/25/24 duloxetine 30 mg capsule,delayed 60 mg PO QAM 09/27/24 12/25/24 release gabapentin 100 mg capsule 300 mg PO Q8H 09/27/24 12/25/24 hydrochlorothiazide 25 mg tablet 25 mg PO DAILY 09/27/24 12/25/24 losartan 25 mg tablet 25 mg PO DAILY 09/27/24 12/25/24 sumatriptan succinate 25 mg tablet 25 mg PO migraine 09/27/24 12/25/24 cetirizine 10 mg tablet 10 mg PO DAILY 12/22/24 12/25/24 doxepin 100 mg capsule 100 - 200 mg PO BEDTIME PRN anxiety 12/22/24 12/25/24 ondansetron HCl 4 mg tablet 4 mg PO Q8H PRN 12/22/24 12/25/24 Previous Rx's ?Medication ?Instructions ?Recorded famotidine 20 mg tablet 20 mg PO DAILY #14 tabs 08/05/24 bisacodyl 5 mg tablet,delayed 10 mg (2 x 5 mg) PO BEDTIME #180 09/27/24 release (Dulcolax (bisacodyl)) tabs diphenhydramine HCl 50 mg tablet 50 mg PO .COMPLEX #1 tab 09/27/24 (Benadryl Allergy) esomeprazole magnesium 40 mg 40 mg PO DAILY #90 caps 09/27/24 capsule,delayed release (Nexium) dicyclomine 10 mg capsule 10 mg PO BID #60 caps 10/31/24 cholecalciferol (vitamin D3) 125 125 mcg PO DAILY #90 caps 11/04/24 mcg (5,000 unit) capsule omeprazole 40 mg capsule,delayed 40 mg PO DAILY #30 caps 11/05/24 release simethicone 125 mg capsule 125 mg PO BID-QID PRN abdominal 12/22/24 distention #120 caps tramadol 50 mg tablet 50 mg PO BID PRN pain #20 tabs 12/22/24 sucralfate 1 gram tablet (Carafate) 1 g PO BID #60 tabs 01/12/25 lactulose 10 gram/15 mL oral 20 g (30 mL) PO BID PRN 02/07/25 solution constipation #1,200 mL sennosides 8.6 mg capsule (senna) 8.6 mg PO BEDTIME PRN constipation 02/07/25 #30 caps Allergies Allergy/AdvReac Type Severity Reaction Status Date / Time Iodinated Contrast Media Allergy Unknown UNKNOWN Verified 02/07/25 10:08 [CONTRAST, IV] morphine Allergy Palpitation Verified 02/07/25 10:08 s Review of Systems Review of Systems Constitutional : No Weight loss, No Fever, No Chills ENT/Mouth : No sore throat, No Rhinorrhea Eyes: No Swelling, No Redness Cardiovascular : No Chest Pain, No SOB, NoEdema Respiratory : No Cough, No Sputum, No Wheezing Gastrointestinal : No Nausea, No Vomiting, no Diarrhea, positive abdominal Pain, No Hematochezia, No Melena, no constipation Genitourinary : No Dysuria, No Urinary Frequency, No Hematuria, No Urgency Musculoskeletal : No joint pain, No Myalgias, No Joint Swelling Skin : No Skin Lesions, No rash Neuro : No Weakness, No Numbness, No Dizziness, No Headache Psych : No Anxiety/Panic, No Depression Heme/Lymph: No Bruising, No Lymphadenopathy Endocrine : No Polyuria, No Polydipsia All other systems reviewed and are negative. [facility] Past Medical History Attestation statement: The following information was validated with the patient. Source: old records reviewed Medical History Anxiety Asthma Surgical History Umbilical hernia (12/01/24) Social History Social History Alcohol intake: current Alcohol intake frequency: a few times a week Patient Tobacco Use Status: Never used Tobacco Substance Use Type: Marijuana Advance Directives: No Advance Directives Information Provided: Yes Physical Exam ED Vital Signs: Vital Signs - 24 hr 02/07/25 10:02 Temperature 98.5 F Pulse Rate 82 Respiratory Rate 16 Blood Pressure 144/86 H Pulse Oximetry 100 Oxygen Delivery Method Room Air BMI result Body Mass Index 31.9 Appearance: Alert. Oriented X3. No acute distress. Eyes: Pupils equal, round and reactive to light. ENT: Pharynx normal. Neck: Normal inspection. Neck supple. CVS: Normal heart rate and rhythm. Pulses normal. Respiratory: No respiratory distress. Breath sounds normal. Abdomen: Soft with firm area above the umbilicus which is worse sitting up ?diastasis but she is very tender and it does not go away with gentle palpation Skin: Skin warm and dry. Normal skin color. Normal skin turgor. Extremities: No lower extremity edema. No calf ttp Neuro: Oriented X 3. No motor deficit. No sensory deficit. CN2-12 intact Medical Decision Making Medical Decision Making MDM Narrative: 49 yo female with PMH of hernia repair, HTN, pelvic abscess, GERD here with c/o abdominal pain that she has been experiencing for the last 7 monhts, follows GI. She explains the past week the pain has increased and she is now experiencing lack of appetite. She states she has had a recent hernia repair with Dr. Campoverde (12/01/24) and follows GI. Most recent CT scan done in october showed no acute processes. She states she has been passing flatus and has been having normal bowel movements. Denies fever, nausea, vomiting, diarrhea, black or bloody stool. Will obtain CT abdomen with contrast to evaluate for hernia, obstruction, ileus, Differential Diagnosis Differential Diagnoses: The differential diagnosis associated with the presentation includes hernia, obstruction, ileus, Admission/Observation Consideration of admission/observation: Escalation of care including admission/observation considered no SBO and no obstruction will start on senna and lactulose and DC home Lab Data MDM Lab Attestation statement: I reviewed the patient's lab results. 02/07/25 10:25 02/07/25 10:25 Labs: Lab Results 02/07/25 02/07/25 02/07/25 Range/Units 10:25 12:07 12:08 WBC 7.3 (4.8-10.8) X10*3/uL RBC 4.43 (4.20-5.50) X10*6/uL Hgb 13.1 (12.0-16.0) g/dl Hct 38.2 (37.0-47.0) % MCV 86.2 (80.0-98.0) fL MCH 29.6 (27.0-33.0) pg MCHC 34.3 (31.0-35.0) g/dl RDW 12.3 (11.0-16.0) % Plt Count 313 (160-400) X10*3/uL MPV 10.8 (9.4-12.3) fL Immature Gran % (Auto) 0.4 (0.0-0.4) % Neut % (Auto) 63.6 (45-73) % Lymph % (Auto) 25.1 (20-40) % [place] % (Auto) 8.0 (2-11) % Eos % (Auto) 2.1 (0-4) % Baso % (Auto) 0.8 (0-2) % Lymph # (Auto) 1.8 (1.2-4.9) X10*3/uL [place] # (Auto) 0.6 (0.1-1.2) X10*3/uL Eos # (Auto) 0.2 (0.0-0.4) X10*3/uL Baso # (Auto) 0.1 (0.0-0.2) X10*3/uL Abs Immat Gran (auto) 0.03 (0.00-0.03) X10*3/uL Absolute Neuts (auto) 4.6 (2.0-8.3) x10*3/uL Absolute Nucleated RBC 0.000 (0.0-0.012) X10*3/uL Nucleated RBC % (auto) 0.0 (0.0-0.2) /100WBC Sodium 141 (135-145) mmol/L Potassium 3.7 (3.3-5.1) mmol/L Chloride 107 (96-108) mmol/L Carbon Dioxide 25 (22-29) mmol/L Anion Gap 13 (12-20) BUN 14 (9-16) mg/dL Creatinine 0.71 (0.5-1.4) mg/dL Estim Creat Clear Calc 99.2 Estimated GFR > 60 Random Glucose 111 (60-115) mg/dL Calcium 9.1 (8.4-10.2) mg/dL Total Bilirubin 0.3 (0.0-1.0) mg/dL Direct Bilirubin 0.1 (0.0-0.5) mg/dL AST 16 (5-31) U/L ALT 21 (0-31) U/L Alkaline Phosphatase 78 (39-117) U/L Total Protein 7.3 (6.5-8.0) g/dL Albumin 4.8 (3.5-5.0) g/dL Lipase 21 (8-78) U/L Urine Color Yellow Urine Appearance Cloudy Urine pH 6.5 (5.0-9.0) Ur Specific [place] >= 1.030 H (1.005-1.025) Urine Protein Trace (Neg-Trace) mg/dL Urine Glucose (UA) Negative (Negative) mg/dL Urine Ketones Trace (Negative) mg/dL Urine Blood Trace H (Negative) Urine Nitrite Negative (Negative) Ur Leukocyte Esterase Trace H (Negative) Urine RBC 0-2 (0-2) /HPF Urine WBC 6-10 H (0-5) /HPF Ur Squamous Epith Cells 11-20 (0-2) /HPF Urine Bacteria 4+ (None Seen) Hyaline Casts 0-2 (0-2) /LPF Urine Test NEGATIVE (NEGATIVE) Independent Interpretation I performed an independent interpretation of an: CT Scan (constipation) Radiology Impression Discussion of test interpretation with radiology: I have reviewed the radiologist's reading. External Record Review External record reviewed: Outpatient record Prescription Management I considered prescription management with: Other Medications Administered Discontinued Medications Generic Name Dose Route Start Last Admin Trade Name Freq PRN Reason Stop Dose Admin Diatrizoate Meglum/Diatrizoate Sod 30 ml 02/07/25 12:59 02/07/25 13:00 Diatrizoate Meglumine, Sodium 30 Ml Solution PO 02/07/25 13:00 30 ml ONCE ONE Administration Discharge Plan Discharge Clinical Impression: Constipation Qualifiers: Constipation type: unspecified constipation type Qualified Code(s): K59.00 - Constipation, unspecified Patient Disposition: Home, Self-Care Instructions: Constipation (ED) Additional Instructions: labs reassuring CT scan no mass no hernia there is a LARGE amount of stool in colon you need to be on medicine to help you have a bowel movement please return for any worsening symptoms or concerns follow up with you doctor Prescriptions: New senna 8.6 mg capsule 8.6 mg PO BEDTIME PRN (Reason: constipation) Qty: 30 0RF lactulose 10 gram/15 mL solution 20 g PO BID PRN (Reason: constipation) Qty: 1200 0RF No Action cholecalciferol (vitamin D3) 125 mcg (5,000 unit) capsule 125 mcg PO DAILY Qty: 90 3RF famotidine 20 mg tablet 20 mg PO DAILY Qty: 14 0RF sucralfate [Carafate] 1 gram tablet 1 g PO BID Qty: 60 0RF omeprazole 40 mg capsule,delayed release(DR/EC) 40 mg PO DAILY Qty: 30 1RF hydrochlorothiazide 25 mg tablet 25 mg PO DAILY losartan 25 mg tablet 25 mg PO DAILY gabapentin 100 mg capsule 300 mg PO Q8H sumatriptan succinate 25 mg tablet 25 mg PO duloxetine 30 mg capsule,delayed release(DR/EC) 60 mg PO QAM amlodipine 10 mg tablet 10 mg PO QAM bisacodyl [Dulcolax (bisacodyl)] 5 mg tablet,delayed release (DR/EC) 10 mg PO BEDTIME Qty: 180 4RF esomeprazole magnesium [Nexium] 40 mg capsule,delayed release(DR/EC) 40 mg PO DAILY Qty: 90 5RF Benadryl Allergy 50 mg tablet 50 mg PO .COMPLEX Qty: 1 0RF Rx Instructions: 50 mg orally [address] scan; please make sure that you have a right to take you home after the CT scan as Benadryl will make you drowsy dicyclomine 10 mg capsule 10 mg PO BID Qty: 60 1RF doxepin 100 mg capsule 100 - 200 mg PO BEDTIME PRN (Reason: anxiety) ondansetron HCl 4 mg tablet 4 mg PO Q8H PRN cetirizine 10 mg tablet 10 mg PO DAILY tramadol 50 mg tablet 50 mg PO BID PRN (Reason: pain) Qty: 20 0RF simethicone 125 mg capsule 125 mg PO BID-QID PRN (Reason: abdominal distention) Qty: 120 3RF Print Language: German
[2025-02-07 10:45] LABS: Basophils Absolute Auto 0.1 X10*3/uL (0.0-0.2); Basophils Percent Auto 0.8 % (0-2); Eosinophils Absolute Auto 0.2 X10*3/uL (0.0-0.4); Eosinophils Percent Auto 2.1 % (0-4); Hematocrit 38.2 % (37.0-47.0); Hemoglobin 13.1 g/dl (12.0-16.0); Imm Gran Abs Auto 0.03 X10*3/uL (0.00-0.03); Imm Gran Pct Auto 0.4 % (0.0-0.4); Lymphocytes Absolute Auto 1.8 X10*3/uL (1.2-4.9); Lymphocytes Percent Auto 25.1 % (20-40); Mean Corpuscular HGB Conc 34.3 g/dl (31.0-35.0); Mean Corpuscular Hemoglobin 29.6 pg (27.0-33.0); Mean Corpuscular Volume 86.2 fL (80.0-98.0); Mean Platelet Volume 10.8 fL (9.4-12.3); Monocytes Absolute Auto 0.6 X10*3/uL (0.1-1.2); Neutrophils Absolute Auto 4.6 x10*3/uL (2.0-8.3); Neutrophils Percent Auto 63.6 % (45-73); Platelet Count 313 X10*3/uL (160-400); Red Blood Count 4.43 X10*6/uL (4.20-5.50); Red Cell Distribution Width 12.3 % (11.0-16.0); White Blood Count 7.3 X10*3/uL (4.8-10.8)
[2025-02-07 10:57] LABS: Alanine Aminotransferase 21 U/L (0-31); Albumin Level 4.8 g/dL (3.5-5.0); Alkaline Phosphatase 78 U/L (39-117); Anion Gap 13 (12-20); Aspartate Amino Transferase 16 U/L (5-31); Bilirubin Direct 0.1 mg/dL (0.0-0.5); Bilirubin Total 0.3 mg/dL (0.0-1.0); Blood Urea Nitrogen 14 mg/dL (9-16); Calcium 9.1 mg/dL (8.4-10.2); Carbon Dioxide 25 mmol/L (22-29); Chloride 107 mmol/L (96-108); Creatinine Clr Calc Pharmacy 99.2; Estimated Glomerular Filt Rate > 60; Glucose Random 111 mg/dL (60-115); Lipase 21 U/L (8-78); Potassium 3.7 mmol/L (3.3-5.1); Sodium 141 mmol/L (135-145); Total Protein 7.3 g/dL (6.5-8.0)
--- OUTSIDE RECORDS SUMMARY | 2025-02-07 12:08 | XMS_ITS | Encounter Summary ---
Author Organization [employer] Address [address] [facility] [address] [place] [address] Care Team Providers Care Funds Transfer Clerk Name Role Phone Renu Hadley MD Primary Care Provider + Reason for Visit * Reason Onset Date Comments Durable Medical Equipment 12/30/2022 Encounter Details Date Type Department Care Team (Late st Contact Info) Description 12/30/2022 Telephone [facility] MED[facility]INE [address] [place], [place] [phone] Name, MD Richy [address] [place] [address] Durable Medical Equipment Social History Tobacco Use [...] to be order. Please contact pt at [phone] documented in this encounter Plan of Treatment Upcoming Encounters Date Type Department Care Team (Late st Contact Info) Description 04/19/2025 11:45 AM EDT Office Visit [facility] [address] [place] [address] Renu Hadley MD [address] [place] [address] documented as of this encounter Visit Diagnoses Not on filedocumented in this encounter Care Teams Funds Transfer Clerk Relationship Specialty Start Date End Date Renu Hadley MD [address] [place] [id number] PCP - General Internal Medicine 07/04/24 documented as of this encounter
--- OUTSIDE RECORDS SUMMARY | 2025-02-07 12:08 | XMS_ITS | Encounter Summary ---
Author Organization [facility] Address [address] [facility] [address] [place] [address] Care Team Providers Care Arcade Technician Name Role Phone Renu Hadley MD Primary Care Provider + Reason for Visit * Reason Comments Med Refill Encounter Details Date Type Department Care Team (Late st Contact Info) Description 04/07/2023 Refill [facility] MED[facility]INE [address] [place] [address] Lisa Cifuentes FNP [address] [place], [place] [phone] Anxiety disorder, unspecified Social History Tobacco Use [...] Description 04/19/2025 11:45 AM EDT Office Visit [facility] [address] [place] [address] Renu Hadley MD [address] [place], [place] [phone] documented as of this encounter Visit Diagnoses Diagnosis Anxiety disorder, unspecified documented in this encounter Additional Health Concerns Assessment Noted Time PHQ-9 Depression Total Score: 12 023 1:33 PM EDT documented as of this encounter Care Teams Arcade Technician Relationship Specialty Start Date End Date Renu Hadley MD [address] [place] [phone] PCP - General Internal Medicine 07/04/24 documented as of this encounter
--- OUTSIDE RECORDS SUMMARY | 2025-02-07 12:08 | XMS_ITS | Encounter Summary ---
Author Organization [employer] [facility] Address [address] [place] [address] 7 [place] [address] Care Team Providers Care Toll Line Mechanic Name Role Phone Renu Hadley MD Primary Care Provider + Reason for Visit * Reason Comments Med Refill Encounter Details Date Type Department Care Team (Late st Contact Info) Description 02/12/2023 Refill [facility] MEDICINE [address] [place] [phone] Name, MD Richy [address] [place] [phone] Heartburn Social History Tobacco Use Types Packs/Day [...] Description 04/19/2025 11:45 AM EDT Office Visit [facility] MED[facility]INE [address] [place] [phone] Renu Hadley MD [address] [place] [phone] documented as of this encounter Visit Diagnoses Diagnosis Heartburn documented in this encounter Care Teams Toll Line Mechanic Relationship Specialty Start Date End Date Renu Hadley MD [address] [place] [phone] PCP - General Internal Medicine 07/04/24 documented as of this encounter
--- OUTSIDE RECORDS SUMMARY | 2025-02-07 12:08 | XMS_ITS | Encounter Summary ---
Author Organization [employer] [facility] Address [address] [facility] [address] [place] [address] Care Team Providers Care Sorting And Folding Supervisor Name Role Phone Renu Hadley MD Primary Care Provider + Reason for Visit * Reason Comments Med Refill Encounter Details Date Type Department Care Team (Late st Contact Info) Description 04/09/2023 Refill [facility] MED[facility]INE [address] [place] [address] Lisa Cifuentes FNP [address] [place], [place] [phone] Anxiety disorder, unspecified Social History Tobacco Use [...] Description 04/19/2025 11:45 AM EDT Office Visit [facility] [address] [place] [address] Renu Hadley MD [address] [place], [place] [phone] documented as of this encounter Visit Diagnoses Diagnosis Anxiety disorder, unspecified documented in this encounter Additional Health Concerns Assessment Noted Time PHQ-9 Depression Total Score: 12 023 1:33 PM EDT documented as of this encounter Care Teams Sorting And Folding Supervisor Relationship Specialty Start Date End Date Renu Hadley MD [address] [place] [phone] PCP - General Internal Medicine 07/04/24 documented as of this encounter
--- OUTSIDE RECORDS SUMMARY | 2025-02-07 12:08 | XMS_ITS | Encounter Summary ---
Author Organization [employer] Address [address] [facility] [address] [place] [address] Care Team Providers Care Public Health Director Name Role Phone Renu Hadley MD Primary Care Provider + Reason for Visit * Reason Onset Date Comments triage 02/01/2023 Encounter Details Date Type Department Care Team ([facility] st Contact Info) Description 02/01/2023 Telephone [facility] MEDICINE [address] [place] [address] Name, MD Richy [address] [place] [address] triage Social History Tobacco Use Types Packs/Day [...] No answer LVM to return call to [facility] triage line. * Telephone Encounter - [...] Description 04/19/2025 11:45 AM EDT Office Visit [facility] MED[facility]INE [address] [place], [place] [phone] Renu Hadley MD [address] [place], [place] [phone] documented as of this encounter Visit Diagnoses Not on filedocumented in this encounter Care Teams Public Health Director Relationship Specialty Start Date End Date Renu Hadley MD [address] [place] [address] PCP - General Internal Medicine 07/04/24 documented as of this encounter
--- OUTSIDE RECORDS SUMMARY | 2025-02-07 12:08 | XMS_ITS | Encounter Summary ---
Author Organization [employer] [facility] Address [address] [place] [address] [address] [place] [address] Care Team Providers Care Design Maintenance Engineer Name Role Phone Renu Hadley MD Primary Care Provider + Reason for Visit * Reason Comments Med Refill Encounter Details Date Type Department Care Team (Late st Contact Info) Description 06/10/2023 Refill [facility] MED[facility] [address] [place] [address] [phone] Name, MD Richy [address] [place] [address] [phone] Anxiety disorder, unspecified Social History Tobacco Use [...] Description 04/19/2025 11:45 AM EDT Office Visit [facility] [address] [place] [address] [phone] Renu Hadley MD [address] [place] [address] [phone] documented as of this encounter Visit Diagnoses Diagnosis Anxiety disorder, unspecified documented in this encounter Additional Health Concerns Assessment Noted Time PHQ-9 Depression Total Score: 12 023 1:33 PM EDT documented as of this encounter Care Teams Design Maintenance Engineer Relationship Specialty Start Date End Date Renu Hadley MD [address] [place] [phone] PCP - General Internal Medicine 07/04/24 documented as of this encounter
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
--- OUTSIDE RECORDS SUMMARY | 2025-02-07 12:08 | XMS_ITS | Encounter Summary ---
Author Organization [facility] Address [address] [facility] 7t [place] [address] Care Team Providers Care Vp Director Of Finance Name Role Phone Renu Hadley MD Primary Care Provider + Encounter Details Date Type Department Care Team (Latest Contact Info) Description 12/20/2019 Abstract [facility] CONVERSIONS Dental, Provider, DDS Social History [...] 04/19/2025 11:45 AM EDT Office Visit [facility] MEDICINE [address] [place] [address] Renu Hadley MD [address] [place] [address] documented as of this encounter Visit Diagnoses Not on filedocumented in this encounter Care Teams Vp Director Of Finance Relationship Specialty Start Date End Date Renu Hadley MD [address] [place], [place] [phone] PCP - General Internal Medicine 07/04/24 documented as of this encounter
--- OUTSIDE RECORDS SUMMARY | 2025-02-07 12:08 | XMS_ITS | Encounter Summary ---
Author Organization [employer] Address [address] [facility] 7t [place] [address] Care Team Providers Care Gas Line Installer Name Role Phone Renu Hadley MD Primary Care Provider + Encounter Details Date Type Department Care Team (Late st Contact Info) Description 02/15/2023 Orders Only [facility] CHC MED & PEDS [address] [place] [address] Kanika Monson LPN Social History Tobacco Use [...] Description 04/19/2025 11:45 AM EDT Office Visit [facility] MEDICINE [address] [place] [address] Renu Hadley MD [address] [place] [address] documented as of this encounter Visit Diagnoses Not on filedocumented in this encounter Care Teams Gas Line Installer Relationship Specialty Start Date End Date Renu Hadley MD [address] [place] [address] PCP - General Internal Medicine 07/04/24 documented as of this encounter
--- OUTSIDE RECORDS SUMMARY | 2025-02-07 12:08 | XMS_ITS | Encounter Summary ---
Author Organization [employer] Address [address] [facility] 7t [place] [address] Care Team Providers Care Management Retail Intern Name Role Phone Renu Hadley MD Primary Care Provider + Reason for Visit * Reason Comments Med Refill Encounter Details Date Type Department Care Team (Late st Contact Info) Description 02/07/2025 Refill [facility] CHC MED & PEDS [address] [place], [place] [phone] Renu Hadley MD [address] [facility] [place], [place] [phone] Chronic abdominal pain Social History Tobacco Use Types Packs/Day Years [...] Description 04/19/2025 11:45 AM EDT Office Visit [facility] MEDICINE [address] [place] [address] Renu Hadley MD [address] [place] [address] documented as of this encounter Visit Diagnoses Diagnosis Chronic abdominal pain Abdominal pain, unspecified site documented in this encounter Additional Health Concerns Assessment Noted Time PHQ-9 Depression Total Score: 16 025 9:47 AM EST documented as of this encounter Care Teams Management Retail Intern Relationship Specialty Start Date End Date Renu Hadley MD [address] [place] [address] PCP - General Internal Medicine 07/04/24 documented as of this encounter
--- OUTSIDE RECORDS SUMMARY | 2025-02-07 12:08 | XMS_ITS | Encounter Summary ---
Author Organization [employer] Address [address] [facility] 7t [place] [address] Care Team Providers Care Fresh Work Inspector Name Role Phone Renu Hadley MD Primary Care Provider + Encounter Details Date Type Department Care Team (Late st Contact Info) Description 12/01/2022 Orders Only [facility] CHC MED & PEDS [address] [place] [address] Kanika Monson LPN Social History Tobacco Use [...] Description 04/19/2025 11:45 AM EDT Office Visit [facility] MEDICINE [address] [place] [address] Renu Hadley MD [address] [place] [address] documented as of this encounter Visit Diagnoses Not on filedocumented in this encounter Care Teams Fresh Work Inspector Relationship Specialty Start Date End Date Renu Hadley MD [address] [place] [address] PCP - General Internal Medicine 07/04/24 documented as of this encounter
--- OUTSIDE RECORDS SUMMARY | 2025-02-07 12:08 | XMS_ITS | Encounter Summary ---
Author Organization [employer] Address [address] [facility] 7t [place] [address] Care Team Providers Care Cripple Chaser Name Role Phone Renu Hadley MD Primary Care Provider + Reason for Visit * Reason Onset Date Comments Appointment Request 04/07/2023 Encounter Details Date Type Department Care Team ([facility] st Contact Info) Description 04/07/2023 Telephone [facility] MEDICINE [address] [place], [place] [phone] Name, MD Richy [address] [place] [address] Appointment Request Social History Tobacco Use Types [...] - 04/07/2023 1:53 PM EDT T/C to [phone] through Agent Ace id - [id number] to re-schedule HDF apt. Pt. Schedule for HDF apt. On 04/14/2023. Pt. Was admitted at [facility], d/c 04/02/23 for Dx: Peritoneal [...] to r/s HDF appt from 04/07/23. Details: [facility] d/c 04/02/23 Dx: Peritoneal abscess surgery documented in this encounter Plan of Treatment Upcoming Encounters Date Type Department Care Team (Late st Contact Info) Description 04/19/2025 11:45 AM EDT Office Visit [facility] MEDICINE [address] [place] [address] Renu Hadley MD [address] [place] [address] documented as of this encounter Visit Diagnoses Not on filedocumented in this encounter Additional Health Concerns Assessment Noted Time PHQ-9 Depression Total Score: 12 023 1:33 PM EDT documented as of this encounter Care Teams Cripple Chaser Relationship Specialty Start Date End Date Renu Hadley MD [address] [place], [place] [phone] PCP - General Internal Medicine 07/04/24 documented as of this encounter
--- OUTSIDE RECORDS SUMMARY | 2025-02-07 12:08 | XMS_ITS | Encounter Summary ---
Author Organization [employer] Address [address] [facility] 7t [place] [address] Care Team Providers Care Athletic Turf Worker Name Role Phone Renu Hadley MD Primary Care Provider + Reason for Visit * Reason Onset Date Comments Medication Question 01/13/2023 Encounter Details Date Type Department Care Team (Late Contact Info) Description 01/13/2023 Telephone [facility] MEDICINE [address] [place] [address] Name, MD Richy [address] [place] [address] Medication Question Social History Tobacco Use Types [...] Doxepin 50 mg. Please contact pt at [phone] documented in this encounter Plan of Treatment Upcoming Encounters Date Type Department Care Team (Late Contact Info) Description 04/19/2025 11:45 AM EDT Office Visit [facility] MEDICINE [address] [place] [address] Renu Hadley MD [address] [place] [address] documented as of this encounter Visit Diagnoses Not on filedocumented in this encounter Care Teams Athletic Turf Worker Relationship Specialty Start Date End Date Renu Hadley MD [address] [place] [id number] PCP - General Internal Medicine 07/04/24 documented as of this encounter
--- OUTSIDE RECORDS SUMMARY | 2025-02-07 12:08 | XMS_ITS | Encounter Summary ---
Author Organization [employer] Address [address] [facility] 7t [place] [address] Care Team Providers Care Caregiver Services Home Name Role Phone Renu Hadley MD Primary Care Provider + Encounter Details Date Type Department Care Team (Latest Contact Info) Description 02/25/2021 Abstract [facility] CONVERSIONS Dental, Provider, DDS Social History [...] Description 04/19/2025 11:45 AM EDT Office Visit [facility] MEDICINE [address] [place] [address] Renu Hadley MD [address] [place] [address] documented as of this encounter Visit Diagnoses Not on filedocumented in this encounter Care Teams Caregiver Services Home Relationship Specialty Start Date End Date Renu Hadley MD [address] [place] [address] PCP - General Internal Medicine 07/04/24 documented as of this encounter
--- OUTSIDE RECORDS SUMMARY | 2025-02-07 12:08 | XMS_ITS | Encounter Summary ---
Author Organization [employer] Address [address] [facility] 7t [place] [address] Care Team Providers Care Rn Rehabilitation Name Role Phone Renu Hadley MD Primary Care Provider + Reason for Visit * Reason Comments Med Refill Encounter Details Date Type Department Care Team (Late st Contact Info) Description 12/10/2024 Refill [facility] MEDICINE [address] [place], [place] [phone] Renu Hadley MD 230 [place], [place] [phone] Peripheral neuralgia Social History Tobacco Use Types [...] Description 04/19/2025 11:45 AM EDT Office Visit [facility] MEDICINE [address] [place] [address] Renu Hadley MD [address] [place] [address] documented as of this encounter Visit Diagnoses Diagnosis Peripheral neuralgia Unspecified hereditary and idiopathic peripheral neuropathy documented in this encounter Additional Health Concerns Assessment Noted Time PHQ-9 Depression Total Score: 16 025 9:47 AM EST documented as of this encounter Care Teams Rn Rehabilitation Relationship Specialty Start Date End Date Renu Hadley MD [address] [place] [address] PCP - General Internal Medicine 07/04/24 documented as of this encounter
--- OUTSIDE RECORDS SUMMARY | 2025-02-07 12:08 | XMS_ITS | Encounter Summary ---
Author Organization [employer] Address [address] [facility] 7t [place] [address] Care Team Providers Care Special Forces Communications Sergeant Name Role Phone Renu Hadley MD Primary Care Provider + Reason for Visit * Reason Onset Date Comments triage 02/26/2023 Encounter Details Date Type Department Care Team ([facility] st Contact Info) Description 02/26/2023 Telephone [facility] MEDICINE [address] [place], [place] [phone] Name, MD Richy [address] [place] [address] triage Social History Tobacco Use Types Packs/Day [...] 12:38 PM EDT Triage call with Fer Sample Display Preparer ID [id number] Pt was called more than 2x. Each [...] Description 04/19/2025 11:45 AM EDT Office Visit [facility] MEDICINE [address] [place] [address] Renu Hadley MD [address] [place] [address] documented as of this encounter Visit Diagnoses Not on filedocumented in this encounter Care Teams Special Forces Communications Sergeant Relationship Specialty Start Date End Date Renu Hadley MD [address] [place] [address] PCP - General Internal Medicine 07/04/24 documented as of this encounter
--- OUTSIDE RECORDS SUMMARY | 2025-02-07 12:08 | XMS_ITS | Encounter Summary ---
Author Organization [employer] Address [address] [facility] 7t [place] [address] Care Team Providers Care Truck Service Manager Name Role Phone Renu Hadley MD Primary Care Provider + Reason for Visit * Reason Comments Abdominal Pain Encounter Details Date Type Department Care Team ([facility] st Contact Info) Description 02/07/2025 9:00 AM EDT Office Visit [facility] WALK-IN CENTER [address] [place] [address] Upper abdominal pain (Primary Dx); Chronic upper abdominal pain Social History Tobacco Use Types [...] 12.8 oz) 02/07/2025 9:02 AM EDT Height - - Body Mass Index 32.2 01/17/2025 11:28 AM EDT documented in this encounter Plan of Treatment Upcoming Encounters Date Type Department Care Team (Late st Contact Info) Description 04/19/2025 11:45 AM EDT Office Visit [facility] MEDICINE [address] [place] [address] Renu Hadley MD [address] [place] [address] Scheduled Orders Name Type Priority Associated Diagnoses Orde r Schedule Helicobacter pylori??Antigen, EIA, Stool Lab Routine Chronic upper abdominal pain Expected: 02/07/2025 (Approximate), Expires: 02/07/2026 documented as of this encounter Visit Diagnoses Diagnosis Upper abdominal pain- Primary Chronic upper abdominal pain documented in this encounter Additional Health Concerns Assessment Noted Time PHQ-9 Depression Total Score: 16 025 9:47 AM EST documented as of this encounter Care Teams Truck Service Manager Relationship Specialty Start Date End Date Renu Hadley MD [address] [place] [address] PCP - General Internal Medicine 07/04/24 documented as of this encounter
--- OUTSIDE RECORDS SUMMARY | 2025-02-07 12:09 | XMS_ITS | Encounter Summary ---
Author Organization [employer] [facility] Address [address] [place] [address] 7t [place] [address] Care Team Providers Care Storekeeper Steward Name Role Phone Renu Hadley MD Primary Care Provider + Encounter Details Date Type Department Care Team (Late st Contact Info) Description 11/17/2022 Orders Only [facility] MEDICINE [address] [place] [address] Kaylynn Membreno LPN Social History Tobacco Use [...] Description 04/19/2025 11:45 AM EDT Office Visit [facility] MEDICINE [address] [place] [address] Renu Hadley MD [address] [place] [address] documented as of this encounter Visit Diagnoses Not on filedocumented in this encounter Care Teams Storekeeper Steward Relationship Specialty Start Date End Date Renu Hadley MD [address] [place] [address] PCP - General Internal Medicine 07/04/24 documented as of this encounter
--- OUTSIDE RECORDS SUMMARY | 2025-02-07 12:09 | XMS_ITS | Patient Health Record ---
Author Organization [facility] Address [address] [place], [place] [phone] Care Team Providers Care Active Directory Architect Name Role Phone Kirstin Wright Outpt Care Primary Care Provider Un available Abby Dobson Unavailable [phone] Reason For Referral No Information Plan Of Treatment No Information Insurance Providers Payer Name Payer Address Payer Phone Subscriber Number Group Number Insured Name Patient Relationship to Insured Coverage Start Date Coverage End Date [place] [address] [place] [address] Ruma Simons Self - patient is the insured
[2025-02-07 12:14] LABS: UPreg QC Valid YES; Urine Pregnancy NEGATIVE (NEGATIVE)
[2025-02-07 12:16] LABS: Appearance Urine Cloudy; Color Urine Yellow; Glucose Urine UA Negative (Negative); Leukocyte Esterase Urine Trace (Negative); Nitrite Urine Negative (Negative); PH 6.5 (5.0-9.0); Specific Gravity - Urine >= 1.030 (1.005-1.025); UMIC TRIGGER UACC YES; Urine Blood Trace (Negative); Urine Ketones Trace mg/dL (Negative); Urine Protein Trace mg/dL (Neg-Trace)
[2025-02-07 12:18] LABS: Bacteria Urine 4+ (None Seen); Hyaline Casts Urine 0-2 /LPF (0-2); RBC Urine 0-2 /HPF (0-2); UACC Culture Trigger YES
[2025-02-07] MEDS: Diatrizoate Meglumine, Sodium 30 ML SOLUTION PO (13:00)
[2025-02-07 13:44] VITALS: BP 144/86; PULSE 82; RESP 16; TEMP 36.9; O2SAT 100
== END 2025-02-07 13:45 | disposition home or self-care (01) ==
PROVIDERS: Emergency Provider Emergency Medicine; PCP Internal Medicine
DX: K59.00 Constipation, unspecified (principal); R10.9 Unspecified abdominal pain; Z79.899 Other long term (current) drug therapy
CPT/HCPCS: 36415; 74176; 80048; 80076; 81001; 81025; 83690; 85025; 87086; 87147; 99282; 99284

== ENCOUNTER → 2025-02-07 10:55 | Outpatient (BNV) | payer MEDICAID, SELFPAY | PROVIDERS: Emergency Provider Emergency Medicine; PCP Internal Medicine; Visit Provider Radiology Diagnostic Radiology | DX: K56.41 Fecal impaction (principal); N20.0 Calculus of kidney; Z98.890 Other specified postprocedural states | CPT/HCPCS: 74176 ==

== ENCOUNTER 2025-06-21 17:12 | Outpatient (REF) | payer MEDICAID, SELFPAY ==
--- OUTSIDE RECORDS SUMMARY | 2025-06-18 10:00 | XMS_ITS | Encounter Summary ---
Author Organization [employer] [facility] [employer] Address [address] [facility] 7t [place] [address] Care Team Providers Care Donor Services Coordinator Name Role Phone Renu Hadley MD Primary Care Provider + Reason for Visit * Reason Comments COMMERCIAL CARPENTER RV Encounter Details Date Type Department Care Team (Latest Contact Info) Description 06/18/2025 10:00 AM EDT Clinical Support [address] [address] Crissy River RN Long-term current use of opiate analgesic (Primary Dx) Social History Tobacco Use Types Packs/Day Years Used Date Smoking Tobacco: Never Passive Smoke Exposure: Never Smokeless Tobacco: Never Alcohol Use Standard Drinks/Week Comments Not Currently 0 (1 standard drink = 0.6 oz pur e alcohol) Socially Depression Answer Date Recorded Patient Health Questionnaire-9 Score 5 03/28/2025 Patient Health Questionnaire-9 Score 5 03/28/2025 Last PHQ-9: Questionnaire Data Not on file 0 03/28/2025 Housing Stability Answer Date Recorded What is [...] from getting things needed for daily living? Yes, it has kept me from medical appointments or getting medications. 04/11/2025 Utilities Answer Date Recorded In the past 12 months, has t he electric, gas, oil or water company threatened to shut off services in your home? No 08/17/2023 Depression Answer Date Recorded Patient Health Questionnaire-2 Score 2 03/28/2025 Internet Access Answer Date Recorded Internet Access Q1 Yes 02/26/2025 Internet Access Q2 Not on file 02/26/2025 Comments No Sex and Gender Information Value Date Recorded Sex Assigned at Female 08/24/2022 10:31 AM EDT Legal Sex Female 10:31 AM EDT Gender Identity Female 01/14/2024 3:30 PM EDT Sexual Orientation Choose not to disclose 2021 10:31 AM EDT documented as of this encounter Progress Notes * Crissy River RN - 06/18/2025 10:00 AM EDT SUBJECTIVE: Ruma Simons is a 49 y.o. year old female who presents for COMMERCIAL CARPENTER RV Preferred language for medical information: South African Interpreted needed: Yes Animal Care Attendant service utilized: Culture[employer]ley interpretKirusa Animal Care Attendant name: Mumtaz Animal Care Attendant I.D #: [id number] Ruma Simons does not report adherence to Tramadol (Ultram) 50 mg, take 1 tablet every 24 hours PRN, last refilled 06/01/2025. States she will take between 0-2 doses per day, depending on her pain. The patient last took Tramadol (Ultram) on: 06/11/2025 Medication is: 50% % effective at alleviating pain. Pt was a NCNS for COMMERCIAL CARPENTER appt 06/13/25 X 2 and cancelled chronic pain group 06/05/25. OBJECTIVE: STITCHING MACHINE OPERATOR checked: 06/18/2025 Pill count completed for Tramadol (Ultram), count today is 0 , anticipated count should be 0, this is as expected. Vital Signs Pain Score: 0-No pain Pain Loc: Abdomen Pain Education: Yes Additional pain site: back Last PCP visit: 05/28/2025 Controlled substance agreement signed: Controlled Substance Agreement 06/04/2025 COMMERCIAL CARPENTER Tier: 1 Current Medications[1] Smoking status: Denies ETOH use: Denies Illicit substances: Denies Marijuana use: No Pt stated she was unable to void. Pt provided water bottle and asked to sit in waiting room and letreception know when she can void. Pt told receptionist clerk she had to leave. This flex o writer operator spoke with herwith receptionist clerk translating and reminded her she needs to provide this urine sample. Pt indicatedshe would continue to drink water. Message sent to me soon after that she left stating she has a dental appt. UTOX was not done. Pt also unable to void at 06/04/25 COMMERCIAL CARPENTER appt and could not stay d/t dental appt. No results found for: POCTHC , POCCOCAINEUR , POCOPIATEUR , DOAUR , POCAMPHETAMI , POCBENZODIUR , POCBARBSCRN , POCMETHADOUR , POCBUPSCRN , POCTCAUR , POCMDMAUR , POCOXYCODONE , POCPHENCYCUR , PROPOXUR , FENTANYLURIN ASSESSMENT: Encounter Diagnosis Name Primary? Long-term current use of opiate analgesic Yes PLAN: Information on pain group given: Previously discussed Information on acupuncture given: Previously discussed Narcan education provided: Previously discussed Narcan prescription: active Will update PCP on UTOX. Rumataina Simons will continue taking medication as prescribed and follow up at the next COMMERCIAL CARPENTER visit orsooner if needed. Ruma Simons has verbalized understanding of care plan. Future Appointments Date Time Provider Department Center 07/06/2025 11:15 AM Renu Hadley MD MEDICINE [facility] 07/12/2025 11:30 AM Crissy River RN MEDICINE [facility] Crissy River RN [1] Current Outpatient Medications: traMADol (Ultram) 50 MG tablet, Take 1 tablet (50 mg) by mouth if needed each day for severe pain or moderate pain for up to 14 days., Disp: 14 tablet, Rfl: 0 amLODIPine (Norvasc) 10 MG tablet, TAKE 1 TABLET BY MOUTH EVERY MORNING, Disp: 90 tablet, Rfl: 1 benzocaine (Orajel) 10 % mucosal gel, Use in the mouth or throat if needed for mucositis., Disp: 5.3 g, Rfl: 0 Blood Pressure Monitoring (Blood Pressure Cuff) [facility], Use daily as prescribed, Disp: 1 each, Rfl: 0 busPIRone (Buspar) 5 MG tablet, Take 1 tablet (5 mg) by mouth 2 times daily., Disp: 60 tablet, Rfl:1 dicyclomine (Bentyl) 20 MG tablet, TAKE 1 TABLET BY MOUTH IN THE MORNING, AT NOON AND AT BEDTIME ASNEEDED FOR ABDOMINAL PAIN/COLIC., Disp: 90 tablet, Rfl: 0 docusate sodium (Colace) 100 MG capsule, TAKE 1 CAPSULE BY MOUTH TWICE A DAY, Disp: 180 capsule, Rfl: 0 DULoxetine (Cymbalta) [address] capsule, Take 1 capsule (60 mg) by mouth Once per day. Do not crush or chew., Disp: 90 capsule, Rfl: 3 hydroCHLOROthiazide (HYDRODiuril) 25 MG tablet, Take 1 tablet (25 mg) by mouth Once per day., Disp:90 tablet, Rfl: 3 ibuprofen 800 MG tablet, TAKE 1 TABLET BY MOUTH THREE TIMES DAILY, Disp: 90 tablet, Rfl: 2 ipratropium-albuterol (Duo-Neb) 0.5-2.5 mg/3 mL nebulizer solution, INHALE 1 AMPULE USING A NEBULIZER 4 TIMES A DAY IN THE MORNING, AT NOON, IN THE EVENING, AND AT BEDTIME NEEDED FOR WHEEZING, Disp: 180 mL, Rfl: 2 linaCLOtide (Linzess) 145 MCG capsule, Take 1 capsule (145 mcg) by mouth before breakfast. Do not crush or chew., Disp: 30 capsule, Rfl: 11 mometasone (Elocon) 0.1 % cream, APPLY TO THE AFFECTED AREA(S) TOPICALLY DAILY, Disp: 45 g, Rfl: 1 naloxone (Narcan) 4 mg/0.1 mL nasal spray, Administer 1 spray (4 mg) into affected nostril(s) if needed for opioid reversal. May repeat every 2-3 minutes if needed, alternating nostrils, until medical assistance becomes available., Disp: 2 each, Rfl: 3 omeprazole (PriLOSEC) [address] capsule, TAKE 1 CAPSULE BY MOUTH TWICE DAILY IN THE MORNING AND AT BEDTIME, DO NOT BREAK, CRUSH, DISSOLVE OR CHEW, Disp: 180 capsule, Rfl: 0 ondansetron (Zofran) 4 MG tablet, Take 1 tablet (4 mg) by mouth every 6 (six) hours during the day., Disp: 30 tablet, Rfl: 0 QUEtiapine (SEROquel) 50 MG tablet, Take 2 tablets (100 mg) by mouth at bedtime., Disp: 60 tablet, Rfl: 1 Spacer/Aero-Holding Chambers (Compact Space Chamber) device, USE WITH proventil DIRECTED, Disp: 1 each, Rfl: 1 SUMAtriptan (Imitrex) 25 MG tablet, TAKE 1 TABLET BY MOUTH AT ONSET OF MIGRAINE. MAY REPEAT ONCE AFTER 2 HOURS IF NEEDED, DO NOT EXCEED 8 TABLETS / 24 HOURS, Disp: 30 tablet, Rfl: 2 Current Facility-Administered Medications: ondansetron (Zofran) tablet 4 mg, 4 mg, Oral, q8h PRN, JOE Song documented in this encounter Plan of Treatment Upcoming Encounters Date Type Department Care Team (Late st Contact Info) Description 07/05/2025 10:00 AM EDT Clinical Support [address] [address] Crissy River, RN 07/12/2025 11:30 AM EDT Clinical Support [address] [address] Crissy River, RN documented as of this encounter Visit Diagnoses Diagnosis Long-term current use of opiate analgesic- Primary Encounter for long-term (current) use of other medications documented in this encounter Additional Health Concerns Assessment Noted Time PHQ-9 Depression Total Score: 5 03/28/20 10:34 AM EDT documented as of this encounter Care Teams Donor Services Coordinator Relationship Specialty Start Date End Date Renu Hadley MD [address] [place] [id number] PCP - General Internal Medicine 07/04/24 documented as of this encounter
--- OUTSIDE RECORDS SUMMARY | 2025-06-21 10:00 | XMS_ITS | Encounter Summary ---
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 The patient last took Tramadol (Ultram) on: 06/11/2025 Medication is: 50% % effective at alleviating pain. Pt was a NCNS for AIR ANALYSIS ENGINEERING TECHNICIAN appt 06/20/25 and NCNS for AIR ANALYSIS ENGINEERING TECHNICIAN appt X2 on 06/13/25. She has not completed UTOX sample for any AIR ANALYSIS ENGINEERING TECHNICIAN appt as of this date. Pt was notified she cannot get a refill of Tramadol until UTOX completed. OBJECTIVE: MANAGER BANKING checked: 06/21/2025 Pill count completed for Tramadol (Ultram), count today is 0 , anticipated count should be 0, this is as expected. Vital Signs Pain Score: 8 Pain Loc: Abdomen Pain Education: Yes Last PCP visit: 05/28/2025 Controlled substance agreement signed: Controlled Substance Agreement 06/04/2025 AIR ANALYSIS ENGINEERING TECHNICIAN Tier: 1 Current Medications[1] Smoking status: Denies ETOH use: Denies Illicit substances: Denies Marijuana use: No Lab Results Component Value Date POCTHC Negative 06/21/2025 POCCOCAINEUR Positive (A) 06/21/2025 POCOPIATEUR Negative 06/21/2025 DOAUR Negative 06/21/2025 POCAMPHETAMI Negative 06/21/2025 POCBENZODIUR Positive (A) 06/21/2025 POCBARBSCRN Negative 06/21/2025 POCMETHADOUR Positive (A) 06/21/2025 POCBUPSCRN Negative 06/21/2025 POCTCAUR Positive (A) 06/21/2025 POCMDMAUR Negative 06/21/2025 POCOXYCODONE Negative 06/21/2025 POCPHENCYCUR Positive (A) 06/21/2025 PROPOXUR Negative 06/21/2025 FENTANYLURIN Negative 06/21/2025 Reviewed UTOX results with patient. Pt stated she has been getting pain medication from the street since her doctor wont give her any. Pt was advise that she is at risk of possible if continuesto ingest anything purchased from the street. Reviewed the dangers of street drug use. Explained topatient I would send her urine out for confirmation. ASSESSMENT: Encounter Diagnosis Name Primary? Long-term current use of opiate analgesic Yes PLAN: Information on pain group given: Previously discussed Information on acupuncture given: Previously discussed Narcan education provided: Previously discussed Narcan prescription: active Pt stating she purchased pain medication from the street d/t her doctor isnt taking care of her pain. She stated she would like a new physician. Explained to patient I would send her request to the Wire Rope Sling Maker. Will update PCP, covering provider and Wire Rope Sling Maker. Ruma Simons will continue taking medication as prescribed and follow up at the next AIR ANALYSIS ENGINEERING TECHNICIAN visit orsooner if needed. Ruma Simons has verbalized understanding of care plan. Future Appointments Date Time Provider Department Center 07/05/2025 10:00 AM Crissy River RN MEDICINE [facility] 07/06/2025 11:15 AM Renu Hadley MD MEDICINE [facility] 07/12/2025 11:30 AM Crissy River RN MEDICINE [facility] Crissy River RN [1] Current Outpatient [...] 0 Blood Pressure Monitoring (Blood Pressure Cuff) mis, Use daily as prescribed, Disp: 1 each, [...] Description 07/05/2025 10:00 AM EDT Clinical Support [facility] MEDICINE [address] [place] [phone] Crissy River RN 07/12/2025 11:30 AM EDT Clinical Support [facility] MEDICINE [address] [place] [phone] Crissy River, RN Scheduled Orders Name Type Priority Associated Diagnoses Orde r Schedule Drug Monitoring, Benzodiazepines, Quantitative, Urine Lab Routine Long-term current use of opiate analgesic Ordered: 06/21/2025 Drug Monitoring, Cocaine Metabolite, Quantitative, Urine Lab Routine Long-term current use of opiate analgesic Ordered: 06/21/2025 Phencyclidine Screen, Urine Lab Routine Long-term current use of opiate analgesic Ordered: 06/21/2025 Drug Monitoring, Methadone Metabolite, Screen, Urine Lab Routine Long-term current use of opiate analgesic Ordered: 06/21/2025 documented as of this encounter Procedures Procedure Name Priority Date/Time Associated Diagnosis Comments POCT KENDALL-14 URINE DRUG SCREEN Routine 06/21/2025 1:35 PM EDT Long-term current use of opiate analgesic documented in this encounter Results * (ABNORMAL) POCT KENDALL-14 Urine Drug Screen (06/21/2025 1:35 PM EDT) Pathologist [facility] THC Negative Negative Cocaine Screen, Urine Positive(A) Negative Opiate Screen, Urine Negative Negative Methamphetamine Screen Urine Negative Negative Amphetamine Screen, Urine Negative Negative Benzodiazepines Screen, Urine Positive(A) Negative Barbiturate Screen, Urine Negative Negative Methadone Screen, Urine Positive(A) Negative Buprenophine Screen, Urine Negative Negative TCA, Urine Positive(A) Negative MDMA Urine Negative Negative ng/mL Oxycodone Screen, Urine Negative Negative Phencyclidine (PCP), Urine Positive(A) Negative Propoxyphene, Urine Negative Negative Fentanyl, Urine Negative Negative Urine Urine specimen obtained by clean catch procedure / Unknown 06/21/2025 1:35 PM EDT Crissy Suresh RN - 06/21/2025 1:35 PM EDT UTOX cup Lot#[id number] Exp. 07/31/26 Internal Pass Control Renu Hadley MD POINT OF CARE TEST ENTER /EDIT ORDERABLES Final Result documented in this encounter Visit Diagnoses Diagnosis Long-term current use of opiate analgesic- Primary Encounter for long-term (current) use of other medications documented in this encounter Additional Health Concerns Assessment Noted Time PHQ-9 Depression Total Score: 5 03/28/20 25 10:34 AM EDT documented as of this encounter Care Teams Lithograph Printer Relationship Specialty Start Date End Date Renu Hadley MD [address] [place] [phone] PCP - General Internal Medicine 07/04/24 documented as of this encounter
--- OUTSIDE RECORDS SUMMARY | 2025-06-21 17:15 | XMS_ITS | Encounter Summary ---
Author Organization [employer] Address [address] [place] [address] [address] [place] [address] Care Team Providers Care Production Pattern Maker Name Role Phone Renu Hadley MD Primary Care Provider + Reason for Visit * Reason Comments Med Refill Encounter Details Date Type Department Care Team (Late Contact Info) Description 06/10/2023 Refill [facility] MEDICINE [address] [place] [address] [phone] Name, MD Richy [address] [place] [address] [phone] Anxiety disorder, unspecified Social History Tobacco Use [...] Department Care Team (Late Contact Info) Description 07/05/2025 10:00 AM EDT Clinical Support [facility] MEDICINE [address] [place] [phone] Crissy River, RN 07/12/2025 11:30 AM EDT Clinical Support [facility] MEDICINE [address] [place] [phone] Crissy River, RN documented as of this encounter Visit Diagnoses Diagnosis Anxiety disorder, unspecified documented in this encounter Additional Health Concerns Assessment Noted Time PHQ-9 Depression Total Score: 12 023 1:33 PM EDT documented as of this encounter Care Teams Production Pattern Maker Relationship Specialty Start Date End Date Renu Hadley MD [address] [place] [phone] PCP - General Internal Medicine 07/04/24 documented as of this encounter
--- OUTSIDE RECORDS SUMMARY | 2025-06-21 17:15 | XMS_ITS ---
Author Organization [employer] Address [address] [facility] 7t [place] [address] Care Team Providers Care Paver Operator Name Role Phone Renu Hadley MD Primary Care Provider + CM Complex Status:Enrolled (Active) Start date:02/08/2025 Enrollment date:03/28/2025 Enrollment reason:ADT Feed Overview ED- Pt went to [facility] ED on 02/07/25. Case Team Name Relationship Phone Brandi Diamond RN(Responsible Staff) Registered Nurse [phone] Continued Care and Services Coordination
--- OUTSIDE RECORDS SUMMARY | 2025-06-21 17:15 | XMS_ITS | Encounter Summary ---
Author Organization [employer] Address [address] [facility] 7 [place] [address] Care Team Providers Care Equipment Engineer Name Role Phone Renu Hadley MD Primary Care Provider + Reason for Visit * Reason Onset Date Comments Med Refill 03/21/2025 Encounter Details Date Type Department Care Team ([facility] Contact Info) Description 03/21/2025 Telephone [facility] MEDICINE [address] [place], [place] [phone] Renu Hadley MD [address] [place], [place] [phone] Med Refill Social History Tobacco Use Types Packs/Day Years Used Date Smoking Tobacco: Never Passive Smoke Exposure: Never Smokeless Tobacco: Never Alcohol Use Standard Drinks/Week Comments Not Currently 0 (1 standard drink = 0.6 oz pur e alcohol) Socially Depression Answer Date Recorded Patient Health Questionnaire-9 Score 02/21/2025 Patient Health Questionnaire-9 Score 23 02/21/2025 Last PHQ-9: Questionnaire Data Not on file 0 02/21/2025 Housing Stability Answer Date Recorded What is [...] Date Recorded Patient Health Questionnaire-2 Score 4 02/26/2025 Internet Access Answer Date Recorded Internet Access [...] Telephone Encounter - Crissy River RN - 03/21/2025 11:51 AM EDT Per Gunjan, Tramadol last picked up 03/02/25. Tramadol due 03/30/25. Will forward to PCP on 03/28/25. * Telephone Encounter - Prince Lyon - 03/21/2025 11:43 AM EDT TC from pt requesting medication refill. Medications needing refill : traMADol (Ultram) 50 MG tablet To be sent to : [facility] documented in this encounter Plan of Treatment Upcoming Encounters Date Type Department Care Team (Late st Contact Info) Description 07/05/2025 10:00 AM EDT Clinical Support [address] [phone] Crissy River RN 07/12/2025 11:30 AM EDT Clinical Support [facility] MEDICINE [address] [place] [address] Crissy River RN documented as of this encounter Visit Diagnoses Not on filedocumented in this encounter Additional Health Concerns Assessment Noted Time PHQ-9 Depression Total Score: 23 025 9:34 AM EDT documented as of this encounter Care Teams Equipment Engineer Relationship Specialty Start Date End Date Renu Hadley MD [address] [place] [address] PCP - General Internal Medicine 07/04/24 documented as of this encounter
--- OUTSIDE RECORDS SUMMARY | 2025-06-21 17:15 | XMS_ITS ---
Author Organization [employer] Address [address] [facility] 7t [place] [address] Care Team Providers Care Health Consultant Name Role Phone Renu Hadley MD Primary Care Provider + CHW Complex Status:Outreach In Progress (Enrolling) Start date:02/08/2025 Enrollment reason:ADT Feed Overview ED- [place] [facility] [place]. Case Team Name Relationship Phone Trisha Martinez(Responsible Staff) [phone] Continued Care and Services Coordination
--- OUTSIDE RECORDS SUMMARY | 2025-06-21 17:15 | XMS_ITS | Clinical Summary ---
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 than 40 mg/dL Note: This HDL assay may give artificially low results in patients with liver disease. Blood 08/02/2024 10:2 2 AM EDT 08/02/2024 11:31 AM EDT us Noel Palacio MD LAB BLOOD ORDERABLES Fin al Result [facility] [address] [place] [phone] * Hepatitis C Antibody with Reflex to HCV, RNA, Quantitative, Real-Time PCR (09/29/2022 1:39 PM EST) Pathologist [facility] Hepatitis C Antibody NON-REACT HAIDER NON-REACT HAIDER [employer] [place] [employer] Index 0.07 <1.00 [employer] Comment: HCV antibody was non-reactive. There is no laboratory evidence of HCV infection. In most cases, no further action is required. However, if recent HCV exposure is suspected, a test for HCV RNA (test code 07566) is suggested. For additional information please refer to http://education.Kingsoft/faq/VSF92k4 (This link is being provided for informational/ educational purposes only.) 09/29/2022 1:39 PM EST 09/29/2022 1:40 PM EST Narrative [facility] - 09/30/2022 6:58 PM EST FASTING:UNKNOWN PATIENT UNABLE TO VOID; ADVISED TO RETURN FOR COLLECTION. FASTING: UNKNOWN us Richy Name MD LAB BLOOD ORDERABLES Final Resul t [facility] [address], [place] [address] [employer] [facility] [address], [place] [address] * HIV-1/2 Antigen and Antibodies, Fourth Generation, with Reflexes (09/29/2022 1:39 PM EST) [facility] HIV Antigen/Antibody, 4th Generation NON-REAC TIVE NON-REAC TIVE [employer] [place] [employer] Comment: HIV-1 antigen and HIV-1/HIV-2 antibodies were not detected. There is no laboratory evidence of HIV infection. PLEASE NOTE: This information has been disclosed to you from records whose confidentiality may be protected by state law. If your state requires such protection, then the state law prohibits you from making any further disclosure of the information without the specific written consent of the person to whom it pertains, or as otherwise permitted by law. A general authorization for the release of medical or other information is NOT sufficient for this purpose. For additional information please refer to http://HBCS.King[employer]/faq/UGV768 (This link is being provided for informational/ educational purposes only.) The performance of this assay has not been clinically validated in patients less than 2 years old. 09/29/2022 1:39 PM EST 09/29/2022 1:40 PM EST Narrative [facility] - 09/30/2022 6:58 PM EST FASTING:UNKNOWN PATIENT UNABLE TO VOID; ADVISED TO RETURN FOR COLLECTION. FASTING: UNKNOWN us Richy Name MD LAB BLOOD ORDERABLES Final Resul t [facility] [address], [place] [address] [employer] [facility] [address], [place] [address] * HPV mRNA E6/E7 (10/13/2017 9:12 AM EST) Pathologist [facility] HPV mRNA E6/E7 Not Detected NOT DETECTED [facility] Comment: This test was performed using the APTIMA(R) HPV Assay ([employer] This assay detects E6/E7 viral messenger RNA (mRNA) from 14 high-risk HPV types (16,18,31,33,35,39,45,51, 52,56,58,59,66,68). For additional information please refer to: http://HBCS.F[employer]Sensing.[employer]/faq/VKH204b1 (This link is being provided for informational/ educational purposes only.) Test Performed by [facility], [employer] [facility], [address] [place] [phone] Tyler Mota M.D., Ph.D., Director of Laboratories , [place] [id number] Please note: Effective 07/06/2016, HPV testing will be performed using [employer]'s APTIMA test which targets mRNA. Detecting mRNA instead of DNA, as in older methods, offers significant improvements in specificity. 10/13/2017 9:12 AM EST Carmen Bey CNM HISTORICAL/NON ORDERABLE LABS Final Result [facility] [address] * Pap Smear (10/13/2017 12:00 AM EST) Swab Carmen Bey CNM LAB CYTOLOGY ORDERABLES F inal Result [facility] [address] [place] [address] [phone] from Last 3 Months or Most Recently Relevant to Health Maintenance [facility] Care Teams Electric Power Line Examiner Relationship Specialty Start Date End Date Noel Palacio MD [address] [place] [phone] PCP - General Internal Medicine 07/04/24
--- OUTSIDE RECORDS SUMMARY | 2025-06-21 17:16 | XMS_ITS | Encounter Summary ---
Author Organization [employer] Address [address] [facility] 7t [place] [address] Care Team Providers Care Manufacturing Laborer Name Role Phone Renu Hadley MD Primary Care Provider + Reason for Visit * Reason Onset Date Comments triage 02/26/2023 Encounter Details Date Type Department Care Team ([facility] st Contact Info) Description 02/26/2023 Telephone [facility] [address] [place], [place] [phone] Name, MD Richy [address] [place] [address] triage Social History Tobacco Use Types Packs/Day [...] PM EDT documented as of this encounter Functional Status * Over the past 2 weeks, how often have you been bothered by any of the following problems? Question Answer Date of Assessment Author Patient Health Questionnaire-2 Score 4 05/0 05/2023 1:33 PM EDT India Joshi * If you checked off any problems on this questionnaire so far, Question Answer Date of Assessment Author How difficult have these problems made it for you to do your work, take care of things at home, or get along with other people? Somewhat difficult 03/01/2023 1:33 PM Lizbet Hinojosa * Over the past 2 weeks, how often have you been bothered by any of the following problems? Question Answer Date of Assessment Author Little interest or pleasure in doing things More than half the days 03/01/2023 1:33 PM India Hinojosa Feeling down, depressed, or hopeless More than half the days 03/01/2023 1:33 PM India Hinojosa Trouble falling or staying asleep, or sleeping too much More than half the days 03/01/2023 1:33 PM India Hinojosa Feeling tired or having little energy More than half the days 03/01/2023 1:33 PM India Hinojosa Poor appetite or overeating Not at all 03/01/2023 1:33 PM Lizbet Hinojosa Feeling bad about yourself - or that you are a failure or have let yourself or your family down More than half the days 03/01/2023 1:33 PM India Hinojosa Trouble concentrating on things, such as reading the newspaper or watching television More than half the days 03/01/2023 1:33 PM India Hinojosa Moving or speaking so slowly that other people could have noticed? Or the opposite - being so fidgety or restless that you have been moving around a lot more than usual. Not at all 03/01/2023 1:33 PM Lizbet Hinojosa Thoughts that you would be better off or hurting yourself in some way Not at all 03/01/2023 1:33 PM Jesus Hinojosa Patient Health Questionnaire-9 Score 12 03/01/2023 1:33 PM Lois Hinojosa documented as of this encounter Miscellaneous Notes * Telephone Encounter - Lety Ribera RN - 02/26/2023 2:24 PM EDT Noted. Letter sent to address on file to return call. * Telephone Encounter - Daniella Matamoros RN - 02/26/2023 12:38 PM EDT Triage call with [place] Product Development Manager [place] [id number] Pt was called more than 2x. Each [...] Description 07/05/2025 10:00 AM EDT Clinical Support [address] [address] Crissy River, KACY 07/12/2025 11:30 AM EDT Clinical Support [address] [address] [place], RN documented as of this encounter Visit Diagnoses Not on filedocumented in this encounter Care Teams Manufacturing Laborer Relationship Specialty Start Date End Date Renu Hadley MD [address] [place] [address] PCP - General Internal Medicine 07/04/24 documented as of this encounter
--- OUTSIDE RECORDS SUMMARY | 2025-06-21 17:16 | XMS_ITS | Encounter Summary ---
Author Organization [employer] Address [address] [facility] 7t [place] [address] Care Team Providers Care Ui Developer With Angular Js Name Role Phone Renu Hadley MD Primary Care Provider + Reason for Visit * Reason Comments Med Refill Encounter Details Date Type Department Care Team (Late Contact Info) Description 04/07/2023 Refill [facility] [address] [place] [address] [phone] Lisa Cifuentes FNP [address] [place], [place] [phone] Anxiety disorder, unspecified Social History Tobacco Use [...] Description 07/05/2025 10:00 AM EDT Clinical Support [address] [phone] Crissy River RN 07/12/2025 11:30 AM EDT Clinical Support [address] [phone] [place], RN documented as of this encounter Visit Diagnoses Diagnosis Anxiety disorder, unspecified documented in this encounter Additional Health Concerns Assessment Noted Time PHQ-9 Depression Total Score: 12 023 1:33 PM EDT documented as of this encounter Care Teams Ui Developer With Angular Js Relationship Specialty Start Date End Date Renu Hadley MD [address] [place] [address] PCP - General Internal Medicine 07/04/24 documented as of this encounter
--- OUTSIDE RECORDS SUMMARY | 2025-06-21 17:16 | XMS_ITS | Encounter Summary ---
Author Organization [employer] Address [address] [facility] 7t [place] [address] Care Team Providers Care Automat Watcher Name Role Phone Renu Hadley MD Primary Care Provider + Encounter Details Date Type Department Care Team (Late st Contact Info) Description 12/01/2022 Orders Only [facility] MED & PEDS [address] [place] [address] Kanika Monson LPN Social History Tobacco Use [...] Description 07/05/2025 10:00 AM EDT Clinical Support [facility] [address] [place] [phone] Crissy River, RN 07/12/2025 11:30 AM EDT Clinical Support [facility] [address] [place] [phone] [place], RN documented as of this encounter Visit Diagnoses Not on filedocumented in this encounter Care Teams Automat Watcher Relationship Specialty Start Date End Date Renu Hadley MD [address] [place] [address] PCP - General Internal Medicine 07/04/24 documented as of this encounter
--- OUTSIDE RECORDS SUMMARY | 2025-06-21 17:16 | XMS_ITS | Encounter Summary ---
Author Organization [employer] Address [address] [place] [address] 7 [place] [address] Care Team Providers Care Joint Sealer Name Role Phone Renu Hadley MD Primary Care Provider + Encounter Details Date Type Department Care Team (Late st Contact Info) Description 11/17/2022 Orders Only [facility] [address] [place] [phone] Kaylynn Membreno LPN Social History Tobacco Use [...] Description 07/05/2025 10:00 AM EDT Clinical Support [facility] [address] [place] [phone] Crissy River, RN 07/12/2025 11:30 AM EDT Clinical Support [address] [address] [place], RN documented as of this encounter Visit Diagnoses Not on filedocumented in this encounter Care Teams Joint Sealer Relationship Specialty Start Date End Date Renu Hadley MD [address] [place] [address] PCP - General Internal Medicine 07/04/24 documented as of this encounter
--- OUTSIDE RECORDS SUMMARY | 2025-06-21 17:16 | XMS_ITS | Encounter Summary ---
Author Organization [employer] Address 75 [facility] 7t [place] [address] Care Team Providers Care Macerator Operator Name Role Phone Renu Hadley MD Primary Care Provider + Reason for Visit * Reason Onset Date Comments Medication Question 01/13/2023 Encounter Details Date Type Department Care Team ([facility] Contact Info) Description 01/13/2023 Telephone [facility] [address] [place], [place] [phone] Name, MD Richy 230 [place] [address] Medication Question Social History Tobacco Use Types [...] Doxepin 50 mg. Please contact pt at [phone] documented in this encounter Plan of Treatment Upcoming Encounters Date Type Department Care Team (Late st Contact Info) Description 07/05/2025 10:00 AM EDT Clinical Support [address] [address] [place]issy [place], RN 07/12/2025 11:30 AM EDT Clinical Support [address] [address] [place], RN documented as of this encounter Visit Diagnoses Not on filedocumented in this encounter Care Teams Macerator Operator Relationship Specialty Start Date End Date Renu Hadley MD [address] [place] [address] PCP - General Internal Medicine 07/04/24 documented as of this encounter
--- OUTSIDE RECORDS SUMMARY | 2025-06-21 17:16 | XMS_ITS | Encounter Summary ---
Author Organization [employer] Address [address] [facility] 7t [place] [address] Care Team Providers Care Government Contracts Manager Name Role Phone Renu Hadley MD Primary Care Provider + Encounter Details Date Type Department Care Team (Latest Contact Info) Description 02/25/2021 Abstract [facility] CONVERSIONS Dental, Provider, DDS Social [...] Description 07/05/2025 10:00 AM EDT Clinical Support [facility] [address] [place] [phone] Crissy River, RN 07/12/2025 11:30 AM EDT Clinical Support [facility] [address] [place] [address] [place], RN documented as of this encounter Visit Diagnoses Not on filedocumented in this encounter Care Teams Government Contracts Manager Relationship Specialty Start Date End Date Renu Hadley MD [address] [place] [address] PCP - General Internal Medicine 07/04/24 documented as of this encounter
--- OUTSIDE RECORDS SUMMARY | 2025-06-21 17:16 | XMS_ITS | Encounter Summary ---
Author Organization [employer] Address [address] [facility] 7t [place] [address] Care Team Providers Care Link And Link Knitting Machine Operator Name Role Phone Renu Hadley MD Primary Care Provider + Reason for Visit * Reason Comments Med Refill Encounter Details Date Type Department Care Team ([facility] st Contact Info) Description 12/10/2024 Refill [facility]INE [address] [place], [place] [phone] Renu Hadley MD 230 [place], [place] [phone] Peripheral neuralgia Social History Tobacco Use Types [...] Description 07/05/2025 10:00 AM EDT Clinical Support [address] [address] [place]issy [place], RN 07/12/2025 11:30 AM EDT Clinical Support [address] [address] [place], RN documented as of this encounter Visit Diagnoses Diagnosis Peripheral neuralgia Unspecified hereditary and idiopathic peripheral neuropathy documented in this encounter Additional Health Concerns Assessment Noted Time PHQ-9 Depression Total Score: 16 025 9:47 AM EST documented as of this encounter Care Teams Link And Link Knitting Machine Operator Relationship Specialty Start Date End Date Renu Hadley MD [address] [place] [address] PCP - General Internal Medicine 07/04/24 documented as of this encounter
--- OUTSIDE RECORDS SUMMARY | 2025-06-21 17:16 | XMS_ITS | Encounter Summary ---
Author Organization [employer] Address [address] [facility] 7 [place] [address] Care Team Providers Care Upset Welding Machine Operator Name Role Phone Renu Hadley MD Primary Care Provider + Reason for Visit * Reason Onset Date Comments Appointment Request 06/20/2025 Encounter Details Date Type Department Care Team ([facility] Contact Info) Description 06/20/2025 Telephone [facility] [address] [place], [place] [phone] Renu Hadley MD 230 [place], [place] [phone] Appointment Request Social History Tobacco Use Types [...] Telephone Encounter - Crissy River RN - 06/20/2025 1:15 PM EDT Return TC via P/I#[id number], pt stated her neighbor gave her some tea and she is now able to walk a little. She is requesting to come in for her BULB PACKER appt this evening. Explained to patient that the soonest I can fit her in now will be 06/21/25 @ 10am. Advised patient to go to an ER if her pain is so significant. Pt stated she is going to go as soon as her friend can take her. * Telephone Encounter - Abdirahman Joshi - 06/20/2025 1:10 PM EDT Tc from pt requesting to reschedule BULB PACKER visit. Please contact pt at [phone]. (Icelandic Speaker) documented in this encounter Plan of Treatment Upcoming Encounters Date Type Department Care Team (Late st Contact Info) Description 07/05/2025 10:00 AM EDT Clinical Support [address] [address] [place], KACY 07/12/2025 11:30 AM EDT Clinical Support [address] [address] [place], RN documented as of this encounter Visit Diagnoses Not on filedocumented in this encounter Additional Health Concerns Assessment Noted Time PHQ-9 Depression Total Score: 5 03/28/20 25 10:34 AM EDT documented as of this encounter Care Teams Upset Welding Machine Operator Relationship Specialty Start Date End [place] [address] PCP - General Internal Medicine 07/04/24 documented as of this encounter
--- OUTSIDE RECORDS SUMMARY | 2025-06-21 17:16 | XMS_ITS | Encounter Summary ---
Author Organization [employer] Address 75 [facility] 7t [place] [address] Care Team Providers Care Lacquer Dipping Machine Operator Name Role Phone Renu Hadley MD Primary Care Provider + Reason for Visit * Reason Comments Med Refill Encounter Details Date Type Department Care Team (Late Contact Info) Description 04/09/2023 Refill [facility] [address] [place] [address] [phone] Lisa Cifuentes FNP [address] [place], [place] [phone] Anxiety disorder, unspecified Social History Tobacco Use [...] Description 07/05/2025 10:00 AM EDT Clinical Support [address] [phone] Crissy River RN 07/12/2025 11:30 AM EDT Clinical Support [address] [phone] [place], RN documented as of this encounter Visit Diagnoses Diagnosis Anxiety disorder, unspecified documented in this encounter Additional Health Concerns Assessment Noted Time PHQ-9 Depression Total Score: 12 023 1:33 PM EDT documented as of this encounter Care Teams Lacquer Dipping Machine Operator Relationship Specialty Start Date End Date Renu Hadley MD 230 [place] [address] PCP - General Internal Medicine 07/04/24 documented as of this encounter
--- OUTSIDE RECORDS SUMMARY | 2025-06-21 17:16 | XMS_ITS | Encounter Summary ---
Author Organization [employer] Address 75 [facility] 7 [place] [address] Care Team Providers Care Procedures Nurse Name Role Phone Renu Hadley MD Primary Care Provider + Reason for Visit * Reason Onset Date Comments UTOX Pos LACHELLE, BZO, MTD & PCP 06/21/2025 Encounter Details Date Type Department Care Team (Late st Contact Info) Description 06/21/2025 Telephone [facility] MEDICINE [address] [place], [place] [phone] Crissy River RN UTOX Pos LACHELLE, BZO, MTD & PCP Social History Tobacco Use Types Packs/Day Years [...] Telephone Encounter - Crissy River RN - 06/21/2025 1:44 PM EDT Pt completed UTOX today. UTOX Pos BZO, LACHELLE, MTD and PCP, sent out for confirmation. Pt stating she purchased pain medication from the street d/t her doctor isnt taking care of her pain. She stated she would like a new physician. Explained to patient I would send her request to the Street Sweeper Operator. Will update PCP, covering provider and Street Sweeper Operator documented in this encounter Plan of Treatment Upcoming Encounters Date Type Department Care Team (Late st Contact Info) Description 07/05/2025 10:00 AM EDT Clinical Support [facility] MEDICINE [address] [place] [phone] Crissy River RN 07/12/2025 11:30 AM EDT Clinical Support [facility]INE [address] [place] [address] Crissy River RN documented as of this encounter Visit Diagnoses Not on filedocumented in this encounter Additional Health Concerns Assessment Noted Time PHQ-9 Depression Total Score: 5 06/04/20 25 10:34 AM EDT documented as of this encounter Care Teams Procedures Nurse Relationship Specialty Start Date End Date Renu Hadley MD [address] [place] [address] PCP - General Internal Medicine 07/04/24 documented as of this encounter
--- OUTSIDE RECORDS SUMMARY | 2025-06-21 17:16 | XMS_ITS | Encounter Summary ---
Author Organization [employer] Address [address] [place] [address] 7 [place] [address] Care Team Providers Care Director Of Operations For Therapy Name Role Phone Renu Hadley MD Primary Care Provider + Reason for Visit * Reason Comments Med Refill Encounter Details Date Type Department Care Team (Late Contact Info) Description 02/12/2023 Refill [facility] [address] [place] [address] [phone] Name, MD Richy [address] [place] [phone] Heartburn Social History Tobacco Use Types Packs/Day [...] Description 07/05/2025 10:00 AM EDT Clinical Support [facility] [address] [place] [address] [phone] Crissy River, RN 07/12/2025 11:30 AM EDT Clinical Support [facility] [address] [place] [phone] [place], RN documented as of this encounter Visit Diagnoses Diagnosis Heartburn documented in this encounter Care Teams Director Of Operations For Therapy Relationship Specialty Start Date End Date Renu Hadley MD [address] [place] [address], [place] [address] PCP - General Internal Medicine 07/04/24 documented as of this encounter
--- OUTSIDE RECORDS SUMMARY | 2025-06-21 17:16 | XMS_ITS | Encounter Summary ---
Author Organization [employer] Address 75 [facility] 7t [place] [address] Care Team Providers Care Warp Tier Name Role Phone Renu Hadley MD Primary Care Provider + Encounter Details Date Type Department Care Team (Late Contact Info) Description 02/15/2023 Orders Only [facility] CHC MED & PEDS [address] [place] [address] Kanika Monson LPN Social History Tobacco Use [...] Description 07/05/2025 10:00 AM EDT Clinical Support [facility] MEDICINE [address] [place] [address] Crissy River, RN 07/12/2025 11:30 AM EDT Clinical Support [address] [address] Crissy River, RN documented as of this encounter Visit Diagnoses Not on filedocumented in this encounter Care Teams Warp Tier Relationship Specialty Start Date End Date Renu Hadley MD [address] [place] [address] PCP - General Internal Medicine 07/04/24 documented as of this encounter
--- OUTSIDE RECORDS SUMMARY | 2025-06-21 17:16 | XMS_ITS | Encounter Summary ---
Author Organization [employer] Address 75 [facility] 7 [place] [address] Care Team Providers Care Optometric Aide Name Role Phone Renu Hadley MD Primary Care Provider + Reason for Visit * Reason Onset Date Comments Nurse Triage 05/15/2025 Encounter Details Date Type Department Care Team ([facility] st Contact Info) Description 05/15/[address] [facility] MEDICINE [address] [place], [place] [phone] Renu Hadley MD [address] [place], [place] [phone] Nurse Triage Social History Tobacco Use Types [...] encounter Miscellaneous Notes * Telephone Encounter - Shelly AlmonteLIONEL - 05/15/2025 12:08 PM EDT Triage call returned with BLS # [id number] Carley. Patient reports pain in upper abdomen described as sever and unable to eat. Patient reports that she has constant pain lasting greater than 2 hours duration cannot climb stairs to her home. Had vomiting today that is described as yellow. Patient put on Omeprazole on 05/11/25 reports nothing is working you don't understand that the pain is severe and you are not helping me Patient reporting legal intervention for her issues as she explains not being addressed. Patient is requesting increase in Tramadol at time of call and declines seeking ED evaluation as per Triage Disposition. Patient reports she did not attend GI referral as placed in 08/2024 as all you do is send me to appointments and nothing is done . Disposition reviewed and Med increase request being forwarded to PCP and Team to follow with patient. Disposition to ED confirmed with BLS Director Of Sales And Marketing confirmed and that patient declined recommendation at time of call. Multiple (3) protocols were used on this call. Disposition for Call: Go to ED/[facility] Now (or to Office with PCP Approval) Protocol Used: Abdominal Pain - Female (Adult) Protocol-Based Disposition: Go to ED/[facility] Now (or to Office with PCP Approval) Positive Triage Question: * Mild to Moderate constant pain lasting > 2 hours * All higher-acuity triage questions were negative Care Advice Discussed: * Reasons To Call Back - Constant pain lasts over 2 hours - You become worse Protocol Used: Medication Question Call (Adult) Protocol-Based Disposition: Discuss with PCP and Callback by Nurse within 1 Hour Video visit not offered Positive Triage Question: * Caller has URGENT medicine question about med that PCP or specialist prescribed and triager unable to answer question * All higher-acuity triage questions were negative Protocol Used: Difficult Call (Adult) Protocol-Based Disposition: Discuss with PCP and Callback by Nurse within 1 Hour Video visit not offered Positive Triage Question: * Angry or rude caller and doesn't respond to 5 minutes of triager counseling and sick adult (or caller) * All higher-acuity triage questions were negative * Telephone Encounter - Abdirahman Joshi - 05/15/2025 11:32 AM EDT Symptom: Pain - Severe Outcome: Talk to a nurse or provider within 15 minutes Reason: Abdominal pain Please contact pt at [phone]. (Mauritanian Speaker) documented in this encounter Plan of Treatment Upcoming Encounters Date Type Department Care Team (Late st Contact Info) Description 07/05/2025 10:00 AM EDT Clinical Support [facility] [address] [place] [address] Crissy River, RN 07/12/2025 11:30 AM EDT Clinical Support [facility] [address] [place] [address] Crissy River, RN documented as of this encounter Visit Diagnoses Not on filedocumented in this encounter Additional Health Concerns Assessment Noted Time PHQ-9 Depression Total Score: 5 03/28/20 25 10:34 AM EDT documented as of this encounter Care Teams Optometric Aide Relationship Specialty Start Date End Date Renu Hadley MD [address] [place] [address] PCP - General Internal Medicine 07/04/24 documented as of this encounter
--- OUTSIDE RECORDS SUMMARY | 2025-06-21 17:16 | XMS_ITS | Encounter Summary ---
Author Organization [employer] Address 75 [facility] 7t [place] [address] Care Team Providers Care Bindery Worker Name Role Phone Renu Hadley MD Primary Care Provider + Reason for Visit * Reason Onset Date Comments R/S APPT PCP OUT 06/21/2025 Encounter Details Date Type Department Care Team ([facility] st Contact Info) Description 06/21/2025 Telephone [facility] MEDICINE [address] [place], [place] [phone] Rachel Juarez MA R/S APPT PCP OUT Social History Tobacco Use Types Packs/Day Years [...] encounter Miscellaneous Notes * Telephone Encounter - Rachel Juarez MA - 06/21/2025 4:00 PM EDT T/C to pt to notify that appt schedule for 07/06/25 has being cancelled due to provider.No answer LVM to call clinic to r/s appt. If pt call back please r/s next available. documented in this encounter Plan of Treatment Upcoming Encounters Date Type Department Care Team (Late st Contact Info) Description 07/05/2025 10:00 AM EDT Clinical Support [facility] MEDICINE [address] [place] [address] Crissy River, RN 07/12/2025 11:30 AM EDT Clinical Support [facility] [address] [place] [address] Crissy River, RN documented as of this encounter Visit Diagnoses Not on filedocumented in this encounter Additional Health Concerns Assessment Noted Time PHQ-9 Depression Total Score: 5 03/28/20 10:34 AM EDT documented as of this encounter Care Teams Bindery Worker Relationship Specialty Start Date End Date Renu Hadley MD [address] [place] [address] PCP - General Internal Medicine 07/04/24 documented as of this encounter
--- OUTSIDE RECORDS SUMMARY | 2025-06-21 17:16 | XMS_ITS | Encounter Summary ---
Author Organization [employer] Address 75 [facility] 7 [place] [address] Care Team Providers Care Printing Equipment Mechanic Name Role Phone Renu Hadley MD Primary Care Provider + Encounter Details Date Type Department Care Team (Latest Contact Info) Description 12/20/2019 Abstract [facility] CONVERSIONS Dental, Provider, DDS Social History [...] Description 07/05/2025 10:00 AM EDT Clinical Support [facility] MEDICINE [address] [place] [phone] Crissy River, RN 07/12/2025 11:30 AM EDT Clinical Support [facility] MEDICINE [address] [place] [address] Crissy River, RN documented as of this encounter Visit Diagnoses Not on filedocumented in this encounter Care Teams Printing Equipment Mechanic Relationship Specialty Start Date End Date Renu Hadley MD [address] [place] [address] PCP - General Internal Medicine 07/04/24 documented as of this encounter
--- OUTSIDE RECORDS SUMMARY | 2025-06-21 17:16 | XMS_ITS | Encounter Summary ---
Author Organization [employer] Address 75 [facility] 7t [place] [address] Care Team Providers Care Insulation Cupola Charger Name Role Phone Renu Hadley MD Primary Care Provider + Encounter Details Date Type Department Care Team (Latest Contact Info) Description 06/18/2025 Travel Social History Tobacco Use Types Packs/Day [...] Description 07/05/2025 10:00 AM EDT Clinical Support [address] [address] Crissy River, RN 07/12/2025 11:30 AM EDT Clinical Support [address] [address] Crissy River, RN documented as of this encounter Visit Diagnoses Not on filedocumented in this encounter Additional Health Concerns Assessment Noted Time PHQ-9 Depression Total Score: 5 03/28/20 25 10:34 AM EDT documented as of this encounter Care Teams Insulation Cupola Charger Relationship Specialty Start Date End Date Renu Hadley MD [address] [place] [address] PCP - General Internal Medicine 07/04/24 documented as of this encounter
--- OUTSIDE RECORDS SUMMARY | 2025-06-21 17:16 | XMS_ITS | Encounter Summary ---
Author Organization [employer] Address 75 [facility] 7t [place] [address] Care Team Providers Care Keyboard Action Assembler Name Role Phone Renu Hadley MD Primary Care Provider + Reason for Visit * Reason Onset Date Comments Durable Medical Equipment 12/30/2022 Encounter Details Date Type Department Care Team ([facility] st Contact Info) Description 12/30/2022 Telephone [facility] MEDICINE [address] [place], [place] [phone] Name, MD Richy [address] [place] [address] Durable Medical Equipment Social History Tobacco Use [...] to be order. Please contact pt at [phone] documented in this encounter Plan of Treatment Upcoming Encounters Date Type Department Care Team (Late st Contact Info) Description 07/05/2025 10:00 AM EDT Clinical Support [address] [address] Crissy River, RN 07/12/2025 11:30 AM EDT Clinical Support [address] [address] Crissy River, RN documented as of this encounter Visit Diagnoses Not on filedocumented in this encounter Care Teams Keyboard Action Assembler Relationship Specialty Start Date End Date Renu Hadley MD [address] [place] [address] PCP - General Internal Medicine 07/04/24 documented as of this encounter
--- OUTSIDE RECORDS SUMMARY | 2025-06-21 17:16 | XMS_ITS | Encounter Summary ---
Author Organization [employer] Address 75 [facility] 7t [place] [address] Care Team Providers Care Poultry Cutter Name Role Phone Renu Hadley MD Primary Care Provider + Encounter Details Date Type Department Care Team (Latest Contact Info) Description 06/21/2025 Travel Social History Tobacco Use Types Packs/Day [...] Description 07/05/2025 10:00 AM EDT Clinical Support [address] [address] Crissy River, RN 07/12/2025 11:30 AM EDT Clinical Support [address] [address] Crissy River, RN documented as of this encounter Visit Diagnoses Not on filedocumented in this encounter Additional Health Concerns Assessment Noted Time PHQ-9 Depression Total Score: 5 03/28/20 25 10:34 AM EDT documented as of this encounter Care Teams Poultry Cutter Relationship Specialty Start Date End Date Renu Hadley MD [address] [place] [address] PCP - General Internal Medicine 07/04/24 documented as of this encounter
--- OUTSIDE RECORDS SUMMARY | 2025-06-21 17:16 | XMS_ITS | Encounter Summary ---
Author Organization [employer] Address 75 [facility] 7t [place] [address] Care Team Providers Care Pest Control Service Sales Agent Name Role Phone Renu Hadley MD Primary Care Provider + Reason for Visit * Reason Onset Date Comments Appointment Request 04/07/2023 Encounter Details Date Type Department Care Team ([facility] st Contact Info) Description 04/07/2023 Telephone [facility] MEDICINE [address] [place], [place] [phone] Name, MD Richy [address] [place] [address] Appointment Request Social History Tobacco Use Types [...] - 04/07/2023 1:53 PM EDT T/C to [phone] through [facility] id - [id number] to re-schedule HDF apt. Pt. Schedule for HDF apt. On 04/14/2023. Pt. Was admitted at [facility], d/c 04/02/23 for Dx: Peritoneal abscess surgery. Pt. Verbally agreed and understood, RASHAAD morrison scanned into pt.'s chart. Pt. States her [...] Description 07/05/2025 10:00 AM EDT Clinical Support [facility] MEDICINE [address] [place] [address] Crissy River, RN 07/12/2025 11:30 AM EDT Clinical Support [facility] MEDICINE [address] [place] [address] Crissy River, RN documented as of this encounter Visit Diagnoses Not on filedocumented in this encounter Additional Health Concerns Assessment Noted Time PHQ-9 Depression Total Score: 12 023 1:33 PM EDT documented as of this encounter Care Teams Pest Control Service Sales Agent Relationship Specialty Start Date End Date Renu Hadley MD [address] [place] [address] PCP - General Internal Medicine 07/04/24 documented as of this encounter
--- OUTSIDE RECORDS SUMMARY | 2025-06-21 17:16 | XMS_ITS | Encounter Summary ---
Author Organization [employer] Address 75 [facility] 7 [place] [address] Care Team Providers Care Supervisor Denture Department Name Role Phone Renu Hadley MD Primary Care Provider + Reason for Visit * Reason Onset Date Comments Medication Question 06/20/2025 Encounter Details Date Type Department Care Team ([facility] Contact Info) Description 06/20/2025 Telephone [facility] MEDICINE [address] [place], [place] [phone] Renu Hadley MD [address] [place], [place] [phone] Medication Question Social History Tobacco Use Types [...] Encounter - Crissy River RN - 06/20/2025 12:38 PM EDT Telephone call from this mornin06/20/25 @ 9:46am Per conversation with covering provider Dr Chambers this morning, pt needs to provide urine sample for UTOX before a Tramadol refill can be considered. TC via P/I#[id number], tail puller stated she was having a difficult time understanding patient, she questioned if patient was under anesthesia. Pt was notified that she will need to provide urine sample prior to receiving Tramadol refill. Pt stated she would come today at 12p to provide urine sample. Pt stated she was having a lot of pain inher abdomen. Advised patient she could go to [facility] to be evaluated if she needs. Pt stated she has her scientologist praying for her. She stated she will come to see this medical writer at 12p today. Pt was NCNS for BELT OPERATOR RV appt today at 12pm. Will send to covering provider and request advice. * Telephone Encounter - Prince Lyon - 06/20/2025 11:18 AM EDT TC from pt reports had discussed with pcp changing traMADol (Ultram) 50 MG tablet medication to an alternative. Was not sure which medication was discussed, but is in need of a new script . documented in this encounter Plan of Treatment Upcoming Encounters Date Type Department Care Team (Late st Contact Info) Description 07/05/2025 10:00 AM EDT Clinical Support [address] [address] Crissy River RN 07/12/2025 11:30 AM EDT Clinical Support [address] [address] Crissy River, RN documented as of this encounter Visit Diagnoses Not on filedocumented in this encounter Additional Health Concerns Assessment Noted Time PHQ-9 Depression Total Score: 5 03/28/20 25 10:34 AM EDT documented as of this encounter Care Teams Supervisor Denture Department Relationship Specialty Start Date End Date Renu Hadley MD [address] [place] [address] PCP - General Internal Medicine 07/04/24 documented as of this encounter
--- OUTSIDE RECORDS SUMMARY | 2025-06-21 17:16 | XMS_ITS | Encounter Summary ---
Author Organization [employer] Address 75 [facility] 7 [place] [address] Care Team Providers Care Recreational Assistant Name Role Phone Renu Hadley MD Primary Care Provider + Reason for Visit * Reason Comments Care Coordination C3/CM Follow up Encounter Details Date Type Department Care Team (Latest Contact Info) Description 06/19/2025 Patient Outreach [facility] CHC MED & PEDS [address] [place], [place] [phone] Renu Hadley MD [address] [place] [address] Care Coordination (C3/CM Follow up) Social History Tobacco Use Types Packs/Day Years [...] as of this encounter Progress Notes * Trisha Martinez - 06/19/2025 11:40 AM EDT CHW Trisha Martinez placed outbound call to patient for follow up call on SDOH needs. No answer at this time. LVM introducing herself from [facility] CM Department. Requested call back. CHW reinforced direct contact information or CM for any additional questions or concerns and extended clinic hours on Mondays and Wednesdays, and Walk-In Urgent Care Located in [facility] of [facility]. Patient provided with after-hours line for [facility], , which offer night timetriage service and option to transfer to application development liaison provider if needed. CHW will attempt another follow up call within 10 days. documented in this encounter Plan of Treatment Upcoming Encounters Date Type Department Care Team ([facility] st Contact Info) Description 07/05/2025 10:00 AM EDT Clinical Support [facility] MEDICINE [address] [place] [address] Crissy River, RN 07/12/2025 11:30 AM EDT Clinical Support [facility] MEDICINE [address] [place] [address] Crissy River, RN documented as of this encounter Visit Diagnoses Not on filedocumented in this encounter Additional Health Concerns Assessment Noted Time PHQ-9 Depression Total Score: 5 03/28/20 25 10:34 AM EDT documented as of this encounter Care Teams Recreational Assistant Relationship Specialty Start Date End Date Renu Hadley MD [address] [place] [address] PCP - General Internal Medicine 07/04/24 documented as of this encounter
--- OUTSIDE RECORDS SUMMARY | 2025-06-21 17:16 | XMS_ITS | Clinical Summary ---
Author Organization [facility] Address [address] [place] [address] Care Team Providers Care Store Receiving Clerk Name Role Phone Unavailable Primary Care Provider Unavailabl e Source Comments PLEASE NOTE, if this patient is a minor, it may be UNLAWFUL to discuss sensitive information that is contained in these records (such as FAMILY PLANNING, MENTAL HEALTH or SUBSTANCE ABUSE) with the minor patient's parent or other person without the patient's specific authorization.[facility] Social History Tobacco Use Types Packs/Day Years Used Date Smoking Tobacco: Never Assessed Comments Unknown Sex and Gender Information Value Date Recorded Sex Assigned at Female 05/07/2025 9:30 AM PDT Legal Sex Female 9:30 AM PDT Gender Identity Female 05/07/2025 9:30 AM PDT Sexual Orientation Not on file Plan of Treatment Upcoming Encounters Date Type Department Care Team (Late st Contact Info) Description 07/24/2025 11:00 AM EDT Behavioral Health Visit [facility] [address] [place] [phone] Kevin Love, HNP [address] [place] [address] [place] [phone] Health Maintenance Due Date Last Done Comments Anxiety Screening 1977 Diabetes Screening 1977 HPV Screening 1977 Lipid Screening 1977 Pap + HPV 1977 Tobacco Screening 1977 Relationship Safety Screening/Counseling 1992 Hypertension Screening (#1) 1995 Imm-Hepatitis B (1 of 3 - 19 + 3-dose series) 1996 Cervical Cancer Screening 1998 Pap Smear 1998 Breast Cancer Screening (Mammogram) 2017 CT Colonography 2022 Colonoscopy 2022 Colorectal Cancer Screening 2022 FIT/gFOBT 2022 Fecal DNA 2022 Flexible Sigmoidoscopy 2022 Tss-[id number]-09 ( season) 2024 022 Alcohol and Drug Screen 10/25/2024 Depression Annual Screen 10/25/2024 Imm-Influenza (#1) 2025 Imm-DTaP/Tdap/Td (3 - Td or Tdap) 04/19/2028 018, 05/05/2012 HIV Screening Completed 09/29/2022, 09/29/2022 Hepatitis C Screening Completed 09/29/2022 Cervical Ablation/Cold-Knife Conization Discontinued Cervical Cryotherapy Discontinued Colposcopy Discontinued Endometrial Biopsy Discontinued Excision/Leep Discontinued HPV Genotyping Discontinued Vaginal Pap Discontinued Vulvoscopy Discontinued Insurance [facility]
--- OUTSIDE RECORDS SUMMARY | 2025-06-21 17:16 | XMS_ITS | Patient Health Record ---
Author Organization [facility] Address [address] [place], [place] [phone] Care Team Providers Care Supply Analyst Name Role Phone Kirstin Wright Outpt Care Primary Care Provider [phone] Abby Dobson Unavailable [phone] Reason For Referral No Information Plan Of Treatment No Information Insurance Providers Payer Name Payer Address Payer Phone Subscriber Number Group Number Insured Name Patient Relationship to Insured Coverage Start Date Coverage End Date [place] Standard [address] [place] [address] [phone] Ruma Simons Self - patient is the insured
--- OUTSIDE RECORDS SUMMARY | 2025-06-21 17:16 | XMS_ITS | Encounter Summary ---
Author Organization [employer] Address 75 [facility] 7 [place] [address] Care Team Providers Care Mortgage Advisor Name Role Phone Renu Hadley MD Primary Care Provider + Reason for Visit * Reason Onset Date Comments Med Refill Needs to provide UTOX before Tramadol refill Encounter Details Date Type Department Care Team ([facility] st Contact Info) Description 06/19/2025 Refill [facility] MEDICINE [address] [place], [place] [phone] Renu Hadley MD [address] [place] [address] Chronic abdominal pain Social History Tobacco Use [...] Encounter - Crissy River RN - 06/20/2025 9:33 AM EDT Per conversation with covering provider Dr Chambers this morning, pt needs to provide urine sample for UTOX before a Tramadol refill can be considered. TC via P/I#[id number], artillery officer stated she was having a difficult time understanding patient, she questioned if patient was under anesthesia. Pt was notified that she will need to provide urine sample prior to receiving Tramadol refill. Pt stated she would come today at 12p to provide urine sample. Pt stated she was having a lot of pain inher abdomen. Advised patient she could go to [facility] to be evaluated if she needs. Pt stated she has her amish praying for her. She stated she will come to see this ad copy writer at 12p today. documented in this encounter Plan of Treatment Upcoming Encounters Date Type Department Care Team (Late st Contact Info) Description 07/05/2025 10:00 AM EDT Clinical Support [facility] MEDICINE [address] [place] [address] Crissy River, RN 07/12/2025 11:30 AM EDT Clinical Support [facility] MEDICINE [address] [place] [address] Crissy River, RN documented as of this encounter Visit Diagnoses Diagnosis Chronic abdominal pain Abdominal pain, unspecified site documented in this encounter Additional Health Concerns Assessment Noted Time PHQ-9 Depression Total Score: 5 03/28/20 25 10:34 AM EDT documented as of this encounter Care Teams Mortgage Advisor Relationship Specialty Start Date End Date Renu Hadley MD [address] [place] [address] PCP - General Internal Medicine 07/04/24 documented as of this encounter
--- OUTSIDE RECORDS SUMMARY | 2025-06-21 17:16 | XMS_ITS | Encounter Summary ---
Author Organization [employer] Address [address] [facility] [address] [place] [address] Care Team Providers Care Powder Carrier Name Role Phone Renu Hadley MD Primary Care Provider + Reason for Visit * Reason Onset Date Comments triage 02/01/2023 Encounter Details Date Type Department Care Team ([facility] st Contact Info) Description 02/01/2023 Telephone [facility] [address] [place] [address] [phone] Name, MD Richy [address] [place] [address] triage Social History Tobacco Use Types Packs/Day [...] No answer LVM to return call to [facility] triage line. * Telephone Encounter - [...] Description 07/05/2025 10:00 AM EDT Clinical Support [address] [address] [place], RN 07/12/2025 11:30 AM EDT Clinical Support [address] [address] [place], RN documented as of this encounter Visit Diagnoses Not on filedocumented in this encounter Care Teams Powder Carrier Relationship Specialty Start Date End Date Renu Hadley MD [address] [place] [phone] PCP - General Internal Medicine 07/04/24 documented as of this encounter
--- OUTSIDE RECORDS SUMMARY | 2025-06-21 17:16 | XMS_ITS | Encounter Summary ---
Author Organization [employer] Address [address] [facility] [address] [place] [address] Care Team Providers Care Electronic Typesetting Machine Operator Name Role Phone Renu Hadley MD Primary Care Provider + Reason for Visit * Reason Onset Date Comments Did not provide UTOX X2 06/18/2025 Encounter Details Date Type Department Care Team ([facility] Contact Info) Description 06/18/2025 Telephone [facility] [address] [place], [place] [phone] Crissy River RN Did not provide UTOX X2 Social History Tobacco Use Types Packs/Day Years [...] Telephone Encounter - Crissy River RN - 06/18/2025 10:15 AM EDT Pt came today for [facility] [employer] appt. Pt stated she was unable to void. Pt was provided water bottle and asked to sit in waiting room andlet part time receptionist know when she can void. Pt told part time receptionist she had to leave. This account underwriter spoke withher with part time receptionist translating and reminded her she needs to provide this urine sample. Pt indicated she would continue to drink water. Message sent to me soon after that she left stating she has a dental appt. UTOX was not done. 06/04/25 Pt was unable to void for UTOX. Pt stated she could not void and could not stay today d/t adenatal appt in [place]. Stated she would come in 06/05/25 to complete, then cancelled her appt. She was NCNS for [employer] appt X2 on 06/13/25. documented in this encounter Plan of Treatment Upcoming Encounters Date Type Department Care Team (Late st Contact Info) Description 07/05/2025 10:00 AM EDT Clinical Support [address] [phone] Crissy iRver, RN 07/12/2025 11:30 AM EDT Clinical Support [facility] [address] [facility] [place] [address] [place], RN documented as of this encounter Visit Diagnoses Not on filedocumented in this encounter Additional Health Concerns Assessment Noted Time PHQ-9 Depression Total Score: 5 03/28/20 25 10:34 AM EDT documented as of this encounter Care Teams Electronic Typesetting Machine Operator Relationship Specialty Start Date End Date Renu Hadley MD [address] [facility] [place] [address] PCP - General Internal Medicine 07/04/24 documented as of this encounter
[2025-06-26 09:23] LABS: Aminoclonazepam, GCMS Urine 1484
[2025-06-26 09:25] LABS: Lorazepam GCMS Urine NEGATIVE; Nordiazepam, GCMS Urine NEGTAIVE; Oxazepam, GCMS Urine NEGATIVE
[2025-06-26 09:26] LABS: Alphahydroxymidazolam,GCMS Ur NEGATIVE; Alphahydroxytriazolam, GCMS Ur NEGATIVE; Alprazolam, GCMS Urine NEGATIVE; Flurazepam Metabolite,GCMS Ur NEGTAIVE; Temazepam, GCMS Urine NEGATIVE
== END 2025-06-21 17:13 | disposition home or self-care (01) ==
LOC: HO.HHCLNP 17:12
PROVIDERS: Visit Provider Internal Medicine
DX: Z79.891 Long term (current) use of opiate analgesic (principal)
CPT/HCPCS: 80307; 80346; 80353

== ENCOUNTER 2025-08-20 13:43 | Outpatient (REF) | payer MEDICAID, SELFPAY ==
--- NOTE | ~2025-08-20 | US_ITS ---
EXAMINATION: US TRIPLEX LOWER EXTREMITY, LEFT CLINICAL INFORMATION: Left calf pain. COMPARISON: None available. TECHNIQUE: Color-flow triplex imaging with spectral analysis and compression Doppler were performed on the left lower extremity. FINDINGS: Respiratory variation, normal compression and augmented flow are noted throughout the left lower extremity. The visualized common femoral vein, superficial femoral vein, profunda femoral vein, popliteal vein and midcalf peroneal and posterior tibial venous segments show no evidence of deep venous thrombosis. Fluid collection in the medial proximal/mid calf measuring 4.6 x 0.7 x 1.3 cm. US/US venous duplex LE LT IMPRESSION: No evidence of deep venous thrombosis involving the left lower extremity. Fluid collection in the medial, proximal/mid calf measuring 4.6 x 0.7 x 1.3 cm, differential considerations include Blakely's cyst versus other etiologies. Clinically correlate. Electronically signed by: Ellis Baker MD 08/20/2025 03:04 PM EDT
--- OUTSIDE RECORDS SUMMARY | 2025-08-20 17:24 | XMS_ITS | Clinical Summary ---
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 information please refer to: http://education.Glomera.Minglebox/faq/RIO187g6 (This link is being provided for informational/ educational purposes only.) Test Performed by [facility], [facility], [address] [place] [address] Tyler Mota M.D., Ph.D., Director of Laboratories , [facility] [id number] Please note: Effective 07/06/2016, HPV testing will be performed using [employer]'s APTIMA test which targets mRNA. Detecting mRNA instead of DNA, as in older methods, offers significant improvements in specificity. 10/13/2017 9:12 AM EST Carmen Bey CNM HISTORICAL/NON ORDERABLE LABS Final Result [facility] [address] * Pap Smear (10/13/2017 12:00 AM EST) Swab Carmen Bey CNM LAB CYTOLOGY ORDERABLES F inal Result Performing Organization Address City/[facility]/ZIP Co de Phone Number [facility] [address] [place] [phone] from Last 3 Months or Most Recently Relevant to Health Maintenance Insurance [facility] C3 Care Teams Breaker Unit Assembler Relationship Specialty Start Date End Date Noel Palacio MD [address] [place] [address] PCP - General Internal Medicine 07/04/24 Bg Heck, KACY [address] [place] [address] Registered Nurse Family Medicine 07/24/25 Argentina Menon 07/24/25
--- OUTSIDE RECORDS SUMMARY | 2025-08-20 17:24 | XMS_ITS | Encounter Summary ---
Author Organization [employer] Address [address] [facility] 7t [place] [address] Care Team Providers Care Community Health Program Representative Name Role Phone Renu Hadley MD Primary Care Provider + Bg Heck RN Unavailable [phone] Bg Heck RN Unavailable [phone] Argentina Menon Unavailable Reason for Visit * Reason Comments Med Refill Encounter Details Date Type Department Care Team ([facility] Contact Info) Description 04/09/2023 Refill [facility] [address] [place], [place] [phone] Lisa Cifuentes FNP [address] [place], [place] [phone] Anxiety disorder, unspecified Social History Tobacco Use [...] Upcoming Encounters Date Type Department Care Team ([facility] Contact Info) Description 09/14/2025 9:15 AM EST Office Visit [facility] [address] [place] [address] Renu Hadley MD [address] [place] [address] documented as of this encounter Visit Diagnoses Diagnosis Anxiety disorder, unspecified documented in this encounter Additional Health Concerns Assessment Noted Time PHQ-9 Depression Total Score: 12 023 1:33 PM EDT documented as of this encounter Care Teams Community Health Program Representative Relationship Specialty Start Date End Date Renu Hadley MD [address] [place] [address] PCP - General Internal Medicine 07/04/24 Bg Heck RN [address] [place] [address] Registered Nurse Family Medicine 07/02/25 07/06/25 Bg Heck RN [address] [place] [address] Registered Nurse Family Medicine 07/24/25 Argentina Menon 07/24/25 documented as of this encounter
--- OUTSIDE RECORDS SUMMARY | 2025-08-20 17:24 | XMS_ITS | Encounter Summary ---
Author Organization [employer] Address 75 [facility] 7t [place] [address] Care Team Providers Care Product Accountant Name Role Phone Renu Hadley MD Primary Care Provider + Bg Heck RN Unavailable [phone] Bg Heck RN Unavailable [phone] Argentina Menon Unavailable Reason for Visit * Reason Onset Date Comments Appointment Request 04/07/2023 Encounter Details Date Type Department Care Team ([facility] st Contact Info) Description 04/07/2023 Telephone [facility] MEDICINE [address] [place], [place] [phone] Name, MD Richy [address] [place], [place] [phone] Appointment Request Social History Tobacco Use Types [...] - 04/07/2023 1:53 PM EDT T/C to [phone] through charity: water id - [id number] to re-schedule HDF apt. Pt. Schedule for HDF apt. On 04/14/2023. Pt. Was admitted at [facility], d/c 04/02/23 for Dx: Peritoneal abscess surgery. Pt. Verbally agreed and understood, HDF summery scanned into pt.'s chart. Pt. States her [...] to r/s HDF appt from 04/07/23. Details: [facility] d/c 04/02/23 Dx: Peritoneal abscess surgery documented in this encounter Plan of Treatment Upcoming Encounters Date Type Department Care Team (Late st Contact Info) Description 09/14/2025 9:15 AM EST Office Visit [facility] MED[facility]INE [address] [place] [address] Renu Hadley MD [address] [place] [address] documented as of this encounter Visit Diagnoses Not on filedocumented in this encounter Additional Health Concerns Assessment Noted Time PHQ-9 Depression Total Score: 12 023 1:33 PM EDT documented as of this encounter Care Teams Product Accountant Relationship Specialty Start Date End Date Renu Hadley MD [address] [place] [address] PCP - General Internal Medicine 07/04/24 Bg Heck RN 505 [place] [address] Registered Nurse Family Medicine 07/02/25 07/06/25 Bg Heck RN 505 [place] [address] Registered Nurse Family Medicine 07/24/25 Argentina Menon 07/24/25 documented as of this encounter
--- OUTSIDE RECORDS SUMMARY | 2025-08-20 17:24 | XMS_ITS | Encounter Summary ---
Author Organization [employer] Address 75 [facility] 7t [place] [address] Care Team Providers Care Account Contact Associate Name Role Phone Renu Hadley MD Primary Care Provider + Bg Heck RN Unavailable [phone] Argentina Menon Unavailable Reason for Visit * Reason Comments Care Coordination C3CM- chart review Encounter Details Date Type Department Care Team (Latest Contact Info) Description 07/24/2025 Patient Outreach [facility] MED [facility]S [address] [place] [address] Renu Hadley MD 230 [place] [address] Care Coordination (C3CM- chart review) Social History Tobacco Use Types Packs/Day Years [...] the past 12 months, has t he [employer], gas, oil or water [employer] threatened to shut off services in your [...] as of this encounter Progress Notes * Bg Heck RN - 07/24/2025 8:12 AM EDT SETH Heck RN, performed chart review, in anticipation of initial assessment with patient, aspatient has stratified for C3 Adult Complex Care through the ADT feed. History significant for severe anxiety, chronic low back pain, hypertension, migraine, numbness of hand, peripheral neuralgia, bipolar I disorder, chronic abdominal pain, PTSD, GERD, severe depression, mild asthma. Specialists include [facility] pharmacy MTM, [facility], , [facility] [place], [facility], [facility] optometry. ED visits withinthe last 12 months include [facility] 07/23/25, [facility] [place] [place], [facility] [place], [facility] [place]. Last appointment in PCP office on 05/28/25. No future appointment scheduled with PCP, on recall for 08/28/25. documented in this encounter Plan of Treatment Upcoming Encounters Date Type Department Care Team (Late st Contact Info) Description 09/14/2025 9:15 AM EST Office Visit [facility] [address] [place] [address] Renu Hadley MD [address] [place] [address] documented as of this encounter Visit Diagnoses Not on filedocumented in this encounter Additional Health Concerns Assessment Noted Time PHQ-9 Depression Total Score: 5 03/28/20 10:34 AM EDT documented as of this encounter Care Teams Account Contact Associate Relationship Specialty Start Date End Date Renu Hadley MD [address] [place] [address] PCP - General Internal Medicine 07/04/24 Bg Heck RN [address] [place] [address] Registered Nurse Family Medicine 07/24/25 Argentina Menon 07/24/25 documented as of this encounter
--- OUTSIDE RECORDS SUMMARY | 2025-08-20 17:24 | XMS_ITS | Encounter Summary ---
Author Organization [employer] Address [address] [facility] 7t [place] [address] Care Team Providers Care Reel Tender Name Role Phone Renu Hadley MD Primary Care Provider + Bg Heck RN Unavailable [phone] Bg Heck RN Unavailable [phone] Argentina Menon Unavailable Reason for Visit * Reason Onset Date Comments triage 02/26/2023 Encounter Details Date Type Department Care Team ([facility] st Contact Info) Description 02/26/2023 Telephone [facility] MEDICINE 230 [place], [place] [phone] Name, MD Richy [address] [place], [place] [phone] triage Social History Tobacco Use Types Packs/Day [...] Questionnaire-2 Score 4 05/0 05/2023 1:33 PM [place] Hinojosa * If you checked off any problems [...] 02/26/2023 12:38 PM EDT Triage call with [place] Creel Selector ID [id number] Pt was called more than 2x. Each [...] Description 09/14/2025 9:15 AM EST Office Visit [facility] MEDICINE [address] [place] [address] Renu Hadley MD [address] [place] [address] documented as of this encounter Visit Diagnoses Not on filedocumented in this encounter Care Teams Reel Tender Relationship Specialty Start Date End Date Renu Hadley MD [address] [place] [address] PCP - General Internal Medicine 07/04/24 Bg Heck RN 505 [place] [address] Registered Nurse Family Medicine 07/02/25 07/06/25 Bg Heck RN 505 [place] [address] Registered Nurse Family Medicine 07/24/25 Argentina Menon 07/24/25 documented as of this encounter
--- OUTSIDE RECORDS SUMMARY | 2025-08-20 17:24 | XMS_ITS | Encounter Summary ---
Author Organization [employer] Address 75 [facility] 7 [place] [address] Care Team Providers Care Non Destructive Testing Scientist Name Role Phone Renu Hadley MD Primary Care Provider + Bg Heck RN Unavailable [phone] Bg Heck RN Unavailable [phone] Argentina Menon Unavailable Encounter Details Date Type Department Care Team (Late Contact Info) Description 02/15/2023 Orders Only [facility] MED [facility] PEDS [address] [place] [address] Kanika Monson LPN Social History Tobacco Use [...] Description 09/14/2025 9:15 AM EST Office Visit [facility] MEDICINE 230 [place], [place] [phone] Renu Hadley MD 230 [place] [address] documented as of this encounter Visit Diagnoses Not on filedocumented in this encounter Care Teams Non Destructive Testing Scientist Relationship Specialty Start Date End Date Renu Hadley MD [address] [place] [address] PCP - General Internal Medicine 07/04/24 Bg Heck RN 505 [place] [address] Registered Nurse Family Medicine 07/02/25 07/06/25 Bg Heck RN [address] [place] [address] Registered Nurse Family Medicine 07/24/25 Argentina Menon 07/24/25 documented as of this encounter
--- OUTSIDE RECORDS SUMMARY | 2025-08-20 17:24 | XMS_ITS | Encounter Summary ---
Author Organization [employer] Address 75 [facility] 7t [place] [address] Care Team Providers Care Motor Vehicle Examiner Name Role Phone Renu Hadley MD Primary Care Provider + Bg Heck RN Unavailable [phone] Bg Heck RN Unavailable [phone] Argentina Menon Unavailable Reason for Visit * Reason Comments Med Refill Encounter Details Date Type Department Care Team ([facility] Contact Info) Description 04/07/2023 Refill [facility] [address] [place], [place] [phone] Lisa Cifuentes FNP [address] [place], [place] [phone] Anxiety disorder, unspecified Social History Tobacco Use [...] Upcoming Encounters Date Type Department Care Team ([facility] Contact Info) Description 09/14/2025 9:15 AM EST Office Visit [facility] [address] [place] [address] Renu Hadley MD [address] [place] [address] documented as of this encounter Visit Diagnoses Diagnosis Anxiety disorder, unspecified documented in this encounter Additional Health Concerns Assessment Noted Time PHQ-9 Depression Total Score: 12 023 1:33 PM EDT documented as of this encounter Care Teams Motor Vehicle Examiner Relationship Specialty Start Date End Date Renu Hadley MD 230 [place] [address] PCP - General Internal Medicine 07/04/24 Bg Heck RN 505 [place] [address] Registered Nurse Family Medicine 07/02/25 07/06/25 Bg Heck RN [address] [place] [address] Registered Nurse Family Medicine 07/24/25 Argentina Menon 07/24/25 documented as of this encounter
--- OUTSIDE RECORDS SUMMARY | 2025-08-20 17:24 | XMS_ITS | Encounter Summary ---
Author Organization [employer] Address [address] [place] [address] 7 [place] [address] Care Team Providers Care Band Instrument Maker Name Role Phone Renu Hadley MD Primary Care Provider + Bg Heck RN Unavailable [phone] Bg Heck RN Unavailable [phone] Argentina Menon Unavailable Reason for Visit * Reason Comments Med Refill Encounter Details Date Type Department Care Team (Late st Contact Info) Description 02/12/2023 Refill [facility] MEDICINE [address] [place] [address] [phone] Richy Morris MD [address] [place] [address] [phone] Heartburn Social History Tobacco Use Types Packs/Day [...] Description 09/14/2025 9:15 AM EST Office Visit [facility] MEDICINE [address] [place] [address] [phone] Renu Hadley MD 230 [place], [place] [phone] documented as of this encounter Visit Diagnoses Diagnosis Heartburn documented in this encounter Care Teams Band Instrument Maker Relationship Specialty Start Date End Date Renu Hadley MD [address] [place] [address] PCP - General Internal Medicine 07/04/24 Bg Heck RN 505 [place] [address] Registered Nurse Family Medicine 07/02/25 07/06/25 Bg Heck RN 505 [place] [address] Registered Nurse Family Medicine 07/24/25 Argentina Menon 07/24/25 documented as of this encounter
--- OUTSIDE RECORDS SUMMARY | 2025-08-20 17:24 | XMS_ITS | Encounter Summary ---
Author Organization [employer] Address [address] [place] [address] 7 [place] [address] Care Team Providers Care Home Economist Consumer Service Name Role Phone Renu Hadley MD Primary Care Provider + Bg Heck RN Unavailable [phone] Bg Heck RN Unavailable [phone] Argentina Menon Unavailable Reason for Visit * Reason Comments Med Refill Encounter Details Date Type Department Care Team (Late Contact Info) Description 06/10/2023 Refill [facility] MEDICINE [address] [place], [place] [phone] NameRichy MD 230 [place], [place] [phone] Anxiety disorder, unspecified Social History Tobacco Use [...] Department Care Team (Late Contact Info) Description 09/14/2025 9:15 AM EST Office Visit [facility] MEDICINE [address] [place], [place] [phone] Renu Hadley MD [address] [place] [address] documented as of this encounter Visit Diagnoses Diagnosis Anxiety disorder, unspecified documented in this encounter Additional Health Concerns Assessment Noted Time PHQ-9 Depression Total Score: 12 023 1:33 PM EDT documented as of this encounter Care Teams Home Economist Consumer Service Relationship Specialty Start Date End Date Renu Hadley MD [address] [place] [address] PCP - General Internal Medicine 07/04/24 Bg Heck, KACY [address] [place] [address] Registered Nurse Family Medicine 07/02/25 07/06/25 Bg Heck, RN [address] [place] [address] Registered Nurse Family Medicine 07/24/25 Argentina Menon 07/24/25 documented as of this encounter
--- OUTSIDE RECORDS SUMMARY | 2025-08-20 17:24 | XMS_ITS | Encounter Summary ---
Author Organization [employer] Address [address] [facility] 7t [place] [address] Care Team Providers Care Housecalls Nurse Name Role Phone Renu Hadley MD Primary Care Provider + Bg Heck RN Unavailable [phone] Bg Heck RN Unavailable [phone] Argentina Menon Unavailable Reason for Visit * Reason Onset Date Comments Durable Medical Equipment 12/30/2022 Encounter Details Date Type Department Care Team (Late st Contact Info) Description 12/30/2022 Telephone [facility] MEDICINE [address] [place], [place] [phone] Name, MD Richy [address] [place] [address] Durable Medical Equipment Social History Tobacco Use [...] to be order. Please contact pt at [phone] documented in this encounter Plan of Treatment Upcoming Encounters Date Type Department Care Team (Late st Contact Info) Description 09/14/2025 9:15 AM EST Office Visit [facility] MEDICINE [address] [place], [place] [phone] Renu Hadley MD [address] [place], [place] [phone] documented as of this encounter Visit Diagnoses Not on filedocumented in this encounter Care Teams Housecalls Nurse Relationship Specialty Start Date End Date Renu Hadley MD 230 [place], [place] [phone] PCP - General Internal Medicine 07/04/24 Bg Heck RN [address] [place] [address] Registered Nurse Family Medicine 07/02/25 07/06/25 Bg Heck RN [address] [place] [address] Registered Nurse Family Medicine 07/24/25 Argentina Menon 07/24/25 documented as of this encounter
--- OUTSIDE RECORDS SUMMARY | 2025-08-20 17:24 | XMS_ITS | Encounter Summary ---
Author Organization [employer] Address 75 [facility] 7t [place] [address] Care Team Providers Care Door Clamper Name Role Phone Renu Hadley MD Primary Care Provider + Bg Heck RN Unavailable [phone] Argentina Menon Unavailable Encounter Details Date Type Department Care Team ([facility] st Contact Info) Description 08/20/2025 Orders Only [facility] MEDICINE [address] [place], [place] [phone] Kanika Freeman DO [address] [place], [place] [phone] Social History Tobacco Use Types Packs/Day Years [...] Description 09/14/2025 9:15 AM EST Office Visit [facility] MEDICINE 230 [place], [place] [phone] Renu Hadley MD [address] [place], [place] [phone] documented as of this encounter Procedures Procedure Name Priority Date/Time Associated Diagnosis Comments LOWER EXTREMITY VENOUS DUPLEX LEFT Routine 08/20/2025 2:16 PM EDT documented in this encounter Results * Lower Extremity Venous Duplex (08/20/2025 2:16 PM EDT) 08/20/2025 2:16 PM EDT Narrative [facility] - 08/20/2025 3:06 PM EDT [address] [address] Ultrasound Report Signed Patient: Ruma Simons MR#: [id number] 57 : 1975 Acct:[id number] Age/Sex: 50 / F ADM Date: 08/20/25 Loc: HO.US Attending Dr: Kanika Freeman DO Ordering Physician: Kanika Freeman DO Date of Service: 08/20/25 Procedure(s): US venous duplex LE LT Accession Number(s): [id number] cc: Kanika Freeman DO Reason for Exam: [...] Ellis Baker MD 08/20/2025 03:04 PM EDT Dictated By: Ellis Baker MD Signed By: <Electronically signed by Ellis Baker MD in OV> 08/20/25 1504 DD/ 1416 TD/TT: 08/20/25 1445 Customer Project Manager: Procedure Note Donotuseinterpreter, Image - 08/20/[address] [address] Ultrasound Report Signed Patient: Zonia Simons#: [id number] 57 : 1975Acct:[id number] Age/Sex: 50 / FADM Date: 08/20/25 Loc: HO.US Attending Dr: Kanika Freeman DO Ordering Physician: Kanika Freeman DO Date of Service: 08/20/25 Procedure(s): US venous duplex LE LT Accession Number(s): [id number] cc: Kanika Freeman DO Reason for Exam: [...] Ellis Baker MD 08/20/2025 03:04 PM EDT Dictated By: Ellis Baker MD Signed By: <Electronically signed by Ellis Baker MD in OV> 08/20/25 1504 DD/ 1416 TD/TT: 08/20/25 1445 Customer Project Manager: EDGARD Kanika Freeman DO CV VASCULAR PROCEDURES Final Result [facility] [address] [place] [address] documented in this encounter Visit Diagnoses Not on filedocumented in this encounter Additional Health Concerns Assessment Noted Time PHQ-9 Depression Total Score: 5 03/28/20 10:34 AM EDT documented as of this encounter Care Teams Door Clamper Relationship Specialty Start Date End Date Renu Hadley MD [address] [place] [address] PCP - General Internal Medicine 07/04/24 Bg Heck, RN [address] [place] [address] [place] [address] Registered Nurse Family Medicine 07/24/25 Argentina Menon 07/24/25 documented as of this encounter
--- OUTSIDE RECORDS SUMMARY | 2025-08-20 17:24 | XMS_ITS | Encounter Summary ---
Author Organization [employer] Address [address] [facility] 7t [place] [address] Care Team Providers Care Forge Hand Name Role Phone Renu Hadley MD Primary Care Provider + Bg Heck RN Unavailable [phone] Bg Heck RN Unavailable [phone] Argentina Menon Unavailable Reason for Visit * Reason Onset Date Comments triage 02/01/2023 Encounter Details Date Type Department Care Team ([facility] st Contact Info) Description 02/01/2023 Telephone [facility] MEDICINE [address] [place], [place] [phone] Name, MD Richy [address] [place] [address] triage Social History Tobacco Use Types Packs/Day [...] No answer LVM to return call to [facility] triage line. * Telephone Encounter - Geo [...] Description 09/14/2025 9:15 AM EST Office Visit [facility] MEDICINE [address] [place] [address] Renu Hadley MD [address] [place] [address] documented as of this encounter Visit Diagnoses Not on filedocumented in this encounter Care Teams Forge Hand Relationship Specialty Start Date End Date Renu Hadley MD [address] [place] [address] PCP - General Internal Medicine 07/04/24 Bg Heck RN [address] [place] [address] Registered Nurse Family Medicine 07/02/25 07/06/25 Bg Heck RN [address] [place] [address] Registered Nurse Family Medicine 07/24/25 Argentina Menon 07/24/25 documented as of this encounter
--- OUTSIDE RECORDS SUMMARY | 2025-08-20 17:24 | XMS_ITS | Encounter Summary ---
Author Organization [employer] Address 75 [facility] 7 [place] [address] Care Team Providers Care Sample Driller Name Role Phone Renu Hadley MD Primary Care Provider + Bg Heck RN Unavailable [phone] Bg Heck RN Unavailable [phone] Argentina Menon Unavailable Reason for Visit * Reason Onset Date Comments Med Refill 03/21/2025 Encounter Details Date Type Department Care Team (Late st Contact Info) Description 03/21/2025 Telephone [facility] MEDICINE [address] [place], [place] [phone] Renu Hadley MD [address] [place], [place] [phone] Med Refill Social History Tobacco Use Types Packs/Day Years Used Date Smoking Tobacco: Never Passive Smoke Exposure: Never Smokeless Tobacco: Never Alcohol Use Standard Drinks/Week Comments Not Currently 0 (1 standard drink = 0.6 oz pur e alcohol) Socially Depression Answer Date Recorded Patient Health Questionnaire-9 Score 23 02/21/2025 Patient Health Questionnaire-9 Score 02/21/2025 Last PHQ-9: Questionnaire Data Not on [...] the past 12 months, has t he Materialise, gas, oil or water Relaborate threatened to shut off services in your [...] MG tablet To be sent to : [facility] documented in this encounter Plan of Treatment Upcoming Encounters Date Type Department Care Team (Late st Contact Info) Description 09/14/2025 9:15 AM EST Office Visit [facility] MEDICINE [address] [place] [address] Renu Hadley MD [address] [place] [address] documented as of this encounter Visit Diagnoses Not on filedocumented in this encounter Additional Health Concerns Assessment Noted Time PHQ-9 Depression Total Score: 23 025 9:34 AM EDT documented as of this encounter Care Teams Sample Driller Relationship Specialty Start Date End Date Renu Hadley MD [address] [place] [address] PCP - General Internal Medicine 07/04/24 Bg Heck, RN [address] [place] [address] Registered Nurse Family Medicine 07/02/25 07/06/25 Bg Heck, RN [address] [place] [address] Registered Nurse Family Medicine 07/24/25 Argentina Menon 07/24/25 documented as of this encounter
--- OUTSIDE RECORDS SUMMARY | 2025-08-20 17:24 | XMS_ITS | Encounter Summary ---
Author Organization [employer] Address [address] [facility] 7t [place] [address] Care Team Providers Care Oil Well Engineer Name Role Phone Renu Hadley MD Primary Care Provider + Bg Heck RN Unavailable [phone] Argentina Menon Unavailable Reason for Visit * Reason Onset Date Comments Nurse Triage 08/20/2025 Encounter Details Date Type Department Care Team (Late st Contact Info) Description 08/20/[address] [facility] MEDICINE [address] [place], [place] [phone] Renu Hadley MD [address] [place], [place] [phone] Nurse Triage Social History Tobacco Use Types [...] t he electric, gas, oil or water [employer] threatened to shut off services in your [...] encounter Miscellaneous Notes * Telephone Encounter - Lis Nielsen RN - 08/20/2025 12:28 PM EDT Pt seen 08/02/[address] Freeman for left calf pain and STAT US ordered, pt no show to 08/07/25 and 08/09/25 appts for similar reasons. Telephone call to pt via voxapp #[id number]. Call quality with pt poor, pt had garbled responses at times and said she was outside. Asked pt if she leg pain is similar to 08/02/25 provider visit, pt states I've been treated like an animal, if anything goes wrong it's their fault. Pt reports ongoing left calf swelling, black bruise, my vein is wide and swollen , describes swelling as between calf and knee but it's spreading, states calf is hot and hard to touch and painful,she describes herself as needing someone to help her walk. She denies having had STAT US yet, states she has appt today at 2pm. Esthetician/Owner advised pt to seek medical attention at ED immediately for imaging and treatment for possible DVT. Educated strongly on importance of going to ED [place] for immediateprovider evaluation, pt states she is concerned and then the call dropped. Esthetician/Owner called back pt x2no answer, left voicemail to call back [facility]. Will task team nurses to status check ER visit. Protocol Used: Leg Swelling and Edema (Adult) Protocol-Based Disposition: Go to ED/C Now (or to Office Now per Policy) Positive Triage Question: * Can't walk or can barely stand (new-onset) * All higher-acuity triage questions were negative * Telephone Encounter - Lis Nielsen RN - 08/20/2025 11:23 AM EDT Telephone call to pt x1, no answer, left voicemail to call back [facility]. Will task to call again. * Telephone Encounter - Johanny Monge - 08/20/2025 10:51 AM EDT Symptom: Leg Injury Outcome: Talk to a nurse or provider within 15 minutes Reason: Severe pain now The caller accepted this outcome. Contact pt at [phone] ([email or web address]) documented in this encounter Plan of Treatment Upcoming Encounters Date Type Department Care Team (Late st Contact Info) Description 09/14/2025 9:15 AM EST Office Visit [facility] MEDICINE [address] [place] [address] Renu Hadley MD [address] [place] [address] documented as of this encounter Visit Diagnoses Not on filedocumented in this encounter Additional Health Concerns Assessment Noted Time PHQ-9 Depression Total Score: 5 03/28/20 25 10:34 AM EDT documented as of this encounter Care Teams Oil Well Engineer Relationship Specialty Start Date End Date Renu Hadley MD [address] [place] [address] PCP - General Internal Medicine 07/04/24 Bg Heck, KACY [address] [place] [address] Registered Nurse Family Medicine 07/24/25 Argentina Menon 07/24/25 documented as of this encounter
--- OUTSIDE RECORDS SUMMARY | 2025-08-20 17:25 | XMS_ITS | Patient Health Record ---
Author Organization [facility] Address [address] [place] [address] Care Team Providers Care Machine Cloth Trimmer Name Role Phone Kirstin Wright Outpt Care Primary Care Provider Abby Dobson Unavailable [phone] Reason For Referral No Information Plan Of Treatment No Information Insurance Providers Payer Name Payer Address Payer Phone Subscriber Number Group Number Insured Name Patient Relationship to Insured Coverage Start Date Coverage End Date [place] Standard [address] [place] [address] Ruma Simons Self - patient is the insured
--- OUTSIDE RECORDS SUMMARY | 2025-08-20 17:25 | XMS_ITS | Encounter Summary ---
Author Organization [employer] Address 75 [facility] 7 [place] [address] Care Team Providers Care Metal Trimmer Name Role Phone Renu Hadley MD Primary Care Provider + Bg Heck RN Unavailable [phone] Bg Heck RN Unavailable [phone] Argentina Menon Unavailable Encounter Details Date Type Department Care Team ([facility] Contact Info) Description 12/01/2022 Orders Only [facility] CH[facility] MED & PEDS [address] [place] [address] Kanika Monson LPN Social History Tobacco Use [...] 9:15 AM EST Office Visit [facility] MEDICINE [address] [place], [place] [phone] Renu Hadley MD [address] [place] [address] documented as of this encounter Visit Diagnoses Not on filedocumented in this encounter Care Teams Metal Trimmer Relationship Specialty Start Date End Date Renu Hadley MD [address] [place] [address] PCP - General Internal Medicine 07/04/24 Bg Heck, RN [address] [place] [address] Registered Nurse Family Medicine 07/02/25 07/06/25 Bg Heck RN [address] [place] [address] Registered Nurse Family Medicine 07/24/25 Argentina Menon 07/24/25 documented as of this encounter
--- OUTSIDE RECORDS SUMMARY | 2025-08-20 17:25 | XMS_ITS | Encounter Summary ---
Author Organization [employer] Address [address] [facility] 7 [place] [address] Care Team Providers Care Machine Farmworker Name Role Phone Renu Hadley MD Primary Care Provider + Bg Heck RN Unavailable [phone] Bg Heck RN Unavailable [phone] Argentina Menon Unavailable Reason for Visit * Reason Onset Date Comments Nurse Triage 05/15/2025 Encounter Details Date Type Department Care Team (Late st Contact Info) Description 05/15/2025 Telephone [facility] MEDICINE [address] [place], [place] [phone] Renu Hadley MD [address] [place] [address] Nurse Triage Social History Tobacco Use Types [...] with others, in a hotel, in a residential, living outside on the street, on a [...] Miscellaneous Notes * Telephone Encounter - Shelly Almonte LPN - 05/15/2025 12:08 PM EDT Triage call returned with S # [id number] Carley. Patient reports pain in upper abdomen [...] patient. Disposition to ED confirmed with BLS Proration Clerk confirmed and that patient declined recommendation at time of call. Multiple (3) protocols were used on this call. Disposition for Call: Go to ED/UCC Now (or to Office with PCP Approval) Protocol Used: Abdominal Pain - Female (Adult) Protocol-Based Disposition: Go to ED/UCC Now (or to Office [...] Reason: Abdominal pain Please contact pt at [phone]. (English Speaker) documented in this encounter Plan of Treatment Upcoming Encounters Date Type Department Care Team (Late st Contact Info) Description 09/14/2025 9:15 AM EST Office Visit [facility] MEDICINE [address] [place] [address] Renu Hadley MD [address] [place] [address] documented as of this encounter Visit Diagnoses Not on filedocumented in this encounter Additional Health Concerns Assessment Noted Time PHQ-9 Depression Total Score: 5 03/28/20 25 10:34 AM EDT documented as of this encounter Care Teams Machine Farmworker Relationship Specialty Start Date End Date Renu Hadley MD [address] [place] [address] PCP - General Internal Medicine 07/04/24 Bg Heck RN [address] [place] [address] Registered Nurse Family Medicine 07/02/25 07/06/25 Bg Heck, KACY [address] [place] [address] Registered Nurse Family Medicine 07/24/25 Argentina Menon 07/24/25 documented as of this encounter
--- OUTSIDE RECORDS SUMMARY | 2025-08-20 17:25 | XMS_ITS | Encounter Summary ---
Author Organization [employer] Address [address] [facility] 7t [place] [address] Care Team Providers Care Saw Tailer Name Role Phone Renu Hadley MD Primary Care Provider + Bg Heck RN Unavailable [phone] Bg Heck RN Unavailable [phone] Argentina Menon Unavailable Reason for Visit * Reason Onset Date Comments Medication Question 01/13/2023 Encounter Details Date Type Department Care Team ([facility] st Contact Info) Description 01/13/2023 Telephone [facility] MEDICINE [address] [place], [place] [phone] Name, MD Richy [address] [place], [place] [phone] Medication Question Social History Tobacco Use Types [...] Doxepin 50 mg. Please contact pt at [phone] documented in this encounter Plan of Treatment Upcoming Encounters Date Type Department Care Team ([facility] st Contact Info) Description 09/14/2025 9:15 AM EST Office Visit [facility] MEDICINE [address] [place], [place] [phone] Renu Hadley MD [address] [place], [place] [phone] documented as of this encounter Visit Diagnoses Not on filedocumented in this encounter Care Teams Saw Tailer Relationship Specialty Start Date End Date Renu Hadley MD [address] [place] [phone] PCP - General Internal Medicine 07/04/24 Bg Heck RN [address] [place] [address] Registered Nurse Family Medicine 07/02/25 07/06/25 Bg Heck RN [address] [place] [address] Registered Nurse Family Medicine 07/24/25 Argentina Menon 07/24/25 documented as of this encounter
--- OUTSIDE RECORDS SUMMARY | 2025-08-20 17:25 | XMS_ITS | Encounter Summary ---
Author Organization [employer] Address [address] [facility] 7 [place] [address] Care Team Providers Care Manager Administrative Name Role Phone Renu Hadley MD Primary Care Provider + Bg Heck RN Unavailable [phone] Bg Heck RN Unavailable [phone] Argentina Menon Unavailable Encounter Details Date Type Department Care Team (Latest Contact Info) Description 12/20/2019 Abstract [facility] CONVERSIONS Dental, Provider, DDS Social [...] Description 09/14/2025 9:15 AM EST Office Visit [facility] MEDICINE [address] [place], [place] [phone] Renu Hadley MD [address] [place], [place] [phone] documented as of this encounter Visit Diagnoses Not on filedocumented in this encounter Care Teams Manager Administrative Relationship Specialty Start Date End Date Renu Hadley MD [address] [place], [place] [phone] PCP - General Internal Medicine 07/04/24 Bg Heck, RN [address] [facility] [place] [place] [address] Registered Nurse Family Medicine 07/02/25 07/06/25 Bg Heck RN [address] [facility] [place] [place] [address] Registered Nurse Family Medicine 07/24/25 Argentina Menon 07/24/25 documented as of this encounter
--- OUTSIDE RECORDS SUMMARY | 2025-08-20 17:25 | XMS_ITS | Encounter Summary ---
Author Organization [employer] Address [address] [facility] 7 [place] [address] Care Team Providers Care Waste Machine Offbearer Name Role Phone Renu Hadley MD Primary Care Provider + Bg Heck RN Unavailable [phone] Bg Heck RN Unavailable [phone] Argentina Menon Unavailable Encounter Details Date Type Department Care Team (Latest Contact Info) Description 02/25/2021 Abstract [facility] CONVERSIONS Dental, Provider, DDS Social [...] Office Visit [facility] MEDICINE [address] [place], [place] [phone] Renu Hadley MD [address] [place], [place] [phone] documented as of this encounter Visit Diagnoses Not on filedocumented in this encounter Care Teams Waste Machine Offbearer Relationship Specialty Start Date End Date Renu Hadley MD [address] [place], [place] [phone] PCP - General Internal Medicine 07/04/24 Bg Heck, RN [address] [place] [address] Registered Nurse Family Medicine 07/02/25 07/06/25 Bg Heck, KACY [address] [place] [address] Registered Nurse Family Medicine 07/24/25 Argentina Menon 07/24/25 documented as of this encounter
--- OUTSIDE RECORDS SUMMARY | 2025-08-20 17:25 | XMS_ITS | Encounter Summary ---
Author Organization [employer] Address [address] [place] [address] 7 [place] [address] Care Team Providers Care Chief Maintenance Supervisor Name Role Phone Renu Hadley MD Primary Care Provider + Bg Heck RN Unavailable [phone] Bg Heck RN Unavailable [phone] Argentina Menon Unavailable Encounter Details Date Type Department Care Team (Late Contact Info) Description 11/17/2022 Orders Only [facility] MEDICINE [address] [place] [address] Kaylynn Membreno LPN Social History Tobacco Use [...] Description 09/14/2025 9:15 AM EST Office Visit [facility] MEDICINE [address] [place] [address] Renu Hadley MD [address] [place] [address] documented as of this encounter Visit Diagnoses Not on filedocumented in this encounter Care Teams Chief Maintenance Supervisor Relationship Specialty Start Date End Date Renu Hadley MD [address] [place] [address] PCP - General Internal Medicine 07/04/24 Bg Heck, RN [address] [place] [address] Registered Nurse Family Medicine 07/02/25 07/06/25 Bg Heck RN [address] [place] [address] Registered Nurse Family Medicine 07/24/25 Argentina Menon 07/24/25 documented as of this encounter
--- OUTSIDE RECORDS SUMMARY | 2025-08-20 17:25 | XMS_ITS | Encounter Summary ---
Author Organization [employer] Address 75 [facility] 7 [place] [address] Care Team Providers Care Bookkeeping Service Sales Agent Name Role Phone Renu Hadley MD Primary Care Provider + Bg Heck RN Unavailable [phone] Bg Heck RN Unavailable [phone] Argentina Menon Unavailable Reason for Visit * Reason Onset Date Comments Medication Question 06/20/2025 Encounter Details Date Type Department Care Team ([facility] st Contact Info) Description 06/20/2025 Telephone [facility] MEDICINE [address] [place], [place] [phone] Renu Hadley MD [address] [place] [address] Medication Question Social History Tobacco Use Types [...] Tramadol refill can be considered. TC via P/I#[id number], field hockey and lacrosse coach stated she was having a difficult time understanding patient, she questioned if patient was under anesthesia. Pt was notified that she will need to provide urine sample prior to receiving Tramadol refill. Pt stated she would come today at 12p to provide urine sample. Pt stated she was having a lot of pain inher abdomen. Advised patient she could go to [facility] to be evaluated if she needs. Pt stated she has her presybeterian praying for her. She stated she will come to see this insurance underwriter sales at 12p today. Pt was [facility] for [facility] [employer] [facility] appt today at 12pm. Will send [...] Description 09/14/2025 9:15 AM EST Office Visit [facility] MEDICINE [address] [place] [address] Renu Hadley MD [address] [place] [address] documented as of this encounter Visit Diagnoses Not on filedocumented in this encounter Additional Health Concerns Assessment Noted Time PHQ-9 Depression Total Score: 5 03/28/20 10:34 AM EDT documented as of this encounter Care Teams Bookkeeping Service Sales Agent Relationship Specialty Start Date End Date Renu Hadley MD [address] [place] [address] PCP - General Internal Medicine 07/04/24 Bg Heck RN 505 [place] [address] Registered Nurse Family Medicine 07/02/25 07/06/25 Bg Heck RN [address] [place] [address] Registered Nurse Family Medicine 07/24/25 Argentina Menon 07/24/25 documented as of this encounter
--- OUTSIDE RECORDS SUMMARY | 2025-08-20 17:25 | XMS_ITS | Encounter Summary ---
Author Organization [employer] Address 75 [facility] 7 [place] [address] Care Team Providers Care Disposal Plant Operator Name Role Phone Renu Hadley MD Primary Care Provider + Bg Heck RN Unavailable [phone] Bg Heck RN Unavailable [phone] Argentina Menon Unavailable Reason for Visit * Reason Comments Med Refill Encounter Details Date Type Department Care Team ([facility] st Contact Info) Description 12/10/2024 Refill [facility] MEDICINE [address] [place], [place] [phone] Renu Hadley MD [address] [place], [place] [phone] Peripheral neuralgia Social History Tobacco Use Types [...] 09/14/2025 9:15 AM EST Office Visit [facility] MEDICINE [address] [place] [address] Renu Hadley MD [address] [place] [address] documented as of this encounter Visit Diagnoses Diagnosis Peripheral neuralgia Unspecified hereditary and idiopathic peripheral neuropathy documented in this encounter Additional Health Concerns Assessment Noted Time PHQ-9 Depression Total Score: 16 025 9:47 AM EST documented as of this encounter Care Teams Disposal Plant Operator Relationship Specialty Start Date End Date Renu Hadley MD [address] [place] [address] PCP - General Internal Medicine 07/04/24 Bg Heck, KACY [address] [place] [address] Registered Nurse Family Medicine 07/02/25 07/06/25 Bg Heck, RN [address] [place] [address] [place] [address] Registered Nurse Family Medicine 07/24/25 Argentina Menon 07/24/25 documented as of this encounter
--- OUTSIDE RECORDS SUMMARY | 2025-08-20 17:25 | XMS_ITS | Clinical Summary ---
Author Organization [facility] Address [address] [place] [address] Care Team Providers Care Weir Fisher Name Role Phone Unavailable Primary Care Provider Unavailabl e Source Comments PLEASE NOTE, if this patient is a minor, it may be UNLAWFUL to discuss sensitive information that is contained in these records (such as FAMILY PLANNING, MENTAL HEALTH or SUBSTANCE ABUSE) with the minor patient's parent or other person without the patient's specific authorization.[facility] Encounters Date Type Department Care Team Description 07/24/2025 / TELEPHONE [facility] [address] [place] [address] Kevin Love, SUSANHNTerrence from Last 3 Months Social History Tobacco Use Types Packs/Day Years Used Date Smoking Tobacco: Never Assessed Comments Unknown Sex and Gender Information Value Date Recorded Sex Assigned at Female 05/07/2025 9:30 AM PDT Legal Sex Female 9:30 AM PDT Gender Identity Female 05/07/2025 9:30 AM PDT Sexual Orientation Not on file Plan of Treatment Health Maintenance Due Date Last Done Comments Anxiety Screening 1977 HPV Screening (self-collect) 1977 HPV Screening 1977 Lipid Screening 1977 Pap + HPV 1977 Tobacco Screening 1977 Relationship Safety Screening/Counseling 1992 Hypertension Screening (#1) 1995 Imm-Hepatitis B (1 of 3 - 19 + 3-dose series) 1996 Cervical Cancer Screening 1998 Pap Smear 1998 Breast Cancer Screening (Mammogram) 2017 CT Colonography 2022 Colonoscopy 2022 Colorectal Cancer Screening 2022 FIT/gFOBT 2022 Fecal DNA 2022 Flexible Sigmoidoscopy 2022 Alcohol and Drug Screen 10/25/2024 Depression Annual Screen 10/25/2024 [id number] ( season) 2025 022 Imm-Influenza (#1) 2025 Diabetes Screening 03/28/2026 03/28/2023, 09/29/2022 Imm-DTaP/Tdap/Td (3 - Td or Tdap) 04/19/2028 018, 05/05/2012 HIV Screening Completed 09/29/2022, 09/29/2022 Hepatitis C Screening Completed 09/29/2022 Cervical Ablation/Cold-Knife Conization Discontinued Cervical Cryotherapy Discontinued Colposcopy Discontinued Excision/Leep Discontinued HPV Genotyping Discontinued Vaginal Pap Discontinued Vulvoscopy Discontinued Insurance [facility] [employer]
--- OUTSIDE RECORDS SUMMARY | 2025-08-20 17:25 | XMS_ITS ---
Author Organization [employer] Address [address] [facility] 7t [place] [address] Care Team Providers Care Cost And Risk Analysis Manager Name Role Phone Renu Hadley MD Primary Care Provider + Bg Heck RN Unavailable [phone] Argentina Menon Unavailable CM Complex Status:Outreach In Progress (Enrolling) Start date:07/24/2025 Enrollment reason:ADT Feed Overview ED- Pt went to [facility] ED on 07/23/25. . Case Team Name Relationship Phone Bg Heck RN(Responsible Staff) Registered N noreen [phone] Continued Care and Services Coordination
--- OUTSIDE RECORDS SUMMARY | 2025-08-20 17:25 | XMS_ITS ---
Author Organization [employer] Address [address] [facility] 7t [place] [address] Care Team Providers Care Technology Administrator Name Role Phone Renu Hadley MD Primary Care Provider + Bg Heck RN Unavailable [phone] Argentina Menon Unavailable CHW Complex Status:Outreach In Progress (Enrolling) Start date:07/24/2025 Enrollment reason:ADT Feed Overview ED- Pt went to [facility] ED on 07/23/25. . Case Team Name Relationship Phone Argentina Menon(Responsible Staff) [phone] Continued Care and Services Coordination
== END 2025-08-20 13:44 | disposition home or self-care (01) ==
LOC: HO.US 13:43
PROVIDERS: Visit Provider Family Medicine
DX: M79.662 Pain in left lower leg (principal)
CPT/HCPCS: 93971

== ENCOUNTER → 2025-08-20 14:16 | Outpatient (BNV) | payer MEDICAID, SELFPAY | PROVIDERS: Visit Provider Radiology Diagnostic Ultrasound | DX: M79.662 Pain in left lower leg (principal) | CPT/HCPCS: 93971 ==

== ENCOUNTER 2025-09-06 09:57 | Outpatient (REF) | payer MEDICAID, SELFPAY ==
[2025-09-06 11:41] LABS: Blood Urea Nitrogen 19 mg/dL (9-16); Estimated Glomerular Filt Rate > 60
== END 2025-09-06 09:58 | disposition home or self-care (01) ==
LOC: HO.LAB 09:57
PROVIDERS: PCP Internal Medicine; Visit Provider Surgery
DX: R10.31 Right lower quadrant pain (principal); G89.29 Other chronic pain
CPT/HCPCS: 36415; 82565; 84520; 99202

== ENCOUNTER 2025-09-06 09:57 | Outpatient (AMB) | payer MEDICAID, SELFPAY ==
--- NOTE | 2025-09-06 09:58 | A.OFFVIS_ITS ---
Vital Signs 09/06/25 10:02 Height 5 ft 3 in Weight 178 lb 8 oz BMI 31.6 Intake Visit Reasons: (R) L Q abdomen pain Intake Note: This patient presents for right lower quadrant abdominal pain. Pt c/o; RLQ abdominal pain, reports nausea. DI: 02/07/2025: Abd/pelvis CT 08/20/2025: Venous Duplex Manufacturing Electrician Required: Yes Manufacturing Electrician Language: Java Application Engineer Services: Manufacturing Electrician Present Manufacturing Electrician Name: Stoney Information Interpreted: non-clinical & clinical Accompanied by: Other Relationship Allergies Iodinated Contrast Media (CONTRAST, IV) Allergy (Unknown, Verified 09/06/25 10:03) UNKNOWN morphine Allergy (Verified 09/06/25 10:03) Palpitations HPI HPI (R) L Q abdomen pain: Details: [age] year old female here for right lower quadrant pain. She says that she has had this for several months. She says sometimes this can be severe. She was concerned about acute appendicitis so she had a CAT scan last January, this does not suggest appendicitis. She also had umbilical hernia repair with Dr. Campoverde in November,. She is worried that the hernia has recurred. Again, her CAT scan in January shows that the hernia repair was intact Review of her recurrent right lower quadrant pain, she was referred to me. She denies vomiting. She denies diarrhea. She admits to chronic pain ?all over? her body. [facility] Medical History (Updated 09/06/25 @ 10:17 by Scott Lawrence MD) Chronic right lower quadrant pain Anxiety Asthma Surgical History Umbilical hernia (12/01/24) Social History Alcohol intake: current Alcohol intake frequency: a few times a week Patient Tobacco Use Status: Never used Tobacco Substance Use Type: Marijuana Review of Systems Const Denies chills and Denies fever(s) Card Denies chest pain, Denies dyspnea and Denies dyspnea on exertion Resp Denies cough, Denies dyspnea and Denies dyspnea on exertion GI Denies hematochezia and Denies change in bowel habits Denies hematuria Musc Denies back pain and Denies limited range of motion Neuro Denies focal weakness and Denies convulsions Psych Denies depression and Denies mood swings Physical Exam Vital Signs: BMI result Body Mass Index 31.6 Const General: comfortable and no acute distress Orientation/consciousness: patient oriented x3 Neck Neck: Yes no lymphadenopathy Resp Auscultation: clear to auscultation bilaterally Cardio Rhythm: regular rhythm GI Palpation (GI): Soft to palpation, nontender and no guarding Neuro General: patient oriented x3 Assessment & Plan Assessment & Plan (1) Chronic right lower quadrant pain: Code(s): R10.31 - Right lower quadrant pain; G89.29 - Other chronic pain Category: Medical Plan: She continues to have this frequent right lower quadrant pain. Her abdominal exam is currently benign. Clinical picture does not suggest acute appendicitis. I am going to send her for a CAT scan with IV contrast. I will see her again in the office after her CAT scans reviewed the findings Physical exam also shows that her hernia repair appears to be intact. I assured her about this. She does appear to be very anxious. She has chronic pain all over her body she says. Orders: Orders Blood Urea Nitrogen Today R10.31 - Right lower quadrant pain Creatinine Today R10.31 - Right lower quadrant pain CT abdomen pelvis w IV con Today R10.31 - Right lower quadrant pain Coding Level of Care Code New Pt Level 3 (82605) Diagnoses Chronic right lower quadrant pain R10.31; G89.29
[2025-09-06 10:02] VITALS: BMI 31.6
--- OUTSIDE RECORDS SUMMARY | 2025-09-06 11:52 | XMS_ITS | Encounter Summary ---
Author Organization [employer] Address [address] [place] [address] 7t [place] [address] Care Team Providers Care Fur Blowing Machine Attendant Name Role Phone Renu Hadley MD Primary Care Provider + Bg Heck RN Unavailable [phone] Bg Heck RN Unavailable [phone] Argentina Menon Unavailable Reason for Visit * Reason Onset Date Comments Appointment Request 04/07/2023 Encounter Details Date Type Department Care Team (Late st Contact Info) Description 04/07/2023 Telephone [facility] [address] [place] [address] Name, MD Richy [address] [place], [place] [phone] Appointment Request Social History Tobacco Use Types [...] - 04/07/2023 1:53 PM EDT T/C to [phone] through [employer] id - [id number] to re-schedule HDF apt. Pt. Schedule for HDF apt. On 04/14/2023. Pt. Was admitted at [facility], d/c 04/02/23 for Dx: Peritoneal abscess [...] to r/s HDF appt from 04/07/23. Details: [facility] d/c 04/02/23 Dx: Peritoneal abscess surgery documented in this encounter Plan of Treatment Upcoming Encounters Date Type Department Care Team (Late st Contact Info) Description 09/14/2025 9:15 AM EST Office Visit [facility] [address] [place] [address] Renu Hadley MD [address] [place] [address] 10/30/2025 10:00 AM EST Procedure Visit [facility] [address] [place] [address] Renu Hadley MD [address] [place] [address] documented as of this encounter Visit Diagnoses Not on filedocumented in this encounter Additional Health Concerns Assessment Noted Time PHQ-9 Depression Total Score: 12 023 1:33 PM EDT documented as of this encounter Care Teams Fur Blowing Machine Attendant Relationship Specialty Start Date End Date Renu Hadley MD [address] [place] [address] PCP - General Internal Medicine 07/04/24 Bg Heck RN [address] [place] [address] Registered Nurse Family Medicine 07/02/25 07/06/25 Bg Heck RN [address] [place] [address] Registered Nurse Family Medicine 07/24/25 Argentina Menon 07/24/25 documented as of this encounter
--- OUTSIDE RECORDS SUMMARY | 2025-09-06 11:52 | XMS_ITS | Encounter Summary ---
Author Organization [employer] Address [address] [place] [address] 7t [place] [address] Care Team Providers Care Technical Information Specialist Name Role Phone Renu Hadley MD Primary Care Provider + Bg Heck RN Unavailable [phone] Bg Heck RN Unavailable [phone] Argentina Menon Unavailable Reason for Visit * Reason Comments Med Refill Encounter Details Date Type Department Care Team (Late Contact Info) Description 04/07/2023 Refill [facility] [address] [place] [phone] Lisa Cifuentes FNP [address] [place], [place] [phone] Anxiety disorder, unspecified Social History Tobacco Use [...] Description 09/14/2025 9:15 AM EST Office Visit [facility] [address] [place] [address] [place] [address] Renu Hadley MD [address] [facility] [place], [place] [phone] 10/30/2025 10:00 AM EST Procedure Visit [facility] [address] [facility] [place], [place] [phone] Renu Hadley MD [address] [place], [place] [phone] documented as of this encounter Visit Diagnoses Diagnosis Anxiety disorder, unspecified documented in this encounter Additional Health Concerns Assessment Noted Time PHQ-9 Depression Total Score: 12 023 1:33 PM EDT documented as of this encounter Care Teams Technical Information Specialist Relationship Specialty Start Date End Date Renu Hadley MD [address] [place] [address] [phone] PCP - General Internal Medicine 07/04/24 Bg Heck RN 505 [facility] [place] [address] Registered Nurse Family Medicine 07/02/25 07/06/25 Bg Heck, RN 505 [facility] [place] [address] Registered Nurse Family Medicine 07/24/25 Argentina Menon 07/24/25 documented as of this encounter
--- OUTSIDE RECORDS SUMMARY | 2025-09-06 11:52 | XMS_ITS | Encounter Summary ---
Author Organization [employer] Address [address] [place] [address] 7 [place] [address] Care Team Providers Care Flat Drier Name Role Phone Renu Hadley MD Primary Care Provider + Bg Heck RN Unavailable [phone] Bg Heck RN Unavailable [phone] Argentina Menon Unavailable Reason for Visit * Reason Onset Date Comments Medication Question 06/20/2025 Encounter Details Date Type Department Care Team (Late st Contact Info) Description 06/20/2025 Telephone [facility] [address] [place] [address] Renu Hadley MD [address] [place], [place] [phone] Medication Question Social History Tobacco Use Types [...] with others, in a hotel, in a intermediate, living outside on the street, on a [...] Tramadol refill can be considered. TC via P/I#[id number], plasma processing technician stated she was having a difficult time understanding patient, she questioned if patient was under anesthesia. Pt was notified that she will need to provide urine sample prior to receiving Tramadol refill. Pt stated she would come today at 12p to provide urine sample. Pt stated she was having a lot of pain inher abdomen. Advised patient she could go to [facility] to be evaluated if she needs. Pt stated she has her gnosticist praying for her. She stated she will come to see this bid writer at 12p today. Pt was [facility] for INCOME TAX ANALYST RV appt today at 12pm. Will send to covering provider and request advice. * Telephone Encounter - Prince Barrarez - 06/20/2025 11:18 AM EDT TC from pt reports had discussed with pcp changing traMADol (Ultram) 50 MG tablet medication to analternative. Was not sure which medication was discussed, but is in need of a new script . documented in this encounter Plan of Treatment Upcoming Encounters Date Type Department Care Team (Late st Contact Info) Description 09/14/2025 9:15 AM EST Office Visit [facility] [address] [place] [address] eRnu Hadley MD [address] [place] [phone] 10/30/2025 10:00 AM EST Procedure Visit [facility] [address] [place] [address] Renu Hadley MD [address] [place] [address] documented as of this encounter Visit Diagnoses Not on filedocumented in this encounter Additional Health Concerns Assessment Noted Time PHQ-9 Depression Total Score: 5 03/28/20 25 10:34 AM EDT documented as of this encounter Care Teams Flat Drier Relationship Specialty Start Date End Date Renu Hadley MD [address] [place] [address] PCP - General Internal Medicine 07/04/24 Bg Heck RN [address] [place] [address] Registered Nurse Family Medicine 07/02/25 07/06/25 Bg Heck RN [address] [place] [address] Registered Nurse Family Medicine 07/24/25 Argentina Menon 07/24/25 documented as of this encounter
--- OUTSIDE RECORDS SUMMARY | 2025-09-06 11:52 | XMS_ITS | Encounter Summary ---
Author Organization [employer] Address [address] [facility] 7t [place] [address] Care Team Providers Care Skein Dyer Name Role Phone Renu Hadley MD Primary Care Provider + Bg Heck RN Unavailable [phone] Argentina Menon Unavailable Reason for Visit * Reason Onset Date Comments triage 09/06/2025 Encounter Details Date Type Department Care Team ([facility] st Contact Info) Description 09/06/2025 Telephone [facility] [address] [place], [place] [phone] Renu Hadley MD [address] [place], [place] [phone] triage Social History Tobacco Use Types Packs/Day Years Used Date Smoking Tobacco: Never Passive Smoke Exposure: Never Smokeless Tobacco: Never Alcohol Use Standard Drinks/Week Comments Not Currently 0 (1 standard drink = 0.6 oz pur e alcohol) Socially Depression Answer Date Recorded Patient Health Questionnaire-9 Score 11 08/24/2025 Patient Health Questionnaire-9 Score 11 08/24/2025 Last PHQ-9: Questionnaire Data Not on file 1 Housing Stability Answer Date Recorded What is your housing situation today? I have trena schwab 08/24/[address] you li ve. Do you have problems with any of the following? None of the above 08/24/2025 Food Insecurity Answer Date Recorded Within the past 12 months, y ou worried that your food would run out before you got money to buy more: Often true 08/24/2025 Within the past 12 months,th e food you bought just didn't last and you didn't have enough money to get more: Often true Transportation Answer Date Recorded In the past 12 months, has l ack of transportation kept you from medical appts, meetings, work or from getting things needed for daily living? Yes, it has kept me from medical appointments or getting medications. 04/11/2025 Intimate Partner Violence Answer Date R ecorded Within the last year, have y ou been afraid of your partner or ex-partner? 2 08/24/2025 Within the last year, have y ou been humiliated or emotionally abused in other ways by your partner or ex-partner? 2 Within the last year, have y ou been kicked, hit, slapped, or otherwise physically hurt by your partner or ex-partner? 2 08/24/2025 Within the last year, have y ou been raped or forced to have any kind of sexual activity by your partner or ex-partner? 2 08/24/2025 Utilities Answer Date Recorded In the past 12 months, has t he electric, gas, oil or water company threatened to shut off services in your home? No 08/17/2023 Depression Answer Date Recorded Patient Health Questionnaire-2 Score 4 08/24/2025 Internet Access Answer Date Recorded Internet Access Q1 No 08/24/2025 Internet Access Q2 I cannot afford it 08/24/2025 Comments No Sex and Gender Information Value Date Recorded Sex Assigned at Female 08/24/2022 10:31 AM EDT Legal Sex Female 10:31 AM EDT Gender Identity Female 01/14/2024 3:30 PM EDT Sexual Orientation Choose not to disclose 2021 10:31 AM EDT documented as of this encounter Miscellaneous Notes * Telephone Encounter - Luis Fernando Gold - 09/06/2025 11:49 AM EST Tc from pt requesting increase on high blood pressure pt is taking more medication to lower her high blood pressure unable to control, documented in this encounter Plan of Treatment Upcoming Encounters Date Type Department Care Team (Late st Contact Info) Description 09/14/2025 9:15 AM EST Office Visit [facility] [address] [place] [address] [phone] Renu Hadley MD [address] [place], [place] [phone] 10/30/2025 10:00 AM EST Procedure Visit [address] [phone] Renu Hadley MD [address] [place] [address] [phone] documented as of this encounter Visit Diagnoses Not on filedocumented in this encounter Additional Health Concerns Assessment Noted Time PHQ-9 Depression Total Score: 11 025 10:23 AM EDT documented as of this encounter Care Teams Skein Dyer Relationship Specialty Start Date End Date Renu Hadley MD [address] [place] [address] [phone] PCP - General Internal Medicine 07/04/24 Bg Heck, KACY [address] [place] [address] Registered Nurse Family Medicine 07/24/25 Argentina Menon 07/24/25 documented as of this encounter
--- OUTSIDE RECORDS SUMMARY | 2025-09-06 11:52 | XMS_ITS | Encounter Summary ---
Author Organization [employer] Address [address] [facility] 7t [place] [address] Care Team Providers Care Protection Engineer Name Role Phone Renu Hadley MD Primary Care Provider + Bg Heck RN Unavailable [phone] Argentina Menon Unavailable Reason for Visit * Reason Onset Date Comments Med Refill 08/31/2025 Encounter Details Date Type Department Care Team ([facility] st Contact Info) Description 08/31/2025 Telephone [facility] [address] [place], [place] [phone] Renu Hadley MD [address] [place], [place] [phone] Med Refill Social History Tobacco Use Types [...] the past 12 months, has t he [employer], [employer], oil or water [employer] threatened to shut off services in your [...] Telephone Encounter - Kanika Monson LPN - 08/31/2025 8:46 AM EST Medication was sent to [facility] on 07/23/25 with 1 refill. * Telephone Encounter - Johanny Monge - 08/31/2025 8:35 AM EST TC from pt requesting medication refill. Medications needing refill : QUEtiapine (SEROquel) 50 MG tablet To be sent to: [facility] documented in this encounter Plan of Treatment Upcoming Encounters Date Type Department Care Team (Late st Contact Info) Description 09/14/2025 9:15 AM EST Office Visit [facility] [address] [place] [phone] Renu Hadley MD [address] [place] [address] [phone] 10/30/2025 10:00 AM EST Procedure Visit [facility] [address] [place] [address] [phone] Renu Hadley MD [address] [place] [address] [phone] documented as of this encounter Visit Diagnoses Not on filedocumented in this encounter Additional Health Concerns Assessment Noted Time PHQ-9 Depression Total Score: 11 08/24/ 025 10:23 AM EDT documented as of this encounter Care Teams Protection Engineer Relationship Specialty Start Date End Date Renu Hadley MD [address] [place] [address] [phone] PCP - General Internal Medicine 07/04/24 Bg Heck, KACY [address] [place] [address] Registered Nurse Family Medicine 07/24/25 Argentina Menon 07/24/25 documented as of this encounter
--- OUTSIDE RECORDS SUMMARY | 2025-09-06 11:52 | XMS_ITS | Encounter Summary ---
Author Organization [employer] Address [address] [place] [address] 7t [place] [address] Care Team Providers Care Jinrikisha Driver Name Role Phone Renu Hadley MD Primary Care Provider + Bg Heck RN Unavailable [phone] Bg Heck RN Unavailable [phone] Argentina Menon Unavailable Reason for Visit * Reason Onset Date Comments triage 02/01/2023 Encounter Details Date Type Department Care Team (Late st Contact Info) Description 02/01/2023 Telephone [facility] [address] [place], [place] [phone] Name, MD Richy [address] [place], [place] [phone] triage Social History Tobacco Use Types Packs/Day [...] No answer LVM to return call to [facility] triage line. * Telephone Encounter [...] Description 09/14/2025 9:15 AM EST Office Visit [facility] [address] [place] [address] Renu Hadley MD [address] [place] [address] 10/30/2025 10:00 AM EST Procedure Visit [facility] [address] [place] [address] Renu Hadley MD [address] [place] [address] documented as of this encounter Visit Diagnoses Not on filedocumented in this encounter Care Teams Jinrikisha Driver Relationship Specialty Start Date End Date Renu Hadely MD [address] [place] [address] PCP - General Internal Medicine 07/04/24 Bg Heck RN 505 [place] [address] Registered Nurse Family Medicine 07/02/25 07/06/25 Bg Heck RN [address] [place] [address] Registered Nurse Family Medicine 07/24/25 Argentina Menon 07/24/25 documented as of this encounter
--- OUTSIDE RECORDS SUMMARY | 2025-09-06 11:52 | XMS_ITS | Encounter Summary ---
Author Organization [employer] Address [address] [facility] 7t [place] [address] Care Team Providers Care Letter Carrier Name Role Phone Renu Hadley MD Primary Care Provider + Bg Heck RN Unavailable [phone] Argentina Menon Unavailable Encounter Details Date Type Department Care Team (Late st Contact Info) Description 09/06/2025 Orders Only GENERIC EXTERNAL DATA DEPARTMENT Provider, [...] the past 12 months, has t he [employer], gas, oil or water company threatened to [...] Visit [facility] [address] [place] [phone] Renu Hadley MD [address] [place] [address] 10/30/2025 10:00 AM EST Procedure Visit [address] [address] Renu Hadley MD [address] [place] [address] documented as of this encounter Procedures Procedure Name Priority Date/Time Associated Diagnosis Comments CREATININE, SERUM Routine 09/06/2025 10: 33 AM EST UREA NITROGEN (BUN) Routine 09/06/2025 1 0:33 AM EST documented in this encounter Results * Creatinine, Serum (09/06/2025 10:33 AM EST) Creatinine, Serum 0.69 0.5 - 1.4 mg/dL [facility] Estimated Glomerular Filt Rate >60 [facility] Comment:Chronic Kidney Disea se: Estimated GFR < 60 mL/min/1.69n9Yeyvlp Kidney Disease: Estimated GFR < 15 mL/min/1.73m2 09/06/2025 10:3 3 AM EST 09/06/2025 10:33 AM EST Generic External Data Provider LAB BLOOD ORDERAB LES Final Result Performing Organization Address [facility] Co de Phone Number [facility] [address] [place] [phone] * (ABNORMAL) BUN (Blood Urea Nitrogen) (09/06/2025 10:33 AM EST) Urea Nitrogen (BUN) 19(H) 9 - 16 mg/dL [facility] 09/06/2025 10:3 3 AM EST 09/06/2025 10:33 AM EST [place] External Data Provider LAB BLOOD ORDERAB LES Final Result Performing Organization Address [facility] Co de Phone Number [facility] [address] [place] [phone] documented in this encounter Visit Diagnoses Not on filedocumented in this encounter Additional Health Concerns Assessment Noted Time PHQ-9 Depression Total Score: 11 08/24/2 025 10:23 AM EDT documented as of this encounter Care Teams Letter Carrier Relationship Specialty Start Date End Date Renu Hadley MD [address] [place] [address] PCP - General Internal Medicine 07/04/24 Bg Heck, KACY [address] [place] [phone] Registered Nurse Family Medicine 07/24/25 Argentina Menon 07/24/25 documented as of this encounter
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
--- OUTSIDE RECORDS SUMMARY | 2025-09-06 11:52 | XMS_ITS | Encounter Summary ---
Author Organization [employer] Address [address] [place] [address] 7 [place] [address] Care Team Providers Care Forest Pathologist Name Role Phone Renu Hadley MD Primary Care Provider + Bg Heck RN Unavailable [phone] Bg Heck RN Unavailable [phone] Argentina Menon Unavailable Reason for Visit * Reason Onset Date Comments Med Refill 03/21/2025 Encounter Details Date Type Department Care Team (Late st Contact Info) Description 03/21/2025 Telephone [facility] MEDICINE [address] [place] [address] Renu Hadley MD [address] [place], [place] [phone] Med Refill Social History Tobacco Use Types Packs/Day Years Used Date Smoking Tobacco: Never Passive Smoke Exposure: Never Smokeless Tobacco: Never Alcohol Use Standard Drinks/Week Comments Not Currently 0 (1 standard drink = 0.6 oz pur e alcohol) Socially Depression Answer Date Recorded Patient Health Questionnaire-9 Score 02/21/2025 Patient Health Questionnaire-9 Score 02/21/2025 Last [...] MG tablet To be sent to : [facility] documented in this encounter Plan of Treatment Upcoming Encounters Date Type Department Care Team (Late st Contact Info) Description 09/14/2025 9:15 AM EST Office Visit [facility] MEDICINE [address] [place] [address] Renu Hadley MD [address] [place], [place] [phone] 10/30/2025 10:00 AM EST Procedure Visit [facility] MEDICINE [address] [place], [place] [phone] Renu Hadley MD [address] [place] [address] documented as of this encounter Visit Diagnoses Not on filedocumented in this encounter Additional Health Concerns Assessment Noted Time PHQ-9 Depression Total Score: 23 025 9:34 AM EDT documented as of this encounter Care Teams Forest Pathologist Relationship Specialty Start Date End Date Renu Hadley MD 230 [place] [address] PCP - General Internal Medicine 07/04/24 Bg Heck RN 505 [place] [address] Registered Nurse Family Medicine 07/02/25 07/06/25 Bg Heck RN [address] [place] [address] Registered Nurse Family Medicine 07/24/25 Argentina Menon 07/24/25 documented as of this encounter
--- OUTSIDE RECORDS SUMMARY | 2025-09-06 11:52 | XMS_ITS | Clinical Summary ---
Author Organization [facility] Address [address] [place] [address] Care Team Providers Care Staff Radiation Therapist Name Role Phone Unavailable Primary Care Provider [...] Description 07/24/2025 / TELEPHONE [facility] [address] [place] [id number] Kevin Love, SUSANHNTerrence [...] 3 - 19 + 3-dose series) 1996 Breast Cancer Screening (Mammogram) 2017 Cervical Cancer Screening 10/12/2020 Pap Smear 10/12/2020 10/12/2017 CT Colonography 2022 Colonoscopy 2022 Colorectal Cancer Screening 2022 FIT/gFOBT 2022 Fecal DNA 2022 Flexible Sigmoidoscopy 2022 Alcohol and Drug Screen 10/25/2024 Depression Annual Screen 10/25/2024 Yuf-[id number]-49 ( season) 2025 022 Imm-Influenza (#1) 2025 Diabetes Screening 03/28/2026 03/28/2023, 09/29/2022 Imm-DTaP/Tdap/Td (3 - Td or Tdap) 04/19/2028 018, 05/05/2012 HIV Screening Completed 09/29/2022, 09/29/2022 Hepatitis C Screening Completed 09/29/2022 Cervical Ablation/Cold-Knife Conization Discontinued Cervical Cryotherapy Discontinued Colposcopy Discontinued Excision/Leep Discontinued HPV Genotyping Discontinued Vaginal Pap Discontinued Vulvoscopy Discontinued Insurance [facility]
--- OUTSIDE RECORDS SUMMARY | 2025-09-06 11:52 | XMS_ITS | Encounter Summary ---
Author Organization [employer] Address [address] [place] [address] 7t [place] [address] Care Team Providers Care Supervisor Roving Name Role Phone Renu Hadley MD Primary Care Provider + Bg Heck RN Unavailable [phone] Bg Heck RN Unavailable [phone] Argentina Menon Unavailable Reason for Visit * Reason Comments Med Refill Encounter Details Date Type Department Care Team (Late Contact Info) Description 04/09/2023 Refill [facility] MEDICINE [address] [place] [address] Lisa Cifuentes FNP 505 [place], [place] [phone] Anxiety disorder, unspecified Social History Tobacco Use [...] 9:15 AM EST Office Visit [facility] MEDICINE [address] [place] [address] [place] [address] Renu Hadley MD 230 [facility] [place], [place] [phone] 10/30/2025 10:00 AM EST Procedure Visit [facility]INE 230 [facility] [place], [place] [phone] Renu Hadley MD 230 [place], [place] [phone] documented as of this encounter Visit Diagnoses Diagnosis Anxiety disorder, unspecified documented in this encounter Additional Health Concerns Assessment Noted Time PHQ-9 Depression Total Score: 12 023 1:33 PM EDT documented as of this encounter Care Teams Supervisor Roving Relationship Specialty Start Date End Date Renu Hadley MD [address] [place] [address] [phone] PCP - General Internal Medicine 07/04/24 Bg Heck RN 505 [facility] [place] [address] Registered Nurse Family Medicine 07/02/25 07/06/25 Bg Heck, RN 505 [facility] [place] [address] Registered Nurse Family Medicine 07/24/25 Argentina Menon 07/24/25 documented as of this encounter
--- OUTSIDE RECORDS SUMMARY | 2025-09-06 11:52 | XMS_ITS | Encounter Summary ---
Author Organization [employer] Address [address] [place] [address] 7t [place] [address] Care Team Providers Care Bench Molder Apprentice Name Role Phone Renu Hadley MD Primary Care Provider + Bg Heck RN Unavailable [phone] Argentina Menon Unavailable Encounter Details Date Type Department Care Team ([facility] st Contact Info) Description 08/24/2025 Results Follow-Up [facility] MEDICINE [address] [place] [address] Renu Hadley MD 230 [place] [address] Lower Extremity Venous Duplex Social History Tobacco Use Types Packs/Day Years [...] the past 12 months, has t he [employer], gas, oil or water company threatened to [...] AM EDT documented as of this encounter Functional Status * Over the past 2 weeks, how often have you been bothered by any of the following problems? Question Answer Date of Assessment Author Patient Health Questionnaire -2 Score 4 08/24/2025 10:23 AM KARISHMAT Bg Heck RN * Little interest or pleasure in doing things Answer Date of Assessment Author Nearly every day 08/24/2025 10:23 AM EDT Bg Thomas RN * Feeling down, depressed, or hopeless Answer Date of Assessment Author Several days 08/24/2025 10:23 AM EDT Bg Heck RN * Trouble falling or staying asleep, or sleeping too much Answer Date of Assessment Author Not at all 08/24/2025 10:23 AM Bg Shaw RN * Feeling tired or having little energy Answer Date of Assessment Author Nearly every day 08/24/2025 10:23 AM Bg Garcia RN * Poor appetite or overeating Answer Date of Assessment Author Several days 08/24/2025 10:23 AM Bg Shaw RN * Feeling bad about yourself - or that you are a failure or have let yourself or your family down Answer Date of Assessment Author Several days 08/24/2025 10:23 AM Bg Shaw RN * Trouble concentrating on things, such as reading the newspaper or watching television Answer Date of Assessment Author Several days 08/24/2025 10:23 AM Bg Shaw RN * Moving or speaking so slowly that other people could have noticed? Or the opposite - being so fidgety or restless that you have been moving around a lot more than usual. Answer Date of Assessment Author Several days 08/24/2025 10:23 AM Bg Shaw RN * Thoughts that you would be better off or hurting yourself in some way Answer Date of Assessment Author Not at all 08/24/2025 10:23 AM Bg Shwa RN * Patient Health Questionnaire-9 Score Answer Date of Assessment Author 11 08/24/2025 10:23 AM Bg Shaw RN * How difficult have these problems made it for you to do your work, take care of things at home, or get along with other people? Answer Date of Assessment Author Somewhat difficult 08/24/2025 10:23 AM Bg Renteria RN * Over the last 2 weeks, how often have you been bothered by any of the following problems? Question Answer Date of Assessment Author Feeling nervous, anxious, or on edge 3 08/24/2025 10:26 AM Bg Shaw RN Not being able to stop or co ntrol worrying 1 08/24/2025 10:26 AM Bg Shaw RN Worrying too much about diff erent things 1 08/24/2025 10:26 AM EDT Bg Heck RN Trouble relaxing 1 08/24/2025 10:26 AM Bg Shaw RN Being so restless that it is hard to sit still 1 08/24/2025 10:26 AM Bg Shaw RN Becoming easily annoyed or irritable 1 08/24/2025 10:26 AM EDT Bg Heck RN Feeling afraid as if somethi ng awful might happen 1 08/24/2025 10:26 AM Bg Shaw RN JENNIFER-7 Total Score 9 08/24/2025 10:26 AM Bg Shaw RN * Suicidal Ideation Question Answer Date of Assessment Author 1. Wish to be (Lifetime) No 08/24/2025 11:22 AM Bg Shaw RN 2. Non-Specific Active Suici rosio Thoughts (Lifetime) No 08/24/2025 11:22 AM EDT Bg Heck RN documented as of this encounter Miscellaneous Notes * Result Encounter Note - Renu Hadley MD - 08/24/2025 1:[address] Recinos's POC documented in this encounter Plan of Treatment Upcoming Encounters Date Type Department Care Team (Late st Contact Info) Description 09/14/2025 9:15 AM EST Office Visit [facility] MEDICINE [address] [place] [address] Renu Hadley MD [address] [place] [address] 10/30/2025 10:00 AM EST Procedure Visit [address] [address] Renu Hadley MD [address] [place] [address] documented as of this encounter Visit Diagnoses Not on filedocumented in this encounter Additional Health Concerns Assessment Noted Time PHQ-9 Depression Total Score: 11 08/24/ 025 10:23 AM EDT documented as of this encounter Care Teams Bench Molder Apprentice Relationship Specialty Start Date End Date Renu Hadley MD 230 [place] [address] PCP - General Internal Medicine 07/04/24 Bg Heck, KACY [address] [place] [address] Registered Nurse Family Medicine 07/24/25 Argentina Menon 07/24/25 documented as of this encounter
--- OUTSIDE RECORDS SUMMARY | 2025-09-06 11:52 | XMS_ITS | Encounter Summary ---
Author Organization [employer] Address [address] [place] [address] 7t [place] [address] Care Team Providers Care It Programmer Analyst Name Role Phone Renu Hadley MD Primary Care Provider + Bg Heck RN Unavailable [phone] Bg Heck RN Unavailable [phone] Argentina Menon Unavailable Reason for Visit * Reason Comments Med Refill Encounter Details Date Type Department Care Team (Late Contact Info) Description 06/10/2023 Refill [facility] MEDICINE [address] [place], [place] [phone] NameRichy MD 230 [place], [place] [phone] Anxiety disorder, unspecified Social History Tobacco Use [...] Visit [facility] MEDICINE [address] [place], [place] [phone] Renu Hadley MD [address] [place] [address] 10/30/2025 10:00 AM EST Procedure Visit [facility] MEDICINE [address] [place], [place] [phone] Renu Hadley MD [address] [place] [address] documented as of this encounter Visit Diagnoses Diagnosis Anxiety disorder, unspecified documented in this encounter Additional Health Concerns Assessment Noted Time PHQ-9 Depression Total Score: 12 023 1:33 PM EDT documented as of this encounter Care Teams It Programmer Analyst Relationship Specialty Start Date End Date Renu Hadley MD 230 [place] [address] PCP - General Internal Medicine 07/04/24 Bg Heck RN 505 [place] [address] Registered Nurse Family Medicine 07/02/25 07/06/25 Bg Heck, KACY 505 [place] [address] Registered Nurse Family Medicine 07/24/25 Argentina Menon 07/24/25 documented as of this encounter
--- OUTSIDE RECORDS SUMMARY | 2025-09-06 11:52 | XMS_ITS | Encounter Summary ---
Author Organization [employer] Address [address] [place] [address] 7t [place] [address] Care Team Providers Care Metal Bending Machine Operator Name Role Phone Renu Hadley MD Primary Care Provider + Bg Heck RN Unavailable [phone] Argentina Menon Unavailable Encounter Details Date Type Department Care Team ([facility] Contact Info) Description 08/21/2025 Telephone [facility] MEDICINE 230 [place], [place] [phone] Renu Hadley MD 230 [place], [place] [phone] Social History Tobacco Use Types Packs/Day Years [...] the past 12 months, has t he [employer], gas, oil or water company threatened to [...] Author Nearly every day 08/24/2025 10:23 AM KARISHMAT Bg Thomas RN * Feeling down, depressed, or hopeless Answer Date of Assessment Author Several days 08/24/2025 10:23 AM Bg Shaw RN * Trouble falling or staying asleep, [...] 08/24/2025 10:23 AM Bg Shaw RN * Patient Health Questionnaire-9 Score Answer [...] RN Trouble relaxing 1 08/24/2025 10:26 AM EDT Bg Heck RN Being so restless that it is hard to sit still 1 08/24/2025 10:26 AM EDT Bg Heck RN Becoming easily annoyed or irritable 1 08/24/2025 10:26 AM EDT Bg Heck RN Feeling afraid as if somethi ng awful might happen 1 08/24/2025 10:26 AM EDT Bg Heck RN JENNIFER-7 Total Score 9 08/24/2025 10:26 AM EDT Bg Heck RN * Suicidal Ideation Question Answer Date of Assessment Author 1. Wish to be (Lifetime) No 08/24/2025 11:22 AM EDT Bg Heck RN 2. Non-Specific Active Suici rosio Thoughts (Lifetime) No 08/24/2025 11:22 AM EDT Bg Heck RN documented as of this encounter Plan of Treatment Upcoming Encounters Date Type Department Care Team (Late st Contact Info) Description 09/14/2025 9:15 AM EST Office Visit [facility] MEDICINE [address] [place] [address] Renu Hadley MD [address] [place] [address] 10/30/2025 10:00 AM EST Procedure Visit [facility] MEDICINE [address] [place] [address] Renu Hadley MD [address] [place] [address] documented as of this encounter Visit Diagnoses Not on filedocumented in this encounter Additional Health Concerns Assessment Noted Time PHQ-9 Depression Total Score: 5 03/28/20 25 10:34 AM EDT documented as of this encounter Care Teams Metal Bending Machine Operator Relationship Specialty Start Date End Date Renu Hadley MD [address] [place] [address] PCP - General Internal Medicine 07/04/24 Bg Heck, RN [address] [place] [address] Registered Nurse Family Medicine 07/24/25 Argentina Menon 07/24/25 documented as of this encounter
--- OUTSIDE RECORDS SUMMARY | 2025-09-06 11:52 | XMS_ITS ---
Author Organization [employer] Address [address] [place] [address] 7 [place] [address] Care Team Providers Care Tandem Mill Operator Name Role Phone Renu Hadley MD Primary Care Provider + Bg Heck RN Unavailable [phone] Argentina Menon Unavailable CM Complex Status:Enrolled (Active) Start date:07/24/2025 Enrollment date:08/24/2025 Enrollment reason:ADT Feed Overview ED- Pt went to [facility] ED on 07/23/25. . Case Team Name Relationship Phone Bg Heck RN(Responsible Staff) Registered [place] [facility] [phone] Continued Care and Services Coordination
--- OUTSIDE RECORDS SUMMARY | 2025-09-06 11:52 | XMS_ITS | Encounter Summary ---
Author Organization [employer] Address [address] [place] [address] 7 [place] [address] Care Team Providers Care Executive Vice President And Chief Financial Officer Name Role Phone Renu Hadley MD Primary Care Provider + Bg Heck RN Unavailable [phone] Bg Heck RN Unavailable [phone] Argentina Menon Unavailable Reason for Visit * Reason Onset Date Comments Nurse Triage 05/15/2025 Encounter Details Date Type Department Care Team (Late st Contact Info) Description 05/15/2025 Telephone [facility] MEDICINE 230 [place] [address] Renu Hadley MD 230 [place], [place] [phone] Nurse Triage Social History Tobacco Use Types [...] with others, in a hotel, in a group home, living outside on the street, on [...] EDT Triage call returned with BLS # [id number] Carley. Patient reports pain in upper abdomen [...] patient. Disposition to ED confirmed with BLS Trust Manager Assistant confirmed and that patient declined recommendation at [...] Reason: Abdominal pain Please contact pt at [phone]. (Bahraini Speaker) documented in this encounter Plan of Treatment Upcoming Encounters Date Type Department Care Team (Late st Contact Info) Description 09/14/2025 9:15 AM EST Office Visit [facility] MEDICINE [address] [place] [address] Renu Hadley MD [address] [place] [address] [place] [address] 10/30/2025 10:00 AM EST Procedure Visit [facility] MEDICINE 230 [place], [place] [phone] Renu Hadley MD 230 [place], [place] [phone] documented as of this encounter Visit Diagnoses Not on filedocumented in this encounter Additional Health Concerns Assessment Noted Time PHQ-9 Depression Total Score: 5 03/28/20 10:34 AM EDT documented as of this encounter Care Teams Executive Vice President And Chief Financial Officer Relationship Specialty Start Date End Date Renu Hadley MD [address] [place] [address] [phone] PCP - General Internal Medicine 07/04/24 Bg Heck RN 505 [place] [address] Registered Nurse Family Medicine 07/02/25 07/06/25 Bg Heck RN 505 [place] [address] Registered Nurse Family Medicine 07/24/25 Argentina Menon 07/24/25 documented as of this encounter
--- OUTSIDE RECORDS SUMMARY | 2025-09-06 11:52 | XMS_ITS ---
Author Organization [employer] Address [address] [place] [address] 7 [place] [address] Care Team Providers Care Double End Production Grinder Name Role Phone Renu Hadley MD Primary Care Provider + Bg Heck RN Unavailable [phone] Argentina Menon Unavailable CHW Complex Status:Enrolled (Active) Start date:07/24/2025 Enrollment date:08/24/2025 Enrollment reason:ADT Feed Overview ED- Pt went to [facility] ED on 07/23/25. . Case Team Name Relationship Phone Argentina Menon(Responsible Staff) [phone] Continued Care and Services Coordination
--- OUTSIDE RECORDS SUMMARY | 2025-09-06 11:53 | XMS_ITS | Encounter Summary ---
Author Organization [employer] Address [address] [place] [address] 7 [place] [address] Care Team Providers Care Clerk Of Works Name Role Phone Renu Hadley MD Primary Care Provider + Bg Heck RN Unavailable [phone] Bg Heck RN Unavailable [phone] Argentina Menon Unavailable Reason for Visit * Reason Onset Date Comments Durable Medical Equipment 12/30/2022 Encounter Details Date Type Department Care Team (Late st Contact Info) Description 12/30/2022 Telephone [facility] MEDICINE 230 [place], [place] [phone] Name, MD Richy 230 [place], [place] [phone] Durable Medical Equipment Social History Tobacco Use [...] thank you. * Telephone Encounter - Luanne Nugyen - 12/30/2022 4:05 PM EST Tc from pt requesting a status on Nebulizer Machine that was supposed to be order. Please contact pt at [phone] documented in this encounter Plan of Treatment Upcoming Encounters Date Type Department Care Team (Late st Contact Info) Description 09/14/2025 9:15 AM EST Office Visit [address] [address] Renu Hadley MD [address] [place] [address] [phone] 10/30/2025 10:00 AM EST Procedure Visit [address] [address] Renu Hadley MD [address] [place] [address] [phone] documented as of this encounter Visit Diagnoses Not on filedocumented in this encounter Care Teams Clerk Of Works Relationship Specialty Start Date End Date Renu Hadley MD [address] [place] [address] PCP - General Internal Medicine 07/04/24 Bg Heck RN 505 [place] [address] Registered Nurse Family Medicine 07/02/25 07/06/25 Bg Heck RN 505 [place] [address] Registered Nurse Family Medicine 07/24/25 Argentina Menon 07/24/25 documented as of this encounter
--- OUTSIDE RECORDS SUMMARY | 2025-09-06 11:53 | XMS_ITS | Encounter Summary ---
Author Organization [employer] Address [address] [place] [address] 7 [place] [address] Care Team Providers Care Regional Controller Name Role Phone Renu Hadley MD Primary Care Provider + Bg Heck RN Unavailable [phone] Bg Heck RN Unavailable [phone] Argentina Menon Unavailable Encounter Details Date Type Department Care Team (Late st Contact Info) Description 02/15/2023 Orders Only [facility]S [address] [place] [address] Kanika Monson LPN Social History Tobacco Use [...] 9:15 AM EST Office Visit [facility] MEDICINE [address] [place] [address] Renu Hadley MD [address] [place] [address] 10/30/2025 10:00 AM EST Procedure Visit [address] [phone] Renu Hadley MD 230 [place] [address] documented as of this encounter Visit Diagnoses Not on filedocumented in this encounter Care Teams Regional Controller Relationship Specialty Start Date End Date Renu Hadley MD 230 [place] [address] PCP - General Internal Medicine 07/04/24 Bg Heck, RN [address] [place] [address] Registered Nurse Family Medicine 07/02/25 07/06/25 Bg Heck, RN [address] [place] [address] Registered Nurse Family Medicine 07/24/25 Argentina Menon 07/24/25 documented as of this encounter
--- OUTSIDE RECORDS SUMMARY | 2025-09-06 11:53 | XMS_ITS | Encounter Summary ---
Author Organization [employer] Address [address] [place] [address] 7t [place] [address] Care Team Providers Care [facility] Pricing Consultant Name Role Phone Renu Hadley MD Primary Care Provider + Bg Heck RN Unavailable [phone] Bg Heck RN Unavailable [phone] Argentina Menon Unavailable Encounter Details Date Type Department Care Team (Late Contact Info) Description 12/01/2022 Orders Only [facility] CHC MED & PEDS [address] [place] [address] Kanika Monson LPN Social History Tobacco Use [...] Description 09/14/2025 9:15 AM EST Office Visit [facility] MEDICINE [address] [place] [address] [phone] Renu Hadley MD [address] [place] [address] [phone] 10/30/2025 10:00 AM EST Procedure Visit [facility] MEDICINE [address] [place] [address] [phone] Renu Hadley MD [address] [place] [address] documented as of this encounter Visit Diagnoses Not on filedocumented in this encounter Care Teams [facility] Pricing Consultant Relationship Specialty Start Date End Date Renu Hadley MD [address] [place] [address] PCP - General Internal Medicine 07/04/24 Bg Heck RN [address] [place] [address] Registered Nurse Family Medicine 07/02/25 07/06/25 Bg Heck, KACY [address] [place] [address] Registered Nurse Family Medicine 07/24/25 Argentina Menon 07/24/25 documented as of this encounter
--- OUTSIDE RECORDS SUMMARY | 2025-09-06 11:53 | XMS_ITS | Encounter Summary ---
Author Organization [employer] Address [address] [place] [address] 7t [place] [address] Care Team Providers Care Head Banquet Waiter/Waitress Name Role Phone Renu Hadley MD Primary Care Provider + Bg Heck RN Unavailable [phone] Bg Heck RN Unavailable [phone] Argentina Menon Unavailable Reason for Visit * Reason Onset Date Comments triage 02/26/2023 Encounter Details Date Type Department Care Team (Late st Contact Info) Description 02/26/2023 Telephone [facility] MEDICINE [address] [place], [place] [phone] Name, MD Richy [address] [place], [place] [phone] triage Social History Tobacco Use Types Packs/Day [...] 05/2023 1:33 PM EDT India Joshi * How difficult have these problems made it for you to do your work, take care of things at home, or get along with other people? Answer Date of Assessment Author Somewhat difficult 03/01/2023 1:33 PM EDT India Soni * Over the past 2 weeks, how often have you been bothered by any of the following problems? Question Answer Date of Assessment Author Little interest or pleasure in doing things More than half the days 03/01/2023 1:33 PM India Hinojosa Feeling down, depressed, or hopeless More than half the days 03/01/2023 1:33 PM KARISHMAT India Joshi Trouble falling or staying asleep, or sleeping [...] 02/26/2023 12:38 PM EDT Triage call with [place] Schedule Supervisor ID [id number] Pt was called more than 2x. Each [...] Description 09/14/2025 9:15 AM EST Office Visit [address] [address] Renu Hadley MD [address] [place] [address] 10/30/2025 10:00 AM EST Procedure Visit [address] [address] Renu Hadley MD [address] [place] [address] documented as of this encounter Visit Diagnoses Not on filedocumented in this encounter Care Teams Head Banquet Waiter/Waitress Relationship Specialty Start Date End Date Renu Hadley MD [address] [place] [address] PCP - General Internal Medicine 07/04/24 Bg Heck RN [address] [place] [address] Registered Nurse Family Medicine 07/02/25 07/06/25 Bg Heck, KACY [address] [place] [address] Registered Nurse Family Medicine 07/24/25 Argentina Menon 07/24/25 documented as of this encounter
--- OUTSIDE RECORDS SUMMARY | 2025-09-06 11:53 | XMS_ITS | Encounter Summary ---
Author Organization [employer] Address [address] [place] [address] 7t [place] [address] Care Team Providers Care Artillery Meteorological Man Name Role Phone Renu Hadley MD Primary Care Provider + Bg Heck RN Unavailable [phone] Bg Heck RN Unavailable [phone] Argentina Menon Unavailable Encounter Details Date Type Department Care Team (Latest Contact Info) Description 12/20/2019 Abstract [facility] CONVERSIONS Dental, Provider, DDS Social History [...] 9:15 AM EST Office Visit [facility] MEDICINE [address] [place] [address] [phone] Renu Hadley MD [address] [place] [address] [phone] 10/30/2025 10:00 AM EST Procedure Visit [facility] MEDICINE [address] [place] [address] [phone] Renu Hadley MD [address] [place] [address] [phone] documented as of this encounter Visit Diagnoses Not on filedocumented in this encounter Care Teams Artillery Meteorological Man Relationship Specialty Start Date End Date Renu Hadley MD [address] [place] [address] PCP - General Internal Medicine 07/04/24 Bg Heck RN 505 [place] [address] Registered Nurse Family Medicine 07/02/25 07/06/25 Bg Heck RN [address] [place] [address] Registered Nurse Family Medicine 07/24/25 Argentina Menon 07/24/25 documented as of this encounter
--- OUTSIDE RECORDS SUMMARY | 2025-09-06 11:53 | XMS_ITS | Patient Health Record ---
Author Organization [facility] Address [address] [place] [address] Care Team Providers Care Looseleaf Binder Coverer Name Role Phone Kirstin Wright Outpt Care Primary Care Provider [phone] Abby Dobson Unavailable [phone] Reason For Referral No Information Plan Of Treatment No Information Insurance Providers Payer Name Payer Address Payer Phone Subscriber Number Group Number Insured Name Patient Relationship to Insured Coverage Start Date Coverage End Date [place] Standard [address] [place] [phone] Ruma Simons Self - patient is the insured
--- OUTSIDE RECORDS SUMMARY | 2025-09-06 11:53 | XMS_ITS | Encounter Summary ---
Author Organization [employer] Address [address] [place] [address] 7t [place] [address] Care Team Providers Care Sessions Clerk Name Role Phone Renu Hadley MD Primary Care Provider + Bg Heck RN Unavailable [phone] Bg Heck RN Unavailable [phone] Argentina Menon Unavailable Encounter Details Date Type Department Care Team (Latest Contact Info) Description 02/25/2021 Abstract [facility] CONVERSIONS Dental, Provider, DDS Social History [...] 09/14/2025 9:15 AM EST Office Visit [facility] MEDICINE [address] [place] [address] [phone] Renu Hadley MD [address] [place] [address] [phone] 10/30/2025 10:00 AM EST Procedure Visit [facility] MEDICINE [address] [place] [address] [phone] Renu Hadley MD [address] [place] [address] [phone] documented as of this encounter Visit Diagnoses Not on filedocumented in this encounter Care Teams Sessions Clerk Relationship Specialty Start Date End Date Renu Hadley MD [address] [place] [address] PCP - General Internal Medicine 07/04/24 Bg Heck RN [address] [place] [address] Registered Nurse Family Medicine 07/02/25 07/06/25 Bg Heck RN 505 [place] [address] Registered Nurse Family Medicine 07/24/25 Argentina Menon 07/24/25 documented as of this encounter
--- OUTSIDE RECORDS SUMMARY | 2025-09-06 11:53 | XMS_ITS | Encounter Summary ---
Author Organization [employer] Address [address] [place] [address] 7t [place] [address] Care Team Providers Care Cattle Killer Name Role Phone Renu Hadley MD Primary Care Provider + Bg Heck RN Unavailable [phone] Bg Heck RN Unavailable [phone] Argentina Menon Unavailable Reason for Visit * Reason Onset Date Comments Medication Question 01/13/2023 Encounter Details Date Type Department Care Team (Late st Contact Info) Description 01/13/2023 Telephone [facility] MEDICINE [address] [place] [address] Name, MD Richy [address] [place], [place] [phone] Medication Question Social History Tobacco Use Types [...] Doxepin 50 mg. Please contact pt at [phone] documented in this encounter Plan of Treatment Upcoming Encounters Date Type Department Care Team ([facility] st Contact Info) Description 09/14/2025 9:15 AM EST Office Visit [facility] MEDICINE [address] [place] [address] Renu Hadley MD [address] [place] [address] 10/30/2025 10:00 AM EST Procedure Visit [facility] MEDICINE [address] [place] [address] Renu Hadley MD [address] [place] [address] documented as of this encounter Visit Diagnoses Not on filedocumented in this encounter Care Teams Cattle Killer Relationship Specialty Start Date End Date Renu Hadley MD [address] [place] [address] PCP - General Internal Medicine 07/04/24 Bg Heck RN 505 [place] [address] Registered Nurse Family Medicine 07/02/25 07/06/25 Bg Heck, RN [address] [place] [address] Registered Nurse Family Medicine 07/24/25 Argentina Menon 07/24/25 documented as of this encounter
--- OUTSIDE RECORDS SUMMARY | 2025-09-06 11:53 | XMS_ITS | Encounter Summary ---
Author Organization [employer] Address [address] [place] [address] 7 [place] [address] Care Team Providers Care Machine Trimmer Name Role Phone Renu Hadley MD Primary Care Provider + Bg Heck RN Unavailable [phone] Bg Heck RN Unavailable [phone] Argentina Menon Unavailable Encounter Details Date Type Department Care Team (Late Contact Info) Description 11/17/2022 Orders Only [facility] MEDICINE [address] [place] [address] Kaylynn Membreno LPN Social History Tobacco Use [...] Description 09/14/2025 9:15 AM EST Office Visit [facility] MEDICINE [address] [place] [address] Renu Hadley MD [address] [place] [address] 10/30/2025 10:00 AM EST Procedure Visit [address] [address] Renu Hadley MD [address] [place] [address] [place] [address] documented as of this encounter Visit Diagnoses Not on filedocumented in this encounter Care Teams Machine Trimmer Relationship Specialty Start Date End Date Renu Hadley MD [address] [place] [address] PCP - General Internal Medicine 07/04/24 Bg Heck RN [address] [place] [address] Registered Nurse Family Medicine 07/02/25 07/06/25 Bg Heck, KACY [address] [place] [address] Registered Nurse Family Medicine 07/24/25 Argentina Menon 07/24/25 documented as of this encounter
--- OUTSIDE RECORDS SUMMARY | 2025-09-06 11:53 | XMS_ITS | Encounter Summary ---
Author Organization [employer] Address [address] [place] [address] 7t [place] [address] Care Team Providers Care Strategic Communications Specialist Name Role Phone Renu Hadley MD Primary Care Provider + Bg Heck RN Unavailable [phone] Bg Heck RN Unavailable [phone] Argentina Menon Unavailable Reason for Visit * Reason Comments Med Refill Encounter Details Date Type Department Care Team (Late st Contact Info) Description 02/12/2023 Refill [facility] MEDICINE [address] [place] [address] [phone] Richy Morris MD [address] [place] [address] [phone] Heartburn Social History Tobacco Use Types Packs/Day [...] 9:15 AM EST Office Visit [facility] MEDICINE [address] [place] [address] [phone] Renu Hadley MD [address] [place], [place] [phone] 10/30/2025 10:00 AM EST Procedure Visit [facility] MEDICINE [address] [place] [address] Renu Hadley MD [address] [place] [address] documented as of this encounter Visit Diagnoses Diagnosis Heartburn documented in this encounter Care Teams Strategic Communications Specialist Relationship Specialty Start Date End Date Renu Hadley MD [address] [place] [address] PCP - General Internal Medicine 07/04/24 Bg Heck RN 505 [place] [address] Registered Nurse Family Medicine 07/02/25 07/06/25 Bg Heck RN 505 [place] [address] Registered Nurse Family Medicine 07/24/25 Argentina Menon 07/24/25 documented as of this encounter
--- OUTSIDE RECORDS SUMMARY | 2025-09-06 11:53 | XMS_ITS | Encounter Summary ---
Author Organization [employer] Address [address] [place] [address] 7t [place] [address] Care Team Providers Care Peanut Roaster Name Role Phone Renu Hadley MD Primary Care Provider + Bg Heck RN Unavailable [phone] Bg Heck RN Unavailable [phone] Argentina Menon Unavailable Reason for Visit * Reason Comments Med Refill Encounter Details Date Type Department Care Team (Late st Contact Info) Description 12/10/2024 Refill [facility] MEDICINE [address] [place], [place] [phone] Renu Hadley MD 230 [place], [place] [phone] Peripheral neuralgia Social History Tobacco Use Types [...] EST Office Visit [facility] MEDICINE [address] [place] [address] Renu Hadley MD [address] [place] [address] 10/30/2025 10:00 AM EST Procedure Visit [facility] MEDICINE [address] [place] [address] Renu Hadley MD [address] [place] [address] documented as of this encounter Visit Diagnoses Diagnosis Peripheral neuralgia Unspecified hereditary and idiopathic peripheral neuropathy documented in this encounter Additional Health Concerns Assessment Noted Time PHQ-9 Depression Total Score: 16 025 9:47 AM EST documented as of this encounter Care Teams Peanut Roaster Relationship Specialty Start Date End Date Renu Hadley MD [address] [place] [address] PCP - General Internal Medicine 07/04/24 Bg Heck, RN 505 [place] [address] Registered Nurse Family Medicine 07/02/25 07/06/25 Bg Heck RN 505 [place] [address] Registered Nurse Family Medicine 07/24/25 Argentina Menon 07/24/25 documented as of this encounter
== END 2025-09-06 10:16 | disposition home or self-care (01) ==
LOC: HO.HGS 09:57
PROVIDERS: PCP Internal Medicine; Visit Provider Surgery
DX: R10.31 Right lower quadrant pain (principal); G89.29 Other chronic pain
CPT/HCPCS: 99203

== ENCOUNTER 2025-09-14 10:18 | Outpatient (REF) | payer MEDICAID, SELFPAY ==
--- OUTSIDE RECORDS SUMMARY | 2025-09-14 09:15 | XMS_ITS | Encounter Summary ---
Author Organization [employer] Address [address] [place] [address] 7t [place] [address] Care Team Providers Care Recovery Operator Name Role Phone Renu Hadley MD Primary Care Provider + Bg Heck RN Unavailable [phone] Argentina Menon Unavailable Reason for Referral * Consultation (Routine) - Pending Review Specialty Diagnoses / Procedures Referred By Hermila alegria Referred To Contact Gastroenterology Diagnoses Encounter for colorectal cancer screening Renu Hadley MD [address] [place] [address] Phone: tel: fax: Referral ID Status Reason Start Date Expiration Date Visits Requested Visits Authorized [id number] Pending Review Specialty Services Required 09/14/2026 1 1 Encounter Details Date Type Department Care Team (Late st Contact Info) Description 09/14/2025 9:15 AM EST Office Visit [facility] MEDICINE [address] [place] [address] Renu Hadley MD [address] [place] [address] Visit for preventive health examination (Primary Dx); Strain of left calf muscle; Chronic left-sided low back pain with left-sided sciatica; Encounter for colorectal cancer screening; Encounter for immunization; Dietary counseling; Exercise counseling; Class 1 obesity due to excess calories with serious comorbidity and body mass index (BMI) of 32.0 to 32.9 in adult; Screen for STD (sexually transmitted disease) Social History Tobacco Use Types Packs/Day Years Used Date Smoking Tobacco: Never Passive Smoke Exposure: Never Smokeless Tobacco: Never Alcohol Use Standard Drinks/Week Comments Not Currently 0 (1 standard drink = 0.6 oz pur e alcohol) Socially Alcohol Answer Date Recorded How often do you have a drink containing alcohol ? 0 09/14/2025 Average Number of Drinks Not on file 025 How often do you have six or more drinks on one occasion? 0 09/14/2025 Depression Answer Date Recorded Patient Health Questionnaire-9 Score 18 09/14/2025 Patient Health Questionnaire-9 Score 18 09/14/2025 Last PHQ-9: Questionnaire Data Not on file 1 11/14/2024 Housing Stability Answer Date Recorded What is [...] the past 12 months, has t he [employer], gas, oil or water company threatened to shut off services in your home? No 08/17/2023 Depression Answer Date Recorded Patient Health Questionnaire-2 Score 4 09/14/2025 Internet Access Answer Date Recorded Internet Access [...] Sign Reading Time Taken Comments Blood Pressure 130/72 09/14/2025 9:27 AM EST Pulse 72 09/14/2025 9:27 AM EST Temperature 36.1 C (97 F) 09/14/2025 9:27 AM EST Respiratory Rate 16 09/14/2025 9:27 AM EST Oxygen Saturation 98% 09/14/2025 9:27 AM EST Inhaled Oxygen Concentration - - Weight 84.1 kg (185 lb 6.4 oz) 09/14/2025 9:27 A M EST Height 160 cm (5' 3 ) 09/14/2025 9:27 AM EST Body Mass Index 32.84 09/14/2025 9:27 AM EST documented in this encounter Functional Status * Over the past 2 weeks, how often have you been bothered by any of the following problems? Question Answer Date of Assessment Author Patient Health Questionnaire -2 Score 4 09/14/2025 10:18 AM EST Yumiko Foley MA * Little interest or pleasure in doing things Answer Date of Assessment Author More than half the days 09/14/2025 10:18 AM EST Yumiko Foley MA * Feeling down, depressed, or hopeless Answer Date of Assessment Author More than half the days 09/14/2025 10:18 AM EST Yumiko Foley MA * Trouble falling or staying asleep, or sleeping too much Answer Date of Assessment Author Nearly every day 09/14/2025 10:18 AM EST Yumiko Foley MA * Feeling tired or having little energy Answer Date of Assessment Author More than half the days 09/14/2025 10:18 AM EST Yumiko Foley MA * Poor appetite or overeating Answer Date of Assessment Author Nearly every day 09/14/2025 10:18 AM Yumiko Carson MA * Feeling bad about yourself - or that you are a failure or have let yourself or your family down Answer Date of Assessment Author More than half the days 09/14/2025 10:18 AM Yumiko Carson MA * Trouble concentrating on things, such as reading the newspaper or watching television Answer Date of Assessment Author More than half the days 09/14/2025 10:18 AM Yumiko Carson MA * Moving or speaking so slowly that other people could have noticed? Or the opposite - being so fidgety or restless that you have been moving around a lot more than usual. Answer Date of Assessment Author More than half the days 09/14/2025 10:18 AM Yumiko Carson MA * Thoughts that you would be better off or hurting yourself in some way Answer Date of Assessment Author Not at all 09/14/2025 10:18 AM Yumiko Carson MA * Patient Health Questionnaire-9 Score Answer Date of Assessment Author 18 09/14/2025 10:18 AM Yumiko Carson MA * Over the last 2 weeks, how often have you been bothered by any of the following problems? Question Answer Date of Assessment Author Feeling nervous, anxious, or on edge 3 08/26 9:34 AM Yumiko Carson MA Not being able to stop or co ntrol worrying 2 09/14/2025 9:34 AM Yumiko Carson M A Worrying too much about diff erent things 2 09/14/2025 9:34 AM Yumiko Carson M A Trouble relaxing 2 09/14/2025 9:34 AM EST Yumiko Bourgeois MA Being so restless that it is hard to sit still 1 09/14/2025 9:34 AM EST Yumiko Foley M A Becoming easily annoyed or irritable 2 08/26 9:34 AM Yumiko Carson MA Feeling afraid as if somethi ng awful might happen 3 09/14/2025 9:34 AM Yumiko Carson M A JENNIFER-7 Total Score 15 09/14/2025 9:34 AM GEORGE Foley YumikoDIANA * How difficult have these problems made it for you to do your work, take care of things at home, or get along with other people? Answer Date of Assessment Author Very difficult 09/14/2025 10:18 AM GEORGE Foley YumikoDIANA documented as of this encounter Plan of Treatment Upcoming Encounters Date Type Department Care Team (Late st Contact Info) Description 10/30/2025 10:00 AM EST Procedure Visit [facility] MEDICINE [address] [place] [address] Renu Hadley MD [address] [place] [address] Scheduled Orders Name Type Priority Associated Diagnoses Orde r Schedule Lipid Panel with Reflex to Direct LDL Lab Routine Class 1 obesity due to excess calories with serious comorbidity and body mass index (BMI) of 32.0 to 32.9 in adult Expected: 09/14/2025 (Approximate), Expires: 09/14/2026 HIV-1/2 Antigen and Antibodies, Fourth Generation, with Reflexes Lab Routine Screen for STD (sexually transmitted disease) Expected: 09/14/2025 (Approximate), Expires: 09/14/2026 Syphilis Screen Lab Routine Screen for STD (sexually transmitted disease) Expected: 09/14/2025 (Approximate), Expires: 09/14/2026 TSH with Reflex to Free T4 Lab Routine Screen for STD (sexually transmitted disease) Expected: 09/14/2025 (Approximate), Expires: 09/14/2026 T-SPOT .TB Lab Routine Visit for preventive health examination Expected: 09/14/2025 (Approximate), Expires: 09/14/2026 Comprehensive Metabolic Panel Lab Routine Class 1 obesity due to excess calories with serious comorbidity and body mass index (BMI) of 32.0 to 32.9 in adult Expected: 09/14/2025 (Approximate), Expires: 09/14/2026 Scheduled Referrals Name Type Priority Associated Diagnoses Order Schedule Referral to Gastroenterology Outpatient Referral Routine Encounter for colorectal cancer screening Expected: 09/14/2025 (Approximate), Expires: 09/14/2026 documented as of this encounter Visit Diagnoses Diagnosis Visit for preventive health examination- Primary Strain of left calf muscle Chronic left-sided low back pain with left-sided sciatica Encounter for colorectal cancer screening Encounter for immunization Dietary counseling Dietary surveillance and counseling Exercise counseling Class 1 obesity due to excess calories with serious comorbidity and body mass index (BMI) of 32.0 to 32.9 in adult Screen for STD (sexually transmitted disease) Screening examination for venereal disease documented in this encounter Additional Health Concerns Assessment Noted Time PHQ-9 Depression Total Score: 18 025 10:18 AM EST documented as of this encounter Care Teams Recovery Operator Relationship Specialty Start Date End Date Renu Hadley MD [address] [place] [address] PCP - General Internal Medicine 07/04/24 Bg Heck RN [address] [place] [address] Registered Nurse Family Medicine 07/24/25 Argentina Menon 07/24/25 documented as of this encounter
--- OUTSIDE RECORDS SUMMARY | 2025-09-14 10:56 | XMS_ITS | Encounter Summary ---
Author Organization [employer] Address [address] [place] [address] [address] [place] [address] Care Team Providers Care Tankage Grinder Name Role Phone Renu Hadley MD Primary Care Provider + Bg Heck RN Unavailable [phone] Argentina Menon Unavailable Reason for Visit * Reason Onset Date Comments chart prep 09/13/2025 Encounter Details Date Type Department Care Team ([facility] st Contact Info) Description 09/13/2025 Telephone [facility] MEDICINE [address] [place], [place] [phone] Renu Hadley MD [address] [place], [place] [phone] chart prep Social History Tobacco Use Types Packs/Day Years [...] encounter Miscellaneous Notes * Telephone Encounter - Lucretia Masterson MA - 09/13/2025 12:53 PM EST Chart Prep Labs: not done from 09/07 BMP Images: MRI lower leg SCHEDULED AT [facility] 09/30/25 AT 11:15 AM. Referrals: no show to [facility] on 09/11/25 Vaccines due: Covid, Flu, PCV20, and Hep B Screenings: pap smear scheduled for Overdue care gaps: PHQ-9, JENNIFER-7, and Disability screen documented in this encounter Plan of Treatment Upcoming Encounters Date Type Department Care Team (Late st Contact Info) Description 10/30/2025 10:00 AM EST Procedure Visit [facility] MEDICINE [address] [place] [id number] Renu Hadley MD [address] [place] [phone] documented as of this encounter Visit Diagnoses Not on filedocumented in this encounter Additional Health Concerns Assessment Noted Time PHQ-9 Depression Total Score: 11 025 10:23 AM EDT documented as of this encounter Care Teams Tankage Grinder Relationship Specialty Start Date End Date Renu Hadley MD [address] [place] [phone] PCP - General Internal Medicine 07/04/24 Bg Heck, RN [address] [place] [phone] Registered Nurse Family Medicine 07/24/25 Argentina Menon 07/24/25 documented as of this encounter
--- OUTSIDE RECORDS SUMMARY | 2025-09-14 10:56 | XMS_ITS | Clinical Summary ---
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 APTIMA test which targets mRNA. Detecting mRNA instead of DNA, as in older methods, offers significant improvements in specificity. 10/13/2017 9:12 AM EST Carmen Bey CNM HISTORICAL/NON ORDERABLE LABS Final Result [facility] [address] * Pap Smear (10/13/2017 12:00 AM EST) Swab Carmen Bey CNM LAB CYTOLOGY ORDERABLES F inal Result Performing Organization Address City/[facility]/ZIP Co de Phone Number [facility] [address] [place] [phone] from Last 3 Months or Most Recently Relevant to Health Maintenance [place] [address] [place] [address] [address] [place] [address] Care Teams Nodulizer Relationship Specialty Start Date End Date Noel Palacio MD [address] [place] [id number] PCP - General Internal Medicine 07/04/24 Bg Heck, KACY [address] [place] [address] Registered Nurse Family Medicine 07/24/25 Argentina Menon 07/24/25
--- OUTSIDE RECORDS SUMMARY | 2025-09-14 10:56 | XMS_ITS | Encounter Summary ---
Author Organization [employer] Address [address] [facility] 7t [place] [address] Care Team Providers Care Junior Buyer Name Role Phone Renu Hadley MD Primary Care Provider + Bg Heck RN Unavailable [phone] Argentina Menon Unavailable Encounter Details Date Type Department Care Team (Latest Contact Info) Description 09/14/2025 Travel Social History Tobacco Use Types Packs/Day [...] Questionnaire -2 Score 4 09/14/2025 10:18 AM Yumiko Carson MA * Little interest or pleasure in doing things Answer Date of Assessment Author More than half the days 09/14/2025 10:18 AM Yumiko Carson MA * Feeling down, depressed, or hopeless Answer Date of Assessment Author More than half the days 09/14/2025 10:18 AM Yumiko Carson MA * Trouble falling or staying asleep, [...] 10:18 AM EST Yumiko Foley MA * Moving or speaking so slowly that other people could have noticed? Or the opposite - being so fidgety or restless that you have been moving around a lot more than usual. Answer Date of Assessment Author More than half the days 09/14/2025 10:18 AM Yumiok Carson MA * Thoughts that you would [...] or on edge 3 08/26 9:34 AM EST Yumiko Foley MA Not being able to stop or co ntrol worrying 2 09/14/2025 9:34 AM EST Yumiko Foley M A Worrying too much about diff erent things 2 09/14/2025 9:34 AM EST Yumiko Foley M A Trouble relaxing 2 09/14/2025 9:34 [...] JENNIFER-7 Total Score 15 09/14/2025 9:34 AM Yumiko Carson MA * How difficult have these problems made it for you to do your work, take care of things at home, or get along with other people? Answer Date of Assessment Author Very difficult 09/14/2025 10:18 AM Yumiko Carson MA documented as of this encounter Plan of Treatment Upcoming Encounters Date Type Department Care Team (Late st Contact Info) Description 10/30/2025 10:00 AM EST Procedure Visit [facility] [address] [place] [address] Renu Hadley MD [address] [place] [address] documented as of this encounter Visit Diagnoses Not on filedocumented in this encounter Additional Health Concerns Assessment Noted Time PHQ-9 Depression Total Score: 18 025 10:18 AM EST documented as of this encounter Care Teams Junior Buyer Relationship Specialty Start Date End Date Renu Hadley MD [address] [place] [address] PCP - General Internal Medicine 07/04/24 Bg Heck, KACY [address] [place] [address] Registered Nurse Family Medicine 07/24/25 Argentina Menon 07/24/25 documented as of this encounter
--- OUTSIDE RECORDS SUMMARY | 2025-09-14 10:56 | XMS_ITS | Encounter Summary ---
Author Organization [employer] Address [address] [place] [address] 7t [place] [address] Care Team Providers Care Health And Safety Instructor Name Role Phone Renu Hadley MD Primary Care Provider + Bg Heck RN Unavailable [phone] Bg Heck RN Unavailable [phone] Argentina Menon Unavailable Reason for Visit * Reason Onset Date Comments Appointment Request 04/07/2023 Encounter Details Date Type Department Care Team (Late st Contact Info) Description 04/07/2023 Telephone [facility]INE [address] [place] [address] Name, MD Richy [address] [place], [place] [phone] Appointment Request Social History Tobacco Use Types [...] - 04/07/2023 1:53 PM EDT T/C to [phone] through [employer] id - [id number] to re-schedule HDF apt. Pt. Schedule for HDF apt. On 04/14/2023. Pt. Was admitted at [facility], d/c 04/02/23 for Dx: Peritoneal abscess [...] to r/s HDF appt from 04/07/23. Details: [facility] d/c 04/02/23 Dx: Peritoneal abscess surgery documented in this encounter Plan of Treatment Upcoming Encounters Date Type Department Care Team (Late st Contact Info) Description 10/30/2025 10:00 AM EST Procedure Visit [facility] [address] [place] [address] Renu Hdaley MD [address] [place] [address] documented as of this encounter Visit Diagnoses Not on filedocumented in this encounter Additional Health Concerns Assessment Noted Time PHQ-9 Depression Total Score: 12 023 1:33 PM EDT documented as of this encounter Care Teams Health And Safety Instructor Relationship Specialty Start Date End Date Renu Hadley MD [address] [place] [address] PCP - General Internal Medicine 07/04/24 Bg Heck RN [address] [facility] [place] [address] Registered Nurse Family Medicine 07/02/25 07/06/25 Bg Heck RN [address] [facility] [place] [address] Registered Nurse Family Medicine 07/24/25 Argentina Menon 07/24/25 documented as of this encounter
--- OUTSIDE RECORDS SUMMARY | 2025-09-14 10:56 | XMS_ITS | Encounter Summary ---
Author Organization [employer] Address [address] [place] [address] 7t [place] [address] Care Team Providers Care Leave Coordinator Name Role Phone Renu Hadley MD Primary Care Provider + Bg Heck RN Unavailable [phone] Argentina Menon Unavailable Encounter Details Date Type Department Care Team ([facility] st Contact Info) Description 08/24/2025 Results Follow-Up [facility] MEDICINE [address] [place] [address] Renu Hadley MD [address] [place] [address] Lower Extremity Venous Duplex Social History Tobacco [...] the past 12 months, has t he [employer], gas, oil or water company threatened to [...] Author Several days 08/24/2025 10:23 AM Bg Sahw RN * Thoughts that you would be [...] RN Trouble relaxing 1 08/24/2025 10:26 AM KARISHMAT Bg Heck RN Being so restless that it is hard to sit still 1 08/24/2025 10:26 AM KARISHMAT Bg Heck RN Becoming easily annoyed or [...] Description 10/30/2025 10:00 AM EST Procedure Visit [facility] MEDICINE [address] [place] [address] Renu Hadley MD [address] [place] [address] documented as of this encounter Visit Diagnoses Not on filedocumented in this encounter Additional Health Concerns Assessment Noted Time PHQ-9 Depression Total Score: 11 025 10:23 AM EDT documented as of this encounter Care Teams Leave Coordinator Relationship Specialty Start Date End Date Renu Hadley MD [address] [place] [address] PCP - General Internal Medicine 07/04/24 Bg Heck, KACY [address] [place] [address] Registered Nurse Family Medicine 07/24/25 Argentina Menon 07/24/25 documented as of this encounter
--- OUTSIDE RECORDS SUMMARY | 2025-09-14 10:56 | XMS_ITS | Encounter Summary ---
Author Organization [employer] Address 75 [facility] 7t [place] [address] Care Team Providers Care Concrete Products Dispatcher Name Role Phone Renu Hadley MD Primary Care Provider + Bg Heck RN Unavailable [phone] Argentina Menon Unavailable Reason for Visit * Reason Comments Med Refill Encounter Details Date Type Department Care Team (Late st Contact Info) Description 09/14/2025 Refill [facility] 230 [place] [address] Kanika Freeman DO 230 [place], [place] [phone] Social History Tobacco Use Types Packs/Day Years [...] 10:18 AM Yumiko Carson MA * Feeling tired or having little [...] annoyed or irritable 2 08/26 9:34 AM EST Yumiko Foley MA Feeling afraid as if somethi ng awful might happen 3 09/14/2025 9:34 AM Yumiko Carson M A JENNIFER-7 Total Score 15 09/14/2025 9:34 AM EST Yumiko Foley MA * How difficult have these problems [...] Description 10/30/2025 10:00 AM EST Procedure Visit [facility] [address] [place] [address] Renu Hadley MD 230 [place] [address] documented as of this encounter Visit Diagnoses Not on filedocumented in this encounter Additional Health Concerns Assessment Noted Time PHQ-9 Depression Total Score: 18 025 10:18 AM EST documented as of this encounter Care Teams Concrete Products Dispatcher Relationship Specialty Start Date End Date Renu Hadley MD 230 [place] [address] PCP - General Internal Medicine 07/04/24 Bg Heck, KACY [address] [place] [address] Registered Nurse Family Medicine 07/24/25 Argentina Menon 07/24/25 documented as of this encounter
--- OUTSIDE RECORDS SUMMARY | 2025-09-14 10:56 | XMS_ITS | Encounter Summary ---
Author Organization [employer] Address 75 [facility] 7t [place] [address] Care Team Providers Care Continuous Improvement Coach Name Role Phone Renu Hadley MD Primary Care Provider + Bg Heck RN Unavailable [phone] Argentina Menon Unavailable Reason for Visit * Reason Onset Date Comments Med Refill 08/31/2025 Encounter Details Date Type Department Care Team ([facility] st Contact Info) Description 08/31/2025 Telephone [facility] MEDICINE [address] [place], [place] [phone] Renu Hadley MD 230 [place], [place] [phone] Med Refill Social History Tobacco Use Types [...] the past 12 months, has t he [employer], oil or water [employer] threatened to shut off services in your [...] 8:46 AM EST Medication was sent to [facility] on 07/23/25 with 1 refill. * Telephone Encounter - Johanny Monge - 08/31/2025 8:35 AM EST TC from pt requesting medication refill. Medications needing refill : QUEtiapine (SEROquel) 50 MG tablet To be sent to: [facility] documented in this encounter Plan of Treatment Upcoming Encounters Date Type Department Care Team (Late st Contact Info) Description 10/30/2025 10:00 AM EST Procedure Visit [facility]IC[facility] [address] [place], [place] [phone] Renu Hadley MD [address] [place] [address] documented as of this encounter Visit Diagnoses Not on filedocumented in this encounter Additional Health Concerns Assessment Noted Time PHQ-9 Depression Total Score: 11 025 10:23 AM EDT documented as of this encounter Care Teams Continuous Improvement Coach Relationship Specialty Start Date End Date Renu Hadley MD [address] [place] [address] PCP - General Internal Medicine 07/04/24 Bg Heck, KACY [address] [place] [address] Registered Nurse Family Medicine 07/24/25 Argentina Menon 07/24/25 documented as of this encounter
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
--- OUTSIDE RECORDS SUMMARY | 2025-09-14 10:56 | XMS_ITS | Encounter Summary ---
Author Organization [employer] Address [address] [place] [address] 7 [place] [address] Care Team Providers Care Box Feeder Name Role Phone Renu Hadley MD Primary Care Provider + Bg Heck RN Unavailable [phone] Bg eHck RN Unavailable [phone] Argentina Menon Unavailable Reason for Visit * Reason Onset Date Comments Med Refill 03/21/2025 Encounter Details Date Type Department Care Team (Late st Contact Info) Description 03/21/2025 Telephone [facility] MEDICINE [address] [place] [address] Renu Hadley MD 230 [place], [place] [phone] Med Refill Social History Tobacco Use Types [...] MG tablet To be sent to : [facility] documented in this encounter Plan of Treatment Upcoming Encounters Date Type Department Care Team (Late st Contact Info) Description 10/30/2025 10:00 AM EST Procedure Visit [facility] MEDICINE [address] [place] [address] Renu Hadley MD [address] [place], [place] [phone] documented as of this encounter Visit Diagnoses Not on filedocumented in this encounter Additional Health Concerns Assessment Noted Time PHQ-9 Depression Total Score: 23 025 9:34 AM EDT documented as of this encounter Care Teams Box Feeder Relationship Specialty Start Date End Date Renu Hadley MD [address] [place], [place] [phone] PCP - General Internal Medicine 07/04/24 Bg Heck, RN [address] [place] [address] Registered Nurse Family Medicine 07/02/25 07/06/25 Bg Heck, RN [address] [place] [address] Registered Nurse Family Medicine 07/24/25 Argentina Menon 07/24/25 documented as of this encounter
--- OUTSIDE RECORDS SUMMARY | 2025-09-14 10:56 | XMS_ITS | Encounter Summary ---
Author Organization [employer] Address [address] [place] [address] 7t [place] [address] Care Team Providers Care Suspender Cutter Name Role Phone Renu Hadley MD Primary Care Provider + Bg Heck RN Unavailable [phone] Argentina Menon Unavailable Encounter Details Date Type Department Care Team ([facility] Contact Info) Description 08/21/2025 Telephone [facility] MEDICINE 230 [place], [place] [phone] Renu Hadley MD 230 [place], [place] [phone] Social History Tobacco Use Types Packs/Day Years [...] the past 12 months, has t he [employer], gas, oil or water company threatened to [...] (Lifetime) No 08/24/2025 11:22 AM EDT Bg Hekc RN documented as of this encounter Plan of Treatment Upcoming Encounters Date Type Department Care Team (Late st Contact Info) Description 10/30/2025 10:00 AM EST Procedure Visit [facility] MEDICINE [address] [place] [address] Renu Hadley MD [address] [place] [address] documented as of this encounter Visit Diagnoses Not on filedocumented in this encounter Additional Health Concerns Assessment Noted Time PHQ-9 Depression Total Score: 5 03/28/20 25 10:34 AM EDT documented as of this encounter Care Teams Suspender Cutter Relationship Specialty Start Date End Date Renu Hadley MD [address] [place] [address] PCP - General Internal Medicine 07/04/24 Bg Heck RN [address] [place] [address] Registered Nurse Family Medicine 07/24/25 Argentina Menon 07/24/25 documented as of this encounter
--- OUTSIDE RECORDS SUMMARY | 2025-09-14 10:56 | XMS_ITS | Encounter Summary ---
Author Organization [employer] Address [address] [place] [address] 7t [place] [address] Care Team Providers Care Time Signal Wirer Name Role Phone Renu Hadley MD Primary Care Provider + Bg Heck RN Unavailable [phone] Bg Heck RN Unavailable [phone] Argentina Menon Unavailable Reason for Visit * Reason Comments Med Refill Encounter Details Date Type Department Care Team (Late Contact Info) Description 04/07/2023 Refill [facility] MEDICINE 230 [place] [address] Lisa Cifuentes FNP 505 [place], [place] [phone] Anxiety disorder, unspecified Social History Tobacco Use [...] Department Care Team (Late Contact Info) Description 10/30/2025 10:00 AM EST Procedure Visit [facility] [address] [place] [address] Renu Hadley MD 230 [place] [address] documented as of this encounter Visit Diagnoses Diagnosis Anxiety disorder, unspecified documented in this encounter Additional Health Concerns Assessment Noted Time PHQ-9 Depression Total Score: 12 023 1:33 PM EDT documented as of this encounter Care Teams Time Signal Wirer Relationship Specialty Start Date End Date Renu Hadley MD [address] [place] [address] PCP - General Internal Medicine 07/04/24 gB Heck RN 505 [place] [address] Registered Nurse Family Medicine 07/02/25 07/06/25 Bg Heck RN 505 [place] [address] Registered Nurse Family Medicine 07/24/25 Argentina Menon 07/24/25 documented as of this encounter
--- OUTSIDE RECORDS SUMMARY | 2025-09-14 10:56 | XMS_ITS | Encounter Summary ---
Author Organization [employer] Address [address] [place] [address] 7t [place] [address] Care Team Providers Care Body And Fender Mechanic Apprentice Name Role Phone Renu Hadley MD Primary Care Provider + Bg Heck RN Unavailable [phone] Bg Heck RN Unavailable [phone] Argentina Menon Unavailable Reason for Visit * Reason Comments Med Refill Encounter Details Date Type Department Care Team (Late Contact Info) Description 04/09/2023 Refill [facility] MED[facility]INE 230 [place] [address] Lisa Cifuentes FNP 505 [place], [place] [phone] Anxiety disorder, unspecified Social History Tobacco Use [...] 10:00 AM EST Procedure Visit [facility] [address] [place] [address] Renu Hadley MD 230 [place] [address] documented as of this encounter Visit Diagnoses Diagnosis Anxiety disorder, unspecified documented in this encounter Additional Health Concerns Assessment Noted Time PHQ-9 Depression Total Score: 12 023 1:33 PM EDT documented as of this encounter Care Teams Body And Fender Mechanic Apprentice Relationship Specialty Start Date End Date Renu Hadley MD [address] [place] [address] PCP - General Internal Medicine 07/04/24 Bg Heck RN 505 [place] [address] Registered Nurse Family Medicine 07/02/25 07/06/25 Bg Heck RN 505 [place] [address] Registered Nurse Family Medicine 07/24/25 Argentina Mneon 07/24/25 documented as of this encounter
--- OUTSIDE RECORDS SUMMARY | 2025-09-14 10:56 | XMS_ITS | Encounter Summary ---
Author Organization [employer] Address [address] [place] [address] 7t [place] [address] Care Team Providers Care National Secretary Name Role Phone Renu Hadley MD Primary Care Provider + Bg Heck RN Unavailable [phone] Bg Heck RN Unavailable [phone] Argentina Menon Unavailable Reason for Visit * Reason Comments Med Refill Encounter Details Date Type Department Care Team (Late Contact Info) Description 06/10/2023 Refill [facility] MEDICINE 230 [place], [place] [phone] NameRichy MD 230 [place], [place] [phone] Anxiety disorder, unspecified Social History Tobacco Use [...] Description 10/30/2025 10:00 AM EST Procedure Visit [facility] MEDICINE [address] [place], [place] [phone] Renu Hadley MD 230 [place] [address] documented as of this encounter Visit Diagnoses Diagnosis Anxiety disorder, unspecified documented in this encounter Additional Health Concerns Assessment Noted Time PHQ-9 Depression Total Score: 12 023 1:33 PM EDT documented as of this encounter Care Teams National Secretary Relationship Specialty Start Date End Date Renu Hadley MD 230 [place] [address] PCP - General Internal Medicine 07/04/24 Bg Heck RN [address] [place] [address] Registered Nurse Family Medicine 07/02/25 07/06/25 Bg Heck, KACY 505 [place] [address] Registered Nurse Family Medicine 07/24/25 Argentina Menon 07/24/25 documented as of this encounter
--- OUTSIDE RECORDS SUMMARY | 2025-09-14 10:57 | XMS_ITS ---
Author Organization [employer] Address [address] [place] [address] 7 [place] [address] Care Team Providers Care Regional Telecommunications Specialist Name Role Phone Renu Hadley MD Primary Care Provider + Bg Heck RN Unavailable [phone] Argentina Menon Unavailable [facility] Complex Status:Enrolled (Active) Start date:07/24/2025 Enrollment date:08/24/2025 Enrollment reason:ADT Feed Overview ED- Pt went to [facility] ED on 07/23/25. . Case Team Name Relationship Phone Argentina Menon(Responsible Staff) [phone] Continued Care and Services Coordination
--- OUTSIDE RECORDS SUMMARY | 2025-09-14 10:57 | XMS_ITS | Encounter Summary ---
Author Organization [employer] Address [address] [place] [address] 7t [place] [address] Care Team Providers Care Liberal Arts Dean Name Role Phone Renu Hadley MD Primary Care Provider + Bg Heck RN Unavailable [phone] Bg Heck RN Unavailable [phone] Argentina Menon Unavailable Reason for Visit * Reason Comments Med Refill Encounter Details Date Type Department Care Team (Late st Contact Info) Description 12/10/2024 Refill [facility] MEDICINE 230 [place], [place] [phone] Renu Hadley MD 230 [place], [place] [phone] Peripheral neuralgia Social History Tobacco Use Types [...] Description 10/30/2025 10:00 AM EST Procedure Visit [facility] MEDICINE [address] [place] [address] Renu Hadley MD [address] [place] [address] documented as of this encounter Visit Diagnoses Diagnosis Peripheral neuralgia Unspecified hereditary and idiopathic peripheral neuropathy documented in this encounter Additional Health Concerns Assessment Noted Time PHQ-9 Depression Total Score: 16 025 9:47 AM EST documented as of this encounter Care Teams Liberal Arts Dean Relationship Specialty Start Date End Date Renu Hadley MD [address] [place] [address] PCP - General Internal Medicine 07/04/24 Bg Heck, KACY 505 [place] [address] Registered Nurse Family Medicine 07/02/25 07/06/25 Bg Heck, KACY [address] [place] [address] [place] [address] Registered Nurse Family Medicine 07/24/25 Argentina Menon 07/24/25 documented as of this encounter
--- OUTSIDE RECORDS SUMMARY | 2025-09-14 10:57 | XMS_ITS | Encounter Summary ---
Author Organization [employer] Address [address] [place] [address] 7 [place] [address] Care Team Providers Care Airport Operations Supervisor Name Role Phone Renu Hadley MD Primary Care Provider + Bg Heck RN Unavailable [phone] Bg Heck RN Unavailable [phone] Argentina Menon Unavailable Reason for Visit * Reason Comments Med Refill Encounter Details Date Type Department Care Team (Late st Contact Info) Description 02/12/2023 Refill [facility] MEDICINE [address] [place] [address] [phone] Richy Morris MD 230 [place], [place] [phone] Heartburn Social History Tobacco Use Types Packs/Day [...] Description 10/30/2025 10:00 AM EST Procedure Visit [facility] MEDICINE [address] [place] [address] [phone] Renu Hadley MD [address] [place], [place] [phone] documented as of this encounter Visit Diagnoses Diagnosis Heartburn documented in this encounter Care Teams Airport Operations Supervisor Relationship Specialty Start Date End Date Renu Hadley MD [address] [place] [address] PCP - General Internal Medicine 07/04/24 Bg Heck RN 505 [place] [address] Registered Nurse Family Medicine 07/02/25 07/06/25 Bg Heck RN 505 [place] [address] Registered Nurse Family Medicine 07/24/25 Argentina Menon 07/24/25 documented as of this encounter
--- OUTSIDE RECORDS SUMMARY | 2025-09-14 10:57 | XMS_ITS | Encounter Summary ---
Author Organization [employer] Address [address] [place] [address] 7 [place] [address] Care Team Providers Care Tuck Pointer Name Role Phone Renu Hadley MD Primary Care Provider + Bg Heck RN Unavailable [phone] Bg Heck RN Unavailable [phone] Argentina Menon Unavailable Encounter Details Date Type Department Care Team (Latest Contact Info) Description 02/25/2021 Abstract [facility] Dental, Provider, DDS Social History Tobacco [...] Description 10/30/2025 10:00 AM EST Procedure Visit [facility] MEDICINE 230 [place], [place] [phone] Renu Hadley MD 230 [place], [place] [phone] documented as of this encounter Visit Diagnoses Not on filedocumented in this encounter Care Teams Tuck Pointer Relationship Specialty Start Date End Date Renu Hadley MD 230 [place], [place] [phone] PCP - General Internal Medicine 07/04/24 Bg Heck, RN 505 [facility] [place] [address] Registered Nurse Family Medicine 07/02/25 07/06/25 Bg Heck, KACY 505 [facility] [place] [address] Registered Nurse Family Medicine 07/24/25 Argentina Menon 07/24/25 documented as of this encounter
--- OUTSIDE RECORDS SUMMARY | 2025-09-14 10:57 | XMS_ITS | Encounter Summary ---
Author Organization [employer] Address [address] [place] [address] 7 [place] [address] Care Team Providers Care Garment Finisher Name Role Phone Renu Hadley MD Primary Care Provider + Bg Heck RN Unavailable [phone] Bg Heck RN Unavailable [phone] Argentina Menon Unavailable Reason for Visit * Reason Onset Date Comments Nurse Triage 05/15/2025 Encounter Details Date Type Department Care Team (Late st Contact Info) Description 05/15/2025 Telephone [facility] MEDICINE 230 [place] [address] Renu Hadley MD 230 [place], [place] [phone] Nurse Triage Social History Tobacco Use Types [...] EDT Triage call returned with BLS # [id number] Carley. Patient reports pain in upper abdomen [...] patient. Disposition to ED confirmed with BLS Game Programer confirmed and that patient declined recommendation at [...] Reason: Abdominal pain Please contact pt at [phone]. (Montenegrin Speaker) documented in this encounter Plan of Treatment Upcoming Encounters Date Type Department Care Team (Late st Contact Info) Description 10/30/2025 10:00 AM EST Procedure Visit [facility] MEDICINE [address] [place] [address] Renu Hadley MD [address] [place] [address] [place] [address] documented as of this encounter Visit Diagnoses Not on filedocumented in this encounter Additional Health Concerns Assessment Noted Time PHQ-9 Depression Total Score: 5 03/28/20 25 10:34 AM EDT documented as of this encounter Care Teams Garment Finisher Relationship Specialty Start Date End Date Renu Hadley MD 230 [place] [address] PCP - General Internal Medicine 07/04/24 Bg Heck, KACY 505 [place] [address] Registered Nurse Family Medicine 07/02/25 07/06/25 Bg Heck, RN 505 [place] [address] Registered Nurse Family Medicine 07/24/25 Argentina Menon 07/24/25 documented as of this encounter
--- OUTSIDE RECORDS SUMMARY | 2025-09-14 10:57 | XMS_ITS | Encounter Summary ---
Author Organization [employer] Address [address] [place] [address] 7t [place] [address] Care Team Providers Care Home Health Attendant Name Role Phone Renu Hadley MD Primary Care Provider + Bg Heck RN Unavailable [phone] Argentina Menon Unavailable Encounter Details Date Type Department Care Team ([facility] st Contact Info) Description 09/07/2025 Telephone [facility] MEDICINE 230 [place], [place] [phone] Moise Deal MD 230 [place], [place] [phone] Social History Tobacco Use Types Packs/Day Years [...] past 12 months, has t he electric, [employer], oil or water company threatened to shut [...] Encounter - Ashley Whitehead RN - 09/10/2025 8:51 AM EST Pt. Is scheduled with PCP 09/14/25 * Telephone Encounter - Moise Deal MD - 09/07/2025 2:50 PM EST RN BP Check Appointment Request documented in this encounter Plan of Treatment Upcoming Encounters Date Type Department Care Team (Late st Contact Info) Description 10/30/2025 10:00 AM EST Procedure Visit [facility] MEDICINE 230 [place], [place] [phone] Renu Hadley MD [address] [place] [address] documented as of this encounter Visit Diagnoses Not on filedocumented in this encounter Additional Health Concerns Assessment Noted Time PHQ-9 Depression Total Score: 11 025 10:23 AM EDT documented as of this encounter Care Teams Home Health Attendant Relationship Specialty Start Date End Date Renu Hadley MD 230 [place], [place] [phone] PCP - General Internal Medicine 07/04/24 Bg Heck, RN 505 [place] [address] Registered Nurse Family Medicine 07/24/25 Argentina Menon 07/24/25 documented as of this encounter
--- OUTSIDE RECORDS SUMMARY | 2025-09-14 10:57 | XMS_ITS | Encounter Summary ---
Author Organization [employer] Address [address] [place] [address] 7t [place] [address] Care Team Providers Care Sandstone Inspector Repairer Name Role Phone Renu Hadley MD Primary Care Provider + Bg Heck RN Unavailable [phone] Argentina Menon Unavailable Reason for Visit * Reason Comments Care Management C3CM- F/U call # 1 Encounter Details Date Type Department Care Team ([facility] st Contact Info) Description 09/12/2025 Patient Outreach [facility] MED & PEDS 505 [place] [address] Renu Hadley MD 230 [place] [address] Care Management (C3CM- F/U call # 1) Social History Tobacco Use Types Packs/Day Years [...] the past 12 months, has t he [employer], gas, oil or water [employer] threatened to shut off services in your [...] Progress Notes * Bg Heck RN - 09/12/2025 3:07 PM EST SETH Heck RN and AGNES Elaine placed outbound call to patient. Patient's name, and addressconfirmed. Patient states is doing well with no recent illnesses or emergency room visits. Patient reports that she attended general surgery appointment. Patient reports that a CAT scan was ordered. Patient was given the # to call to schedule the diagnostic test. No further questions or concerns. CM reinforced direct contact information or CHW for any additional questions or concerns. Education provided on [facility]In Urgent Care located in [facility]. Patient provided with after-hours line for [facility], , which offer night time triage service and option to transfer to bundler seasonal greenery provider if needed. Patient verbalizes understanding, and able to repeat back to manual writer. A follow up call will be placed within 10 days, patientagrees with plan. documented in this encounter Miscellaneous Notes * Care Plan - Bg Heck RN - 09/12/2025 3:07 PM EST Active Pain Management Manage Pain (Progressing) Start: 08/27/25 Expected End: 11/26/25 Pt will keep appointment with genera surgeon on 09/06/25 with CM support for reminder and transportation coordination. Goal Note Patient reports that she attended general surgery appointment. Patient reports that a CAT scan was ordered. Patient was given the # to call to schedule the diagnostic test. documented in this encounter Plan of Treatment Upcoming Encounters Date Type Department Care Team (Late st Contact Info) Description 10/30/2025 10:00 AM EST Procedure Visit [facility] MEDICINE 230 [place] [address] Renu Hadley MD [address] [place] [address] documented as of this encounter Visit Diagnoses Not on filedocumented in this encounter Additional Health Concerns Assessment Noted Time PHQ-9 Depression Total Score: 11 08/24/ 025 10:23 AM EDT documented as of this encounter Care Teams Sandstone Inspector Repairer Relationship Specialty Start Date End Date Renu Hadley MD 230 [place] [address] PCP - General Internal Medicine 07/04/24 Bg Heck, RN [address] [place] [address] [place] [address] Registered Nurse Family Medicine 07/24/25 Argentina Menon 07/24/25 documented as of this encounter
--- OUTSIDE RECORDS SUMMARY | 2025-09-14 10:57 | XMS_ITS | Encounter Summary ---
Author Organization [employer] Address [address] [place] [address] 7 [place] [address] Care Team Providers Care Finishing Supervisor Plastic Sheets Name Role Phone Renu Hadley MD Primary Care Provider + Bg Heck RN Unavailable [phone] Bg Heck RN Unavailable [phone] Argentina Menon Unavailable Encounter Details Date Type Department Care Team (Latest Contact Info) Description 12/20/2019 Abstract [facility] CONVERSIONS Dental, Provider, DDS Social History [...] Description 10/30/2025 10:00 AM EST Procedure Visit [facility] MEDICINE 230 [place], [place] [phone] Renu Hadley MD 230 [place], [place] [phone] documented as of this encounter Visit Diagnoses Not on filedocumented in this encounter Care Teams Finishing Supervisor Plastic Sheets Relationship Specialty Start Date End Date Renu Hadley MD 230 [place], [place] [phone] PCP - General Internal Medicine 07/04/24 Bg Heck, RN 505 [facility] [place] [address] Registered Nurse Family Medicine 07/02/25 07/06/25 Bg Heck, KACY 505 [facility] [place] [address] Registered Nurse Family Medicine 07/24/25 Argentina Menon 07/24/25 documented as of this encounter
--- OUTSIDE RECORDS SUMMARY | 2025-09-14 10:57 | XMS_ITS | Encounter Summary ---
Author Organization [employer] Address [address] [place] [address] 7t [place] [address] Care Team Providers Care [place] Name Role Phone Renu Hadley MD Primary Care Provider + Bg Heck RN Unavailable [phone] Bg Heck RN Unavailable [phone] Argentina Menon Unavailable Encounter Details Date Type Department Care Team (Late Contact Info) Description 12/01/2022 Orders Only [facility] MED & PEDS 505 [place] [address] Kanika Monson LPN Social History Tobacco Use [...] Description 10/30/2025 10:00 AM EST Procedure Visit [facility] MEDICINE 230 [place], [place] [phone] Renu Hadley MD 230 [place], [place] [phone] documented as of this encounter Visit Diagnoses Not on filedocumented in this encounter Care Teams [place] Relationship Specialty Start Date End Date Renu Hadley MD [address] [place] [address] PCP - General Internal Medicine 07/04/24 Bg Heck RN 505 [place] [address] Registered Nurse Family Medicine 07/02/25 07/06/25 Bg Heck RN 505 [place] [address] Registered Nurse Family Medicine 07/24/25 Argentina Menon 07/24/25 documented as of this encounter
--- OUTSIDE RECORDS SUMMARY | 2025-09-14 10:57 | XMS_ITS | Patient Health Record ---
Author Organization [facility] Address [address] [place] [address] Care Team Providers Care Furniture Delivery Driver Name Role Phone Kirstin Wright Outpt Care Primary Care Provider Abby Dobson Unavailable [phone] Reason For Referral No Information Plan Of Treatment No Information Insurance Providers Payer Name Payer Address Payer Phone Subscriber Number Group Number Insured Name Patient Relationship to Insured Coverage Start Date Coverage End Date [place] Medicaid Standard [address] [place] [address] Ruma Simons Self - patient is the insured
--- OUTSIDE RECORDS SUMMARY | 2025-09-14 10:57 | XMS_ITS | Encounter Summary ---
Author Organization [employer] Address [address] [place] [address] 7 [place] [address] Care Team Providers Care Circular Saw Filer Name Role Phone Renu Hadley MD Primary Care Provider + Bg Heck RN Unavailable [phone] Bg Heck RN Unavailable [phone] Argentina Menon Unavailable Reason for Visit * Reason Onset Date Comments Medication Question 06/20/2025 Encounter Details Date Type Department Care Team (Late st Contact Info) Description 06/20/2025 Telephone [facility] MEDICINE 230 [place] [address] Renu Hadley MD 230 [place], [place] [phone] Medication Question Social History Tobacco Use Types [...] Tramadol refill can be considered. TC via P/I#[id number], pocket assembler stated she was having a difficult time understanding patient, she questioned if patient was under anesthesia. Pt was notified that she will need to provide urine sample prior to receiving Tramadol refill. Pt stated she would come today at 12p to provide urine sample. Pt stated she was having a lot of pain inher abdomen. Advised patient she could go to [facility] to be evaluated if she needs. Pt stated she has her religious praying for her. She stated she will come to see this radio news writer at 12p today. Pt was NCNS for [employer] appt today at 12pm. Will send [...] Description 10/30/2025 10:00 AM EST Procedure Visit [facility] MEDICINE [address] [place] [address] Renu Hadley MD [address] [place] [address] documented as of this encounter Visit Diagnoses Not on filedocumented in this encounter Additional Health Concerns Assessment Noted Time PHQ-9 Depression Total Score: 5 03/28/20 10:34 AM EDT documented as of this encounter Care Teams Circular Saw Filer Relationship Specialty Start Date End Date Renu Hadley MD 230 [place] [address] PCP - General Internal Medicine 07/04/24 Bg Heck RN 505 [place] [address] Registered Nurse Family Medicine 07/02/25 07/06/25 Bg Heck RN 505 [place] [address] Registered Nurse Family Medicine 07/24/25 Argentina Menon 07/24/25 documented as of this encounter
--- OUTSIDE RECORDS SUMMARY | 2025-09-14 10:57 | XMS_ITS | Encounter Summary ---
Author Organization [employer] Address [address] [place] [address] 7t [place] [address] Care Team Providers Care Straight Pin Making Machine Operator Name Role Phone Renu Hadley MD Primary Care Provider + Bg Heck RN Unavailable [phone] Argentina Menon Unavailable Reason for Visit * Reason Comments Care Coordination C3CM/CHW Argentina chester, Sdoh f/u call Encounter Details Date Type Department Care Team (Latest Contact Info) Description 09/12/2025 Patient Outreach [facility] MEDICINE [address] [place], [place] [phone] Renu Hadley MD [address] [place] [address] Care Coordination (C3CM/CHW Argentina Meonn, Sdoh f/u call ) Social History Tobacco Use Types Packs/Day Years [...] as of this encounter Progress Notes * Argentina Menon - 09/12/2025 2:44 PM EST CHW Argentina Menon placed an outbound call to the patient to follow up on SDOH needs. The patient???s name, , and address were confirmed. The patient confirmed receipt of the food pantry list, Wi-Fi service information, and fuel assistance information previously mailed. The patient reported being contacted by the [employer] Program and is now receiving food vouchers to assist with food insecurity. CHW reinforced direct contact information ([phone]) and CM contact information ([phone]) for any additional questions or concerns, as well as extended clinic hours on Mondays and Wednesdaysand the availability of Walk-In Urgent Care located in the Replaced by [facility]. The patient was also providedwith the after-hours line for [facility] ([phone]), which offers nighttime triage services with the option to connect to the on-call provider if needed. The patient verbalized understanding and successfully repeated the information back. A follow-up call will be placed within 10 days, and the patient agreed with this plan. documented in this encounter Plan of Treatment Upcoming Encounters Date Type Department Care Team ([facility] Contact Info) Description 10/30/2025 10:00 AM EST Procedure Visit [facility] MEDICINE [address] [place], [place] [phone] Renu Hadley MD [address] [place] [address] documented as of this encounter Visit Diagnoses Not on filedocumented in this encounter Additional Health Concerns Assessment Noted Time PHQ-9 Depression Total Score: 11 025 10:23 AM EDT documented as of this encounter Care Teams Straight Pin Making Machine Operator Relationship Specialty Start Date End Date Renu Hadley MD [address] [place] [address] PCP - General Internal Medicine 07/04/24 Bg Heck, KACY [address] [place] [address] Registered Nurse Family Medicine 07/24/25 Argentina Menon 07/24/25 documented as of this encounter
--- OUTSIDE RECORDS SUMMARY | 2025-09-14 10:57 | XMS_ITS | Encounter Summary ---
Author Organization [employer] Address [address] [place] [address] 7 [place] [address] Care Team Providers Care Bonding Supervisor Name Role Phone Renu Hadley MD Primary Care Provider + Bg Heck RN Unavailable [phone] Bg Heck RN Unavailable [phone] Argentina Menon Unavailable Reason for Visit * Reason Onset Date Comments Durable Medical Equipment 12/30/2022 Encounter Details Date Type Department Care Team (Late st Contact Info) Description 12/30/2022 Telephone [facility] MEDICINE [address] [place], [place] [phone] Name, MD Richy [address] [place], [place] [phone] Durable Medical Equipment Social History Tobacco Use [...] to be order. Please contact pt at [phone] documented in this encounter Plan of Treatment Upcoming Encounters Date Type Department Care Team (Late st Contact Info) Description 10/30/2025 10:00 AM EST Procedure Visit [facility] MEDICINE [address] [place], [place] [phone] Renu Hadley MD [address] [place], [place] [phone] documented as of this encounter Visit Diagnoses Not on filedocumented in this encounter Care Teams Bonding Supervisor Relationship Specialty Start Date End Date Renu Hadley MD [address] [place], [place] [phone] PCP - General Internal Medicine 07/04/24 Bg Heck RN [address] [place] [address] Registered Nurse Family Medicine 07/02/25 07/06/25 Bg Heck RN [address] [place] [address] Registered Nurse Family Medicine 07/24/25 Argentina Menon 07/24/25 documented as of this encounter
--- OUTSIDE RECORDS SUMMARY | 2025-09-14 10:57 | XMS_ITS ---
Author Organization [employer] Address [address] [place] [address] 7 [place] [address] Care Team Providers Care Cigarette Machine Operator Name Role Phone Renu Hadley MD Primary Care Provider + Bg Heck RN Unavailable [phone] Argentina Menon Unavailable CM Complex Status:Enrolled (Active) Start date:07/24/2025 Enrollment date:08/24/2025 Enrollment reason:ADT Feed Overview ED- Pt went to [facility] ED on 07/23/25. . Case Team Name Relationship Phone Bg Heck RN(Responsible Staff) [place] [facility] [place] [phone] Continued Care and Services Coordination
--- OUTSIDE RECORDS SUMMARY | 2025-09-14 10:57 | XMS_ITS | Encounter Summary ---
Author Organization [employer] Address [address] [place] [address] 7t [place] [address] Care Team Providers Care Clinic Clerk Name Role Phone Renu Hadley MD Primary Care Provider + Bg Heck RN Unavailable [phone] Bg Heck RN Unavailable [phone] Argentina Menon Unavailable Reason for Visit * Reason Onset Date Comments Medication Question 01/13/2023 Encounter Details Date Type Department Care Team (Late st Contact Info) Description 01/13/2023 Telephone [facility] MEDICINE [address] [place] [address] Name, MD Richy [address] [place], [place] [phone] Medication Question Social History Tobacco Use Types [...] Doxepin 50 mg. Please contact pt at [phone] documented in this encounter Plan of Treatment Upcoming Encounters Date Type Department Care Team ([facility] st Contact Info) Description 10/30/2025 10:00 AM EST Procedure Visit [facility] MEDICINE [address] [place], [place] [phone] Renu Hadley MD [address] [place], [place] [phone] documented as of this encounter Visit Diagnoses Not on filedocumented in this encounter Care Teams Clinic Clerk Relationship Specialty Start Date End Date Renu Hadley MD [address] [place] [address] [id number] PCP - General Internal Medicine 07/04/24 Bg Heck RN [address] [place] [address] Registered Nurse Family Medicine 07/02/25 07/06/25 Bg Heck RN [address] [place] [address] Registered Nurse Family Medicine 07/24/25 Argentina Menon 07/24/25 documented as of this encounter
--- OUTSIDE RECORDS SUMMARY | 2025-09-14 10:57 | XMS_ITS | Encounter Summary ---
Author Organization [employer] Address [address] [place] [address] 7t [place] [address] Care Team Providers Care Slag Mixer Name Role Phone Renu Hadley MD Primary Care Provider + Bg Heck RN Unavailable [phone] Bg Heck RN Unavailable [phone] Argentina Menon Unavailable Encounter Details Date Type Department Care Team (Late st Contact Info) Description 02/15/2023 Orders Only [facility] [address] [place] [address] Kanika Monson LPN Social History Tobacco Use [...] Description 10/30/2025 10:00 AM EST Procedure Visit [facility] MEDICINE [address] [place], [place] [phone] Renu Hadley MD [address] [place], [place] [phone] documented as of this encounter Visit Diagnoses Not on filedocumented in this encounter Care Teams Slag Mixer Relationship Specialty Start Date End Date Renu Hadley MD [address] [place] [address] PCP - General Internal Medicine 07/04/24 Bg Heck RN [address] [place] [address] Registered Nurse Family Medicine 07/02/25 07/06/25 Bg Heck RN [address] [place] [address] Registered Nurse Family Medicine 07/24/25 Argentina Menon 07/24/25 documented as of this encounter
--- OUTSIDE RECORDS SUMMARY | 2025-09-14 10:57 | XMS_ITS | Encounter Summary ---
Author Organization [employer] Address [address] [place] [address] 7 [place] [address] Care Team Providers Care Marketing Financial Analyst Name Role Phone Renu Hadley MD Primary Care Provider + Bg Heck RN Unavailable [phone] Bg Heck RN Unavailable [phone] Argentina Menon Unavailable Reason for Visit * Reason Onset Date Comments triage 02/26/2023 Encounter Details Date Type Department Care Team (Late st Contact Info) Description 02/26/2023 Telephone [facility] MEDICINE [address] [place], [place] [phone] Name, MD Richy [address] [place], [place] [phone] triage Social History Tobacco Use Types Packs/Day [...] 02/26/2023 12:38 PM EDT Triage call with [employer] [id number] Pt was called more than 2x. Each [...] 10/30/2025 10:00 AM EST Procedure Visit [facility] MEDICINE [address] [place] [address] Renu Hadley MD [address] [place] [address] documented as of this encounter Visit Diagnoses Not on filedocumented in this encounter Care Teams Marketing Financial Analyst Relationship Specialty Start Date End Date Renu Hadley MD [address] [place] [address] PCP - General Internal Medicine 07/04/24 Bg Heck RN [address] [place] [address] Registered Nurse Family Medicine 07/02/25 07/06/25 Bg Heck RN [address] [place] [address] Registered Nurse Family Medicine 07/24/25 Argentina Menon 07/24/25 documented as of this encounter
--- OUTSIDE RECORDS SUMMARY | 2025-09-14 10:57 | XMS_ITS | Encounter Summary ---
Author Organization [employer] Address [address] [place] [address] 7t [place] [address] Care Team Providers Care Office Messenger Helper Name Role Phone Renu Hadley MD Primary Care Provider + Bg Heck RN Unavailable [phone] Bg Heck RN Unavailable [phone] Argentina Menon Unavailable Reason for Visit * Reason Onset Date Comments triage 02/01/2023 Encounter Details Date Type Department Care Team (Late st Contact Info) Description 02/01/2023 Telephone [facility] MEDICINE [address] [place], [place] [phone] Name, MD Richy [address] [place], [place] [phone] triage Social History Tobacco Use Types Packs/Day [...] No answer LVM to return call to [facility] triage line. * Telephone [...] Description 10/30/2025 10:00 AM EST Procedure Visit [facility] MEDICINE [address] [place] [address] Renu Hadley MD [address] [place] [address] documented as of this encounter Visit Diagnoses Not on filedocumented in this encounter Care Teams Office Messenger Helper Relationship Specialty Start Date End Date Renu Hadley MD [address] [place] [address] PCP - General Internal Medicine 07/04/24 Bg Heck RN [address] [place] [address] Registered Nurse Family Medicine 07/02/25 07/06/25 Bg Heck RN [address] [place] [address] Registered Nurse Family Medicine 07/24/25 Argentina Menon 07/24/25 documented as of this encounter
--- OUTSIDE RECORDS SUMMARY | 2025-09-14 10:57 | XMS_ITS | Encounter Summary ---
Author Organization [employer] [facility] Address [address] [place] [address] 7 [place] [address] Care Team Providers Care Assistant Director Of Public Works Name Role Phone Renu Hadley MD Primary Care Provider + Bg Heck RN Unavailable [phone] Bg Heck RN Unavailable [phone] Argentina Menon Unavailable Encounter Details Date Type Department Care Team (Late Contact Info) Description 11/17/2022 Orders Only [facility] MEDICINE [address] [place] [address] Kaylynn Membreno LPN Social History Tobacco Use [...] Description 10/30/2025 10:00 AM EST Procedure Visit [facility] MEDICINE [address] [place] [address] Renu Hadley MD [address] [place] [address] documented as of this encounter Visit Diagnoses Not on filedocumented in this encounter Care Teams Assistant Director Of Public Works Relationship Specialty Start Date End Date Renu Hadley MD [address] [place] [address], [place] [address] PCP - General Internal Medicine 07/04/24 Bg Heck, RN [address] [place] [address] Registered Nurse Family Medicine 07/02/25 07/06/25 Bg Heck RN [address] [place] [address] Registered Nurse Family Medicine 07/24/25 Argentina Menon 07/24/25 documented as of this encounter
[2025-09-14 13:29] LABS: Alanine Aminotransferase 33 U/L (0-31); Albumin Level 4.9 g/dL (3.5-5.0); Alkaline Phosphatase 97 U/L (39-117); Anion Gap 9 (12-20); Aspartate Amino Transferase 20 U/L (5-31); Blood Urea Nitrogen 9 mg/dL (9-16); Calcium 9.1 mg/dL (8.4-10.2); Carbon Dioxide 29 mmol/L (22-29); Chloride 108 mmol/L (96-108); Cholesterol 209 mg/dL (<200); Estimated Glomerular Filt Rate > 60; HDL Cholesterol 39 mg/dL (>40); Potassium 4.0 mmol/L (3.3-5.1); Sodium 142 mmol/L (135-145); Total Protein 7.3 g/dL (6.5-8.0); Triglycerides 286 mg/dL (<150)
[2025-09-14 19:18] LABS: Reflex LDLD? No
[2025-09-15 08:26] LABS: Syphilis Screen Nonreactive (Nonreactive)
[2025-09-15 08:31] LABS: HIV Num 1 0.06 S/CO (0.00-0.99)
[2025-09-17 09:03] LABS: TS Negative Control Passed; TS Panel A 0; TS Panel B 0; TS Positive Control Passed; TSpotTB Negative (Negative)
== END 2025-09-14 10:19 | disposition home or self-care (01) ==
LOC: HO.HHCL 10:18
PROVIDERS: PCP Internal Medicine; Visit Provider Internal Medicine
DX: Z00.00 Encounter for general adult medical examination without abnormal findings (principal); Z01.84 Encounter for antibody response examination; Z11.1 Encounter for screening for respiratory tuberculosis; Z11.3 Encounter for screening for infections with a predominantly sexual mode of transmission; E66.811 Obesity, class 1; Z68.32 Body mass index [BMI] 32.0-32.9, adult
CPT/HCPCS: 36415; 80053; 80061; 84443; 86481; 86780; 87389